=== PATIENT | male | born 1950 | race Caucasian/White ===

== ENCOUNTER 2018-07-27 14:21 | Emergency (ER) | payer OTHER ==
[2018-07-27 14:36] VITALS: PULSE 81; RESP 16; TEMP 98.4
[2018-07-27] MEDS ORDERED: cefTRIAXone 1,000 MG VIAL (IM USE) IM STA (14:52)
[2018-07-27] MEDS ORDERED: DIPH,PERTUS(ACELL)TETVAC-LF 0.5 ML VIAL IM ONE (14:54)
--- NOTE | 2018-07-27 14:56 | ED ---
General Adult HPI - General Chief complaint: Extremity Injury, Lower Stated complaint: toothpick stuck lt foot Time Seen by Provider: 07/27/18 14:38 Source: patient, RN notes reviewed, old records reviewed Mode of arrival: ambulatory Limitations: no limitations - History of Present Illness Initial comments: 68-year-old male patient past medical history of hyperlipidemia, hypertension presents to ED with puncture wound to left foot. This occurred on . Patient was reportedly walking on carpet when he walked into a toothpick which p unctured him between his first and second toe on his left foot in the webbing. Patient did remove the toothpick however the toothpick was not fully intact. It is unknown per patient if toothpick was initially broken. Patient now has an area of erythema between his first and second toe on his left foot is approximately 2 x 2 inches, this is blanchable. Patient is not diabetic. Patient denies fevers or chills, nausea vomiting or diarrhea. Systemic: Pt denies fatigue, myalgia, fever/chills, rash. Pt denies weakness, night sweats, weight loss. Neuro: Pt denies headache, visual disturbances, syncope or pre-syncope. HEENT: Pt denies ocular discharge or irritation, otalgia, rhinorrhea, pharyngitis or notable lymphadenopathy. Cardiopulmonary: Pt denies chest pain, SOB, heart palpitations, dyspnea on exertion. Abdominal/GI: Pt denies abdominal pain, n/v/d. : Pt denies dysuria, burning w/ urination, frequency/urgency. Denies new onset urinary or bowel incontinence. MSK: Pt denies myalgia, loss of strength or function in extremities. Neuro: Pt denies new onset weakness, paresthesias. - Related Data Home Medications Medication Instructions Recorded Confirmed Cyclobenzaprine [Flexeril] 10 mg PO HS 04/25/15 07/27/18 Gabapentin 600 mg PO HS 04/25/15 07/27/18 Losartan/Hydrochlorothiazide 1 each PO DAILY 04/25/15 07/27/18 [Losartan-Hctz 100-25 mg Tab] Meloxicam [Mobic] 7.5 mg PO BID 04/25/15 07/27/18 Metoprolol Succinate [Toprol XL] 100 mg PO DAILY 02/02/16 05/06/19 Simvastatin [Zocor] 20 mg PO HS 04/25/15 07/27/18 Tamsulosin HCl [Flomax] 0.8 mg PO DAILY 07/27/18 07/27/18 Previous Rx's Medication Instructions Recorded Cephalexin [Keflex] 500 mg PO Q6HR 10 Days #40 cap 07/27/18 Allergies Allergy/AdvReac Type Severity Reaction Status Date / Time No Known Allergies Allergy Verified 07/27/18 14:36 Review of Systems ROS Statement: Those systems with pertinent positive or pertinent negative responses have been documented in the HPI. ROS Other: All systems not noted in ROS Statement are negative. Past Medical History Past Medical History: Hyperlipidemia, Hypertension History of Any Multi-Drug Resistant Organisms: None Reported Past Surgical History: Joint Replacement, Orthopedic Surgery Additional Past Surgical History / Comment(s): left knee partial replacement, right ankle fusion Past Psychological History: No Psychological Hx Reported Smoking Status: Former smoker Past Alcohol Use History: Rare Past Drug Use History: None Reported General Exam - General Exam Comments Initial Comments: Constitutional: NAD, AOX3, Pt has pleasant affect. HEENT: NC/AT, trachea midline, neck supple, no lymphadenopathy. Posterior pharynx non erythematous, without exudates. External ears appear normal, without discharge. Mucous membranes moist. Eyes PERRLA, EOM intact. There is no scleral icterus. No pallor noted. Cardiopulmonary: RRR, no murmurs, rubs or gallops, no JVD noted. Lungs CTAB in anterior and posterior [place]. No peripheral edema. Abdominal exam: Abdomen soft and non-distended. Abdomen non-tender to palpation in all 4 quadrants. Bowel sounds active in LLQ. No hepatosplenomegaly. No ecchymosis Neuro: CN II-XII grossly intact. No nuchal rigidity. MSK: Approximately 2 x 2 inch area of erythema, blanching extending from the webbing between the first and second toe on left foot to mid foot region. No streaking. Capillary refill <2 seconds. No posterior calf tenderness bilaterally, homans sign negative bilaterally. Posterior tibialis and radial pulse +2 bilaterally. Sensation intact in upper and lower extremities. Full active ROM in upper and lower extremities, 5/5 stregnth. Limitations: no limitations Course Vital Signs 07/27/18 14:33 Temperature 98.4 F Pulse Rate 81 Respiratory 16 Rate Blood Pressure 187/85 O2 Sat by Pulse 96 Oximetry Medical Decision Making - Medical Decision Making 68-year-old male patient past medical history of hyperlipidemia, hypertension presents to ED with puncture wound to left foot. This occurred on . Patient was reportedly walking on carpet when he walked into a toothpick which punctured him between his first and second toe on his left foot in the webbing. Patient did remove the toothpick however the toothpick was not fully intact. It is unknown per patient if toothpick was initially broken. Patient now has an area of erythema between his first and second toe on his left foot is approximately 2 x 2 inches, this is blanchable. Patient is not diabetic. Patient denies fevers or chills, nausea vomiting or diarrhea. Patient vital signs stable afebrile. Physical exam displayed: Approximately 2 x 2 inch area of erythema, blanching extending from the webbing between the first and second toe on left foot to mid foot region. No streaking. Capillary refill <2 seconds. Radial pulse +2. Plain film of foot displayed mild spurring of the joint, mild to moderate diffuse subcutaneous edema. No foreign body detected. Patient understood 1 g Rocephin the ED. Patient will be treated for cellulitis. Patient discharged with Keflex. Patient will have close outpatient follow-up with primary care provider. Patient follow up with primary care provider tomorrow. Case discussed with Dr. Thomas. Disposition Clinical Impression: Cellulitis Disposition: HOME SELF-CARE Condition: Stable Instructions (If sedation given, give patient instructions): Cellulitis (ED) Additional Instructions: Patient to adhere to previously discussed treatment plan and will take medication(s) as directed. Patient to follow up with PCP in 1-2 days. Patient to return to ED if symptoms do not improve. Take antibiotics as prescribed. Follow up with primary care provider tomorrow. Return to ER immediately if symptoms worsen in any way. Prescriptions: Cephalexin [Keflex] 500 mg PO Q6HR 10 Days #40 cap Is patient prescribed a controlled substance at d/c from ED?: No Referrals: Nonstaff,Physician [Primary Care Provider] - 1-2 days [facility] [NON-STAFF] - 1-2 days
--- NOTE | 2018-07-27 15:13 | XR ---
EXAMINATION TYPE: XR foot complete LT DATE OF EXAM: 07/27/2018 CLINICAL HISTORY: Puncture injury 3 days ago with pain TECHNIQUE: Frontal, lateral, and oblique images of the left foot are obtained. COMPARISON: None FINDINGS: Osseous structures are demineralized. There is no acute fracture/dislocation evident in th e left foot. Moderate narrowing first metatarsophalangeal joint with mild spurring is present. There are small to moderate size superior and inferior calcaneal spurs. Mild/moderate diffuse subcutaneous edema is present most prominent along plantar surface. No distinct soft tissue radiodense foreign bod y identified. IMPRESSION: As above.
[2018-07-27 16:08] VITALS: BP 155/72
== END 2018-07-27 16:32 | disposition home or self-care (01) ==
LOC: EC 14:21
DX: L03.116 Cellulitis of left lower limb (principal); M77.9 Enthesopathy, unspecified; E78.5 Hyperlipidemia, unspecified; Z23 Encounter for immunization; Z96.652 Presence of left artificial knee joint; Z87.891 Personal history of nicotine dependence; Z79.1 Long term (current) use of non-steroidal anti-inflammatories (NSAID); Z79.899 Other long term (current) drug therapy; W45.8XXA Other foreign body or object entering through skin, initial encounter; Y93.01 Activity, walking, marching and hiking
CPT/HCPCS: 73630; 90715; 99284; 96372; 90471; J0696

== ENCOUNTER → 2019-04-09 | Outpatient (CLI) | payer OTHER ==
--- NOTE | 2019-04-09 12:05 | XR ---
EXAMINATION TYPE: XR knee complete RT DATE OF EXAM: 04/09/2019 COMPARISON: NONE HISTORY: Pain TECHNIQUE: Four views are submitted. FINDINGS: Vascular calcifications are noted there is a small amount of fluid in the suprapatellar bursa. Arthro leigh ann of the medial compartment knee joint and patellofemoral joint noted. Osseous structures are int act. No acute fracture seen. IMPRESSION: 1. Osteoarthritis with small suprapatellar bursal fluid collection. Correlate with MRI as clinically warranted.
== END | disposition home or self-care (01) ==
LOC: RADXRMAIN 09:33
PROVIDERS: ATTEND Physician Assistant
DX: M17.11 Unilateral primary osteoarthritis, right knee (principal)

== ENCOUNTER 2019-07-08 19:56 | Emergency (ER) | payer OTHER, MEDICARE ==
[2019-07-08 20:04] VITALS: RESP 18; TEMP 97.8
[2019-07-08 21:28] LABS: Basophils # (A) 0.1 k/uL (0-0.2); Basophils % (A) 1 %; Eosinophils # (A) 0.3 k/uL (0-0.7); Eosinophils % (A) 3 %; HCT 52.6 % (39.0-53.0); HGB 17.2 gm/dL (13.0-17.5); Lymphocytes # (A) 1.4 k/uL (1.0-4.8); Lymphocytes % (A) 13 %; MCH 30.1 pg (25.0-35.0); MCHC 32.7 g/dL (31.0-37.0); Mean Platelet Volume 9.4; Monocytes # (A) 0.8 k/uL (0-1.0); Monocytes % (A) 7 %; Neutrophils # (A) 7.9 k/uL (1.3-7.7); Neutrophils % (A) 73 %; Platelet Count 162 k/uL (150-450); RBC 5.71 m/uL (4.30-5.90); WBC 10.8 k/uL (3.8-10.6)
--- NOTE | 2019-07-08 21:28 | CT ---
EXAMINATION TYPE: CT brain wo con DATE OF EXAM: 07/08/2019 COMPARISON: None HISTORY: left side weakness CT DLP: 1099.4 mGycm Automated exposure control for dose reduction was used. There is mild cerebral cortical atrophy. There is no mass effect nor midline shift. There is no sign of intracranial hemorrhage. The calvarium is intact. There is no evidence of cerebral edema. Skull ba se is intact. IMPRESSION: Minimal cerebral atrophy. No acute intracranial abnormality.
--- NOTE | 2019-07-08 21:33 | XR ---
EXAMINATION TYPE: XR chest 2V DATE OF EXAM: 07/08/2019 COMPARISON: 01/21/2014 HISTORY: Short of breath for one year. Altered mental status. TECHNIQUE: 2 views FINDINGS: There is elevated right diaphragm. Thoracic aorta is atheromatous. There is no heart failur e. There is slight coarsening of the interstitial markings. There is spurring in the thoracic spine. IMPRESSION: Chronic elevated right diaphragm is worse than last exam and could relate to paralysis. M ild pulmonary fibrotic changes. No acute lung disease.
[2019-07-08 21:39] LABS: INR 0.9 (<1.2); Partial Thromboplastin Time 24.4 sec (22.0-30.0); Prothrombin Time 9.8 sec (9.0-12.0)
[2019-07-08 21:45] LABS: Potassium 4.6 mmol/L (3.5-5.1)
[2019-07-08 21:46] LABS: ALT 49 U/L (4-49); AST 49 U/L (17-59); African American GFR (CKD) >90 (>60 ml/min/1.73 sqM); Albumin 4.5 g/dL (3.5-5.0); Alkaline Phosphatase 140 U/L (38-126); Anion Gap 8 mmol/L; Blood Urea Nitrogen 29 mg/dL (9-20); Calcium 9.5 mg/dL (8.4-10.2); Carbon Dioxide 24 mmol/L (22-30); Chloride 104 mmol/L (98-107); Glucose 99 mg/dL (74-99); Non-African American GFR(CKD) >90 (>60 ml/min/1.73 sqM); Sodium 136 mmol/L (137-145); Total Bilirubin 0.5 mg/dL (0.2-1.3); Total Protein 7.7 g/dL (6.3-8.2)
--- NOTE | 2019-07-08 22:40 | ED ---
General Adult HPI - General Chief complaint: Neuro Symptoms/Deficit Stated complaint: L Side numbness Source: patient Mode of arrival: ambulatory Limitations: no limitations - History of Present Illness Initial comments: The patient is a 69-year-old male with past history of hypertension presents emergency Department with reported issues with his blood pressure and tingling to left side of his face. The patient reports he was recently placed on new medication for his elevated blood pressure. States he's been taking for the past several days however has felt presyncopal. He has been taking his blood pressures and noted that they have been lower. Last blood pressure was reported to be 100/60. He also has been having paresthesias to the left side of his face. Denies any headaches or visual changes. No facial droop. No weakness, numbness or tingling in his extremities. No history of stroke. Denies fevers or chills. He denies chest pain. No ripping or tearing sensation to his back. Denies any shortness of breath. There are no alleviating, precipitating or modifying factors - Related Data Home Medications Medication Instructions Recorded Confirmed Gabapentin 600 mg PO BID 04/25/15 07/08/19 Simvastatin [Zocor] 20 mg PO HS 04/25/15 07/08/19 Tamsulosin HCl [Flomax] 0.4 mg PO DAILY 07/27/18 07/08/19 Cholecalciferol [Vitamin D3 (25 1,000 unit PO DAILY 07/08/19 07/08/19 Mcg = 1000 Iu)] Hydrochlorothiazide 12.5 mg PO DAILY 07/08/19 07/08/19 Losartan Potassium 100 mg PO DAILY 07/08/19 07/08/19 Meloxicam 15 mg PO DAILY 07/08/19 07/08/19 Sertraline [Zoloft] 50 mg PO DAILY 07/08/19 07/08/19 Allergies Allergy/AdvReac Type Severity Reaction Status Date / Time No Known Allergies Allergy Verified 07/08/19 21:09 Review of Systems ROS Statement: Those systems with pertinent positive or pertinent negative responses have been documented in the HPI. ROS Other: All systems not noted in ROS Statement are negative. Past Medical History Past Medical History: Hyperlipidemia, Hypertension History of Any Multi-Drug Resistant Organisms: None Reported Past Surgical History: Joint Replacement, Orthopedic Surgery Additional Past Surgical History / Comment(s): left knee partial replacement, right ankle fusion Past Psychological History: No Psychological Hx Reported Smoking Status: Former smoker Past Alcohol Use History: Rare Past Drug Use History: None Reported General Exam Limitations: no limitations Course Vital Signs 07/08/19 07/08/19 07/08/19 19:58 21:52 21:53 Temperature 97.8 F Pulse Rate 73 Pulse Rate [ 66 72 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 Rate of 70. MI interval 236. QRS 106. QTC of 440. Baseline artifact and V6. No acute ST segment elevations Medical Decision Making - Medical Decision Making Upon arrival the patient was placed into room 7. A thorough history and physical exam is performed. Laboratory studies were conducted. 12-lead EKG was performed. The patient does have orthostatic vital signs obtained and it does demonstrate that he is orthostatic positive. Blood pressure drops from 180/98- 158/93 upon standing. Laboratory studies are unremarkable. Chest x-ray demonstrates chronic elevation of the right diaphragm. CT of the brain demonstrates minimal cerebral atrophy. I discussed diagnosis, differential and treatment options. The patient does prefer discharged home at this time for his orthostatic hypotension because of the Covid pandemic. Inform him that it is very important that he call his primary care physician in regards to his orthostatic hypotension. I also gave him felt information for the [facility]. I do think he needs further testing to include an echo and possible tilt test. He should stop taking his hydrochlorothiazide until this is further evaluated. Return to the emergency room for any new or worsening symptoms. The patient did agree to this. He was discharged home stable condition - Lab Data Result diagrams: 07/08/19 21:20 07/08/19 21:20 Lab Results 07/08/19 07/08/19 07/08/19 Range/Units 21:20 21:20 21:20 WBC 10.8 H (3.8-10.6) k/uL RBC 5.71 (4.30-5.90) m/uL Hgb 17.2 (13.0-17.5) gm/dL Hct 52.6 (39.0-53.0) % MCV 92.0 (80.0-100.0) fL MCH 30.1 (25.0-35.0) pg MCHC 32.7 (31.0-37.0) g/dL RDW 14.0 (11.5-15.5) % Plt Count 162 (150-450) k/uL Neutrophils % 73 % Lymphocytes % 13 % Monocytes % 7 % Eosinophils % 3 % Basophils % 1 % Neutrophils # 7.9 H (1.3-7.7) k/uL Lymphocytes # 1.4 (1.0-4.8) k/uL Monocytes # 0.8 (0-1.0) k/uL Eosinophils # 0.3 (0-0.7) k/uL Basophils # 0.1 (0-0.2) k/uL PT 9.8 (9.0-12.0) sec INR 0.9 (<1.2) APTT 24.4 (22.0-30.0) sec Sodium 136 L (137-145) mmol/L Potassium 4.6 (3.5-5.1) mmol/L Chloride 104 (98-107) mmol/L Carbon Dioxide 24 (22-30) mmol/L Anion Gap 8 mmol/L BUN 29 H (9-20) mg/dL Creatinine 0.74 (0.66-1.25) mg/dL Est GFR (CKD-EPI)AfAm >90 (>60 ml/min/1.73 sqM) Est GFR (CKD-EPI)NonAf >90 (>60 ml/min/1.73 sqM) Glucose 99 (74-99) mg/dL Calcium 9.5 (8.4-10.2) mg/dL Total Bilirubin 0.5 (0.2-1.3) mg/dL AST 49 (17-59) U/L ALT 49 (4-49) U/L Alkaline Phosphatase 140 H (38-126) U/L Troponin I (0.000-0.034) ng/mL Total Protein 7.7 (6.3-8.2) g/dL Albumin 4.5 (3.5-5.0) g/dL 07/08/19 Range/Units 21:20 WBC (3.8-10.6) k/uL RBC (4.30-5.90) m/uL Hgb (13.0-17.5) gm/dL Hct (39.0-53.0) % MCV (80.0-100.0) fL MCH (25.0-35.0) pg MCHC (31.0-37.0) g/dL RDW (11.5-15.5) % Plt Count (150-450) k/uL Neutrophils % % Lymphocytes % % Monocytes % % Eosinophils % % Basophils % % Neutrophils # (1.3-7.7) k/uL Lymphocytes # (1.0-4.8) k/uL Monocytes # (0-1.0) k/uL Eosinophils # (0-0.7) k/uL Basophils # (0-0.2) k/uL PT (9.0-12.0) sec INR (<1.2) APTT (22.0-30.0) sec Sodium (137-145) mmol/L Potassium (3.5-5.1) mmol/L Chloride (98-107) mmol/L Carbon Dioxide (22-30) mmol/L Anion Gap mmol/L BUN (9-20) mg/dL Creatinine (0.66-1.25) mg/dL Est GFR (CKD-EPI)AfAm (>60 ml/min/1.73 sqM) Est GFR (CKD-EPI)NonAf (>60 ml/min/1.73 sqM) Glucose (74-99) mg/dL Calcium (8.4-10.2) mg/dL Total Bilirubin (0.2-1.3) mg/dL AST (17-59) U/L ALT (4-49) U/L Alkaline Phosphatase (38-126) U/L Troponin I <0.012 (0.000-0.034) ng/mL Total Protein (6.3-8.2) g/dL Albumin (3.5-5.0) g/dL Disposition Clinical Impression: Paresthesias, Orthostatic hypotension, Essential hypertension Disposition: HOME SELF-CARE Condition: Stable Instructions (If sedation given, give patient instructions): Hypertension (ED) Additional Instructions: Please follow-up with your primary care physician in regards to your orthostatic hypotension (low blood pressure when standing). I do recommend that you see a export traffic department manager. Hold off on your hydrochlorothiazide at this time. You need further testing in regards to your blood pressure to include an echo. Return to the emergency department for any new or worsening symptoms Is patient prescribed a controlled substance at d/c from ED?: No Referrals: Nonstaff,Physician [Primary Care Provider] - 1-2 days [facility] [Provider Group] - 1-2 days Time of Disposition: 22:38
[2019-07-08 23:26] VITALS: BP 149/89; PULSE 67
== END 2019-07-08 22:55 | disposition home or self-care (01) ==
LOC: EC 19:56
DX: I10 Essential (primary) hypertension (principal); I95.1 Orthostatic hypotension; E78.5 Hyperlipidemia, unspecified; Z79.1 Long term (current) use of non-steroidal anti-inflammatories (NSAID); Z79.899 Other long term (current) drug therapy; Z87.891 Personal history of nicotine dependence; Z96.652 Presence of left artificial knee joint
CPT/HCPCS: 36415; 70450; 71046; 80053; 84484; 85025; 85610; 85730; 93005; 99284

== ENCOUNTER 2020-01-19 06:40 | Inpatient (IN) | payer OTHER, MEDICARE ==
--- NOTE | 2020-01-19 07:12 | ED ---
Back Pain HPI - General Chief Complaint: Back Pain/Injury Stated Complaint: urination/bowel issues Time Seen by Provider: 01/19/20 07:01 Source: patient Limitations: no limitations - History of Present Illness Initial Comments: 69 yo male presenting for cc low back pain bowel changes. Patient states that 2 weeks ago she was out walking when he lost bowel control and had a formed stool. He states this is very unusual. He states he does struggle with chronic back pain denies any recent falls or trauma. Patient states that he had control of his bowels in between then and when he was hunting last week when he had a second episode of loss of bowel control again a formed stool. Patient states that he has had change in urination where he feels like he has to brush to the b athroom and he cannot stop urinating. He denies urinary incontinence or inability to urinate. Patient denies weakness of the legs or inability to ambulate he denies known fevers however is febrile on arrival. Patient states he has has a slight cough and congestion for the past few days. Patient denies additional complaints, he is very pleasant. Walked back to exam room. - Related Data Home Medications Medication Instructions Recorded Confirmed Gabapentin 600 mg PO BID 04/25/15 01/19/20 Simvastatin [Zocor] 20 mg PO HS 04/25/15 01/19/20 Tamsulosin HCl [Flomax] 0.4 mg PO HS 07/27/18 01/19/20 Cholecalciferol [Vitamin D3 (25 1,000 unit PO DAILY 07/08/19 01/19/20 Mcg = 1000 Iu)] Losartan Potassium 100 mg PO DAILY 07/08/19 01/19/20 Meloxicam 15 mg PO DAILY 07/08/19 01/19/20 Sertraline [Zoloft] 50 mg PO DAILY 07/08/19 01/19/20 Allergies Allergy/AdvReac Type Severity Reaction Status Date / Time No Known Allergies Allergy Verified 01/19/20 08:57 Review of Systems ROS Statement: Those systems with pertinent positive or pertinent negative responses have been documented in the HPI. ROS Other: All systems not noted in ROS Statement are negative. Past Medical History Past Medical History: Hyperlipidemia, Hypertension History of Any Multi-Drug Resistant Organisms: None Reported Past Surgical History: Joint Replacement, Orthopedic Surgery Additional Past Surgical History / Comment(s): left knee partial replacement, right ankle fusion Past Psychological History: No Psychological Hx Reported Smoking Status: Never smoker Past Alcohol Use History: Rare Past Drug Use History: None Reported General Exam - General Exam Comments Initial Comments: General: The patient is awake and alert, in no distress Eye: Pupils are equal, round and reactive to light, extra-ocular movements are intact. No nystagmus. There is normal conjunctiva bilaterally. No signs of icterus. Ears, nose, mouth and throat: There are moist mucous membranes and no oral lesions. Neck: The neck is supple, there is no tenderness or JVD. Cardiovascular: There is a regular rate and rhythm. No murmur, rub or gallop is appreciated. Respiratory: Lungs are clear to auscultation, respirations are non-labored, breath sounds are equal. No wheezes, stridor, rales, or rhonchi. Gastrointestinal: Soft, non-distended, non-tender abdomen without masses or organomegaly noted. There is no rebound or guarding present. : normal rectal tone Musculoskeletal: Normal ROM, no tenderness. Strength 5/5 of the LE b/l. Sensation intact equal comparison bilaterally of the lower extremities including the saddle region. There is no myoclonus or fasciculations +2 out of 5 due to reflux of the patellar as well as Achilles. Radial pulses equal bilaterally 2+. Neurological: A&O x 3. CN II-XII intact, There are no obvious motor or sensory deficits. Coordination appears grossly intact. Speech is normal. Skin: Skin is warm and dry and no rashes or lesions are noted. Psychiatric: Cooperative, appropriate mood & affect, normal judgment. Limitations: no limitations Course Vital Signs 01/19/20 01/19/20 01/19/20 06:49 08:45 09:00 Temperature 100.9 F H 98.9 F Pulse Rate 97 81 Respiratory 18 18 Rate Blood Pressure 131/76 142/86 O2 Sat by Pulse 95 99 Oximetry Medical Decision Making - Medical Decision Making Labs stable CXR clear. URI symptoms, low grade fever. CC incontinence of bowel. Hx back pain. Normal rectal tone on exam. Patient CT degenerative/chronic chane s. MRI scheduled at 915 to r/o cauda equina. Patient evaluated by attending. He spoke with orthopedic spine who is agreeable to admission to medicine with orthopedic spine consultation. patient agreeable to admission. - Lab Data Result diagrams: 01/19/20 07:07 01/19/20 07:07 Lab Results 01/19/20 01/19/20 01/19/20 Range/Units 07:07 07:07 07:07 WBC 9.2 (3.8-10.6) k/uL RBC 5.79 (4.30-5.90) m/uL Hgb 17.7 H (13.0-17.5) gm/dL Hct 54.2 H (39.0-53.0) % MCV 93.7 (80.0-100.0) fL MCH 30.5 (25.0-35.0) pg MCHC 32.6 (31.0-37.0) g/dL RDW 13.7 (11.5-15.5) % Plt Count 161 (150-450) k/uL Neutrophils % 80 % Lymphocytes % 9 % Monocytes % 7 % Eosinophils % 1 % Basophils % 1 % Neutrophils # 7.4 (1.3-7.7) k/uL Lymphocytes # 0.9 L (1.0-4.8) k/uL Monocytes # 0.6 (0-1.0) k/uL Eosinophils # 0.1 (0-0.7) k/uL Basophils # 0.1 (0-0.2) k/uL Sodium 135 L (137-145) mmol/L Potassium 4.6 (3.5-5.1) mmol/L Chloride 104 (98-107) mmol/L Carbon Dioxide 24 (22-30) mmol/L Anion Gap 7 mmol/L BUN 17 (9-20) mg/dL Creatinine 0.69 (0.66-1.25) mg/dL Est GFR (CKD-EPI)AfAm >90 (>60 ml/min/1.73 sqM) Est GFR (CKD-EPI)NonAf >90 (>60 ml/min/1.73 sqM) Glucose 99 (74-99) mg/dL Plasma Lactic Acid Bart 1.1 (0.7-2.0) mmol/L Calcium 8.9 (8.4-10.2) mg/dL Total Bilirubin 1.2 (0.2-1.3) mg/dL AST 44 (17-59) U/L ALT 44 (4-49) U/L Alkaline Phosphatase 93 (38-126) U/L Total Protein 7.0 (6.3-8.2) g/dL Albumin 4.0 (3.5-5.0) g/dL Urine Color Urine Appearance (Clear) Urine pH (5.0-8.0) Ur Specific [place] (1.001-1.035) Urine Protein (Negative) Urine Glucose (UA) (Negative) Urine Ketones (Negative) Urine Blood (Negative) Urine Nitrite (Negative) Urine Bilirubin (Negative) Urine Urobilinogen (<2.0) mg/dL Ur Leukocyte Esterase (Negative) 01/19/20 Range/Units 07:20 WBC (3.8-10.6) k/uL RBC (4.30-5.90) m/uL Hgb (13.0-17.5) gm/dL Hct (39.0-53.0) % MCV (80.0-100.0) fL MCH (25.0-35.0) pg MCHC (31.0-37.0) g/dL RDW (11.5-15.5) % Plt Count (150-450) k/uL Neutrophils % % Lymphocytes % % Monocytes % % Eosinophils % % Basophils % % Neutrophils # (1.3-7.7) k/uL Lymphocytes # (1.0-4.8) k/uL Monocytes # (0-1.0) k/uL Eosinophils # (0-0.7) k/uL Basophils # (0-0.2) k/uL Sodium (137-145) mmol/L Potassium (3.5-5.1) mmol/L Chloride (98-107) mmol/L Carbon Dioxide (22-30) mmol/L Anion Gap mmol/L BUN (9-20) mg/dL Creatinine (0.66-1.25) mg/dL Est GFR (CKD-EPI)AfAm (>60 ml/min/1.73 sqM) Est GFR (CKD-EPI)NonAf (>60 ml/min/1.73 sqM) Glucose (74-99) mg/dL Plasma Lactic Acid Bart (0.7-2.0) mmol/L Calcium (8.4-10.2) mg/dL Total Bilirubin (0.2-1.3) mg/dL AST (17-59) U/L ALT (4-49) U/L Alkaline Phosphatase (38-126) U/L Total Protein (6.3-8.2) g/dL Albumin (3.5-5.0) g/dL Urine Color Yellow Urine Appearance Clear (Clear) Urine pH 6.5 (5.0-8.0) Ur Specific [place] 1.024 (1.001-1.035) Urine Protein Trace H (Negative) Urine Glucose (UA) Negative (Negative) Urine Ketones Negative (Negative) Urine Blood Negative (Negative) Urine Nitrite Negative (Negative) Urine Bilirubin Negative (Negative) Urine Urobilinogen <2.0 (<2.0) mg/dL Ur Leukocyte Esterase Negative (Negative) Disposition Clinical Impression: Bowel incontinence, Urinary urgency, Low back pain, Spondylisthesis Disposition: ADMITTED IP TO THIS [facility] Condition: Stable Is patient prescribed a controlled substance at d/c from ED?: No Referrals: Jeffy Paulson MD [Primary Care Provider] - 1-2 days Time of Disposition: 09:18 Decision to Admit Reason: Admit from EC Decision Date: 01/19/20 Decision Time: 09:18
[2020-01-19 07:29] LABS: Basophils # (A) 0.1 k/uL (0-0.2); Basophils % (A) 1 %; Eosinophils # (A) 0.1 k/uL (0-0.7); Eosinophils % (A) 1 %; HCT 54.2 % (39.0-53.0); HGB 17.7 gm/dL (13.0-17.5); Lymphocytes # (A) 0.9 k/uL (1.0-4.8); Lymphocytes % (A) 9 %; MCH 30.5 pg (25.0-35.0); MCHC 32.6 g/dL (31.0-37.0); MCV 93.7 fL (80.0-100.0); Mean Platelet Volume 9.7; Monocytes # (A) 0.6 k/uL (0-1.0); Monocytes % (A) 7 %; Neutrophils # (A) 7.4 k/uL (1.3-7.7); Neutrophils % (A) 80 %; Platelet Count 161 k/uL (150-450); RBC 5.79 m/uL (4.30-5.90); RDW 13.7 % (11.5-15.5); WBC 9.2 k/uL (3.8-10.6)
[2020-01-19 07:33] LABS: Appearance,Urine Clear (Clear); Bilirubin,Urine Negative (Negative); Blood,Urine Negative (Negative); Color,Urine Yellow; Glucose,Urine (UA) Negative (Negative); Ketones,Urine Negative (Negative); Leukocyte Esterase,Urine Negative (Negative); Nitrite,Urine Negative (Negative); PH, Urine 6.5 (5.0-8.0); Protein,Urine Trace (Negative); Specific Gravity,Urine 1.024 (1.001-1.035); Urobilinogen,Urine <2.0 mg/dL (<2.0)
[2020-01-19 07:41] LABS: ALT 44 U/L (4-49); AST 44 U/L (17-59); African American GFR (CKD) >90 (>60 ml/min/1.73 sqM); Alkaline Phosphatase 93 U/L (38-126); Anion Gap 7 mmol/L; Blood Urea Nitrogen 17 mg/dL (9-20); Calcium 8.9 mg/dL (8.4-10.2); Carbon Dioxide 24 mmol/L (22-30); Chloride 104 mmol/L (98-107); Glucose 99 mg/dL (74-99); Non-African American GFR(CKD) >90 (>60 ml/min/1.73 sqM); Potassium 4.6 mmol/L (3.5-5.1); Sodium 135 mmol/L (137-145); Total Bilirubin 1.2 mg/dL (0.2-1.3)
--- NOTE | 2020-01-19 08:15 | XR ---
EXAMINATION TYPE: XR chest 2V DATE OF EXAM: 01/19/2020 COMPARISON: Chest x-ray July 08, 2019 HISTORY: Congestion and fever. TECHNIQUE: Frontal and lateral views of the chest are obtained. FINDINGS: Elevated right hemidiaphragm redemonstrated. Horizontal right basilar opacity consistent w ith scarring and/or atelectasis. Background chronic parenchymal change. Left lung is clear. No pleura l effusion or pneumothorax seen bilaterally.. The cardiac silhouette size is stable and within isaiah l limits with atherosclerotic and ectatic thoracic aorta. The osseous structures remain intact. IMPRESSION: Chronic changes with right basilar linear scarring and/or atelectasis. No new suspicious focal infiltrate.
--- NOTE | 2020-01-19 08:22 | CT ---
EXAMINATION TYPE: CT lumbar spine w con DATE OF EXAM: 01/19/2020 COMPARISON: Non-. HISTORY: back pain with fever CT DLP: 1924.6 mGycm Automated exposure control for dose reduction was used. CONTRAST: CT scan of the lumbar is performed with IV Contrast, patient injected with 100 ml mL of Isovue 300. Enhanced CT of the lumbar spine was performed. Bone and soft tissue window settings are submitted as well as coronal and sagittal reconstructions. There are 5 lumbar-type vertebra assuming hypoplastic bilateral T12 ribs. There is age-indeterminate suspected old old nonhealed fracture through the left L1 transverse process coronal image 47. There i s grade 1 retrolisthesis L2 on L3 and to a greater degree L3 on L4. Vertebral body heights are mainta ined. Moderate to advanced disc space narrowing with vacuum disc phenomenon and endplate sclerosis gr eatest left anterior L2-L3 level. Advanced disc space narrowing with vacuum disc phenomenon at L3-L4 and L4-L5 levels with moderate lateral spurring. Calcified disc at T12-L1 level. Axial images at T12-L1 level show tiny central disc protrusion mildly effacing the anterior thecal sa c. Axial images at L1-L2 level show mild broad disc bulge mildly effacing the anterior thecal sac with m ild facet arthropathy bilaterally. Patent bilateral neural foramina. Axial images at L2-L3 level shows spondylolisthesis with mild/moderate broad disc bulge effacing the anterior thecal sac and moderate bilateral anterior inferior neural foraminal narrowing due to margin al spurring. Axial images at L3-L4 level show [id number] facet degenerative changes and ligament hypertrophy effacing posterolateral thecal sac. There is moderate broad-based disc bulge effacing the anterior t hecal sac. There is moderate bilateral neural foraminal narrowing noted. Axial images at the L4-L5 level show moderate to advanced facet degenerative changes bilaterally. The re is posterior spur disc complex effacing the anterior thecal sac. There is moderate left and severe right-sided neural foraminal narrowing, encroachment on right L4 nerve present sagittal image 25. Axial images at the L5-S1 level show moderate facet arthropathy. Spinal canal preserved. There is mil d to moderate left-sided inferior neural foraminal narrowing. There is moderate calcified plaque and visualized abdominal aorta extending into iliac branch vessels . Central calcifications in both kidneys suspicious for nonobstructing calculi. No concerning focal f luid collection or abscess identified. Paraspinal muscle bulk preserved. IMPRESSION: Multilevel spondylolisthesis and moderate to advanced degenerative changes as detailed ab ove. No acute findings clearly evident.
[2020-01-19] MEDS ORDERED: DEXAMETHASONE SOD PHOSPHATE 10 MG/ML 1 ML VIAL IV STA (08:25)
[2020-01-19] MEDS ORDERED: ACETAMINOPHEN TAB 325 MG TAB PO STA (08:25)
[2020-01-19] MEDS ORDERED: NALOXONE 0.4 MG/ML 1 ML VIAL IV PRN (09:16)
--- NOTE | 2020-01-19 10:24 | MR ---
EXAMINATION TYPE: MR lumbar spine wo con DATE OF EXAM: 01/19/2020 COMPARISON: None HISTORY: Bowel changes, back pain CONTRAST: 0 mL intravenous Gadavist. TECHNIQUE: Multiplanar, multisequence images of the lumbar spine were acquired. FINDINGS: Cord terminates at the T12 level L5-S1: Minimal disc bulge may have entered thecal sac contact. No AP spinal canal stenosis or neural foraminal stenosis is present. Mild facet hypertrophy is present. L4-L5: There is loss of disc height to this level. Modic type II degenerative changes are present at the endplates. Mild residual disc bulge centrally is present has mild anterior thecal sac compression . No AP spinal canal stenosis present. Facet hypertrophy with ligamentum flavum laxity is posterior l ateral thecal sac compression. Severe right foraminal stenosis with some impingement of the exiting n erve root is evident. More moderate narrowing is present at the left foramen. Correlate with right L5 radicular symptoms. L3-L4: There is a grade 1 retrolisthesis of L3 posterior L4. There is loss of disc height through thi s level. No focal disc herniation or disc uncovering is evident. Modic type II degenerative endplate changes are present. Facet hypertrophy and ligamentum flavum laxity is present. Severe bilateral fora jacinto stenosis is present. Correlate with L4 radicular symptoms. L2-L3: There is loss of disc height through this level. There is mild anterior thecal sac flattening. Facet hypertrophy and ligamentum flavum laxity is posterior lateral thecal sac compression. Mild madhavi ateral foraminal narrowing is present. Modic type I degenerative changes are present. L1-L2: No significant disc bulge or disc herniation. No spinal canal stenosis. No foraminal stenosi s. T12-L1: Small left paracentral disc bulge has mild anterior thecal sac compression. No AP spinal tammy l stenosis is present. Neural foramen are patent No spinal canal stenosis. No foraminal stenosis. IMPRESSION: 1. Grade 1 retrolisthesis of L3 posterior L4. 2. Advanced degenerative disc changes L2-3 through L4-5. 3. Severe right L4-5 foraminal stenosis. Correlate with right L5 radicular symptoms. 4. Severe bilateral foraminal stenosis L3-4, correlate with L4 radicular symptoms.
--- NOTE | 2020-01-19 13:27 | P.CNOR ---
History of Present Illness - HPI Consult date: 01/19/20 Consult reason: other (Bowel/Bladder incontinence) History of present illness: 69-year-old male presents from the [facility] [place] up and the thumb with complaints of urinary and bowel incontinence. Patient states about 2-1/2 weeks ago he noticed that this was happening. The patient notes in the morning he has a lot of back pain and then when he goes to stand he is unable to make to the bathroom in time and he urinates himself. He states that he is unable to feel this happening and it just kind of happens. 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 The patient states that previously he would go out to his pole barn which is only about 100 feet from his house and he could make it back to defecate however when he is on the field there is no oral stability go any states that it just kind of happens. He denies any lower extremity pain no radicular pain he does state back pain that he has had for a long time. He denies any perineal numbness or tingling he denies any genital numbness or tingling states that he can still feel his penis scrotum and rectum. He denies any current neck pain or issues with his neck. He denies any numbness or tingling in his upper extremities he denies any weakness. He denies fevers chills shortness of breath or chest pain. Review of Systems 14 points review of systems completed and as stated in HPI or otherwise negative. Past Medical History Past Medical History: Hyperlipidemia, Hypertension, Osteoarthritis (OA), Prostate Disorder, Sleep Apnea/CPAP/BIPAP Additional Past Medical History / Comment(s): Chronic low back and cervical pain, paralyzed R diaphram, LUNA with Cpap, benign colon polyp/diverticular disease, arthritis in multiple joints, BPH. History of Any Multi-Drug Resistant Organisms: None Reported Past Surgical History: Joint Replacement, Orthopedic Surgery, Tonsillectomy Additional Past Surgical History / Comment(s): left knee partial replacement, right ankle fusion, uvulectomy, colonoscoy/benign polypectomy Past Anesthesia/Blood Transfusion Reactions: No Reported Reaction Smoking Status: Former smoker - Past Family History Father Family Medical History: Cancer Additional Family Medical History / Comment(s): Lung cancer Mother Family Medical History: Cancer Additional Family Medical History / Comment(s): Breast cancer. Medications and Allergies Home Medications Medication Instructions Recorded Confirmed Type Gabapentin 600 mg PO BID 04/25/15 01/19/20 History Simvastatin [Zocor] 20 mg PO HS 04/25/15 01/19/20 History Tamsulosin HCl [Flomax] 0.4 mg PO HS 07/27/18 01/19/20 History Cholecalciferol [Vitamin D3 (25 1,000 unit PO DAILY 07/08/19 01/19/20 History Mcg = 1000 Iu)] Losartan Potassium 100 mg PO DAILY 07/08/19 01/19/20 History Meloxicam 15 mg PO DAILY 07/08/19 01/19/20 History Sertraline [Zoloft] 50 mg PO DAILY 07/08/19 01/19/20 History Allergies Allergy/AdvReac Type Severity Reaction Status Date / Time No Known Allergies Allergy Verified 01/19/20 08:57 Physical Examination Osteopathic Statement: *. No significant issues noted on an osteopathic structural exam other than those noted in the History and Physical/Consult. GEN: AOX3, NAD VSS Inspection: Patient has no previous wounds or scars of his lumbar spine. Skin is intact no erythema caf au lait no hair patches. Palpation: Patient has mild to no tenderness to palpation of the cervical lumbar or thoracic spine. He has no tennis to palpation over the buttock region. He has no tennis palpation of the greater trochanteric region. He is able to feel all palpation within the buttock region and has no numbness in this region. Motor: 5/5 shoulder abd/EF/EE/WF/intrinsics bilaterally 5/5 DF/PF/EHL/FHL/HF/KE/KF bilaterally Negative straight leg raise bilaterally No tensioning signs Reflexes: 2/4 DTR all upper and LE Sensation intact to light touch in C5-T1 as well as L2-S1 distribution Ta's: Negative bilaterally Clonus: None Babinski: Negative bilaterally A chaperoned rectal exam was performed. The patient has poor rectal tone however is still present. He has very poor volitional control of his rectum. Perirectal sensation janine-scrotal sensation perineal sensation is all intact to light touch. 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 Results CT x-ray and MRI of the lumbar spine and reviewed. MRI demonstrates moderate to severe stenosis of L2-3 and L3 4 with retrolisthesis at these areas. There is moderate to severe right foraminal stenosis of L4 5. There is disc desiccation from L2 to L5. L5-S1 disc is maintained. Conus is not visualized within this study. However there is no stenosis above these levels which is noted. Computed tomography scan shows spondylosis throughout the lumbar spine as well as bony stenosis at these level s. There are no fractures or dislocations noted there are no masses or lesions noted. Flexion-extension radiographs failed to demonstrate any listhesis or motion within the segments. - Labs Labs: Abnormal Lab Results - Last 24 Hours (Table) 01/19/20 01/19/20 01/19/20 Range/Units 07:07 07:07 07:20 Hgb 17.7 H (13.0-17.5) gm/dL Hct 54.2 H (39.0-53.0) % Lymphocytes # 0.9 L (1.0-4.8) k/uL Sodium 135 L (137-145) mmol/L Urine Protein Trace H (Negative) H & H 01/19/20 Range/Units 07:07 Hgb 17.7 H (13.0-17.5) gm/dL Hct 54.2 H (39.0-53.0) % Result Diagrams: 01/19/20 07:07 01/19/20 07:07 Assessment and Plan Assessment: 1. L2 3 L3 4 moderate to severe central and foraminal stenosis 2. Bowel and bladder incontinence events 3. Incomplete cauda equina syndrome suspected 4. Rule out Conus syndrome 5. Rule out urodynamic problems. Plan: 1. MRI of thoracic spine without contrast to evaluate conus area 2. Nothing by mouth at midnight 3. Urology consult for an urodynamic evaluation. 4. Risk discussion with patient for surgical intervention. 5. Plan will be a L2-3 and L3 4 decompression, possible fusion on 01/20/2020 pending thoracic spine MRI. 6. Medical optimization for surgery. Time with Patient: Greater than 30
--- NOTE | 2020-01-19 14:39 | XR ---
EXAMINATION TYPE: XR lumbar spine with bend/flex DATE OF EXAM: 01/19/2020 CLINICAL HISTORY: Spondylolisthesis TECHNIQUE: Frontal, lateral neutral/flexion/extension, and oblique images of the lumbar spine are obt ained. COMPARISON: CT lumbar spine 01/19/2020. MRI lumbar spine 01/11/2020. FINDINGS: Multilevel severe bridging osteophytosis, degenerative disc disease with disc space narrowi ng, vacuum disc phenomenon, and facet arthropathy. Vertebral body heights are normal. There is grade 1 retrolisthesis of L2 on L3 and grade 1 retrolisthesis of L3 on L4 which is unchanged with flexion a nd extension. Calcified atherosclerotic disease of the abdominal aorta. IMPRESSION: Grade 1 retrolisthesis of L2 on L3, and grade 1 retrolisthesis of L3 on L4, which is unchanged with f lexion and extension.
--- NOTE | 2020-01-19 16:56 | MR ---
EXAMINATION TYPE: MR thoracic spine wo con DATE OF EXAM: 01/19/2020 COMPARISON: None HISTORY: Weakness Multiplanar multiecho imaging of the thoracic spine was performed without contrast. FINDINGS: Thoracic vertebra have normal alignment. Disc spaces are fairly normal. There is no compression fract ure. Thoracic spinal cord shows no evidence of a mass. There is no thoracic spinal stenosis. There is no evidence of any significant thoracic disc herniation. Thoracic spinal cord appears relatively small. The posterior elements are intact. There is no evidence of paraspinal mass. There is mild anterior sp urring in the mid thoracic spine. I see no bony destructive process. IMPRESSION: Minor degenerative spurring in the thoracic spine anteriorly. No fracture. No evidence of thoracic di sc herniation. No spinal stenosis. There is evidence for some mild thoracic spinal cord atrophy.
[2020-01-19] MEDS: SODIUM CHLORIDE 0.9% 1,000 ML IV SCH ×2 (17:27→20:31)
[2020-01-19] MEDS ORDERED: MORPHINE SULFATE 2 MG/ML SYRINGE IV PRN (17:56)
--- NOTE | 2020-01-19 17:56 | P.HPIM ---
History of Present Illness H&P Date: 01/19/20 Chief Complaint: Chronic lower back pain, bladder and bowel incontinence 69-year-old male with PMH of chronic lower back pain, hypertension, dyslipidemia, depression and LUNA presents to the ED for bowel and bladder incontinence. Over the last 2 weeks patient has noticed that he is unable to hold his urine in prior to getting to the washroom. He does notice the urge to urinate. Patient also reports inability to control his bowel function as well during this time. He denies any saddle anesthesia or any numbness/weakness/tingling into the lower extremities. He reports his lower back pain is a 10 out of 10 in severity pain described as sharp and stabbing in nature. Pain is nonradiating. Patient otherwise has no complaints. He denies any headache, lower extremity edema, nausea or vomiting, fever or chills, cough, chest pain, shortness of breath, palpitations, changes in appetite or weight. He denies any dizziness. In the ED his vital signs are stable except for slightly elevated BP with SBP in the 140s. CBC showed hemoglobin of 17.7. CMP showed sodium 135. Urinalysis showed trace protein. Chest x-ray showed chronic changes with right basilar linear scarring and/or atelectasis. Lumbar spine CT shows multilevel spondylolisthesis and moderate to advanced DJD. MRI of the lower spine showed severe right L4 5 foraminal stenosis, bilateral foraminal stenosis at the L3 4. Patient is admitted for intractable lower back pain with concerns for cord compression with orthopedic surgery on consult. Review of Systems Pertinent positives and negatives as discussed in HPI, a complete review of systems was performed and all other systems are negative. Past Medical History Past Medical History: Hyperlipidemia, Hypertension, Osteoarthritis (OA), Prostat e Disorder, Sleep Apnea/CPAP/BIPAP Additional Past Medical History / Comment(s): Chronic low back and cervical pain, paralyzed R diaphram, LUNA with Cpap, benign colon polyp/diverticular disease, arthritis in multiple joints, BPH. History of Any Multi-Drug Resistant Organisms: None Reported Past Surgical History: Joint Replacement, Orthopedic Surgery, Tonsillectomy Additional Past Surgical History / Comment(s): left knee partial replacement, right ankle fusion, uvulectomy, colonoscoy/benign polypectomy Past Anesthesia/Blood Transfusion Reactions: No Reported Reaction Smoking Status: Former smoker - Past Family History Father Family Medical History: Cancer Additional Family Medical History / Comment(s): Lung cancer Mother Family Medical History: Cancer Additional Family Medical History / Comment(s): Breast cancer. Medications and Allergies Home Medications Medication Instructions Recorded Confirmed Type Gabapentin 600 mg PO BID 04/25/15 01/19/20 History Simvastatin [Zocor] 20 mg PO HS 04/25/15 01/19/20 History Tamsulosin HCl [Flomax] 0.4 mg PO HS 07/27/18 01/19/20 History Cholecalciferol [Vitamin D3 (25 1,000 unit PO DAILY 07/08/19 01/19/20 History Mcg = 1000 Iu)] Losartan Potassium 100 mg PO DAILY 07/08/19 01/19/20 History Meloxicam 15 mg PO DAILY 07/08/19 01/19/20 History Sertraline [Zoloft] 50 mg PO DAILY 07/08/19 01/19/20 History Allergies Allergy/AdvReac Type Severity Reaction Status Date / Time No Known Allergies Allergy Verified 01/19/20 08:57 Physical Exam Vitals: Vital Signs Temp Pulse Pulse Resp BP BP Pulse Ox 01/19/20 10:04 98.8 F 81 16 143/78 92 L 01/19/20 09:00 98.9 F 01/19/20 08:45 81 18 142/86 99 01/19/20 06:49 100.9 F H 97 18 131/76 95 Intake and Output 01/18/20 01/19/20 01/19/20 22:59 06:59 14:59 Other: Weight 126.099 kg 126.099 kg General: [non toxic], [no distress], [appears at stated age] Derm: [warm], [dry] Head: [atraumatic], [normocephalic], [symmetric] Eyes: [EOMI], [no lid lag], [anicteric sclera] Mouth: [no lip lesion], [mucus membranes moist] Cardiovascular: [S1S2 reg], [no murmur], [positive DP pulse bilateral], Lungs: [CTA bilateral], [no rhonchi, no rales] , [no accessory muscle use] Abdominal: [soft], [ nontender to palpation], [no guarding], [no appreciable organomegaly] Ext: [no gross muscle atrophy], [no edema], [no contractures] Neuro: [no focal neuro deficits] Psych: [Alert], [oriented], [appropriate affect] Results CBC & Chem 7: 01/19/20 07:07 01/19/20 07:07 Labs: Abnormal Lab Results - Last 24 Hours (Table) 01/19/20 01/19/20 01/19/20 Range/Units 07:07 07:07 07:20 Hgb 17.7 H (13.0-17.5) gm/dL Hct 54.2 H (39.0-53.0) % Lymphocytes # 0.9 L (1.0-4.8) k/uL Sodium 135 L (137-145) mmol/L Urine Protein Trace H (Negative) Thrombosis Risk Factor Assmnt - Choose All That Apply Any of the Below Risk Factors Present?: Yes Each Factor Represents 1 point: Obesity (BMI >25) Other Risk Factors: Yes Each Risk Factor Represents 2 Points: Age 61-74 years Other congenital or acquired thrombophilia - If yes, enter type in comment: No Thrombosis Risk Factor Assessment Total Risk Factor Score: 3 Thrombosis Risk Factor Assessment Level: Moderate Risk Assessment and Plan Assessment: Moderate to severe central and foraminal stenosis Chronic lower back pain with bladder and bowel incontinence related to above Hypertension Dyslipidemia Sleep apnea Depression Patient's symptoms and MRI of the lumbar spine is concerning for moderate to severe central and foraminal stenosis. Plan: Plans for decompression and possible fusion on 01/20/2020. Pain control with Tylenol, [place] or morphine as needed. Continue gabapentin. One dose of dexamethasone given. Will need PT and OT consult after surgery. Orthopedic surgery on board. Neurochecks. BP 146/80. Plans: Continue losartan. Monitor vitals, adjust medications if necessary. Plans: Continue Lipitor. Plans: BiPAP at nighttime. Plans: Continue sertraline. DVT prophylaxis: [Heparin] Discussed with: [Patient] Anticipated discharge: [2-3 days] Anticipated discharge place: [Home versus [facility]] A total of [45] minutes was spent on the care of this complex patient more than 50% of the time was spent in counseling and care coordination. Patient names his son Mikhail decision-maker if he can't make decisions for himself. Patient would like to be full code.
[2020-01-19] MEDS: TAMSULOSIN 0.4 MG CAP.ER.24H PO SCH (20:30)
[2020-01-19] MEDS: GABAPENTIN 300 MG CAP PO SCH (20:31)
[2020-01-19] MEDS: ATORVASTATIN 10 MG TAB PO SCH (20:31)
--- NOTE | 2020-01-19 22:28 | CT ---
EXAMINATION TYPE: CT pelvis wo con DATE OF EXAM: 01/19/2020 COMPARISON: None HISTORY: Urinary incontinence. CT DLP: 934.6 mGycm Automated exposure control for dose reduction was used. Images were obtained from the iliac crests to the subtrochanteric femurs without contrast. Appendix appears normal. Abdominal aorta is atheromatous. There is atherosclerotic vascular calcifica tion. Prostate is enlarged and measures 6 cm. Bladder is opacified with contrast. There is no evidenc e of a bladder mass. There is no inguinal hernia. There is no free fluid in the pelvis. There is mini mal prostate calcification. There are numerous sigmoid diverticula. There is no sign of diverticuliti s. There is no ascites. The pelvic ring is intact. The hip joints are intact. There is no sign of hip dysplasia. There is spondylotic changes in the lower lumbar spine with disc space narrowing and vacu um disc seen from L2 to L5. Impression enlarged prostate. No bladder mass seen. Sigmoid diverticulosis.
[2020-01-20 05:59] LABS: Appearance,Urine Clear (Clear); Bilirubin,Urine Negative (Negative); Blood,Urine Negative (Negative); Color,Urine Yellow; Glucose,Urine (UA) Negative (Negative); Ketones,Urine Negative (Negative); Leukocyte Esterase,Urine Negative (Negative); Nitrite,Urine Negative (Negative); Protein,Urine Trace (Negative); Urobilinogen,Urine <2.0 mg/dL (<2.0)
[2020-01-20 07:12] LABS: Basophils % (A) 0 %; Eosinophils % (A) 0 %; HGB 17.5 gm/dL (13.0-17.5); Lymphocytes # (A) 0.7 k/uL (1.0-4.8); Lymphocytes % (A) 7 %; MCH 30.1 pg (25.0-35.0); MCHC 31.7 g/dL (31.0-37.0); MCV 95.1 fL (80.0-100.0); Monocytes # (A) 0.8 k/uL (0-1.0); Monocytes % (A) 7 %; Neutrophils # (A) 9.1 k/uL (1.3-7.7); Neutrophils % (A) 85 %; Platelet Count 171 k/uL (150-450); RDW 13.7 % (11.5-15.5); WBC 10.8 k/uL (3.8-10.6)
[2020-01-20 07:22] LABS: HCT 55.2 % (39.0-53.0)
[2020-01-20 07:23] LABS: African American GFR (CKD) >90 (>60 ml/min/1.73 sqM); Anion Gap 5 mmol/L; Blood Urea Nitrogen 20 mg/dL (9-20); Calcium 8.8 mg/dL (8.4-10.2); Carbon Dioxide 25 mmol/L (22-30); Chloride 107 mmol/L (98-107); Glucose 110 mg/dL (74-99); Non-African American GFR(CKD) >90 (>60 ml/min/1.73 sqM); Potassium 4.5 mmol/L (3.5-5.1); Sodium 137 mmol/L (137-145)
[2020-01-20] MEDS: LOSARTAN 50 MG TAB PO SCH (08:03)
[2020-01-20] MEDS: GABAPENTIN 300 MG CAP PO SCH ×2 (08:03→22:09)
[2020-01-20] MEDS: SERTRALINE 50 MG TAB PO SCH (08:03)
--- NOTE | 2020-01-20 08:52 | P.PN ---
Progress Note - Text Progress Note Date: 01/20/20 Spine Surgery Risk Review Darian Angulo is a 69-year-old male presenting for evaluation of low back pain bowel urgency and bladder incontinence. It was my pleasure to have seen and examined Darian Angulo. In our visit today we have had a chance to go over subjective complaints, physical examination findings and treatments including the natural course history without intervention and various interventional options. The patients imaging demonstrates moderate to severe stenosis L2 to L4 with foraminal stenosis. On physical exam, Darian Angulo demonstrates full strength no decrease in perirectal or perianal sensation no perineal sensation decreased ho wever decreased rectal tone and bladder incontinence. I have explained to the patient that as their condition progresses it will cause further neurological deficits and eventual paralysis. Based on the patients imaging, physical exam, and the rapid progression and disabling nature of their symptoms, at this time I recommend surgery in the form or a: Laminectomy and decompression with possible fusion. I discussed the risk and benefits of this procedure at length with Darian Angulo. The patient agreed to considered pursuing the procedure abovementioned. Prior to surgery, she should follow up with her PCP (Cardio, ID, IM etc) for clearance. Questions were invited and answered, and the patient wishes to proceed as outlined below. Currently, I am recommendin. Lumbar 2 to lumbar 5 laminectomy decompression with possible fusion with laron screws and bone graft 2. Medical clearance for surgery 3. Review of surgical risks and benefits as well as an educational packet on the proposed surgical procedure. Risks: All surgical procedures come with inherent risks, including those related to positioning, anesthesia, intraoperative findings, and postoperative complications. It is important to understand that surgery does not come with any guarantee of a successful outcome as complications and adverse events are always possible. The patient was given a handout in office today discussing the surgical procedure and risks associated with the intervention, both of which were discussed with the patient. These risks include but are not limited to the following: * Experiencing same, different or even worse symptoms in back, neck, arms, or legs compared to before surgery. * Requiring further surgery or other forms of treatment presently or at some time in the future at same or other levels of the intended spine surgery. * On an extreme but fortunately relatively rare basis severe complication such as blindness, stroke, heart attack, temporary and/or permanent nerve injury, paralysis, coma, or may occur, sometimes without known explanation. * Surgical complications may include but are not limited to risk of infection, fluid accumulation in the surgical dissection site, including a seroma or hematoma, that requires additional surgery, wound drainage, bleeding, new numbness or weakness, vision changes/loss, spinal fluid leakage, non-healing and/or infected incision, headaches, difficulty or inability to swallow, hoarseness, hemopneumothorax, pneumothorax, impotence, retrograde ejaculation, vaginal dryness; injury to nerves, spinal cord, blood vessels, lymphatics or other vital organs (i.e., bowel injury, injury to the great vessels); heterotopic bone formation; complications related to the hardware such as screws, rods, cages including misplaced hardware, device failure, instrumentation at the wrong spine level, hardware fracture/breakage, or hardware loosening; vertebral failure of the spinal column above or below the newly placed hardware; retained surgical instrumentations or devices and the need for further surgery. * Medical risks of the planned spine surgery include but are not limited to generalized Infections to the whole body or local areas outside of the surgical site (sepsis), heart attack, bleeding, anaphylaxis, meningitis, seizure, epilepsy, hearing loss, burn mcclure, laceration of the head or other areas of the body, bruising, hypersensitivity of the skin, bladder over distension; allergic reaction; shoulder injury related to positioning; fat, blood and air clots to other areas of the body like heart, lungs, brain; failure of internal organs such as lungs, kidneys, liver and excessive bleeding. If blood transfusions are necessary, note that transfusions may cause intolerance reactions such as anaphylaxis or other complex reactions. * Despite best efforts, the results of spine surgery might not heal in terms of bone, soft tissues such as skin, fascia, ligaments, and joints. Additionally, in order to achieve best possible results, spine surgery may be carried out beyond the initially planned levels and involve decompression, fusion including insertion of hardware at levels other than the original intended area of surgical interest change some portions of the procedure in order to ensure the best possible outcomes. * With spine surgery and spinal fusion, there are different off label uses of instrumentation (devices, implants and hardware) as well as biological substances (bone morphogenic proteins, demineralized bone matrix) as well as using extra bone from allograft sources (i.e. cadaver bone) or autograft (iliac crest bone, ribs, or the spine itself). The patient has been given information about these practices and their inherent risks and benefits. * [facility] is an educational center that serves as a training facility for neurosurgical and orthopedic spine residents and fellows. Residents are physicians who are completing their surgical intensive training following medical school. They assist in the operating room with direct supervision of the attending surgeons. [place] are surgeons who have completed their training and eligible for board certification. They have opted for an elective year of more specialized training in their field. They assist in the operating room under the supervision of the attending surgeons. Physician assistants are medically trained surgical providers who function in the outpatient, inpatient, and operating room setting under the direct supervision of the attending surgeon. * [facility] has multiple operating rooms with single and overlapping rooms running daily. They currently function under the required guidelines as produced by the [facility] Finance Committee with regards to the overlapping rooms and will continue to comply with changes to this policy as they occur. The requirements include and are complied with as follows: (1) the critical portions of the overlapping rooms will not occur at the same time, (2) the attending physician will be physically present during the critical portions of the procedure and immediately available during the entire case, and (3) a back-up attending is designated should the primary attending not be immediately available. The patient has had a chance to review all the listed information, has been given print outs detailing this information, and has had all his/her questions answered to their satisfaction. It was my pleasure to have seen and examined Darian Angulo. In our visit today we have had a chance to go over my understanding of our patient's current condition, the natural course history without intervention and various interventional options. Questions were invited and answered, and the patient wishes to proceed as outlined above. I have seen and examined the patient for 25 minutes and we have spent more than 50% of the time in repeat and detailed counseling about the patient's condition, its natural course history with out and as much as can be predicted with surgery and re-review of various surgical treatment options. I discussed with the patient at length that he may not regain bowel and bladder function completely. He may regain completely or he may not regain at all. As always a risk of having increase symptoms after surgery and this is a possibility for him. There is also a great risk that this does nothing for his bowel or bladder incontinence. I discussed with this with him at length. He understood and was comfortable with this and still would like to proceed. In conclusion, Darian Adele and requested we proceed with the above suggested surgery and are willing to accept risks and limitations of the suggested surgery as nature of the disease process and our best attempts at treatment for the condition. Thank you again for allowing us to be part of your patient's care. Please don't hesitate to contact me if you have any further questions. Signed and authenticated by: Cesar Martinezon [facility] [address] [place] [id number]
[2020-01-20] MEDS ORDERED: ceFAZolin 3 GM in SODIUM CHLORIDE 0.9% 100 ML IVPB ONE (09:00)
[2020-01-20] MEDS: SODIUM CHLORIDE 0.9% 1,000 ML IV SCH (11:04)
[2020-01-20] MEDS ORDERED: IV FLUID CONTINUATION 1,000 ML IV ONE (13:15)
[2020-01-20] MEDS ORDERED: ONDANSETRON 4 MG/2 ML VIAL ONE (13:22)
[2020-01-20] MEDS ORDERED: ONDANSETRON 4 MG/2 ML VIAL IVP ONE ×2 (13:28→19:20)
[2020-01-20] MEDS ORDERED: TRANEXAMIC ACID 1,000 MG in SODIUM CHLORIDE 0.9% 100 ML IVPB ONE ×2 (15:00→17:37)
[2020-01-20] MEDS ORDERED: ALBUMIN HUMAN 5% (12.5gm) 250 ML BOTTLE IVPB ONE (15:20)
[2020-01-20] MEDS ORDERED: SODIUM CHLORIDE 0.9% 100 ML with ceFAZolin 3,000 MG IV ONE ×2 (15:20)
[2020-01-20] MEDS ORDERED: SODIUM CHLORIDE 0.9% IRRIG 1,000 ML BTL IRRIGATION ONE (15:20)
[2020-01-20] MEDS ORDERED: SUCCINYLCHOLINE CHLORIDE 100 MG/5 ML SYR IV ONE (15:20)
[2020-01-20] MEDS ORDERED: TRANEXAMIC ACID 1,000 MG/10 ML VIAL ONE ×2 (15:20)
[2020-01-20] MEDS ORDERED: GLYCOPYRROLATE 0.2 MG/ML 2 ML VIAL ONE (15:20)
[2020-01-20] MEDS ORDERED: fentaNYL (PF) 50 MCG/ML 2 ML AMP ONE (15:20)
[2020-01-20] MEDS ORDERED: HYDROmorphone (PF) 1 MG/ML ONE (15:20)
[2020-01-20] MEDS ORDERED: LIDOCAINE 1% INJ 10MG/ML (20 ML MDV) ONE (15:20)
[2020-01-20] MEDS ORDERED: HEPARIN SODIUM,PORCINE 10,000 UNIT/ML 1 ML VIAL ONE (15:20)
[2020-01-20] MEDS ORDERED: MIDAZOLAM 2 MG/2 ML VIAL ONE (15:20)
[2020-01-20] MEDS ORDERED: ROCURONIUM 10 MG/ML (10 ML VIAL) IV ONE (15:20)
[2020-01-20] MEDS ORDERED: ePHEDrine SULFATE/0.9% NACL/PF 50 MG/5 ML SYRINGE IV ONE (15:20)
[2020-01-20] MEDS ORDERED: PROPOFOL 10 MG/ML 20 ML VIAL IV ONE (15:20)
[2020-01-20] MEDS ORDERED: SODIUM CHLORIDE 0.9% 100 ML BAG ONE ×2 (15:20)
[2020-01-20] MEDS ORDERED: NEOSTIGMINE 1 MG/ML 10 ML VIAL ONE (15:20)
[2020-01-20] MEDS ORDERED: BUPIVACAINE (PF) 0.25% 30 ML VIAL SQ ONE (16:03)
[2020-01-20] MEDS ORDERED: GELATIN SPONGE,ABSORBABLE 1 GM POWDER TOPICAL ONE (16:03)
[2020-01-20] MEDS ORDERED: LACTATED RINGERS 1,000 ML IV ONE ×3 (16:03→18:27)
[2020-01-20] MEDS ORDERED: LIDOCAINE 1%-EPI 1:100,000 20 ML VIAL SQ ONE (16:03)
[2020-01-20] MEDS ORDERED: THROMBIN (BOVINE) 5,000 UNIT VIAL TOPICAL ONE (16:03)
[2020-01-20 18:53] LABS: Prothrombin Time 10.2 sec (9.0-12.0)
--- NOTE | 2020-01-20 19:03 | P.PN ---
Subjective Progress Note Date: 01/20/20 Attempted to see patient multiple times. Patient currently in the OR. Objective - Vital Signs Vital signs: Vital Signs Temp 98.2 F 01/20/20 13:18 Pulse 62 01/20/20 13:18 Resp 18 01/20/20 13:18 BP 177/87 01/20/20 13:18 Pulse Ox 95 01/20/20 13:18 Intake & Output 01/20/20 01/20/20 01/21/20 06:59 18:59 06:59 Intake Total 600 2700 Balance 600 2700 Weight 126.099 kg Intake: IV 2700 Oral 600 Other: Voiding Method Toilet Toilet Urinal Urinal # Voids 1 1 - Labs CBC & Chem 7: 01/20/20 06:56 01/20/20 06:56 Labs: Abnormal Lab Results - Last 24 Hours (Table) 01/20/20 01/20/20 01/20/20 Range/Units 05:44 06:56 06:56 WBC 10.8 H (3.8-10.6) k/uL Hct 55.2 H (39.0-53.0) % Neutrophils # 9.1 H (1.3-7.7) k/uL Lymphocytes # 0.7 L (1.0-4.8) k/uL Creatinine 0.52 L (0.66-1.25) mg/dL Glucose 110 H (74-99) mg/dL Urine Protein Trace H (Negative) Assessment and Plan Assessment: Moderate to severe central and foraminal stenosis Chronic lower back pain with bladder and bowel incontinence related to above Hypertension Dyslipidemia Sleep apnea Depression Patient's symptoms and MRI of the lumbar spine is concerning for moderate to severe central and foraminal stenosis. Plan: Plans for decompression and possible fusion today, currently in OR. Pain control with Tylenol, Pattison or morphine as needed. Continue gabapentin. Will need PT and OT consult after surgery. Orthopedic surgery on board. Neurochecks. BP 177/87. Plans: Continue losartan. Monitor vitals, adjust medications if necessary. Plans: Continue Lipitor. Plans: BiPAP at nighttime. Plans: Continue sertraline.
--- NOTE | 2020-01-20 20:11 | P.PN ---
Progress Note - Text Progress Note Date: 01/20/20 Spine postoperative note Patient was seen and examined in the postoperative care unit. The patient was waking up slightly slow from anesthesia but his vital signs are stable at this time he is able to open his eyes converse with nods yes or no he denied pain. The patient was able to move all 4 extremities with good strength. His drain was in place and holding good suction. The patient will be monitored by the nursing staff and the anesthesia staff at this time in the postoperative care unit.
[2020-01-20] MEDS ORDERED: HYDROmorphone 0.5 MG/0.5 ML SYRINGE IVP ONE (20:12)
[2020-01-20 20:13] LABS: INR 1.1 (<1.2); Prothrombin Time 11.4 sec (9.0-12.0)
[2020-01-20] MEDS: TRANEXAMIC ACID 1,000 MG in SODIUM CHLORIDE 0.9% 100 ML IVPB SCH (21:27)
[2020-01-20] MEDS: SENNOSIDES-DOCUSATE SODIUM 1 EACH TAB PO SCH (22:09)
[2020-01-20] MEDS: methocarbamoL 750 MG TAB PO SCH (22:09)
[2020-01-20] MEDS: TAMSULOSIN 0.4 MG CAP.ER.24H PO SCH (22:09)
[2020-01-20] MEDS: HYDROmorphone 1 MG/ML 1 ML SYRINGE IVP PRN (22:09)
[2020-01-20] MEDS: ATORVASTATIN 10 MG TAB PO SCH (22:09)
[2020-01-21] MEDS: ceFAZolin 3 GM in SODIUM CHLORIDE 0.9% 100 ML IVPB SCH ×3 (00:41→16:38)
[2020-01-21] MEDS: SODIUM CHLORIDE 0.9% 1,000 ML IV SCH ×3 (04:58→20:21)
[2020-01-21 06:16] LABS: Basophils # (A) 0.1 k/uL (0-0.2); Basophils % (A) 1 %; Eosinophils % (A) 0 %; HCT 50.5 % (39.0-53.0); HGB 16.1 gm/dL (13.0-17.5); Lymphocytes # (A) 0.6 k/uL (1.0-4.8); Lymphocytes % (A) 5 %; MCH 30.5 pg (25.0-35.0); MCHC 31.9 g/dL (31.0-37.0); MCV 95.8 fL (80.0-100.0); Mean Platelet Volume 9.1; Monocytes # (A) 0.9 k/uL (0-1.0); Monocytes % (A) 8 %; Neutrophils # (A) 9.8 k/uL (1.3-7.7); Neutrophils % (A) 84 %; Platelet Count 168 k/uL (150-450); RBC 5.27 m/uL (4.30-5.90); RDW 13.8 % (11.5-15.5); WBC 11.6 k/uL (3.8-10.6)
--- NOTE | 2020-01-21 07:05 | FL ---
EXAMINATION TYPE: FL guidance operating room, XR lumbar spine 1V DATE OF EXAM: 01/20/2020 CLINICAL HISTORY: Low back pain. Bowel changes. TECHNIQUE: Fluoroscopy. Single view lumbar spine. COMPARISON: Lumbar spine MRI from yesterday. FINDINGS: Fluoroscopic guidance was provided during low back surgical procedure performed by Dr. Evaristo wilson. A total of 21 seconds of fluoroscopic time was utilized during the procedure and 2 spot images w as acquired. Intraoperative images acquired show needle localization for surgical planning, first picture shows ne edle at the posterior inferior L3 level, second picture shows additional needle at the posterior mid L5 vertebral level. IMPRESSION: As Above.
--- NOTE | 2020-01-21 07:15 | P.OP ---
Date of Procedure: 01/20/20 Preoperative Diagnosis: 1. L2-3 L3-4 severe central and foraminal stenosis 2. Bowel and bladder incontinence 3. Incomplete cauda equina syndrome Postoperative Diagnosis: 1. L2-3 L3-4 severe central and foraminal stenosis 2. Bowel and bladder incontinence 3. Incomplete cauda equina syndrome 4. 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 1. L2-3 and L3-4 bilateral laminectomy and decompression, partial medial facetectomy and bilateral foraminotomy 2. Bone removal for dural repair 3. Repair of dural erosion Implants: none Anesthesia: GETA Surgeon: Cesar Charles Postage Machine Operator #1: Kaveh Franco (CLIFFORD Hutchins was present for all major portions of the procedure and was necessary to the completion of the procedure due to the complexity of the case. ) Estimated Blood Loss (ml): 1,000 (350 cell saver given back) IV fluids (ml): 2,500 Urine output (ml): 250 Pathology: none sent Condition: stable Disposition: PACU Indications for Procedure: 69-year-old male presents from the [facility] up and the thumb with complaints of urinary and bowel incontinence. Patient states about 2-1/2 weeks ago he noticed that this was happening. The patient notes in the morning he has a lot of back pain and then when he goes to stand he is unable to make to the bathroom in time and he urinates himself. He states that he is unable to feel this happening and it just kind of happens. 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 The patient states that previously he would go out to his pole barn which is only about 100 feet from his house and he could make it back to defecate however when he is on the field there is no oral stability go any states that it just kind of happens. He denies any lower extremity pain no radicular pain he does state back pain that he has had for a long time. He denies any perineal nu mbness or tingling he denies any genital numbness or tingling states that he can still feel his penis scrotum and rectum. He denies any current neck pain or issues with his neck. He denies any numbness or tingling in his upper extremities he denies any weakness. He denies fevers chills shortness of breath or chest pain. Operative Findings: Severe stenosis L2-4 with facet and ligamental hypertrophy. Dural erosion due to degree of stenosis, overgrowth of facets and ligamentum flavum Description of Procedure: The patient was seen and examined in the preoperative area. All preoperative protocols were followed. Informed consent was obtained risks and benefits of the procedure were discussed at length. Risks including bleeding infection damage to the surrounding tissue and risk of reoperation were discussed with the patient. Risk of anesthesia up to and including was a discussed with the patient. These are outlined in the risk review. They were willing to accept these risks and all of the risks of surgery. The patient was given a weight- based dose of antibiotics in the form of 3 g of Ancef preoperatively IVPB 1. The patient was seen and evaluated by the anesthesia team who deemed them fit for surgery. The site was marked, the patient was willing to proceed with the procedure. The patient was transferred to the operative suite by the Department of anesthesia. They were then drifted off to sleep by the department anesthesia Gen. endotracheal intubation. The patient tolerated this well. Zuniga catheter was placed by nursing staff, atraumatically. Once confirmation of lines and ventilation the patient was transferred to a prone Jarred table very carefully. All bony prominences including wrists, elbows, axilla, chest, hips, and thighs, and feet were padded very well. Special attention was paid to the genitalia and these were padded accordingly. SCDs were placed on bilateral lower extremities and were connected. Arms were well padded and placed on arm boards up and out in the 9090 position. Once in position, again we confirmed good ventilation capabilities and that lines were running appropriately. The patient's lumbar spine was then exposed. 1010s were placed outlining the incision site. Standard alcohol was used to clean the incision site and allowed to dry. C-arm was used to biomark the patient and confirm level for incision which was marked with a skin marker. Operative briefing was performed with all teams and everyone in agreement to proceed. The patient was then prepped and draped in a normal sterile fashion. Timeout was then performed and all parties were in agreement with the procedure to be performed. A midline incision was made over the previously marked skin incision with a knife. Electrocautery dissection was taken down to the lumbosacral fascia which was exposed and cleaned with a Troncoso. Midline sparing fasciotomy was performed and subperiosteal dissection taken down to the facet joints which the capsules were maintained over L2-3 and L3 4. Fluoroscopic images taken in the lateral position to confirm levels of operation. Once adequate exposure been attained and meticulous hemostasis ensued the Versatrac retractor was placed and retracted. The microscope was then brought in for microscopic dissection. High-speed bur was used to make a unilateral laminotomy at L2-3. This laminotomy was exposed and the dura was decompressed and the ligamentum was extremely hypertrophied in this area and it was removed. Meticulous hemostasis ensued. Attention was then drawn to the left L3 4 level or a unilateral hemilaminotomy was performed as well. There was even more severe stenosis at this level and severe shingling of the lamina causing pincer type lesion of the dura. There was complete overgrowth of the facet which had eroded into the dural sac on this side. It was then elected to do a midline sacrificing bilateral laminectomy of L2-3 and L3 4 for exposure as well as visualization. A Kerrison rongeur was used to widen this laminectomy for visualization of the dural erosion. Once adequate exposure been obtained of the dural sac and hemostasis had been obtained a 6-0 Prolene was used in a simple fashion to close the dural erosion. A Valsalva to 40 mmHg was performed and there was no continuous dural leak. Kerrison rongeur was then used to perform foraminotomies at L2-3 and L3 4 bilaterally. Medial facetectomy was also performed at these levels bilaterally. Continued hemostasis was performed. The patient's bone was very vacuous and so this was plugged with bone wax. FloSeal and electrocautery bipolar were used for further hemostasis. Lateral fluoroscopic images were then again taken with markers to ensure levels of decompression and this confirmed an L2 to L4 decompressive laminectomy. The wound was then irrigated with 1 L of normal sterile saline followed by Irricept followed by 2 L of normal sterile saline. The dura was again inspected the repair was holding another Valsalva to 40 mmHg was performed and there is no continuous dural leak. This was then covered with DuraGen and Surgicel followed by Tisseel and Surgicel. Another Valsalva to 40 mmHg was performed and there was no continuous dural leak. More hemostasis was performed bone wax was placed over open bone edges. A IVELISSE drain was placed on the right side of the patient deep to the fascia. The wound was then closed, lumbosacral fascia was closed with #1 Vicryl in a simple fashion followed by 0 Vicryl in campers layer followed by 2-0 Vicryl in the subQ region followed by vasquez in the skin. This was then covered with skin glue. The wound was then cleaned and dressed sterilely with sterile optifoam 4 x 4's and a Tegaderm. The patient was transferred back to his hospital bed atraumatically. Drain continued to hold suction and were in good position. Patient was then awakened by the department of anesthesia having tolerated the procedure very well with no complications. He was transferred to the postoperative care unit in stable condition.
[2020-01-21] MEDS: HYDROmorphone 1 MG/ML 1 ML SYRINGE IVP PRN ×2 (07:45→10:56)
--- NOTE | 2020-01-21 08:07 | P.PN ---
Progress Note - Text Progress Note Date: 01/21/20 S: Pt was s/e this am. He is doing well. Has some back pain but it is controlled with meds. Has not been up yet. Zuniga in place, good out put. Denies any new numbness/tingling. Denies any EDDY, N, V, SOB, CP at this time. He is HOB about 45 deg this Am. Denies any other sx. PE: VSS Labs reviewed. Hgb 16. Others wnl Gen AOX3, NAD Incision CDI, Dressing CDI Drain: 50 cc No EEE No hematoma Mild TTP 5/5 DF/PF/EHL/FHL/HF/KE/KF b/l LE 5/5 all major muscles of UE b/l SILT C5-T1 and L2-S1 b/l 2/4 distal pulses compartment soft compressive Neg hoffmans neg clonus neg babinski A: 69 yo male POD1 L2-4 laminectomy decompression P: 1. Pain control 2. Aggresive ambulation protocol OOB with all meals, up ad mita. Brace when up and about. Not necessary but would like him to wear when out of bed. 3. PT/OT 4. GI/DVT ppx, TEDs, SCDs 5. Urology and medicine recs 6. Monitor labs. Monitor drain output, will DC if pt passes milestones for home today. 7. Zuniga out when up and about unless Uro has different recs. 8. Home today vs tomorrow
[2020-01-21] MEDS: SERTRALINE 50 MG TAB PO SCH (09:58)
[2020-01-21] MEDS: methocarbamoL 750 MG TAB PO SCH ×4 (09:58→22:59)
[2020-01-21] MEDS: SENNOSIDES-DOCUSATE SODIUM 1 EACH TAB PO SCH ×3 (09:58→20:32)
[2020-01-21] MEDS: GABAPENTIN 300 MG CAP PO SCH ×3 (09:58→20:32)
[2020-01-21] MEDS: polyethylene glycoL 3350 17 GM POWD.PACK PO SCH (09:58)
[2020-01-21] MEDS: LOSARTAN 50 MG TAB PO SCH (09:58)
[2020-01-21] MEDS: ACETAMINOPHEN TAB 500 MG TAB PO PRN ×2 (12:20→18:32)
--- NOTE | 2020-01-21 15:43 | P.GSCN ---
History of Present Illness Consult date: 01/20/20 Reason for Consult: Urinary Incontinence Requesting physician: Cesar Charles History of present illness: The patient is a 69-year-old white male with a history of BPH, for which he has taken tamsulosin for several years. For the past 2 weeks, he has experienced lower back pain associated with incontinence of urine and feces. The urinary incontinence is of the urgency type. He denies dysuria and hematuria. Review of Systems - Constitutional Denies chills, Denies fever - Genitourinary Reports as per HPI Past Medical History Past Medical History: Hyperlipidemia, Hypertension, Osteoarthritis (OA), Prostate Disorder, Sleep Apnea/CPAP/BIPAP Additional Past Medical History / Comment(s): Chronic low back and cervical pain, paralyzed R diaphram, LUNA with Cpap, benign colon polyp/diverticular disease, arthritis in multiple joints, BPH. History of Any Multi-Drug Resistant Organisms: None Reported Past Surgical History: Joint Replacement, Orthopedic Surgery, Tonsillectomy Additional Past Surgical History / Comment(s): left knee partial replacement, right ankle fusion, uvulectomy, colonoscoy/benign polypectomy Past Anesthesia/Blood Transfusion Reactions: No Reported Reaction Smoking Status: Former smoker - Past Family History Father Family Medical History: Cancer Additional Family Medical History / Comment(s): Lung cancer Mother Family Medical History: Cancer Additional Family Medical History / Comment(s): Breast cancer. Medications and Allergies Home Medications Medication Instructions Recorded Confirmed Type Gabapentin 600 mg PO BID 04/25/15 01/19/20 History Simvastatin [Zocor] 20 mg PO HS 04/25/15 01/19/20 History Tamsulosin HCl [Flomax] 0.4 mg PO HS 07/27/18 01/19/20 History Cholecalciferol [Vitamin D3 (25 1,000 unit PO DAILY 07/08/19 01/19/20 History Mcg = 1000 Iu)] Losartan Potassium 100 mg PO DAILY 07/08/19 01/19/20 History Meloxicam 15 mg PO DAILY 07/08/19 01/19/20 History Sertraline [Zoloft] 50 mg PO DAILY 07/08/19 01/19/20 History Allergies Allergy/AdvReac Type Severity Reaction Status Date / Time No Known Allergies Allergy Verified 01/19/20 08:57 Surgical - Exam Vital Signs Temp Pulse Resp BP Pulse Ox 100.9 F H 97 18 131/76 95 01/19/20 06:49 01/19/20 06:49 01/19/20 06:49 01/19/20 06:49 01/19/20 06:49 - General well developed, well nourished, no distress - Respiratory normal respiratory effort - Abdomen Abdomen: soft, non tender, no guarding, no rigid, no rebound - Genitourinary normal penis with no external lesions, testicles non-tender - Psychiatric oriented to time, oriented to person, oriented to place, speech is normal, memory intact Results - Labs 01/21/20 05:59 01/20/20 06:56 Abnormal Lab Results - Last 24 Hours (Table) 01/20/20 01/20/20 01/20/20 Range/Units 05:44 06:56 06:56 WBC 10.8 H (3.8-10.6) k/uL Hct 55.2 H (39.0-53.0) % Neutrophils # 9.1 H (1.3-7.7) k/uL Lymphocytes # 0.7 L (1.0-4.8) k/uL Creatinine 0.52 L (0.66-1.25) mg/dL Glucose 110 H (74-99) mg/dL Urine Protein Trace H (Negative) Diabetes panel 01/20/20 Range/Units 06:56 Sodium 137 (137-145) mmol/L Potassium 4.5 (3.5-5.1) mmol/L Chloride 107 (98-107) mmol/L Carbon Dioxide 25 (22-30) mmol/L BUN 20 (9-20) mg/dL Creatinine 0.52 L (0.66-1.25) mg/dL Glucose 110 H (74-99) mg/dL Calcium 8.8 (8.4-10.2) mg/dL Calcium panel 01/20/20 Range/Units 06:56 Calcium 8.8 (8.4-10.2) mg/dL Pituitary panel 01/20/20 Range/Units 06:56 Sodium 137 (137-145) mmol/L Potassium 4.5 (3.5-5.1) mmol/L Chloride 107 (98-107) mmol/L Carbon Dioxide 25 (22-30) mmol/L BUN 20 (9-20) mg/dL Creatinine 0.52 L (0.66-1.25) mg/dL Glucose 110 H (74-99) mg/dL Calcium 8.8 (8.4-10.2) mg/dL Adrenal panel 01/20/20 Range/Units 06:56 Sodium 137 (137-145) mmol/L Potassium 4.5 (3.5-5.1) mmol/L Chloride 107 (98-107) mmol/L Carbon Dioxide 25 (22-30) mmol/L BUN 20 (9-20) mg/dL Creatinine 0.52 L (0.66-1.25) mg/dL Glucose 110 H (74-99) mg/dL Calcium 8.8 (8.4-10.2) mg/dL Assessment and Plan (1) Urinary incontinence, urge Current Visit: Yes Status: Acute Code(s): N39.41 - URGE INCONTINENCE SNOMED Code(s): 92329467 Plan: It appears likely that the recent onset of urge incontinence is due to spinal cord compression. The patient underwent lumbar laminectomy and decompression on 01/20/2020. He currently has an indwelling Zuniga catheter in place, draining clear yellow urine. The Zuniga catheter may be removed per laminectomy protocol, and he will subsequently be reevaluated. Time with Patient: Less than 30
[2020-01-21] MEDS: HYDROcodone/APAP 5-325MG 1 EACH TAB PO PRN ×3 (16:38→20:32)
--- NOTE | 2020-01-21 16:56 | P.PN ---
Subjective Progress Note Date: 01/21/20 Patient was seen and examined. No acute events overnight. Patient reports well controlled pain. He underwent laminectomy and decompressive surgery yesterday. Currently with Zuniga catheter. He denies any weakness, numbness/tingling of his bilateral lower extremities. He denies any chest pain, shortness breath or palpitations. Objective - Vital Signs Vital signs: Vital Signs Temp 100.4 F H 01/21/20 12:36 Pulse 60 01/21/20 12:36 Resp 15 01/21/20 12:36 BP 131/70 01/21/20 12:36 Pulse Ox 94 L 01/21/20 12:36 Intake & Output 01/20/20 01/21/20 01/21/20 18:59 06:59 18:59 Intake Total 3000 0 700 Output Total 2105 Balance 3000 -2105 700 Weight 126.099 kg Intake: IV 3000 0 Intake, IV Titration 700 Amount Sodium Chloride 0.9% 1, 600 000 ml @ 75 mls/hr IV . [id number] [facility] Rx#:[id number] Sodium Chloride 0.9% 100 100 ml @ 0 mls/hr IV .STK-MED ONE with ceFAZolin 3,000 mg Rx#:[id number] Output: Urine 1105 Estimated Blood Loss 1000 Other: Voiding Method Toilet Indwelling Catheter Indwelling Catheter Urinal # Voids 1 - Exam General: [non toxic], [no distress], [appears at stated age] Derm: [warm], [dry] Head: [atraumatic], [normocephalic], [symmetric] Eyes: [EOMI], [no lid lag], [anicteric sclera] Mouth: [no lip lesion], [mucus membranes moist] Cardiovascular: [S1S2 reg], [no murmur], [positive DP pulse bilateral], Lungs: [CTA bilateral], [no rhonchi, no rales] , [no accessory muscle use] Abdominal: [soft], [ nontender to palpation], [no guarding], [no appreciable organomegaly] Ext: [no gross muscle atrophy], [no edema], [no contractures] Neuro: [no focal neuro deficits] Psych: [Alert], [oriented], [appropriate affect] - Labs CBC & Chem 7: 01/21/20 05:59 01/20/20 06:56 Labs: Abnormal Lab Results - Last 24 Hours (Table) 01/19/20 01/21/20 Range/Units 07:24 05:59 WBC 11.6 H (3.8-10.6) k/uL Neutrophils # 9.8 H (1.3-7.7) k/uL Lymphocytes # 0.6 L (1.0-4.8) k/uL Coronavirus (PCR) Detected A (Not Detected) Assessment and Plan Assessment: COVID 19 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 Plans: Isolation precautions. Continue to monitor. Patient's symptoms and MRI of the lumbar spine is concerning for moderate to severe central and foraminal stenosis. Plan: Plans for decompression and poss ible fusion today, currently in OR. Pain control with Tylenol, [place] or morphine as needed. Continue gabapentin. Will need PT and OT consult after surgery. Orthopedic surgery on board. Neurochecks. BP 131/70. Plans: Continue losartan. Monitor vitals, adjust medications if necessary. Plans: Continue Lipitor. Plans: BiPAP at nighttime. Plans: Continue sertraline. Patient is pending clinical improvement. Anticipated DC home tomorrow if patient continues to show improvement and is able to ambulate without much difficulties. His Covid testing is positive despite being asymptomatic. He will need to isolate when he returns home.
[2020-01-21] MEDS: TAMSULOSIN 0.4 MG CAP.ER.24H PO SCH (17:06)
[2020-01-21] MEDS: ATORVASTATIN 10 MG TAB PO SCH ×2 (20:20→20:32)
[2020-01-22] MEDS: ACETAMINOPHEN TAB 500 MG TAB PO PRN (05:09)
[2020-01-22 08:43] VITALS: BP 138/78; PULSE 73; RESP 17; TEMP 98.1
--- NOTE | 2020-01-22 08:48 | P.PN ---
Progress Note - Text Progress Note Date: 01/22/20 S: Pt s/e doing well. Some fevers overnight T 101 but otherwise feeling good. Some pain when up and states he had a bout of bladder incontinence this AM when he got up. He went to go to the bathroom, but just lost control before he got to toilet and stated he couldnt hold it. No issues with bowels. States he is able to hold his flatulence. Denies any new numbness/tingling/weakness. Denies any numbness/tingling in the genital region. PE: AOX3 NAD VSS at this time Pain controlled Dressing CDI. No EEE. No hematoma or swelling. 5/5 DF/PF/EHL/FHL/KF/KE/HF b/l LE 5/5 Shoulder abduction/EF/EE/WF/WE/intrinsics b/l UE SILT C5-T1 and L2-S3 2/4 distal pulses Compartment soft and compressive Negative Ta's b/l Negative Clonus Negative Babinski b/l Drain: 50 cc since OR. DC today. A: 69 yo male POD2 L2-4 laminectomy decompression P: 1. Pain control 2. Aggresive ambulation protocol OOB with all meals, up ad mita. Brace when up and about. Not necessary but would like him to wear when out of bed. 3. PT/OT 4. GI/DVT ppx, TEDs, SCDs 5. Urology and medicine recs 6. Monitor labs. 8. Ortho stable for home. Change dressing before dc if saturated with 10 in optifoam. Currently is CDI 9. F/U 2 weeks in office. DC instructions in plan.
[2020-01-22] MEDS: GABAPENTIN 300 MG CAP PO SCH (08:51)
[2020-01-22] MEDS: methocarbamoL 750 MG TAB PO SCH (08:51)
[2020-01-22] MEDS: SERTRALINE 50 MG TAB PO SCH (08:51)
[2020-01-22] MEDS: HYDROcodone/APAP 5-325MG 1 EACH TAB PO PRN ×2 (08:51→13:08)
[2020-01-22] MEDS: LOSARTAN 50 MG TAB PO SCH (08:51)
[2020-01-22] MEDS: SENNOSIDES-DOCUSATE SODIUM 1 EACH TAB PO SCH (08:51)
[2020-01-22] MEDS: polyethylene glycoL 3350 17 GM POWD.PACK PO SCH (08:52)
--- NOTE | 2020-01-22 12:08 | P.DS ---
Providers Date of admission: 01/19/20 19:54 Expected date of discharge: 01/22/20 Attending physician: Ginna Melton DO Consults: 01/19/20 09:19 Consult Physician Urgent Consulting Provider: Cesar Charles Consult Reason/Comments: rule out spinal cord compression, cauda equina Do you want consulting provider notified?: Already Contacted 01/19/20 13:54 Consult Physician Routine Consulting Provider: Sandor Cobb Consult Reason/Comments: urinary incontinence Do you want consulting provider notified?: Yes Primary care physician: Jeffy Paulson MD Hospital Course: 69-year-old male with PMH of chronic lower back pain, hypertension, dyslipidemia, depression and LUNA presents to the ED for bowel and bladder incontinence. Over the last 2 weeks patient has noticed that he is unable to hold his urine in prior to getting to the washroom. He does notice the urge to urinate. Patient also reports inability to control his bowel function as well during this time. He denies any saddle anesthesia or any numbness/weakness/tingling into the lower extremities. He reports his lower back pain is a 10 out of 10 in severity pain described as sharp and stabbing in nature. Pain is nonradiating. Patient otherwise has no complaints. He denies any headache, lower extremity edema, nausea or vomiting, fever or chills, cough, chest pain, shortness of breath, palpitations, changes in appetite or weight. He denies any dizziness. In the ED his vital signs are stable except for slightly elevated BP with SBP in the 140s. CBC showed hemoglobin of 17.7. CMP showed sodium 135. Urinalysis showed trace protein. Chest x-ray showed chronic changes with right basilar linear scarring and/or atelectasis. Lumbar spine CT shows multilevel spondylolisthesis and moderate to advanced DJD. MRI of the lower spine showed severe right L4 5 foraminal stenosis, bilateral foraminal stenosis at the L3 4. Patient is admitted for intractable lower back pain with concerns for cord compression with orthopedic surgery on consult. His symptoms were concerning for spinal stenosis. MRI of the lumbar spine was performed which showed moderate to severe central and foraminal stenosis. Thoracic MRI shows spurring anteriorly, evidence of some mild thoracic spinal cord atrophy. Orthopedic surgery was consulted and recommended laminectomy and decompressive surgery. Patient underwent surgery on 01/20/2020. After his surgery, his coronavirus testing came back positive. His pain was adequately controlled after surgery and PT and OT was consulted. Patient seen and examined this morning. No acute events overnight. Patient reports 6 out of 10 severity pain in his lower back at the site of surgery. Had one episode where he couldn't make it to the washroom on time for urination. No bowel movement but passing gas. He denies any numbness, weakness, tingling of the lower extremities. Wanting to go home. He denies any chest pain, shortness breath or palpitations. Fever of 101.5 Fahrenheit this morning. General: [non toxic], [no distress], [appears at stated age] Derm: [warm], [dry] Head: [atraumatic], [normocephalic], [symmetric] Eyes: [EOMI], [no lid lag], [anicteric sclera] Mouth: [no lip lesion], [mucus membranes moist] Cardiovascular: [S1S2 reg], [no murmur], [positive DP pulse bilateral], Lungs: [CTA bilateral], [no rhonchi, no rales] , [no accessory muscle use] Abdominal: [soft], [ nontender to palpation], [no guarding], [no appreciable organomegaly] Ext: [no gross muscle atrophy], [no edema], [no contractures] Neuro: [no focal neuro deficits] Psych: [Alert], [oriented], [appropriate affect] Fever likely related to COVID 19 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 Plans: Patient advised to self isolate for 2 weeks. Patient is not hypoxic and will not be started on dexamethasone. Patient's symptoms and MRI of the lumbar spine is concerning for moderate to severe central and foraminal stenosis. Status post decompression and laminectomy POD 2. Plan: Ambulating comfortably. Pain control with Tylenol, [place] or morphine as needed. Continue gabapentin. Orthopedic surgery on board. Neurochecks. BP 138/78. Plans: Continue losartan. Monitor vitals, adjust medications if necessary. Plans: Continue Lipitor. Plans: BiPAP at nighttime. Plans: Continue sertraline. Anticipated DC home today. His fever is likely related to positive coronavirus infection. Patient advised to self isolate for 2 weeks. Follow-up with PCP within 3 days of discharge. Follow-up with orthopedic surgery within 2 weeks of discharge. This complex discharge took about 35 minutes to complete. Pertinent Studies: Lumbar CT and MRI. Thoracic MRI. Lumbar x-ray. Pelvic CT. Patient Condition at Discharge: Stable Plan - Discharge Summary Discharge Rx Participant: No New Discharge Prescriptions: New oxyCODONE HCL [OxyIR] 10 mg PO Q6H PRN #24 tab PRN Reason: Pain methocarbamoL [Robaxin] 750 mg PO TID #30 tab Sennosides-Docusate Sodium [Senokot-S] 1 each PO BID #30 tab Continue Simvastatin [Zocor] 20 mg PO HS Gabapentin 600 mg PO BID Tamsulosin HCl [Flomax] 0.4 mg PO HS Cholecalciferol [Vitamin D3 (25 Mcg = 1000 Iu)] 1,000 unit PO DAILY Sertraline [Zoloft] 50 mg PO DAILY Meloxicam 15 mg PO DAILY Losartan Potassium 100 mg PO DAILY Discharge Medication List Gabapentin 600 mg PO BID 04/25/15 [History] Simvastatin [Zocor] 20 mg PO HS 04/25/15 [History] Tamsulosin HCl [Flomax] 0.4 mg PO HS 07/27/18 [History] Cholecalciferol [Vitamin D3 (25 Mcg = 1000 Iu)] 1,000 unit PO DAILY 07/08/19 [History] Losartan Potassium 100 mg PO DAILY 07/08/19 [History] Meloxicam 15 mg PO DAILY 07/08/19 [History] Sertraline [Zoloft] 50 mg PO DAILY 07/08/19 [History] Sennosides-Docusate Sodium [Senokot-S] 1 each PO BID #30 tab 01/22/20 [Rx] methocarbamoL [Robaxin] 750 mg PO TID #30 tab 01/22/20 [Rx] oxyCODONE HCL [OxyIR] 10 mg PO Q6H PRN #24 tab 01/22/20 [Rx] Follow up Appointment(s)/Referral(s): Jeffy Paulson MD [Primary Care Provider] - 1-2 days Cesar Charles DO [Doctor of Osteopathic Medicine] - 2 Weeks Jeff Choudhury [NON-STAFF] - As Needed (LSO back brace) Patient Instructions/Handouts: Community Acquired Pneumonia (DC) Activity/Diet/Wound Care/Special Instructions: Spine Discharge and Recovery Instructions Date of Surgery: 01/20/2020 Diagnosis: Incomplete Cauda equina Severe L2 to L4 stenosis Bowel and bladder incontinence Procedure: L2 to L4 laminectomy decompression partial medial facetectomy and foraminotomy Medications: Tylenol 1000 mg by mouth 4 times per day, OxyIR 5-10 mg by mouth every 4-6 hours when necessary severe pain, Robaxin 750 mg by mouth 3 times a day when necessary spasm, senna 8.6 mg by mouth twice a day when necessary constipation All medication refills should be obtained through your primary care doctor or your clinic spine surgeon. Please discuss prescription refills at your follow up appointment. Do not call the hospital for medication refills. Dressing: Leave your dressing in place for a total of 5 days post operatively. Then you may remove your dressing and leave open to air. Keep the area clean and if not able to keep area clean, then cover with sterile gauze and tape. Showering: You may shower 3 days after your procedure allowing soap and water to run over incision. Do not scrub. Do not soak. Blot dry. Follow up: Please confirm a follow up appointment with your surgeon 3 weeks post operatively. Please make an appointment to follow up with your PCP in 1-2 weeks after surgery for evaluation 3 phase, 3-week plan POST OP WEEKS 1-3 1. Lifting/carrying/pushing/pulling limited to less than 5 pounds. 2. Do not sit for longer than 15 minutes at one time. Get up and walk around. Prolonged sitting is NOT advised. If you lay down, see if you can tolerate laying down on you front (belly side) 3. Walk for periods of 15 minutes = 1 mile but no longer; do it multiple times times each day. 4.Ice your low back after activity. POST OP WEEKS 3-6 1. Lifting limited to less than 20 pounds. 2. Do not sit for longer than 30 minutes at a time. Frequently change positions. Use a sit-to stand workstation or take frequent breaks from sitting if you have returned to work. 3. Walk for 30 minutes each day. If possible, do these three or more times a day POST OP WEEKS 6+ At your 6-week appointment we will give you a physical therapy referral to focus on a core stabilization and strengthening program. You should also work on leg & buttock strengthening, hamstring & quadriceps stretching, and continue a low impact aerobic activity program such as swimming, walking, or riding a stationary bicycle. During the initial 6 weeks after your surgery, you are at the highest risk of re-injuring your spine. You should generally avoid BLTs (bending, lifting and twisting combination motions) and follow the above guidelines to reduce the chance of reinjury. You can anticipate post op appointments in our office at approximately 3 weeks and 6 weeks after your surgery. INCISION CARE: If your incision is not draining you do NOT need to cover it with a dressing. Keep your incision clean, dry and intact. In most cases, we apply skin glue, vasquez or sutures to the incision at the time of surgery. This will be like a crust or have the appearance of a scab and will fall off in time on its own. The stitches or vasquez need to be removed at 3 weeks post op appointment. You may begin to shower 3 days after surgery (this allows the glue to stafford well). However, please avoid scrubbing the incision site or peeling off any of the skin glue. This will ensure optimal healing of your incision. Also, during this time avoid soaking the incision area in water - this includes swimming pools, hot tubs or baths. No ointments, lotions or oils on the incision until your surgeon allows. Leave vasquez, sutures or glue in place. Neurological dysfunction that comes on suddenly can also be a sign of a stroke. Below some common symptoms of a stroke are listed: B - balance difficulty such as sudden onset walking or leaning to one side - NEW E - eye problem such as sudden double vision or trouble seeing on one side - NEW F - Facial weakness or numbness on one side - NEW A - Arm or leg weakness or numbness on one side - NEW S - Slurred speech or difficulty with word finding - NEW T - Time is BRAIN! Call 911 as soon as you recognize these symptoms Diet: Consume a regular diet rich in vegetables and lean protein such as chicken or fish. You should consume in a ratio of approximately 20% fats|40% carbohydrates|40%protein. Vegetables, sweet potatoes, brown rice or quinoa are examples of good carbohydrates. Chips, white bread, cookies and sweets/sugar are examples of bad carbohydrates. Limit your bad carbs, go wild with good carbs. "Life's Simple 7" Guidelines as per [place] [employer] These will help you reclaim your life after surgery and diver helper in your recovery, keeping in mind your restrictions. (1) Get Active. Physical activity can help people lose weight, control high blood pressure and cholesterol, feel emotionally better, and sleep better. (2) Control Cholesterol. Avoid a diet high in saturated fat, trans fat, & cholesterol. Limit whole milk & cream, ice cream, butter, egg yolks, processed meats (like sausage and hot dogs), and fatty meats. Choose healthy foods that are low in saturated fat, trans fat and cholesterol which include: Fruits and vegetables, fiber rich grain products (like whole grain pasta and brown rice), lean meat such as chicken, fish, nuts, seeds, and legumes. (3) Eat Better. Eat small portions. Shop at the grocery with a list and do not stray from it. Tips for a healthy diet include: Limit sodium intake to less than 1500mg daily, avoid prepackaged, processed, and fast foods, choose a diet rich in fruits, vegetables, and whole grain, high fiber foods, and limit saturated & cholesterol in your diet. (4) Manage Blood Pressure. If you have high blood pressure, you should have a cuff at home so that you can check your blood pressure regularly. Be sure you have a good cuff. An arm one is generally better than a wrist one. Bring the cuff to a doctor's appointment to validate that the measurements that your cuff are taking are accurate. Take your blood pressure twice daily when you are sitting down and relaxing. Record the numbers in a log and bring this log with you to your doctors' appointments. (5) Lose Weight if your BMI is above 25. A healthy BMI is between 19-25. To calculate Your BMI, you may use a Standard BMI Calculator on the NIH BMI website: <www.nhlbi.nih.gov/guidelines/obesity/BMI/bmicalc.htm>. Weigh oneself daily. If you are overweight, set a goal to lose weight. A pound a week loss if needed is a good target. (6) Reduce Blood Sugar. Limit foods and liquids with "added sugars." (Added sugars include sucrose, fructose, glucose, maltose, dextrose, high fructose corn syrup, corn syrup, concentrated fruit juice and honey). (7) Stop Smoking. If you smoke, quitting smoking is one of the best things that you can do for your health. Smoking increases your risk of heart attack, stroke, and peripheral vascular disease, which is a build-up of plaque in your arteries. Please discard all the cigarettes and lighters in your house. Have a plan for what you will do when you have the urge to smoke. Direct and second- hand smoke shortens your life as well as the lives of your family, friends and others around you. For your health and the health of those around you, please consider quitting! Proper Bending Body Mechanics: Maintain a wide stance with one foot slightly in front of the other. Keep your back straight. Bend utilizing the strength in your hips and knees. Do not bend at the waist. Maintain the lifted object at your waist-level close to your body. Avoid lifting weight that causes immediately pain or pain anywhere in the body afterwards. Smoking/Nicotine If there was ever one thing that you could do to increase your overall health, decrease your risk of cardiovascular problems by about 39% the second you make the choice, it is to STOP SMOKING. Your body's most instant gratification is the second you stop smoking. We have all heard the studies, read the articles but it is true, smoking is extremely bad for your overall health, and moreover it is detrimental to your bone health. Nicotine, IN ANY FORM, kills bone cells, prevents your body from healing fractures, and significantly prolongs healing after surgery. In spine surgery specifically, it increases your risk of not healing your bones to create a fusion and increases your risk of having a revision surgery due to this up to 60%. I know it is hard. I know it feels impossible. But there are ways. Take control of your life. We are here to help you through it. And when you are ready, ask us and we can direct you to help if you desire. Use the START Plan to Quit Smoking (please visit the Helpguide.org website listed below for more information): S = Set a quit date. Choose a date within the next 2 weeks, so you have enough time to prepare without losing your motivation to quit. If you mainly smoke at work, quit on the weekend, so you have a few days to adjust to the change. T = Tell family, friends, and co-workers that you plan to quit. Let your friends and family in on your plan to quit smoking and tell them you need their support and encouragement to stop. Look for a quit grover who wants to stop smoking as well. You can help each other get through the rough times. A = Anticipate and plan for the challenges you'll face while quitting. Most people who begin smoking again do so within the first 3 months. You can help yourself make it through by preparing ahead for common challenges, such as nicotine withdrawal and cigarette cravings. R = Remove cigarettes and other tobacco products from your home, car, and work. Throw away all your cigarettes (no emergency pack!), lighters, ashtrays, and matches. Wash your clothes and freshen up anything that smells like smoke. Shampoo your car, clean your drapes and carpet, and steam your furniture. T = Talk to your doctor about getting help to quit. Your doctor can prescribe medication to help with withdrawal and suggest other alternatives. If you can't see a doctor, you can get many products over the counter at your local pharmacy or grocery store, including the nicotine patch, nicotine lozenges, and nicotine gum. Resources for Quitting Smoking: <https://www.[place].gov/documents/[facility]/Quit_Tobacco_Resources_for_patients_313 480_7.pdf> Supplementation: Take recommended dosages of Vitamin D and Calcium to help fortify your bones and help them to heal. See your health maintenance packet for dosages and recommended levels. DVT/VTE prophylaxis: You will be given compression stockings from the hospital. Wear these daily for the first two weeks after surgery. You may take them off at night. You may be prescribed a medication to help thin your blood. Take this as directed. If you are not prescribed this medication, early and frequent ambulation has been shown to be the best prophylaxis to deep vein thrombosis and sequelae related to this event. SELF ISOLATE FOR 2 WEEK FOR POSITIVE COVID INFECTION. COME BACK TO THE ED OR CALL 911 FOR WORSENING CHEST PAIN, SHORTNESS OF BREATH, DIZZINESS, FEVER THAT DOES NOT IMPROVE WITH TYLENOL. Discharge Disposition: HOME WITH HOME HEALTH SERVICES
== END 2020-01-22 14:06 | disposition home or self-care (01) | DRG 518 ==
LOC: EC 06:40 → 1SOBS 09:11 → OBSVTOIN 19:54 → 4SSUR 01-20 17:32
PROVIDERS: ADMIT Internal Medicine; ATTEND Internal Medicine
PROC: 00UT0KZ Supplement Spinal Meninges with Nonautologous Tissue Substitute, Open Approach (ICD-10-PCS; 2020-01-20)
PROC: 0QB00ZZ Excision of Lumbar Vertebra, Open Approach (ICD-10-PCS; principal; 2020-01-20 14:00)
PROC: 00NY0ZZ Release Lumbar Spinal Cord, Open Approach (ICD-10-PCS; principal; 2020-01-20 14:00)
DX: M48.061 Spinal stenosis, lumbar region without neurogenic claudication (principal); U07.1 COVID-19; G96.11 Dural tear; G83.4 Cauda equina syndrome; J98.6 Disorders of diaphragm; M43.16 Spondylolisthesis, lumbar region; M89.38 Hypertrophy of bone, other site; M47.816 Spondylosis without myelopathy or radiculopathy, lumbar region; M24.28 Disorder of ligament, vertebrae; G89.29 Other chronic pain; E78.5 Hyperlipidemia, unspecified; R15.9 Full incontinence of feces; N40.1 Benign prostatic hyperplasia with lower urinary tract symptoms; N39.41 Urge incontinence; I10 Essential (primary) hypertension; F32.9 Major depressive disorder, single episode, unspecified; G47.33 Obstructive sleep apnea (adult) (pediatric); M15.9 Polyosteoarthritis, unspecified; M54.2 Cervicalgia; K57.90 Diverticulosis of intestine, part unspecified, without perforation or abscess without bleeding; R50.9 Fever, unspecified; E66.9 Obesity, unspecified; Z68.36 Body mass index [BMI] 36.0-36.9, adult; Z79.1 Long term (current) use of non-steroidal anti-inflammatories (NSAID); Z79.899 Other long term (current) drug therapy; Z87.891 Personal history of nicotine dependence; Z90.89 Acquired absence of other organs; Z96.652 Presence of left artificial knee joint; Z98.1 Arthrodesis status; Z86.010 Personal history of colon polyps; Z90.49 Acquired absence of other specified parts of digestive tract; Z87.19 Personal history of other diseases of the digestive system; Z98.890 Other specified postprocedural states; Z80.1 Family history of malignant neoplasm of trachea, bronchus and lung; Z80.3 Family history of malignant neoplasm of breast
CPT/HCPCS: 36415; 51798; 71046; 72020; 72114; 72132; 72146; 72148; 72192; 80048; 80053; 81003; 83605; 85025; 85610; 85730; 86850; 86891; 86900; 86901; 87040; 94002; 94660; 96374; 99285

== ENCOUNTER 2020-02-03 10:44 | Inpatient (IN) | payer OTHER, MEDICARE ==
[2020-02-03] MEDS ORDERED: SODIUM CHLORIDE 0.9% 1,000 ML IV ONE ×2 (11:12→13:39)
[2020-02-03] MEDS ORDERED: ACETAMINOPHEN TAB 325 MG TAB PO STA (11:12)
--- NOTE | 2020-02-03 11:21 | ED ---
Recheck HPI - General Source: patient, family Mode of arrival: wheelchair <Katherin Snowden - Last Filed: 02/03/20 13:50> <Gómez Wright - Last Filed: 02/03/20 15:56> - General Chief Complaint: Recheck/Abnormal Lab/Rx Stated Complaint: Covid positive Time Seen by Provider: 02/03/20 10:53 - History of Present Illness Initial Comments: 69-year-old male presenting today for chief complaint of leakage from surgical site-patient underwent L2 through L5 laminectomy with decompression performed by Dr. Charles. Patient states that for the past 3 days his surgical site has been leaking he states he did not notice prior to that. Patient states since surgery he has been feeling good however yesterday he went outside and it was very cold he states he felt chilled to the bone and has had increased back pain. Patient states he began noting fevers last night but was recently diagnosed on January 19 with Aicha. Patient states he really hadthat can sometimes may be mild congestion and cough. Patient states that the symptoms had not worsened he denies any increasing shortness of breath chest pain hemoptysis or leg swelling. Patient states that he had the surgery secondary to intermittent urinary incontinence. He states is still present after surgery. He denies bowel unconsciousness new numbness any weakness or difficulty ambulating. Patient states that he does have a slight headache currently denies any neck stiffness or photophobia. Patient denies sudden onset of headache he states that is not the worst headache of his life. Patient denies additional complaints at this time he appears nontoxic-but is found to be febrile on arrival with elevation of heart rate. (Katherin Snowden) - Related Data Home Medications Medication Instructions Recorded Confirmed Gabapentin 600 mg PO BID 04/25/15 02/03/20 Simvastatin [Zocor] 20 mg PO HS 04/25/15 02/03/20 Tamsulosin HCl [Flomax] 0.4 mg PO HS 07/27/18 02/03/20 Cholecalciferol [Vitamin D3 (25 1,000 unit PO DAILY 07/08/19 02/03/20 Mcg = 1000 Iu)] Losartan Potassium 50 mg PO DAILY 07/08/19 02/03/20 Meloxicam 15 mg PO DAILY 07/08/19 02/03/20 Sertraline [Zoloft] 50 mg PO DAILY 07/08/19 02/03/20 Previous Rx's Medication Instructions Recorded Sennosides-Docusate Sodium 1 each PO BID #30 tab 01/22/20 [Senokot-S] methocarbamoL [Robaxin] 750 mg PO TID #30 tab 01/22/20 Allergies Allergy/AdvReac Type Severity Reaction Status Date / Time No Known Allergies Allergy Verified 02/03/20 11:17 Review of Systems ROS Other: All systems not noted in ROS Statement are negative. <Katherin Snowden - Last Filed: 02/03/20 13:50> ROS Other: All systems not noted in ROS Statement are negative. <Gómez Wright - Last Filed: 02/03/20 15:56> ROS Statement: Those systems with pertinent positive or pertinent negative responses have been documented in the HPI. Past Medical History Past Medical History: Hyperlipidemia, Hypertension, Osteoarthritis (OA), Prostate Disorder, Sleep Apnea/CPAP/BIPAP Additional Past Medical History / Comment(s): Chronic low back and cervical pain, paralyzed R diaphram, LUNA with Cpap, benign colon polyp/diverticular disease, arthritis in multiple joints, BPH. History of Any Multi-Drug Resistant Organisms: None Reported Past Surgical History: Back Surgery, Joint Replacement, Orthopedic Surgery, Tonsillectomy Additional Past Surgical History / Comment(s): left knee partial replacement, right ankle fusion, uvulectomy, colonoscoy/benign polypectomy Past Anesthesia/Blood Transfusion Reactions: No Reported Reaction Past Psychological History: Depression Smoking Status: Former smoker Past Alcohol Use History: None Reported Past Drug Use History: None Reported - Past Family History Mother Family Medical History: Cancer Father Family Medical History: Cancer <Katherin Snowden - Last Filed: 02/03/20 13:50> General Exam <Katherin Snowden - Last Filed: 02/03/20 13:50> - General Exam Comments Initial Comments: General: The patient is awake and alert, in no distress, and does not appear acutely ill. Eye: Pupils are equal, round and reactive to light, extra-ocular movements are intact. No nystagmus. There is normal conjunctiva bilaterally. No signs of icterus. Ears, nose, mouth and throat: There are moist mucous membranes and no oral lesions. Neck: The neck is supple, there is no tenderness or JVD. Cardiovascular: There is a regular rate and rhythm. No murmur, rub or gallop is appreciated. Respiratory: Lungs are clear to auscultation, respirations are non-labored, breath sounds are equal. No wheezes, stridor, rales, or rhonchi. Gastrointestinal: Soft, non-distended, non-tender abdomen without masses or organomegaly noted. There is no rebound or guarding present. Musculoskeletal: Normal ROM, no tenderness. Strength 5/5. Sensation intact. Pulses equal bilaterally 2+. Neurological: A&O x 3. CN II-XII intact, There are no obvious motor or sensory deficits. Coordination appears grossly intact. Speech is normal. Skin: Skin is warm and dry and no rashes or lesions are noted. Psychiatric: Cooperative, appropriate mood & affect, normal judgment. (Katherin Snowden) Course <Gómez Wright - Last Filed: 02/03/20 15:56> Vital Signs 02/03/20 10:47 Temperature 100.3 F H Pulse Rate 114 H Respiratory 18 Rate Blood Pressure 144/73 O2 Sat by Pulse 95 Oximetry - Reevaluation(s) Reevaluation #1: 02/03/20 15:53 he patient was endorsed me pending lab work and imaging patient does have evidence of right-sided pneumonia. Patient will be admitted the case was discussed with Dr. Melton. (Gómez Wright) Medical Decision Making - Lab Data Result diagrams: 02/03/20 11:44 02/03/20 11:44 <Katherin Snowden - Last Filed: 02/03/20 13:50> - Lab Data Result diagrams: 02/03/20 11:44 02/03/20 11:44 <Gómez Wright - Last Filed: 02/03/20 15:56> - Medical Decision Making Suspected sepsis diagnosed at 1:53 (Katherin Snowden) - Lab Data Lab Results 02/03/20 02/03/20 02/03/20 Range/Units 11:44 11:44 11:44 WBC 27.1 H (3.8-10.6) k/uL RBC 5.45 (4.30-5.90) m/uL Hgb 16.6 (13.0-17.5) gm/dL Hct 49.9 (39.0-53.0) % MCV 91.5 (80.0-100.0) fL MCH 30.4 (25.0-35.0) pg MCHC 33.3 (31.0-37.0) g/dL RDW 14.1 (11.5-15.5) % Plt Count 338 D (150-450) k/uL MPV 8.9 Neutrophils % 94 % Lymphocytes % 2 % Monocytes % 2 % Eosinophils % 1 % Basophils % 0 % Neutrophils # 25.4 H (1.3-7.7) k/uL Lymphocytes # 0.6 L (1.0-4.8) k/uL Monocytes # 0.6 (0-1.0) k/uL Eosinophils # 0.3 (0-0.7) k/uL Basophils # 0.1 (0-0.2) k/uL Manual Slide Review Performed RBC Morphology Normal Sodium 130 L (137-145) mmol/L Potassium 4.9 (3.5-5.1) mmol/L Chloride 98 (98-107) mmol/L Carbon Dioxide 26 (22-30) mmol/L Anion Gap 6 mmol/L BUN 14 (9-20) mg/dL Creatinine 0.77 (0.66-1.25) mg/dL Est GFR (CKD-EPI)AfAm >90 (>60 ml/min/1.73 sqM) Est GFR (CKD-EPI)NonAf >90 (>60 ml/min/1.73 sqM) Glucose 123 H (74-99) mg/dL Lactic Ac Sepsis Rflx Plasma Lactic Acid Bart (0.7-2.0) mmol/L Calcium 9.3 (8.4-10.2) mg/dL Total Bilirubin 1.5 H (0.2-1.3) mg/dL AST 60 H (17-59) U/L ALT 60 H (4-49) U/L Alkaline Phosphatase 119 (38-126) U/L Total Protein 7.0 (6.3-8.2) g/dL Albumin 3.5 (3.5-5.0) g/dL Urine Color Yellow Urine Appearance Clear (Clear) Urine pH 6.0 (5.0-8.0) Ur Specific [place] 1.026 (1.001-1.035) Urine Protein 1+ H (Negative) Urine Glucose (UA) Negative (Negative) Urine Ketones Negative (Negative) Urine Blood Small H (Negative) Urine Nitrite Negative (Negative) Urine Bilirubin Negative (Negative) Urine Urobilinogen 2.0 (<2.0) mg/dL Ur Leukocyte Esterase Negative (Negative) Urine RBC 4 (0-5) /hpf Urine WBC 1 (0-5) /hpf Urine Mucus Few H (None) /hpf 02/03/20 02/03/20 Range/Units 11:44 13:48 WBC (3.8-10.6) k/uL RBC (4.30-5.90) m/uL Hgb (13.0-17.5) gm/dL Hct (39.0-53.0) % MCV (80.0-100.0) fL MCH (25.0-35.0) pg MCHC (31.0-37.0) g/dL RDW (11.5-15.5) % Plt Count (150-450) k/uL MPV Neutrophils % % Lymphocytes % % Monocytes % % Eosinophils % % Basophils % % Neutrophils # (1.3-7.7) k/uL Lymphocytes # (1.0-4.8) k/uL Monocytes # (0-1.0) k/uL Eosinophils # (0-0.7) k/uL Basophils # (0-0.2) k/uL Manual Slide Review RBC Morphology Sodium (137-145) mmol/L Potassium (3.5-5.1) mmol/L Chloride (98-107) mmol/L Carbon Dioxide (22-30) mmol/L Anion Gap mmol/L BUN (9-20) mg/dL Creatinine (0.66-1.25) mg/dL Est GFR (CKD-EPI)AfAm (>60 ml/min/1.73 sqM) Est GFR (CKD-EPI)NonAf (>60 ml/min/1.73 sqM) Glucose (74-99) mg/dL Lactic Ac Sepsis Rflx Y Plasma Lactic Acid Bart 2.5 H* (0.7-2.0) mmol/L Calcium (8.4-10.2) mg/dL Total Bilirubin (0.2-1.3) mg/dL AST (17-59) U/L ALT (4-49) U/L Alkaline Phosphatase (38-126) U/L Total Protein (6.3-8.2) g/dL Albumin (3.5-5.0) g/dL Urine Color Urine Appearance (Clear) Urine pH (5.0-8.0) Ur Specific [place] (1.001-1.035) Urine Protein (Negative) Urine Glucose (UA) (Negative) Urine Ketones (Negative) Urine Blood (Negative) Urine Nitrite (Negative) Urine Bilirubin (Negative) Urine Urobilinogen (<2.0) mg/dL Ur Leukocyte Esterase (Negative) Urine RBC (0-5) /hpf Urine WBC (0-5) /hpf Urine Mucus (None) /hpf Disposition <Ktaherin Snowden - Last Filed: 02/03/20 13:50> <Gómez Wright - Last Filed: 02/03/20 15:56> Clinical Impression: Pneumonia, Febrile illness, acute, COVID-19 Disposition: ADMITTED IP TO THIS [facility] Condition: Fair Referrals: Nonstaff,Physician [REFERRING] - 1-2 days
[2020-02-03 13:15] LABS: Basophils # (A) 0.1 k/uL (0-0.2); Basophils % (A) 0 %; Eosinophils # (A) 0.3 k/uL (0-0.7); Eosinophils % (A) 1 %; HCT 49.9 % (39.0-53.0); HGB 16.6 gm/dL (13.0-17.5); Lymphocytes # (A) 0.6 k/uL (1.0-4.8); Lymphocytes % (A) 2 %; MCH 30.4 pg (25.0-35.0); MCHC 33.3 g/dL (31.0-37.0); MCV 91.5 fL (80.0-100.0); Mean Platelet Volume 8.9; Monocytes # (A) 0.6 k/uL (0-1.0); Monocytes % (A) 2 %; Neutrophils # (A) 25.4 k/uL (1.3-7.7); Neutrophils % (A) 94 %; RBC 5.45 m/uL (4.30-5.90); RDW 14.1 % (11.5-15.5)
[2020-02-03] MEDS: SODIUM CHLORIDE 0.9% 1,000 ML IV SCH (13:16)
[2020-02-03 13:27] LABS: Appearance,Urine Clear (Clear); Bilirubin,Urine Negative (Negative); Blood,Urine Small (Negative); Color,Urine Yellow; Glucose,Urine (UA) Negative (Negative); Ketones,Urine Negative (Negative); Leukocyte Esterase,Urine Negative (Negative); Mucus,Urine Few /hpf; Nitrite,Urine Negative (Negative); Protein,Urine 1+ (Negative); RBC,Urine 4 /hpf (0-5); Specific Gravity,Urine 1.026 (1.001-1.035); WBC,Urine 1 /hpf (0-5)
[2020-02-03 13:29] LABS: ALT 60 U/L (4-49); AST 60 U/L (17-59); African American GFR (CKD) >90 (>60 ml/min/1.73 sqM); Albumin 3.5 g/dL (3.5-5.0); Alkaline Phosphatase 119 U/L (38-126); Anion Gap 6 mmol/L; Blood Urea Nitrogen 14 mg/dL (9-20); Calcium 9.3 mg/dL (8.4-10.2); Carbon Dioxide 26 mmol/L (22-30); Chloride 98 mmol/L (98-107); Glucose 123 mg/dL (74-99); Non-African American GFR(CKD) >90 (>60 ml/min/1.73 sqM); Potassium 4.9 mmol/L (3.5-5.1); Sodium 130 mmol/L (137-145); Total Bilirubin 1.5 mg/dL (0.2-1.3)
[2020-02-03 13:32] LABS: WBC 27.1 k/uL (3.8-10.6)
[2020-02-03 13:33] LABS: Platelet Count 338 k/uL (150-450)
[2020-02-03] MEDS ORDERED: PIPERACILLIN-TAZOBACTAM 3.375 GM in SODIUM CHLORIDE 0.9% 100 ML IVPB STA (13:41)
[2020-02-03] MEDS ORDERED: VANCOMYCIN IV PER PHARMACY 1 EACH MISC MISCELLANE PRN (13:43)
--- NOTE | 2020-02-03 13:45 | XR ---
EXAMINATION TYPE: XR chest 2V DATE OF EXAM: 02/03/2020 COMPARISON: Chest x-ray January 19, 2020 HISTORY: Fever. Covid. TECHNIQUE: Frontal and lateral views of the chest are obtained. FINDINGS: Low lung volumes with slightly elevated right hemidiaphragm redemonstrated. Background chr onic parenchymal changes with new right mid lung peripheral opacity and lateral left mid to lower samanta g opacities. No pleural effusion or pneumothorax noted bilaterally. The cardiac silhouette size is s table and mildly enlarged with atherosclerotic and ectatic aorta. Concentric subglottic tracheal narr owing redemonstrated. Multilevel spurring of the spine again seen. IMPRESSION: Chronic changes and low lung volumes with new peripheral right mid and left mid to lower lung acute infiltrates. Findings correlate with suspected covid-19 infection.
--- NOTE | 2020-02-03 14:23 | CT ---
EXAMINATION TYPE: CT thor lumbar spine w con DATE OF EXAM: 02/03/2020 COMPARISON: CT lumbar spine January 19, 2020. MRI thoracic an lumbar spine January 19, 2020 HISTORY: Fever, drainage and pain thorolumbar spine CT DLP: 2579.6 mGycm Automated exposure control for dose reduction was used. CONTRAST: Performed with IV Contrast, patient injected with 100 mL of Isovue 300. FINDINGS: Thoracolumbar spine show slight scoliotic curvature. There is moderate to large anterior and lateral osteophytes redemonstrated. Vertebral body heights are maintained. Disc space heights are maintained and the thoracic spine. Spinal canal is preserved. There are 6 lumbar type vertebra redemonstrated. There is persistent grade 1 retrolisthesis L3 on L4 and L4 on L5. Moderate disc space narrowing and vacuum disc phenomenon is redemonstrated at these lev els. Advanced disc space narrowing L5 L6 level is redemonstrated. There are new laminectomy defects with spinous process resection involving the L4 vertebra. Ill-defin ed fluid and fat stranding posteriorly is present extending to the skin surface were there are new ov erlying vertical skin vasquez. No well-formed fluid collection or abscess is identified. Small amount of subcutaneous air is noted at this level. Persistent facet arthropathy below this in the lower lum bar levels. Tiny right pleural effusion. Scattered atelectasis and/or limited consolidation in the visualized por tion of both lungs. Diffuse fatty infiltration of liver. Small hiatal hernia. Bilateral nonobstructin g renal calculi redemonstrated. Atherosclerotic and ectatic abdominal aorta. Scattered colonic divert icula. IMPRESSION: Nonspecific findings at the L4 level favored postsurgical. No well-formed fluid collectio n or drainable abscess noted.
[2020-02-03] MEDS ORDERED: VANCOMYCIN 2,500 MG in SODIUM CHLORIDE 0.9% 500 ML 500 ML IVPB ONE (14:30)
[2020-02-03] MEDS ORDERED: VANCOMYCIN 2,250 MG in SODIUM CHLORIDE 0.9% 500 ML 500 ML IVPB ONE (14:30)
[2020-02-03] MEDS ORDERED: PNEUMONIA PROTOCOL UTILIZED 1 EACH MISC PO PRN (15:56)
--- NOTE | 2020-02-03 17:12 | P.PN ---
Progress Note - Text Progress Note Date: 02/03/[address] Hernandez about pt. He is s/p Lami 2 weeks prior for incomplete cauda. Having continued drainage from wound and purulence. He meets SIRS criteria and is being admitted. Due to his labs and her concern I will consult and likely take patient to OR tomorrow afternoon for washout of his lumbar wound pending evaluation.
--- NOTE | 2020-02-03 17:24 | P.HPIM ---
History of Present Illness H&P Date: 02/03/20 Chief Complaint: rigors Patient is a 69-year-old male with recent hospital stay from 01/18 through 01/21 secondary to low back pain in which she underwent a decompressive and an laminectomy, during the hospital stay he was found to have Covid, hypertension, dyslipidemia, and depression who presented to the emergency department with complaints of rigors. On arrival to the ER he was found to be febrile with a temperature of 100.3, pulse 114, blood pressure 144/73. Laboratory analysis showed white blood cell count 27.1, sodium 1:30, potassium 4.9, glucose 123, lactic acid 2.5, bilirubin 1.5, AST 60, ALT 60. He underwent a chest x-ray which showed right mid and left mid lower lung acute infiltrate consistent with Covid 19 infection. He underwent a CT thoracic and lumbar fine which showed nonspecific findings at L4 consistent with post surgical changes with no well- formed fluid collection or drainable abscess noted. He was started on Vanco and zosyn. Arrangements were made from admission. Blood cultures were obtained. Patient seen and examined at bedside. He states he was out shopping with his son yesterday when he began having riders and chills. He went home and was diaphoretic and felt febrile. He has noted drainage that has continued since his operation on 01/19. He states it has not slowed down or spot up. He denies any change in the thickness of the drainage. He states that he call Dr. Farley's office today who told him to proceed to the ER. He has had some nausea and vomiting today. He denies any new or changing shortness of breath. No loss of taste or smell. No diarrhea. He has a chronic cough which is unchanged. He denies any unusual runny nose or stuffy nose. He complains of his throat being dry but not sore. Review of Systems Pertinent positives and negatives as discussed in HPI, a complete review of systems was performed and all other systems are negative. Past Medical History Past Medical History: Hyperlipidemia, Hypertension, Osteoarthritis (OA), Prostate Disorder, Sleep Apnea/CPAP/BIPAP Additional Past Medical History / Comment(s): Chronic low back and cervical pain, paralyzed R diaphram, LUNA with Cpap, benign colon polyp/diverticular disease, arthritis in multiple joints, BPH. History of Any Multi-Drug Resistant Organisms: None Reported Past Surgical History: Back Surgery, Joint Replacement, Orthopedic Surgery, Tonsillectomy Additional Past Surgical History / Comment(s): left knee partial replacement, right ankle fusion, uvulectomy, colonoscoy/benign polypectomy Past Anesthesia/Blood Transfusion Reactions: No Reported Reaction Past Psychological History: Depression Smoking Status: Former smoker Past Alcohol Use History: None Reported Past Drug Use History: None Reported - Past Family History Mother Family Medical History: Cancer Father Family Medical History: Cancer Medications and Allergies Home Medications Medication Instructions Recorded Confirmed Type Gabapentin 600 mg PO BID 04/25/15 02/03/20 History Simvastatin [Zocor] 20 mg PO HS 04/25/15 02/03/20 History Tamsulosin HCl [Flomax] 0.4 mg PO HS 07/27/18 02/03/20 History Cholecalciferol [Vitamin D3 (25 1,000 unit PO DAILY 07/08/19 02/03/20 History Mcg = 1000 Iu)] Losartan Potassium 50 mg PO DAILY 07/08/19 02/03/20 History Meloxicam 15 mg PO DAILY 07/08/19 02/03/20 History Sertraline [Zoloft] 50 mg PO DAILY 07/08/19 02/03/20 History Sennosides-Docusate Sodium 1 each PO BID #30 tab 01/22/20 02/03/20 Rx [Senokot-S] methocarbamoL [Robaxin] 750 mg PO TID #30 tab 01/22/20 02/03/20 Rx Allergies Allergy/AdvReac Type Severity Reaction Status Date / Time No Known Allergies Allergy Verified 02/03/20 11:17 Physical Exam Osteopathic Statement: *. No significant issues noted on an osteopathic structural exam other than those noted in the History and Physical/Consult. Vitals: Vital Signs Temp Pulse Resp BP Pulse Ox 02/03/20 16:18 98.9 F 101 H 18 136/79 97 02/03/20 10:47 100.3 F H 114 H 18 144/73 95 Intake and Output 02/03/20 02/03/20 02/03/20 06:59 14:59 22:59 Other: Weight 122.47 kg General: Ill-appearing, no acute distress, appears at stated age Derm: Midline incision over lumbar spine without warmth or erythema, purulent drainage noted on dressing, malodorous warm, dry Head: atraumatic, normocephalic, symmetric Eyes: EOMI, no lid lag, anicteric sclera, pupils equal round reactive to light ENT: Nose and ears atraumatic, no thrush, no pharyngeal erythema Neck: No thyromegaly, no cervical lymphadenopathy, trachea midline, supple Mouth: no lip lesion, mucus membranes moist Cardiovascular: S1S2 reg, no murmur, positive posterior tibial pulse bilateral, no edema, capillary refill less than 2 seconds Lungs: Coarse breath sounds bilateral, no ronchi, no rales, no wheeze, no accessory muscle use Abdominal: soft, nontender to palpation, no guarding, no appreciable organomegaly, normal bowel sounds Ext: no gross muscle atrophy, muscle strength muscle strength 5 in upper STEMI, 4 out of 5 in lower extremities, no contractures Neuro: CN II-XI grossly intact, light touch intact all 4 extremities, finger to nose within normal limits, Psych: Alert, oriented, appropriate affect Results CBC & Chem 7: 02/03/20 11:44 02/03/20 11:44 Labs: Abnormal Lab Results - Last 24 Hours (Table) 02/03/20 02/03/20 02/03/20 Range/Units 11:44 11:44 11:44 WBC 27.1 H (3.8-10.6) k/uL Neutrophils # 25.4 H (1.3-7.7) k/uL Lymphocytes # 0.6 L (1.0-4.8) k/uL Sodium 130 L (137-145) mmol/L Glucose 123 H (74-99) mg/dL Plasma Lactic Acid Bart (0.7-2.0) mmol/L Total Bilirubin 1.5 H (0.2-1.3) mg/dL AST 60 H (17-59) U/L ALT 60 H (4-49) U/L Urine Protein 1+ H (Negative) Urine Blood Small H (Negative) Urine Mucus Few H (None) /hpf 02/03/20 Range/Units 11:44 WBC (3.8-10.6) k/uL Neutrophils # (1.3-7.7) k/uL Lymphocytes # (1.0-4.8) k/uL Sodium (137-145) mmol/L Glucose (74-99) mg/dL Plasma Lactic Acid Bart 2.5 H* (0.7-2.0) mmol/L Total Bilirubin (0.2-1.3) mg/dL AST (17-59) U/L ALT (4-49) U/L Urine Protein (Negative) Urine Blood (Negative) Urine Mucus (None) /hpf Chest x-ray: report reviewed, image reviewed Thrombosis Risk Factor Assmnt - DVT/VTE Prophylaxis DVT/VTE Prophylaxis: Pharmacologic Prophylaxis ordered Assessment and Plan Assessment: Pneumonia, bacterial versus CoVID-related -Patient CoVID positive on 01/18. -Check pro calcitonin, check influenza -Check CRP, LDH, CPK, troponin -Vanco and Zosyn for possible bacterial pneumonia -Consult infectious disease -Blood cultures - Hold off the use of steroids with concern for possible bacterial pneumonia versus infection of the recent postsurgical site. If patient becomes hypoxic or has worsening respiratory distress we'll consider initiating dexamethasone. Await infectious disease recommendations. Sepsis with lactic acid -IV fluids -Follow lactic acid until clear Hyponatremia -Suspect hypovolemic -IV fluids -Repeat sodium level in a.m. -We'll check serum osmole, urine osmole, and urine sodium levels Transaminitis -Undetermined etiology -Repeat labs in a.m., may be related to recent Covid infection. Recent lumbar decompression laminectomy with purulent drainage -Continue with Vanco Zosyn -Orthopedics consultation -Case discussed with Dr. Farley syncopal evaluate the patient in a.m., nothing by mouth after midnight in case need for washout -Pain control, gabapentin, robaxin Hypertension -Losartan -Follow blood pressures Dyslipidemia -Statin Obstructive sleep apnea -CPAP The patient is admitted with an anticipated greater than 2 midnight stay for evaluation of pneumonia with sepsis, possible surgical site infection. Surrogate decision-maker: Son CODE STATUS:Full, not prolonged vent DVT prophylaxis: SCDs Discussed with: Patient, nursing, ED physician, Dr. Charles Anticipated discharge date: 3-[address]: home A total of 75 minutes was spent on the care of this complex patient more than 50% of the time was spent in counseling and care coordination.
[2020-02-03] MEDS ORDERED: NALOXONE 0.4 MG/ML 1 ML VIAL IV PRN (18:26)
[2020-02-03] MEDS: HYDROcodone/APAP 5-325MG 1 EACH TAB PO PRN (19:21)
[2020-02-03] MEDS: methocarbamoL 750 MG TAB PO SCH (19:21)
[2020-02-03] MEDS: ONDANSETRON 4 MG/2 ML VIAL IVP PRN (19:31)
[2020-02-03] MEDS ORDERED: PROMETHAZINE 25 MG TAB PO ONE (22:45)
[2020-02-04] MEDS: SODIUM CHLORIDE 0.9% 1,000 ML IV SCH ×3 (01:07→21:36)
[2020-02-04] MEDS: PIPERACILLIN-TAZOBACTAM 3.375 GM in SODIUM CHLORIDE 0.9% 100 ML IVPB SCH ×2 (01:08→07:57)
[2020-02-04] MEDS ORDERED: VANCOMYCIN 2,250 MG in SODIUM CHLORIDE 0.9% 500 ML 500 ML IVPB SCH (02:00)
[2020-02-04 02:23] LABS: Ferritin 1504.7 ng/mL (22.0-322.0)
[2020-02-04] MEDS: ONDANSETRON 4 MG/2 ML VIAL IVP PRN (02:33)
[2020-02-04] MEDS: ATORVASTATIN 10 MG TAB PO SCH ×2 (02:48→21:32)
[2020-02-04] MEDS: MELATONIN 3 MG TABLET PO SCH ×2 (02:48→21:32)
[2020-02-04] MEDS: GABAPENTIN 300 MG CAP PO SCH ×3 (02:48→21:32)
[2020-02-04] MEDS: SENNOSIDES-DOCUSATE SODIUM 1 EACH TAB PO SCH ×3 (02:48→21:33)
[2020-02-04] MEDS: methocarbamoL 750 MG TAB PO SCH ×4 (02:49→21:33)
[2020-02-04] MEDS: TAMSULOSIN 0.4 MG CAP.ER.24H PO SCH ×2 (02:49→21:33)
[2020-02-04 06:48] LABS: Basophils % (A) 0 %; Eosinophils # (A) 0.1 k/uL (0-0.7); Eosinophils % (A) 0 %; HCT 44.9 % (39.0-53.0); HGB 14.6 gm/dL (13.0-17.5); Lymphocytes # (A) 0.6 k/uL (1.0-4.8); Lymphocytes % (A) 3 %; MCH 29.7 pg (25.0-35.0); MCHC 32.5 g/dL (31.0-37.0); MCV 91.6 fL (80.0-100.0); Monocytes # (A) 0.6 k/uL (0-1.0); Monocytes % (A) 3 %; Neutrophils # (A) 18.6 k/uL (1.3-7.7); Neutrophils % (A) 93 %; Platelet Count 266 k/uL (150-450); RDW 14.4 % (11.5-15.5); WBC 20.1 k/uL (3.8-10.6)
--- NOTE | 2020-02-04 08:36 | XR ---
EXAMINATION TYPE: XR chest 1V portable DATE OF EXAM: 02/04/2020 COMPARISON: 02/03/2020 HISTORY: Cough TECHNIQUE: Single frontal view of the chest is obtained. FINDINGS: There is bilateral subsegmental areas of consolidation with small right effusion. No pneum othorax. Heart size stable. Arthropathy of the shoulders. Hypertrophic and degenerative changes spine . Atherosclerotic change aorta with suspected aneurysmal dilation IMPRESSION: 1. Bilateral areas of infiltrate similar in appearance. 2. Prominence of the thoracic aortic knob could be related to an aneurysm.
--- NOTE | 2020-02-04 09:04 | P.CNOR ---
History of Present Illness - HPI Consult date: 02/04/20 Requesting physician: Ginna Melton Consult reason: back pain History of present illness: Darian Angulo is a 69-year-old male who presents complaining of low back pain increasing fevers and chills as well as drainage from his low back wound. The patient underwent a laminectomy for incomplete cauda equina syndrome 2 weeks prior. The patient states that for the last 2 days he has noticed increased drainage from his wound and yesterday a large gush of fluid from his wound. He states the fevers and chills started and he is having a cough as well. He denies any numbness or tingling in his lower extremities he denies any headaches. He states no dizziness or change in vision. He states his bowel and bladder have seemed to recover and he is having a better time controlling both his bowel and bladder at this time. He denies any weakness in his lower extremities. He denies any numbness or tingling in his genital region at this time. The patient was tested for COVID when he was in the hospital prior which resulted after his surgery as a positive test. He has been asymptomatic from this in general. Review of Systems 14 points review of systems completed and as stated in HPI or otherwise negative. Past Medical History Past Medical History: Hyperlipidemia, Hypertension, Osteoarthritis (OA), Prostate Disorder, Sleep Apnea/CPAP/BIPAP Additional Past Medical History / Comment(s): Chronic low back and cervical pain, paralyzed R diaphram, LUNA with Cpap, benign colon polyp/diverticular disease, arthritis in multiple joints, BPH. 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 Pt is independent. Smoking Status: Former smoker Past Alcohol Use History: None Reported Additional Past Alcohol Use History / Comment(s): Pt started smoking in 1975 and quit in 1995. Past Drug Use History: None Reported - Past Family History Mother Family Medical History: Cancer Father Family Medical History: Cancer Medications and Allergies Home Medications Medication Instructions Recorded Confirmed Type Gabapentin 600 mg PO BID 04/25/15 02/03/20 History Simvastatin [Zocor] 20 mg PO HS 04/25/15 02/03/20 History Tamsulosin HCl [Flomax] 0.4 mg PO HS 07/27/18 02/03/20 History Cholecalciferol [Vitamin D3 (25 1,000 unit PO DAILY 07/08/19 02/03/20 History Mcg = 1000 Iu)] Losartan Potassium 50 mg PO DAILY 07/08/19 02/03/20 History Meloxicam 15 mg PO DAILY 07/08/19 02/03/20 History Sertraline [Zoloft] 50 mg PO DAILY 07/08/19 02/03/20 History Sennosides-Docusate Sodium 1 each PO BID #30 tab 01/22/20 02/03/20 Rx [Senokot-S] methocarbamoL [Robaxin] 750 mg PO TID #30 tab 01/22/20 02/03/20 Rx Allergies Allergy/AdvReac Type Severity Reaction Status Date / Time No Known Allergies Allergy Verified 02/03/20 11:17 Physical Examination Osteopathic Statement: *. No significant issues noted on an osteopathic structural exam other than those noted in the History and Physical/Consult. GEN: AOX3, NAD VSS Inspection: On inspection the dressing that was placed is now saturated from the mid to distal portion of the wound. It is serous sanguinous in nature however there is some purulence noted. The middle portion of his wound appears to be dehisced. Palpation: The patient has no fluctuance with palpation around the wound and nothing can be expressed from the wound however the wound edges are not healing very well. Motor: 5/5 shoulder abd/EF/EE/WF/intrinsics 5/5 DF/PF/EHL/FHL/HF/KE/KF Reflexes: 2/4 DTR all upper and LE Sensation intact to light touch in C5-T1 as well as L2-S1 distribution Ta's: Negative bilaterally Clonus: None Babinski: Negative bilaterally Incision: As stated above there is dehiscence in the mid to distal portion of the incision with purulent drainage. This continued drainage after 2 weeks is abnormal and needs to be dealt with. Dressing: Saturated serosanguineous Results CT of the lumbar spine is reviewed with and without contrast. This shows postsurgical changes with edema within the soft tissue area. There is a small pocket of fluid which is noted just superficial to the fascia. This was read as likely postsurgical. It is difficult to determine if this is an abscess or not. There are no other fractures or dislocations. Intermittent laminectomy is noted which is postsurgical change. - Labs Labs: Abnormal Lab Results - Last 24 Hours (Table) 02/03/20 02/03/20 02/03/20 Range/Units 11:44 11:44 11:44 WBC 27.1 H (3.8-10.6) k/uL Neutrophils # 25.4 H (1.3-7.7) k/uL Lymphocytes # 0.6 L (1.0-4.8) k/uL D-Dimer (<0.60) mg/L FEU Sodium 130 L (137-145) mmol/L Glucose 123 H (74-99) mg/dL Plasma Lactic Acid Bart (0.7-2.0) mmol/L Ferritin (22.0-322.0) ng/mL Total Bilirubin 1.5 H (0.2-1.3) mg/dL AST 60 H (17-59) U/L ALT 60 H (4-49) U/L Lactate Dehydrogenase (120-246) U/L Procalcitonin (0.02-0.09) ng/mL Urine Protein 1+ H (Negative) Urine Blood Small H (Negative) Urine Mucus Few H (None) /hpf 02/03/20 02/03/20 02/03/20 Range/Units 11:44 11:44 16:04 WBC (3.8-10.6) k/uL Neutrophils # (1.3-7.7) k/uL Lymphocytes # (1.0-4.8) k/uL D-Dimer (<0.60) mg/L FEU Sodium (137-145) mmol/L Glucose (74-99) mg/dL Plasma Lactic Acid Bart 2.5 H* (0.7-2.0) mmol/L Ferritin 1504.7 H (22.0-322.0) ng/mL Total Bilirubin (0.2-1.3) mg/dL AST (17-59) U/L ALT (4-49) U/L Lactate Dehydrogenase 570 H (120-246) U/L Procalcitonin 0.77 H (0.02-0.09) ng/mL Urine Protein (Negative) Urine Blood (Negative) Urine Mucus (None) /hpf 02/03/20 02/04/20 Range/Units 19:06 06:28 WBC 20.1 H (3.8-10.6) k/uL Neutrophils # 18.6 H (1.3-7.7) k/uL Lymphocytes # 0.6 L (1.0-4.8) k/uL D-Dimer 2.12 H (<0.60) mg/L FEU Sodium (137-145) mmol/L Glucose (74-99) mg/dL Plasma Lactic Acid Bart (0.7-2.0) mmol/L Ferritin (22.0-322.0) ng/mL Total Bilirubin (0.2-1.3) mg/dL AST (17-59) U/L ALT (4-49) U/L Lactate Dehydrogenase (120-246) U/L Procalcitonin (0.02-0.09) ng/mL Urine Protein (Negative) Urine Blood (Negative) Urine Mucus (None) /hpf Microbiology - Last 24 Hours (Table) 02/03/20 13:00 Blood Culture - Final Blood H & H 02/03/20 02/04/20 Range/Units 11:44 06:28 Hgb 16.6 14.6 (13.0-17.5) gm/dL Hct 49.9 44.9 (39.0-53.0) % Result Diagrams: 02/04/20 06:28 02/03/20 11:44 Assessment and Plan Assessment: 1. Lumbar wound dehiscence, SSI 2. COVID positive 3. Incomplete cauda equina, resolving 4. Complex medical patient. Plan: 1. Nothing by mouth 2. Continue with IV antibiotics, ID consult. Would recommend PICC line for possible long-term antibiotic treatment and difficult IV starts. 3. Appreciate medical management 4. OR today for irrigation and debridement of lumbar wound with possible wound VAC placement. Spine Surgery Risk Review Darian Angulo is a 69-year-old male presenting for evaluation of lumbar wound dehiscence and drainage. It was my pleasure to have seen and examined Darian Angulo. In our visit today we have had a chance to go over subjective complaints, physical examination findings and treatments including the natural course history without intervention and various interventional options. The patients imaging demonstrates postsurgical edema with possible fluid collection. On physical exam, Darian Angulo demonstrates wound dehiscence. Wound drainage. I have explained to the patient that as their condition progresses it will cause further neurological deficits and eventual paralysis. Based on the patients imaging, physical exam, and the rapid progression and disabling nature of their symptoms, at this time I recommend surgery in the form or a: Irrigation and debridement of lumbar spine wound. I discussed the risk and benefits of this procedure at length with Darian Angulo. The patient agreed to considered pursuing the procedure abovementioned. Prior to surgery, he will be cleared by medicine. Questions were invited and answered, and the patient wishes to proceed as outlined below. Currently, I am recommendin. Irrigation and debridement of lumbar spine wound with possible wound VAC placement 2. Follow up with PCP for surgical clearance 3. Review of surgical risks and benefits as well as an educational packet on the proposed surgical procedure. Risks: All surgical procedures come with inherent risks, including those related to positioning, anesthesia, intraoperative findings, and postoperative complications. It is important to understand that surgery does not come with any guarantee of a successful outcome as complications and adverse events are always possible. The patient was given a handout in office today discussing the surgical procedure and risks associated with the intervention, both of which were discussed with the patient. These risks include but are not limited to the following: * Experiencing same, different or even worse symptoms in back, neck, arms, or legs compared to before surgery. * Requiring further surgery or other forms of treatment presently or at some time in the future at same or other levels of the intended spine surgery. * On an extreme but fortunately relatively rare basis severe complication such as blindness, stroke, heart attack, temporary and/or permanent nerve injury, paralysis, coma, or may occur, sometimes without known explanation. * Surgical complications may include but are not limited to risk of infection, fluid accumulation in the surgical dissection site, including a seroma or hematoma, that requires additional surgery, wound drainage, bleeding, new numbness or weakness, vision changes/loss, spinal fluid leakage, non-healing and/or infected incision, headaches, difficulty or inability to swallow, hoarseness, hemopneumothorax, pneumothorax, impotence, retrograde ejaculation, vaginal dryness; injury to nerves, spinal cord, blood vessels, lymphatics or other vital organs (i.e., bowel injury, injury to the great vessels); heterotopic bone formation; complications related to the hardware such as screws, rods, cages including misplaced hardware, device failure, instrumentation at the wrong spine level, hardware fracture/breakage, or hardware loosening; vertebral failure of the spinal column above or below the newly placed hardware; retained surgical instrumentations or devices and the need for further surgery. * Medical risks of the planned spine surgery include but are not limited to generalized Infections to the whole body or local areas outside of the surgical site (sepsis), heart attack, bleeding, anaphylaxis, meningitis, seizure, epilepsy, hearing loss, burn mcclure, laceration of the head or other areas of the body, bruising, hypersensitivity of the skin, bladder over di stension; allergic reaction; shoulder injury related to positioning; fat, blood and air clots to other areas of the body like heart, lungs, brain; failure of internal organs such as lungs, kidneys, liver and excessive bleeding. If blood transfusions are necessary, note that transfusions may cause intolerance reactions such as anaphylaxis or other complex reactions. * Despite best efforts, the results of spine surgery might not heal in terms of bone, soft tissues such as skin, fascia, ligaments, and joints. Additionally, in order to achieve best possible results, spine surgery may be carried out beyond the initially planned levels and involve decompression, fusion including insertion of hardware at levels other than the original intended area of surgical interest change some portions of the procedure in order to ensure the best possible outcomes. * With spine surgery and spinal fusion, there are different off label uses of instrumentation (devices, implants and hardware) as well as biological substances (bone morphogenic proteins, demineralized bone matrix) as well as using extra bone from allograft sources (i.e. cadaver bone) or autograft (iliac crest bone, ribs, or the spine itself). The patient has been given information about these practices and their inherent risks and benefits. * [facility] is an educational center that serves as a training facility for neurosurgical and orthopedic spine residents and fellows. Residents are physicians who are completing their surgical intensive training following medical school. They assist in the operating room with direct supervision of the attending surgeons. [place] are surgeons who have completed their training and eligible for board certification. They have opted for an elective year of more specialized training in their field. They assist in the operating room under the supervision of the attending surgeons. Physician assistants are medically trained surgical providers who function in the outpatient, inpatient, and operating room setting under the direct supervision of the attending surgeon. * [facility] has multiple operating rooms with single and overlapping rooms running daily. They currently function under the required guidelines as produced by the [facility] with regards to the overlapping rooms and will continue to comply with changes to this policy as they occur. The requirements include and are complied with as follows: (1) the critical portions of the overlapping rooms will not occur at the same time, (2) the attending physician will be physically present during the critical portions of the procedure and immediately available during the entire case, and (3) a back-up attending is designated should the primary attending not be immediately available. The patient has had a chance to review all the listed information, has been given print outs detailing this information, and has had all his/her questions answered to their satisfaction. It was my pleasure to have seen and examined Darian Angulo. In our visit today we have had a chance to go over my understanding of our patient's current condition, the natural course history without intervention and various interventional options. Questions were invited and answered, and the patient wishes to proceed as outlined above. I have seen and examined the patient for 25 minutes and we have spent more than 50% of the time in repeat and detailed counseling about the patient's condition, its natural course history with out and as much as can be predicted with surgery and re-review of various surgical treatment options. In conclusion, Darian Angulo and his son requested we proceed with the above suggested surgery and are willing to accept risks and limitations of the suggested surgery as nature of the disease process and our best attempts at treatment for the condition. Thank you again for allowing us to be part of your patient's care. Please don't hesitate to contact me if you have any further questions. Signed and authenticated by: Cesar Charles DO [facility] [address], [address] [address] Time with Patient: Greater than 30
[2020-02-04 10:06] LABS: African American GFR (CKD) 118.1 (60.0-200.0); Albumin 3.2 g/dL (3.80-4.90); Albumin/Globulin Ratio 1.39 (1.60-3.17); Anion Gap 9.7 mmol/L (4.00-12.00); BUN/Creat Ratio 23.33 Ratio (12.00-20.00); C Reactive Protein 18.7 mg/dL (0.0-0.8); Calcium 8.3 mg/dL (8.7-10.3); Carbon Dioxide 20.3 mmol/L (21.6-31.8); Globulin 2.3 g/dL (1.6-3.3); Magnesium 1.8 mg/dL (1.5-2.4); Non-African American GFR(CKD) 101.9 (60.0-200.0); Potassium 4.7 mmol/L (3.5-5.5); Total Bilirubin 1.2 mg/dL (0.3-1.2); Total Protein 5.5 g/dL (6.2-8.2)
[2020-02-04] MEDS: MELOXICAM 7.5 MG TAB PO SCH (11:29)
[2020-02-04] MEDS: ASCORBIC ACID 500 MG TAB PO SCH (11:29)
[2020-02-04] MEDS: CHOLECALCIFEROL 1,000 UNIT TAB PO SCH (11:29)
[2020-02-04] MEDS: ZINC SULFATE 220 MG CAP PO SCH (11:30)
[2020-02-04] MEDS: VANCOMYCIN 2,000 MG in SODIUM CHLORIDE 0.9% 500 ML 500 ML IVPB SCH (12:14)
[2020-02-04] MEDS: LOSARTAN 50 MG TAB PO SCH (12:26)
[2020-02-04] MEDS: SERTRALINE 50 MG TAB PO SCH (12:26)
[2020-02-04] MEDS: HYDROcodone/APAP 5-325MG 1 EACH TAB PO PRN (14:04)
[2020-02-04] MEDS ORDERED: ePHEDrine SULFATE/0.9% NACL/PF 50 MG/5 ML SYRINGE IV ONE (15:39)
[2020-02-04] MEDS ORDERED: PROPOFOL 10 MG/ML 20 ML VIAL IV ONE (15:39)
[2020-02-04] MEDS ORDERED: MIDAZOLAM 2 MG/2 ML VIAL ONE (15:39)
[2020-02-04] MEDS ORDERED: SUCCINYLCHOLINE CHLORIDE 100 MG/5 ML SYR IV ONE (15:39)
[2020-02-04] MEDS ORDERED: LACTATED RINGERS 1,000 ML IV ONE (15:39)
[2020-02-04] MEDS ORDERED: HYDROmorphone (PF) 1 MG/ML ONE (15:39)
[2020-02-04] MEDS ORDERED: fentaNYL (PF) 50 MCG/ML 2 ML AMP ONE (15:39)
[2020-02-04] MEDS ORDERED: LIDOCAINE 1% INJ 10MG/ML (20 ML MDV) ONE (15:39)
[2020-02-04] MEDS ORDERED: GELATIN SPONGE,ABSORBABLE 1 GM POWDER TOPICAL ONE (17:06)
[2020-02-04] MEDS ORDERED: THROMBIN (BOVINE) 5,000 UNIT VIAL TOPICAL ONE (17:07)
[2020-02-04] MEDS ORDERED: ceFAZolin 3,000 MG in SODIUM CHLORIDE 0.9% IRRIGATIO 3,000 ML IRRIGATION ONE (17:35)
[2020-02-04] MEDS ORDERED: diphenhydrAMINE 50 MG/ML 1 ML VIAL IVP ONE (17:43)
--- NOTE | 2020-02-04 17:44 | P.PN ---
Subjective Progress Note Date: 02/04/20 (delayed charting seen at 0945 ) Principal diagnosis: rigors Patient is a 69-year-old male with recent hospital stay from 01/18 through 01/21 secondary to low back pain in which she underwent a decompressive and an laminectomy, during the hospital stay he was found to have Covid, hypertension, dyslipidemia, and depression who presented to the emergency department with complaints of rigors. On arrival to the ER he was found to be febrile with a temperature of 100.3, pulse 114, blood pressure 144/73. Laboratory analysis showed white blood cell count 27.1, sodium 1:30, potassium 4.9, glucose 123, lactic acid 2.5, bilirubin 1.5, AST 60, ALT 60. He underwent a chest x-ray w hich showed right mid and left mid lower lung acute infiltrate consistent with Covid 19 infection. He underwent a CT thoracic and lumbar fine which showed nonspecific findings at L4 consistent with post surgical changes with no well- formed fluid collection or drainable abscess noted. He was started on Vanco and zosyn. Arrangements were made from admission. Blood cultures came back as staph aureus. ID and Ortho spine consulted. Plan is for wash out 02/03. Patient seen and examined at bedside. He states he is feeling much better than yesterday and wants to go home. We discussed that he has a gram-positive bacteremia that could be related to an infection and that he will need to be here for IV antibiotics for several days. He denies any chest pain, shortness breath, coughing, runny nose, stuffy nose, or change in appetite. General: Ill appearing, distress secondary to pain, appears at stated age Derm: Midline incision with vasquez intact over lumbar spine with malodorous serosanguineous drainage, warm, dry Head: atraumatic, normocephalic, symmetric Eyes: EOMI, no lid lag, anicteric sclera Mouth: no lip lesion, mucus membranes moist Cardiovascular: S1S2 reg, no murmur, positive posterior tibial pulse bilateral, Lungs: Course breath sounds bilateral , no accessory muscle use Abdominal: soft, nontender to palpation, no guarding, no appreciable organomegaly Ext: no gross muscle atrophy, no edema, no contractures Neuro: CN II-XI grossly intact, no focal neuro deficits Psych: Alert, oriented, appropriate affect Gram-positive bacteremia with sepsis -Staph aureus -Mec A negative and likely could be downgraded however cultures have not finalized -ID recs Recent lumbar decompression laminectomy with wound dehiscence and SSI -Continue with Vanco, Zosyn - ortho spince recs: I and D with washout 02/03 -Pain control, gabapentin, robaxin Hyponatremia -Suspect hypovolemic -IV fluids -Repeat sodium level in a.m. -serum osmol, urine osmol, and urine sodium levels Pneumonia- recovering CoVID vs bacterial -Patient CoVID positive on 01/18. -pro calciton mildly elevated, indeterminent range -Influenza negative -CRP , LDH mildly elevated -Vanco and Zosyn for possible bacterial pneumonia -ID recs Transaminitis, improving -Undetermined etiology -Repeat labs in a.m., may be related to recent Covid infection. Hypertension -Losartan -Follow blood pressures Dyslipidemia -Statin Obstructive sleep apnea -CPAP with elevated lactic acid, improved DVT prophylaxis: SCDs Discussed with: Patient, nursing, Dr. Charles Anticipated discharge date: 3-[address]: home A total of 35 minutes was spent on the care of this complex patient more than 50% of the time was spent in counseling and care coordination. Objective - Vital Signs Vital signs: Vital Signs Temp 98.3 F 02/04/20 14:51 Pulse 88 02/04/20 14:51 Resp 20 02/04/20 14:51 BP 182/98 02/04/20 14:51 Pulse Ox 93 L 02/04/20 14:51 Intake & Output 02/03/20 02/04/20 02/04/20 18:59 06:59 18:59 Intake Total 60 Output Total 100 Balance -40 Weight 122.47 kg 122.47 kg Intake: Oral 60 Output: Urine 100 Other: Voiding Method Urinal Urinal # Voids 1 3 - Labs CBC & Chem 7: 02/04/20 06:28 02/04/20 06:28 Labs: Abnormal Lab Results - Last 24 Hours (Table) 02/03/20 02/03/20 02/03/20 Range/Units 11:44 16:04 19:06 WBC (3.8-10.6) k/uL Neutrophils # (1.3-7.7) k/uL Lymphocytes # (1.0-4.8) k/uL D-Dimer 2.12 H (<0.60) mg/L FEU Sodium (135-145) mmol/L Carbon Dioxide (21.6-31.8) mmol/L BUN/Creatinine Ratio (12.00-20.00) Ratio Calcium (8.7-10.3) mg/dL Ferritin 1504.7 H (22.0-322.0) ng/mL AST (14-35) U/L ALT (10-49) U/L Lactate Dehydrogenase 570 H (120-246) U/L C-Reactive Protein (0.0-0.8) mg/dL Total Protein (6.2-8.2) g/dL Albumin (3.80-4.90) g/dL Albumin/Globulin Ratio (1.60-3.17) g/dL Procalcitonin 0.77 H (0.02-0.09) ng/mL 02/04/20 02/04/20 Range/Units 06:28 06:28 WBC 20.1 H (3.8-10.6) k/uL Neutrophils # 18.6 H (1.3-7.7) k/uL Lymphocytes # 0.6 L (1.0-4.8) k/uL D-Dimer (<0.60) mg/L FEU Sodium 132 L (135-145) mmol/L Carbon Dioxide 20.3 L (21.6-31.8) mmol/L BUN/Creatinine Ratio 23.33 H (12.00-20.00) Ratio Calcium 8.3 L (8.7-10.3) mg/dL Ferritin (22.0-322.0) ng/mL AST 59 H (14-35) U/L ALT 51 H (10-49) U/L Lactate Dehydrogenase (120-246) U/L C-Reactive Protein 18.7 H (0.0-0.8) mg/dL Total Protein 5.5 L (6.2-8.2) g/dL Albumin 3.20 L (3.80-4.90) g/dL Albumin/Globulin Ratio 1.39 L (1.60-3.17) g/dL Procalcitonin (0.02-0.09) ng/mL Microbiology - Last 24 Hours (Table) 02/04/20 10:48 Sputum Culture - Preliminary Sputum 02/03/20 13:00 Blood Culture Gram Stain - Preliminary Blood Blood Culture - Preliminary Staphylococcus aureus 02/03/20 13:00 Blood Culture - Final Blood
[2020-02-04] MEDS ORDERED: SODIUM CHLORIDE 0.9% 1,000 ML IV ONE (17:45)
[2020-02-04] MEDS ORDERED: VANCOMYCIN 1,000 MG VIAL MISCELLANE ONE (17:47)
--- NOTE | 2020-02-04 19:07 | P.OP ---
Date of Procedure: 02/04/20 Preoperative Diagnosis: Lumbar wound dehiscence Postoperative Diagnosis: 1. Lumbar wound dehiscence 2. Spontaneous dural tear Wound size: 20 x 10 x 10 cm Procedure(s) Performed: 1. Irrigation and debridment of lumbar wound Skin Soft tissue Bone Dura Sharp removal of necrotic fat and subcutaneous tissues Kerrison to remove bone Curretes to scrape bone and soft tissues 2. Repair of spontaneous dural tear Implants: Duragen Anesthesia: GETA Surgeon: Cesar Charles Estimated Blood Loss (ml): 25 IV fluids (ml): 2,000 Urine output (ml): 1,000 Pathology: other (x2 superficial cultures; x2 deep cultures; x1 tissue sample) Condition: stable Disposition: floor Indications for Procedure: Darian Angulo is a 69-year-old male who presents complaining of low back pain increasing fevers and chills as well as drainage from his low back wound. The patient underwent a laminectomy for incomplete cauda equina syndrome 2 weeks prior. The patient states that for the last 2 days he has noticed increased drainage from his wound and yesterday a large gush of fluid from his wound. He states the fevers and chills started and he is having a cough as well. He denies any numbness or tingling in his lower extremities he denies any headaches. He states no dizziness or change in vision. He states his bowel and bladder have seemed to recover and he is having a better time controlling both his bowel and bladder at this time. He denies any weakness in his lower extremities. He denies any numbness or tingling in his genital region at this time. The patient was tested for COVID when he was in the hospital prior which resulted after his surgery as a positive test. He has been asymptomatic from this in general. I spoke at length with the patient and his son prior to surgery. The patient stay was feeling okay until 2 days ago. The son states that the patient has been fairly active but that 2 days ago he started feeling fairly ill. The son states that the patient has not been wearing his brace even though he was instructed to upon discharge this the son states that the patient has been quite a bit more active then likely he is supposed to be. He however denies any overt trauma or large traumatic falls or other issues currently. Operative Findings: Gross purulence and dehiscence of lumbar wound with mixture of clear as well as purulent drainage. During the index procedure there was a small dural erosion noted due to facet overgrowth and stenosis. This was repaired adequately and remained stable upon visualization. However, cranial to this a 4 cm midline, longitudinal, spontaneous dural tear is noted with CSF extravasation which was not present at the end of the previous case. This is a new finding and is likely spontaneous in nature as there is no bone or other material overlying that could cause this to happen. There is also noted a small fracture of the left IAP of L3 however this was not compromising stability. Description of Procedure: The patient was seen and examined in his room due to contact precautions. All preoperative protocols were followed. Informed consent was obtained risks and benefits of the procedure were discussed at length. Risks including bleeding infection damage to the surrounding tissue and risk of reoperation were discussed with the patient. Risk of anesthesia up to and including was a discussed with the patient. These are outlined in the risk review. They were willing to accept these risks and all of the risks of surgery. The patient was given a weight-based dose of antibiotics in the form of vancomycin pharmacy dosing per weight. The patient was seen and evaluated by the anesthesia team who deemed them fit for surgery. The site was marked, the patient was willing to proceed with the procedure. The patient was transferred to the operative suite by the Department of anesthesia. They were then drifted off to sleep by the department anesthesia Gen. endotracheal intubation. The patient tolerated this well. Zuniga catheter was placed by the nursing staff and will be removed at the end of the case. Once confirmation of lines and ventilation the patient was transferred to a prone Jarred table very carefully. All bony prominences including wrists, elbows, axilla, chest, hips, and thighs, and feet were padded very well. Special attention was paid to the genitalia and these were padded accordingly. SCDs were placed on bilateral lower extremities and were connected. Arms were well padded and placed on arm boards up and out in the 90/90 position. Once in position, again we confirmed good ventilation capabilities and that lines were running appropriately. The patient's lumbar spine was then exposed. 1010s were placed outlining the incision site. All vasquez were removed from the incision. Standard alcohol was used to clean the incision site and allowed to dry. C-arm was used to biomark the patient and confirm level for incision which was marked with a skin marker. Operative briefing was performed with all teams and everyone in agreement to proceed. The patient was then prepped with Betadine solution and draped in a normal sterile fashion. Timeout was then performed and all parties were in agreement with the procedure to be performed. Skin knife was used to complete the dehisced skin incision and extended slightly proximally and distally. This revealed necrotic fat in the subcutaneous tissue as well as clear fluid. 2 superficial cultures were taken at this time. There is purulence within the superficial layers. Fascia had dehisced and come apart in the central and cranial portion where sutures had pulled directly through the fascia in almost a traumatic type way as the knots were still intact however the suture had pulled directly through the fascia. The fascia was opened which revealed purulent material overlying the dural sac. Once this was removed carefully it was visualized a 4 cm longitudinal spontaneous traumatic tear of the dura that was not present in the prior surgery. Previous Prolene stitches were seen distal within the laminectomy site this area remained completely intact however just proximal to this there was a midline dural tear which was leaking CSF and extended approximately 3-4 cm proximal to the previous repair. At this point retractors were placed and the dura and wound was cleaned to allow for good visualization. There was good hemostasis. The edges of the dura were visible as it was a longitudinal traumatic type tear. A 6-0 Prolene was then used in a running fashion and locking fashion to close this large dural tear. Once the suture had been placed in the tear had been repaired a Valsalva to 60 mmHg was performed and held for 20 seconds. This revealed no continuous CSF leak. Attention was then drawn to the debridement. Curettes Evan sure Kerrisons were used to debride necrotic fat necrotic soft tissue muscle and bone. Excess bone was removed from the L3 lamina on the left to allow for better visualization. This did not compromise the stability of the spine. Kerrison rongeurs were used to remove excess scar tissue that had built up distally which allowed for visualization distal to the previous repair which revealed no further tearing of the dura. 3 L of antibiotic irrigation were then run through a pulse lavage into the wound taking care to protect the dura. Curettes were used at this time as well to curet the soft tissue and necrotic fat. Once 3 L had run through Irricept was used and left in place for 60 seconds within the wound. This was then once irrigated out again with 3 L of normal sterile saline through the pulse lavage. After the irrigation a Valsalva to 40 mmHg was held for 20 seconds and there was no continuous CSF leak. Attention was then drawn to the dura where a DuraGen patch was cut to size and placed over the dura. Tisseel was then used to cover this patch. This was then covered with Surgicel and another layer of Tisseel. Followed by another layer of Surgicel and another layer of Tisseel. Again a Valsalva to 40 mmHg was performed and there was no continuous CSF leak. The fascial layer was then closed with 0 PDS in a simple fashion. A unidirectional strata fix was then placed over this in a running fashion. This allowed for a watertight closure. A large black wound VAC sponge was then cut to size and placed in the subcutaneous tissue. This was held in place at the skin level with vasquez. The wound edges were then cleaned and dried. Ioband was placed around the wound to outline at followed by the wound VAC dressing. The suction tube was connected and there was a good seal. The patient was transferred back to his hospital bed carefully and atraumatically. The wound VAC continued to hold suction. Patient was then awakened and extubated by the department of anesthesia having tolerated the procedure very well with no complications. He was then transferred directly back to his room.
--- NOTE | 2020-02-04 22:46 | P.CONS ---
History of Present Illness - Reason for Consult Consult date: 02/04/20 Pneumonia covid and bacteremia Requesting physician: Ginna Melton - Chief Complaint Drainage and pain at lumbar surgical spine x week - History of Present Illness Patient is a 69-year-old male who is status post laminectomy 2 weeks ago were incomplete cauda in this patient with chronic back pain patient presenting to the ER at [facility] yesterday for your evaluation of drainage from his lumbar incision patient mentioned that his vision has not completely healed has been combining of pain to the lumbar spine incision area more of a sharp at times dull aching 66 after having radiation along with the drainage patient on presentation hospital have a fever 100.3 he also have elevated white count of 27.[address] did have a CT of the lumbosacral spine completed which shows nonspecific finding at L4 level fever postsurgical no well-formed foot infection on unable abscess patient did have blood cultures drawn which came back positive gram-positive cocci patient is currently be treated with vancomycin and Zosyn infection disease was consulted for further management of antibiotic therapy Review of Systems Positive point has been mentioned in the HPI rest of the systems are negative Past Medical History Past Medical History: Hyperlipidemia, Hypertension, Osteoarthritis (OA), Prostate Disorder, Sleep Apnea/CPAP/BIPAP Additional Past Medical History / Comment(s): Chronic low back and cervical pain, paralyzed R diaphram, LUNA with Cpap, benign colon polyp/diverticular disease, arthritis in multiple joints, BPH. 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 Pt is independent. Smoking Status: Former smoker Past Alcohol Use History: None Reported Additional Past Alcohol Use History / Comment(s): Pt started smoking in 1975 and quit in 1995. Past Drug Use History: None Reported - Past Family History Mother Family Medical History: Cancer Father Family Medical History: Cancer Medications and Allergies Home Medications Medication Instructions Recorded Confirmed Type Gabapentin 600 mg PO BID 04/25/15 02/03/20 History Simvastatin [Zocor] 20 mg PO HS 04/25/15 02/03/20 History Tamsulosin HCl [Flomax] 0.4 mg PO HS 07/27/18 02/03/20 History Cholecalciferol [Vitamin D3 (25 1,000 unit PO DAILY 07/08/19 02/03/20 History Mcg = 1000 Iu)] Losartan Potassium 50 mg PO DAILY 07/08/19 02/03/20 History Meloxicam 15 mg PO DAILY 07/08/19 02/03/20 History Sertraline [Zoloft] 50 mg PO DAILY 07/08/19 02/03/20 History Sennosides-Docusate Sodium 1 each PO BID #30 tab 01/22/20 02/03/20 Rx [Senokot-S] methocarbamoL [Robaxin] 750 mg PO TID #30 tab 01/22/20 02/03/20 Rx Allergies Allergy/AdvReac Type Severity Reaction Status Date / Time No Known Allergies Allergy Verified 02/03/20 11:17 Physical Exam Vitals: Vital Signs Temp Pulse Pulse Resp BP BP Pulse Ox 02/04/20 08:00 84 18 02/04/20 07:00 99.0 F 84 18 162/80 94 L 02/04/20 04:00 17 02/04/20 01:34 98.4 F 105 H 17 149/92 93 L 02/03/20 22:10 99.3 F 106 H 16 164/81 94 L 02/03/20 21:31 98.9 F 82 18 142/70 97 02/03/20 16:18 98.9 F 101 H 18 136/79 97 Intake and Output 02/03/20 02/04/20 02/04/20 22:59 06:59 14:59 Intake Total 60 Output Total 100 Balance -40 Intake: Oral 60 Output: Urine 100 Other: Voiding Method Urinal Urinal # Voids 1 Weight 122.47 kg GENERAL DESCRIPTION: An elderly male up in the chair, no distress. No tachypnea or accessory muscle of respiration use. HEENT: Shows Pallor , no scleral icterus. Oral mucous membrane is dry. No pharyngeal erythema or thrush NECK: Trachea central, no thyromegaly. LUNGS: Unlabored breathing. Clear to auscultation anteriorly. No wheeze or crackle. HEART: S1, S2, regular rate and rhythm. No loud murmur ABDOMEN: Soft, no tenderness , guarding or rigidity, no organomegaly EXTREMITIES: No edema of feet. SKIN: No rash, no masses palpable. Lumbar incision vasquez are still intact there is some surrounding swelling minimal redness and drainage NEUROLOGICAL: The patient is awake, alert, oriented x3, mood and affect normal. Results CBC & Chem 7: 02/04/20 06:28 02/04/20 06:28 Labs: Abnormal Lab Results - Last 24 Hours (Table) 02/03/20 02/03/20 02/03/20 Range/Units 11:44 16:04 19:06 WBC (3.8-10.6) k/uL Neutrophils # (1.3-7.7) k/uL Lymphocytes # (1.0-4.8) k/uL D-Dimer 2.12 H (<0.60) mg/L FEU Sodium (135-145) mmol/L Carbon Dioxide (21.6-31.8) mmol/L BUN/Creatinine Ratio (12.00-20.00) Ratio Calcium (8.7-10.3) mg/dL Ferritin 1504.7 H (22.0-322.0) ng/mL AST (14-35) U/L ALT (10-49) U/L Lactate Dehydrogenase 570 H (120-246) U/L C-Reactive Protein (0.0-0.8) mg/dL Total Protein (6.2-8.2) g/dL Albumin (3.80-4.90) g/dL Albumin/Globulin Ratio (1.60-3.17) g/dL Procalcitonin 0.77 H (0.02-0.09) ng/mL 02/04/20 02/04/20 Range/Units 06:28 06:28 WBC 20.1 H (3.8-10.6) k/uL Neutrophils # 18.6 H (1.3-7.7) k/uL Lymphocytes # 0.6 L (1.0-4.8) k/uL D-Dimer (<0.60) mg/L FEU Sodium 132 L (135-145) mmol/L Carbon Dioxide 20.3 L (21.6-31.8) mmol/L BUN/Creatinine Ratio 23.33 H (12.00-20.00) Ratio Calcium 8.3 L (8.7-10.3) mg/dL Ferritin (22.0-322.0) ng/mL AST 59 H (14-35) U/L ALT 51 H (10-49) U/L Lactate Dehydrogenase (120-246) U/L C-Reactive Protein 18.7 H (0.0-0.8) mg/dL Total Protein 5.5 L (6.2-8.2) g/dL Albumin 3.20 L (3.80-4.90) g/dL Albumin/Globulin Ratio 1.39 L (1.60-3.17) g/dL Procalcitonin (0.02-0.09) ng/mL Microbiology - Last 24 Hours (Table) 02/03/20 13:00 Blood Culture Gram Stain - Preliminary Blood Blood Culture - Preliminary Staphylococcus aureus 02/03/20 13:00 Blood Culture - Final Blood Assessment and Plan Assessment: 1- patient presented to the hospital with sepsis in this patient who did have a fever tachycardia and elevated white count source is likely lumbar surgical site infection in this patient now with evidence of Staphylococcus aureus bacteremia likely MRSA and source likely lumbar surgical site infection, patient is scheduled for surgical debridement of this when this afternoon 2-patient currently do not have significant respiratory symptoms clinical suspicion is low for underlying pneumonia (1) Sepsis Current Visit: Yes Status: Acute Code(s): A41.9 - SEPSIS, UNSPECIFIED ORGANISM SNOMED Code(s): 36803683 (2) Staphylococcus aureus bacteremia Current Visit: Yes Status: Acute Code(s): R78.81 - BACTEREMIA; B95.61 - METHICILLIN SUSCEP STAPH INFCT CAUSING DIS CLASSD [id number] SNOMED Code(s): 272602847 Plan: 1- the cultures will be repeated documented recurrence of bacteremia 2-await surgical debridement and deep culture 3-Vancomycin pharmacy to dose target trough of 15 while watching kidney function and Vanco trough closely 4-discontinue Zosyn We will follow on clinical condition and cultures to further adjust medication if needed Thank you for this consultation will follow this patient with you Time with Patient: Greater than 30
[2020-02-05] MEDS: VANCOMYCIN 2,000 MG in SODIUM CHLORIDE 0.9% 500 ML 500 ML IVPB SCH ×4 (01:23→17:44)
[2020-02-05] MEDS: SODIUM CHLORIDE 0.9% 1,000 ML IV SCH ×4 (01:48→21:05)
[2020-02-05 06:52] LABS: Basophils % (A) 0 %; Eosinophils # (A) 0.1 k/uL (0-0.7); Eosinophils % (A) 0 %; HCT 38.9 % (39.0-53.0); HGB 12.7 gm/dL (13.0-17.5); Lymphocytes # (A) 0.6 k/uL (1.0-4.8); Lymphocytes % (A) 3 %; MCH 29.4 pg (25.0-35.0); MCHC 32.5 g/dL (31.0-37.0); MCV 90.2 fL (80.0-100.0); Mean Platelet Volume 9.3; Monocytes # (A) 0.8 k/uL (0-1.0); Monocytes % (A) 4 %; Neutrophils # (A) 21.5 k/uL (1.3-7.7); Neutrophils % (A) 93 %; Platelet Count 229 k/uL (150-450); RBC 4.32 m/uL (4.30-5.90); RDW 14.2 % (11.5-15.5); WBC 23.2 k/uL (3.8-10.6)
[2020-02-05 07:05] LABS: ALT 42 U/L (4-49); AST 50 U/L (17-59); African American GFR (CKD) >90 (>60 ml/min/1.73 sqM); Albumin 2.4 g/dL (3.5-5.0); Albumin/Globulin Ratio 0.9; Alkaline Phosphatase 72 U/L (38-126); Anion Gap 5 mmol/L; Blood Urea Nitrogen 19 mg/dL (9-20); Calcium 8.2 mg/dL (8.4-10.2); Carbon Dioxide 22 mmol/L (22-30); Chloride 101 mmol/L (98-107); Globulin 2.7 g/dL; Glucose 116 mg/dL (74-99); Non-African American GFR(CKD) >90 (>60 ml/min/1.73 sqM); Potassium 4.4 mmol/L (3.5-5.1); Sodium 128 mmol/L (137-145); Total Bilirubin 1.1 mg/dL (0.2-1.3); Total Protein 5.1 g/dL (6.3-8.2)
[2020-02-05 08:19] LABS: C Reactive Protein 134.5 mg/L (<10.0)
--- NOTE | 2020-02-05 08:37 | P.PN ---
Progress Note - Text Progress Note Date: 02/05/20 Patient was seen and examined this morning. He states is doing okay. He denies headache fevers chills nausea vomiting blurred vision change in vision. He states pain in his back at this time. He states that he is hungry. He denies any new numbness or tingling or weakness. Nursing paged out overnight due to wound VAC issues. Wound VAC has a large clot and is not suctioning. There is also a hole in the wound VAC. Objective: Vital signs are stable patient is afebrile at this time Alert and oriented 3 no indications of distress Incisional wound VAC is clotted off there is a large clot posterior which is saturated. This is leaking out the side of the wound VAC as well. Wound VAC is not holding suction either. Motor: 5/5 shoulder abd/EF/EE/WF/intrinsics 5/5 DF/PF/EHL/FHL/HF/KE/KF Reflexes: 2/4 DTR all upper and LE Sensation intact to light touch in C5-T1 as well as L2-S1 distribution Ta's: neg b/l Clonus: none Babinski: neg b/l Assessment: 69-year-old male Postop day 1 irrigation and debridement lumbar wound with revision of dural repair secondary to spontaneous dural tear with nonfunctioning wound VAC Plan: Nothing by mouth OR today for removal of wound VAC and replacement
[2020-02-05] MEDS: SENNOSIDES-DOCUSATE SODIUM 1 EACH TAB PO SCH ×2 (08:43→21:06)
[2020-02-05] MEDS: ASCORBIC ACID 500 MG TAB PO SCH (08:43)
[2020-02-05] MEDS: MELOXICAM 7.5 MG TAB PO SCH (08:43)
[2020-02-05] MEDS: GABAPENTIN 300 MG CAP PO SCH ×2 (08:43→21:06)
[2020-02-05] MEDS: LOSARTAN 50 MG TAB PO SCH (08:43)
[2020-02-05] MEDS: methocarbamoL 750 MG TAB PO SCH ×3 (08:43→21:06)
[2020-02-05] MEDS: CHOLECALCIFEROL 1,000 UNIT TAB PO SCH (08:43)
[2020-02-05] MEDS: SERTRALINE 50 MG TAB PO SCH (08:44)
[2020-02-05] MEDS: ZINC SULFATE 220 MG CAP PO SCH (08:44)
[2020-02-05] MEDS ORDERED: VANCOMYCIN TROUGH DUE 1 EACH MISC MISCELLANE ONE (09:00)
[2020-02-05] MEDS ORDERED: PROPOFOL 10 MG/ML 20 ML VIAL IV ONE (10:15)
[2020-02-05] MEDS ORDERED: LIDOCAINE 1% INJ 10MG/ML (20 ML MDV) ONE (10:15)
[2020-02-05] MEDS ORDERED: GLYCOPYRROLATE 0.2 MG/ML 2 ML VIAL ONE (10:15)
[2020-02-05] MEDS ORDERED: PHENYLEPHRINE-0.9% NACL SYG 1 MG/10 ML SYRINGE ONE (10:15)
[2020-02-05] MEDS ORDERED: SUCCINYLCHOLINE CHLORIDE 100 MG/5 ML SYR IV ONE (10:15)
[2020-02-05] MEDS ORDERED: SODIUM CHLORIDE 0.9% 100 ML BAG ONE (10:15)
[2020-02-05] MEDS ORDERED: fentaNYL (PF) 50 MCG/ML 2 ML AMP ONE (10:15)
[2020-02-05] MEDS ORDERED: ceFAZolin 1,000 MG VIAL ONE (10:15)
[2020-02-05] MEDS ORDERED: ONDANSETRON 4 MG/2 ML VIAL ONE (10:15)
[2020-02-05] MEDS ORDERED: DEXAMETHASONE SOD PHOSPHATE 10 MG/ML 1 ML VIAL ONE (10:15)
[2020-02-05] MEDS ORDERED: IV FLUID CONTINUATION 900 ML IV ONE (10:21)
--- NOTE | 2020-02-05 11:23 | P.OP ---
Date of Procedure: 02/05/20 Preoperative Diagnosis: Lumbar wound dehiscence with wound VAC malfunction Postoperative Diagnosis: Same Procedure(s) Performed: Irrigation and debridement of soft tissue of wound with replacement of wound VAC Implants: None Anesthesia: GILBERTO Surgeon: Cesar Charles Migration Specialist #1: Kaveh Franco (CLIFFORD Bruno was present for the entirety of the procedure was necessary due to the complexity of the procedure.) Estimated Blood Loss (ml): 10 IV fluids (ml): 500 Urine output (ml): 0 Pathology: none sent Condition: stable Disposition: floor Indications for Procedure: Darian Angulo is a 69-year-old male who presents complaining of low back pain increasing fevers and chills as well as drainage from his low back wound. The patient underwent a laminectomy for incomplete cauda equina syndrome 2 weeks prior. The patient states that for the last 2 days he has noticed increased drainage from his wound and yesterday a large gush of fluid from his wound. He states the fevers and chills started and he is having a cough as well. He denies any numbness or tingling in his lower extremities he denies any headaches. He states no dizziness or change in vision. He states his bowel and bladder have seemed to recover and he is having a better time controlling both his bowel and bladder at this time. He denies any weakness in his lower extremities. He denies any numbness or tingling in his genital region at this time. The patient was tested for COVID when he was in the hospital prior which resulted after his surgery as a positive test. He has been asymptomatic from this in general. I spoke at length with the patient and his son prior to surgery. The patient stay was feeling okay until 2 days ago. The son states that the patient has been fairly active but that 2 days ago he started feeling fairly ill. The son states that the patient has not been wearing his brace even though he was instructed to upon discharge this the son states that the patient has been quite a bit more active then likely he is supposed to be. He however denies any overt trauma or large traumatic falls or other issues currently. Patient was seen and evaluated this morning his wound VAC was not holding suction and a large hematoma in the posterior aspect and everything was saturated. This was unable to be left toe was reinforced. Operative Findings: Stable subcutaneous tissue no clear fluid leakage. Hematoma secondary to wound VAC malfunction Description of Procedure: The patient was seen and examined in the preoperative area. All preoperative protocols were followed. Informed consent was obtained risks and benefits of the procedure were discussed at length. Risks including bleeding infection damage to the surrounding tissue and risk of reoperation were discussed with the patient. Risk of anesthesia up to and including was a discussed with the patient. These are outlined in the risk review. They were willing to accept these risks and all of the risks of surgery. The patient was given a weight- based dose of antibiotics in the form of 3 g of Ancef IVPB 1. The patient was seen and evaluated by the anesthesia team who deemed them fit for surgery. The site was marked, the patient was willing to proceed with the procedure. The patient was transferred to the operative suite by the Department of anesthesia. They were then drifted off to sleep by the department anesthesia Gen. endotracheal intubation. The patient tolerated this well. Once confirmation of lines and ventilation the patient was transferred to a prone Jarred table very carefully. All bony prominences including wrists, elbows, axilla, chest, hips, and thighs, and feet were padded very well. Special attention was paid to the genitalia and these were padded accordingly. SCDs were placed on bilateral lower extremities and were connected. Arms were well padded and placed on arm boards up and out in the 90/90 position. Once in position, again we confirmed good ventilation capabilities and that lines were running appropriately. The patient's lumbar spine was then exposed. 1010s were placed outlining the incision site. The old wound VAC was removed and discarded. Standard alcohol was used to clean the incision site and allowed to dry. The wound was prepped with Betadine solution Operative briefing was performed with all teams and everyone in agreement to proceed. The patient was then prepped and draped in a normal sterile fashion. Timeout was then performed and all parties were in agreement with the procedure to be performed. The wound was copiously irrigated with 6 L of normal sterile saline. Curettes were used to scrape necrotic fat from the subcutaneous soft tissue. And a blunt debridement with curettes was performed of the subcutaneous soft tissue and fat. A portion of the subcutaneous tissue was closed with 0 PDS in a simple fashion. A large wound VAC sponge was then placed within the wound and stapled into position. This was then dressed sterilely. The wound VAC tube was then connected continuous suction 125 mmHg low intensity was selected. There were no leaks of the wound VAC. The patient was transferred back to her hospital bed atraumatically. The wound VAC continued to hold suction and was in good position. Patient was then awakened and extubated by the department of anesthesia having tolerated the procedure very well with no complications. He was then transferred back to the floor to his room to recover.
[2020-02-05 11:38] LABS: Erythrocyte Sedimentation Rate 40 mm/Hr (0-20)
--- NOTE | 2020-02-05 20:00 | P.PN ---
Subjective Progress Note Date: 02/05/20 (delayed charting seen at 1215) Principal diagnosis: rigors Patient is a 69-year-old male with recent hospital stay from 01/18 through 01/21 secondary to low back pain in which she underwent a decompressive and an laminectomy, during the hospital stay he was found to have Covid, hypertension, dyslipidemia, and depression who presented to the emergency department with complaints of rigors. On arrival to the ER he was found to be febrile with a temperature of 100.3, pulse 114, blood pressure 144/73. Laboratory analysis showed white blood cell count 27.1, sodium 1:30, potassium 4.9, glucose 123, lactic acid 2.5, bilirubin 1.5, AST 60, ALT 60. He underwent a chest x-ray wh ich showed right mid and left mid lower lung acute infiltrate consistent with Covid 19 infection. He underwent a CT thoracic and lumbar fine which showed nonspecific findings at L4 consistent with post surgical changes with no well- formed fluid collection or drainable abscess noted. He was started on Vanco and zosyn. Arrangements were made from admission. Blood cultures came back as staph aureus. ID and Ortho spine consulted. Patient went for incision and drainage with washout and wound VAC placement on 02/03. On the morning of 02/04 the wound VAC malfunction was noted to have hematoma. He returned to the operating room there was no signs of further bleeding and the cough was thought to be due to wound VAC malfunction. Patient seen and examined at bedside. He is feeling tired. His back is hurting somewhat. He denies any chest pain, shortness of breath, nausea, or vomiting. General: Ill appearing, no acute distress, appears at stated age Derm: warm, dry Head: atraumatic, normocephalic, symmetric Eyes: EOMI, no lid lag, anicteric sclera Mouth: no lip lesion, mucus membranes moist Cardiovascular: S1S2 reg, no murmur, positive posterior tibial pulse bilateral, Lungs: Course breath sounds bilateral , no accessory muscle use Abdominal: soft, nontender to palpation, no guarding, no appreciable organomegaly Ext: no gross muscle atrophy, no edema, no contractures Neuro: CN II-XI grossly intact, no focal neuro deficits Psych: Alert, oriented, appropriate affect Gram-positive bacteremia with sepsis -Staph aureus -Mec A negative and likely could be downgraded however cultures have not finalized -ID recs: Vancomycin Recent lumbar decompression laminectomy with wound dehiscence and SSI -Continue with Vanco, -Ortho spince recs: I and D with washout 02/03, and hematoma evacuation 02/04 due to wound VAC malfunction -Pain control, gabapentin, robaxin Hyponatremia, possible SIADH -Consult nephro -Repeat sodium levels at 2000 and in a.m. -IV fluids Pneumonia- recovering CoVID vs bacterial -Patient CoVID positive on 01/18. -pro calciton mildly elevated, indeterminent range -Influenza negative -CRP , LDH mildly elevated -ID recs - suspect elevated d-dimer reflective of recovering COVID Transaminitis, improving -Undetermined etiology -Repeat labs in a.m., may be related to recent Covid infection. Hypertension -Losartan -Follow blood pressures Dyslipidemia -Statin Obstructive sleep apnea -CPAP with elevated lactic acid, improved DVT prophylaxis: SCDs Discussed with: Patient, nursing Anticipated discharge date: 3-[address]: home A total of 35 minutes was spent on the care of this complex patient more than 50% of the time was spent in counseling and care coordination. Objective - Vital Signs Vital signs: Vital Signs Temp 97.5 F L 02/05/20 11:37 Pulse 69 02/05/20 16:00 Resp 20 02/05/20 16:00 BP 157/78 02/05/20 13:37 Pulse Ox 93 L 02/05/20 11:37 Intake & Output 02/05/20 02/05/20 02/06/20 06:59 18:59 06:59 Intake Total 2580 300 Output Total 450 1210 Balance 2130 -910 Intake: IV 300 Intake, IV Titration 2580 Amount Sodium Chloride 0.9% 1, 1040 000 ml @ 0 mls/hr IV .[facility] Rx#:[id number] Sodium Chloride 0.9% 1, 1040 000 ml @ 130 mls/hr IV . [id number] [facility] Rx#:[id number] Vancomycin 2,000 mg In 500 Sodium Chloride 0.9% 500 ml 500 ml @ 167 mls/hr IVPB Q8H [facility] Rx#: [id number] Output: Drainage 200 Back 200 Urine 250 1200 Estimated Blood Loss 10 Other: Voiding Method Urinal Urinal # Voids 4 4 - Labs CBC & Chem 7: 02/05/20 06:28 11/14/20 06:28 Labs: Abnormal Lab Results - Last 24 Hours (Table) 02/05/20 02/05/20 02/05/20 Range/Units 06:28 06:28 18:37 WBC 23.2 H (3.8-10.6) k/uL Hgb 12.7 L (13.0-17.5) gm/dL Hct 38.9 L (39.0-53.0) % Neutrophils # 21.5 H (1.3-7.7) k/uL Lymphocytes # 0.6 L (1.0-4.8) k/uL ESR 40 H (0-20) mm/Hr D-Dimer 2.81 H (<0.60) mg/L FEU Sodium 128 L (137-145) mmol/L Glucose 116 H (74-99) mg/dL Osmolality 273 L (280-301) mosm/kg Calcium 8.2 L (8.4-10.2) mg/dL C-Reactive Protein 134.5 H (<10.0) mg/L Total Protein 5.1 L (6.3-8.2) g/dL Albumin 2.4 L (3.5-5.0) g/dL Microbiology - Last 24 Hours (Table) 02/04/20 17:54 Gram Stain - Preliminary Back Wound Culture - Preliminary 02/04/20 17:54 Gram Stain - Preliminary Back Tissue Culture - Preliminary 02/04/20 17:54 Gram Stain - Preliminary Back Wound Culture - Preliminary 02/04/20 20:25 Gram Stain - Preliminary Back Wound Culture - Preliminary 02/04/20 17:54 Anaerobic Culture - Preliminary Back 02/04/20 17:54 Anaerobic Culture - Preliminary Back 02/04/20 17:54 Anaerobic Culture - Preliminary Back 02/04/20 17:54 Fungal Culture - Preliminary Back 02/04/20 20:25 Anaerobic Culture - Preliminary Back 02/04/20 10:48 Gram Stain - Preliminary Sputum Sputum Culture - Preliminary 02/03/20 13:00 Blood Culture Gram Stain - Preliminary Blood Blood Culture - Preliminary Staphylococcus aureus
[2020-02-05 21:00] LABS: African American GFR (CKD) >90 (>60 ml/min/1.73 sqM); Anion Gap 5 mmol/L; Blood Urea Nitrogen 18 mg/dL (9-20); Calcium 8.3 mg/dL (8.4-10.2); Carbon Dioxide 21 mmol/L (22-30); Chloride 104 mmol/L (98-107); Glucose 116 mg/dL (74-99); Non-African American GFR(CKD) 90 (>60 ml/min/1.73 sqM); Potassium 4.4 mmol/L (3.5-5.1); Sodium 130 mmol/L (137-145)
[2020-02-05] MEDS: ATORVASTATIN 10 MG TAB PO SCH (21:06)
[2020-02-05] MEDS: MELATONIN 3 MG TABLET PO SCH (21:06)
[2020-02-05] MEDS: TAMSULOSIN 0.4 MG CAP.ER.24H PO SCH (21:06)
--- NOTE | 2020-02-05 22:50 | PN ---
PROGRESS NOTE DATE OF SERVICE: 02/05/2020 REASON FOR FOLLOW UP: Staph Aureus bacteremia and infected lumbar spine wound. INTERVAL HISTORY: Patient was taken to the OR last night in this patient who is status post I and D of the lumbar wound and repair of spontaneous dural tear. He was taken back to the OR this morning with I and D and placement of the wound VAC. The patient tolerated the procedure. The patient denies having any chest pain. No shortness of breath or cough. No abdominal pain or diarrhea. PHYSICAL EXAMINATION: Blood pressure is 157/78 with a pulse of 89, temperature 97.5. He is 96% on room air. General description is an elderly male up in the bed in no distress. Respiratory system: Unlabored breathing, clear to auscultation anteriorly. Heart S1, S2. Regular rate and rhythm. Abdomen soft, no tenderness. LABS: Hemoglobin is 12.7, white count 23.2 creatinine 0.82, blood culture with Staph aureus. Sensitivities pending. Repeat blood culture so far negative. Cultures from the wound site is showing Staph aureus as well as gram-negative. DIAGNOSTIC IMPRESSION AND PLAN: Patient with infected lumbar spine and status post I and D culture showing Staph aureus as well as gram-negative with Staph aureus bacteremia. The patient is covered with vancomycin and cefepime will be added to cover for the gram-negative and will monitor his clinical course closely. He will likely need a PICC line for outpatient IV antibiotics. MMODL / IJN: [id number] /
[2020-02-05 23:49] LABS: Ferritin 1543.3 ng/mL (22.0-322.0)
[2020-02-06] MEDS: CEFEPIME 2 GM in SODIUM CHLORIDE 0.9% 100 ML IVPB SCH ×3 (00:21→21:55)
[2020-02-06] MEDS: VANCOMYCIN 2,000 MG in SODIUM CHLORIDE 0.9% 500 ML 500 ML IVPB SCH ×2 (03:14→12:21)
[2020-02-06 07:00] LABS: Basophils % (A) 0 %; Eosinophils % (A) 0 %; HCT 35.5 % (39.0-53.0); HGB 11.6 gm/dL (13.0-17.5); Lymphocytes # (A) 0.8 k/uL (1.0-4.8); Lymphocytes % (A) 4 %; MCH 29.8 pg (25.0-35.0); MCHC 32.6 g/dL (31.0-37.0); MCV 91.3 fL (80.0-100.0); Mean Platelet Volume 9.4; Monocytes % (A) 5 %; Neutrophils # (A) 17.7 k/uL (1.3-7.7); Neutrophils % (A) 90 %; Platelet Count 229 k/uL (150-450); RBC 3.89 m/uL (4.30-5.90); RDW 14.1 % (11.5-15.5); WBC 19.7 k/uL (3.8-10.6)
--- NOTE | 2020-02-06 08:13 | P.PN ---
Subjective Progress Note Date: 02/06/20 Principal diagnosis: Lumbar wound dehiscence, spontaneous dural rupture Pt s/e this AM. He is doing better. States he is stiff because he has been laying still for so long. Denies any f/c/sob/cp/v/n/ EDDY, blurred vision. States he has some pain but it is manageable. Denies any new sx. No new numbness/tingling or weakness. He is urinating in a urinal under his own volition. Denies BM at this time. Objective - Vital Signs Vital signs: Vital Signs Temp 98.2 F 02/06/20 07:00 Pulse 69 02/06/20 07:00 Resp 20 02/06/20 07:00 BP 181/75 02/06/20 07:00 Pulse Ox 96 02/06/20 07:00 Intake & Output 02/05/20 02/06/20 02/06/20 18:59 06:59 18:59 Intake Total 300 Output Total 1210 350 Balance -910 -350 Intake: IV 300 Output: Urine 1200 350 Estimated Blood Loss 10 Other: Voiding Method Urinal Urinal # Voids 4 4 - Exam GEN AOX3 NAD VSS at this time 5/5 b/l LE and UE all major muscle groups 2/4 DTR all UE and LE b/l 2/4 distal pulses b/l UE and LE Negative hoffmans b/l Negative babinski b/l No clonus SILT L2-S3 Incision is CDI. Wound vac is in place and holding suction. There are no leak s. No EEE No fluid collection Wound vac fluid is minimal and serosanguinous. No clear fluid. - Constitutional General appearance: Present: cooperative, obese - EENT Eyes: Present: PERRLA - Neurologic Neurologic: Present: CNII-XII intact - Psychiatric Psychiatric: Present: A&O x's 3, appropriate affect - Labs CBC & Chem 7: 02/06/20 06:22 02/05/20 20:16 Labs: Abnormal Lab Results - Last 24 Hours (Table) 02/05/20 02/05/20 02/05/20 Range/Units 06:28 06:28 18:37 WBC (3.8-10.6) k/uL RBC (4.30-5.90) m/uL Hgb (13.0-17.5) gm/dL Hct (39.0-53.0) % Neutrophils # (1.3-7.7) k/uL Lymphocytes # (1.0-4.8) k/uL ESR 40 H (0-20) mm/Hr D-Dimer 2.81 H (<0.60) mg/L FEU Sodium 128 L (137-145) mmol/L Carbon Dioxide (22-30) mmol/L Glucose 116 H (74-99) mg/dL Osmolality 273 L (280-301) mosm/kg Calcium 8.2 L (8.4-10.2) mg/dL Ferritin (22.0-322.0) ng/mL Lactate Dehydrogenase (120-246) U/L C-Reactive Protein 134.5 H (<10.0) mg/L Total Protein 5.1 L (6.3-8.2) g/dL Albumin 2.4 L (3.5-5.0) g/dL 02/05/20 02/05/20 02/06/20 Range/Units 18:37 20:16 06:22 WBC 19.7 H (3.8-10.6) k/uL RBC 3.89 L (4.30-5.90) m/uL Hgb 11.6 L (13.0-17.5) gm/dL Hct 35.5 L (39.0-53.0) % Neutrophils # 17.7 H (1.3-7.7) k/uL Lymphocytes # 0.8 L (1.0-4.8) k/uL ESR (0-20) mm/Hr D-Dimer (<0.60) mg/L FEU Sodium 130 L (137-145) mmol/L Carbon Dioxide 21 L (22-30) mmol/L Glucose 116 H (74-99) mg/dL Osmolality (280-301) mosm/kg Calcium 8.3 L (8.4-10.2) mg/dL Ferritin 1543.3 H (22.0-322.0) ng/mL Lactate Dehydrogenase 972 H (120-246) U/L C-Reactive Protein (<10.0) mg/L Total Protein (6.3-8.2) g/dL Albumin (3.5-5.0) g/dL Microbiology - Last 24 Hours (Table) 11/12/20 13:00 Blood Culture Gram Stain - Final Blood Blood Culture - Final Staphylococcus aureus 02/05/20 06:28 Blood Culture - Final Blood 02/04/20 17:54 Gram Stain - Preliminary Back Wound Culture - Preliminary Gram Neg Bacilli 02/04/20 20:25 Gram Stain - Preliminary Back Wound Culture - Preliminary Gram Neg Bacilli 02/04/20 17:54 Gram Stain - Preliminary Back Wound Culture - Preliminary Presumptive Staph aureus Gram Neg Bacilli 02/04/20 17:54 Gram Stain - Preliminary Back Tissue Culture - Preliminary Presumptive Staph aureus 02/04/20 17:54 Anaerobic Culture - Preliminary Back 02/04/20 17:54 Anaerobic Culture - Preliminary Back 02/04/20 17:54 Anaerobic Culture - Preliminary Back 02/04/20 17:54 Fungal Culture - Preliminary Back 02/04/20 20:25 Anaerobic Culture - Preliminary Back Assessment and Plan Assessment: 1. Lumbar wound dehiscence, SSI s/p I&D with revision of dural repair 02/04/20 and replacement of wound vac due to machine malfunction 02/05/20, Doing better. 2. COVID positive 3. Incomplete cauda equina, resolving 4. Bacteremia 5. Complex medical patient. Plan: 1. OK for diet today. Will not take to OR again until Friday for closure due to setback with wound vac machine malfunction. 2. IVABX per ID 3. Appreciate medical management. 4. Acetazolamide added 250 mg IV q24 hrs. Studies have shown can help with dural closure as it decreases intradural pressure. Typical dose is 25 mg/kg/day for 48 hrs. Will do smaller dosing due to age as well as potential side effects. 5. Pain control as needed. 6. OK to sit up in bed and change positions, carefully, still on ABR but OK to sit up and move. Will progress to weight bearing likely tomorrow. Want time for dura to heal and to keep intraabdominal pressure as low as possible. 7. FOllow cultures.
[2020-02-06] MEDS: GABAPENTIN 300 MG CAP PO SCH ×2 (08:41→21:55)
[2020-02-06] MEDS: ASCORBIC ACID 500 MG TAB PO SCH (08:41)
[2020-02-06] MEDS: CHOLECALCIFEROL 1,000 UNIT TAB PO SCH (08:41)
[2020-02-06] MEDS: MELOXICAM 7.5 MG TAB PO SCH (08:42)
[2020-02-06] MEDS: methocarbamoL 750 MG TAB PO SCH ×3 (08:42→21:55)
[2020-02-06] MEDS: LOSARTAN 50 MG TAB PO SCH ×2 (08:42→12:51)
[2020-02-06] MEDS: SENNOSIDES-DOCUSATE SODIUM 1 EACH TAB PO SCH ×2 (08:42→21:55)
[2020-02-06] MEDS: SERTRALINE 50 MG TAB PO SCH (08:42)
[2020-02-06] MEDS: ZINC SULFATE 220 MG CAP PO SCH (08:42)
[2020-02-06 10:09] LABS: African American GFR (CKD) 118.1 (60.0-200.0); Albumin 2.7 g/dL (3.80-4.90); Albumin/Globulin Ratio 1.5 (1.60-3.17); Anion Gap 6.9 mmol/L (4.00-12.00); C Reactive Protein 8.5 mg/dL (0.0-0.8); Calcium 8.4 mg/dL (8.7-10.3); Carbon Dioxide 21.1 mmol/L (21.6-31.8); Globulin 1.8 g/dL (1.6-3.3); Non-African American GFR(CKD) 101.9 (60.0-200.0); Potassium 4.3 mmol/L (3.5-5.5); Total Protein 4.5 g/dL (6.2-8.2)
[2020-02-06] MEDS ORDERED: PROCHLORPERAZINE INJ 10 MG/2 ML VIAL IVP PRN (11:33)
--- NOTE | 2020-02-06 16:31 | P.PN ---
Subjective Progress Note Date: 02/06/20 (delayed charting seen at 1105) Principal diagnosis: rigors Patient is a 69-year-old male with recent hospital stay from 01/18 through 01/21 secondary to low back pain in which she underwent a decompressive and an laminectomy, during the hospital stay he was found to have Covid, hypertension, dyslipidemia, and depression who presented to the emergency department with complaints of rigors. On arrival to the ER he was found to be febrile with a temperature of 100.3, pulse 114, blood pressure 144/73. Laboratory analysis showed white blood cell count 27.1, sodium 1:30, potassium 4.9, glucose 123, lactic acid 2.5, bilirubin 1.5, AST 60, ALT 60. He underwent a chest x-ray wh ich showed right mid and left mid lower lung acute infiltrate consistent with Covid 19 infection. He underwent a CT thoracic and lumbar fine which showed nonspecific findings at L4 consistent with post surgical changes with no well- formed fluid collection or drainable abscess noted. He was started on Vanco and zosyn. Arrangements were made from admission. Blood cultures came back as staph aureus. ID and Ortho spine consulted. Patient went for incision and drainage with washout and wound VAC placement on 02/03. On the morning of 02/04 the wound VAC malfunction was noted to have hematoma. He returned to the operating room there was no signs of further bleeding and the cough was thought to be due to wound VAC malfunction. Gram stain demonstrated staph aureus and gram negative bacilli. Patient seen and examined at bedside. Having nausea and doesn't want anything solid to eat. No chest pain, no shortness fo breath, back pain when walking. General: Ill appearing, no acute distress, appears at stated age Derm: warm, dry Head: atraumatic, normocephalic, symmetric Eyes: EOMI, no lid lag, anicteric sclera Mouth: no lip lesion, mucus membranes dry Cardiovascular: S1S2 reg, no murmur, positive posterior tibial pulse bilateral, Lungs: Decreased bs sounds bilateral , no accessory muscle use Abdominal: soft, nontender to palpation, no guarding, no appreciable organomegaly Ext: no gross muscle atrophy, no edema, no contractures Neuro: CN II-XI grossly intact, no focal neuro deficits Psych: Alert, oriented, appropriate affect Staph aureus bacteremia with sepsis - Vancomycin will d/c as sensitive to cephalosporins and already on cefepime. -ID recs - blood cultures from 02/04 still positive - plan is for PICC with prolong duration of ABX one bacteremia is cleared. Recent lumbar decompression laminectomy with wound dehiscence and SSI -Continue with Vanco, -Ortho spince recs: I and D with washout 02/03, and hematoma evacuation 02/04 due to wound VAC malfunction -Pain control, gabapentin, robaxin Hyponatremia, probable SIADH -Repeat sodium levels in a.m. - consult nephro if worsens -IV fluids stopped COVID pneumonitis persistnet on CXR -Patient CoVID positive on 01/18. Completed dexamethasone, -pro calciton mildly elevated, indeterminent range -Influenza negative -CRP , LDH mildly elevated -ID recs - suspect elevated d-dimer reflective of recovering COVID Hypertension, accelerated -Losartan -Follow blood pressures Dyslipidemia -Statin Obstructive sleep apnea -CPAP elevated lactic acid, improved Transaminitis, improving DVT prophylaxis: SCDs Discussed with: Patient, nursing Anticipated discharge date: 3-[address]: home A total of 35 minutes was spent on the care of this complex patient more than 50% of the time was spent in counseling and care coordination. Objective - Vital Signs Vital signs: Vital Signs Temp 98.4 F 02/06/20 15:00 Pulse 80 02/06/20 15:00 Resp 20 02/06/20 15:00 BP 168/83 02/06/20 15:00 Pulse Ox 92 L 02/06/20 15:00 Intake & Output 02/05/20 02/06/20 02/06/20 18:59 06:59 18:59 Intake Total 300 200 Output Total 1210 350 950 Balance -910 -350 -750 Intake: IV 300 Oral 200 Output: Drainage 50 Back 50 Urine 1200 350 900 Estimated Blood Loss 10 Other: Voiding Method Urinal Urinal # Voids 4 4 - Labs CBC & Chem 7: 02/06/20 06:22 02/06/20 06:22 Labs: Abnormal Lab Results - Last 24 Hours (Table) 02/05/20 02/05/20 02/05/20 Range/Units 18:37 18:37 20:16 WBC (3.8-10.6) k/uL RBC (4.30-5.90) m/uL Hgb (13.0-17.5) gm/dL Hct (39.0-53.0) % Neutrophils # (1.3-7.7) k/uL Lymphocytes # (1.0-4.8) k/uL D-Dimer 2.81 H (<0.60) mg/L FEU Sodium 130 L (137-145) mmol/L Carbon Dioxide 21 L (22-30) mmol/L BUN/Creatinine Ratio (12.00-20.00) Ratio Glucose 116 H (74-99) mg/dL Calcium 8.3 L (8.4-10.2) mg/dL Ferritin 1543.3 H (22.0-322.0) ng/mL AST (14-35) U/L Lactate Dehydrogenase 972 H (120-246) U/L C-Reactive Protein (0.0-0.8) mg/dL Total Protein (6.2-8.2) g/dL Albumin (3.80-4.90) g/dL Albumin/Globulin Ratio (1.60-3.17) g/dL 02/06/20 02/06/20 Range/Units 06:22 06:22 WBC 19.7 H (3.8-10.6) k/uL RBC 3.89 L (4.30-5.90) m/uL Hgb 11.6 L (13.0-17.5) gm/dL Hct 35.5 L (39.0-53.0) % Neutrophils # 17.7 H (1.3-7.7) k/uL Lymphocytes # 0.8 L (1.0-4.8) k/uL D-Dimer (<0.60) mg/L FEU Sodium 133 L (137-145) mmol/L Carbon Dioxide 21.1 L (22-30) mmol/L BUN/Creatinine Ratio 35.00 H (12.00-20.00) Ratio Glucose (74-99) mg/dL Calcium 8.4 L (8.4-10.2) mg/dL Ferritin (22.0-322.0) ng/mL AST 43 H (14-35) U/L Lactate Dehydrogenase (120-246) U/L C-Reactive Protein 8.5 H (0.0-0.8) mg/dL Total Protein 4.5 L (6.2-8.2) g/dL Albumin 2.70 L (3.80-4.90) g/dL Albumin/Globulin Ratio 1.50 L (1.60-3.17) g/dL Microbiology - Last 24 Hours (Table) 02/05/20 06:28 Blood Culture Gram Stain - Preliminary Blood Blood Culture - Preliminary Staphylococcus aureus 02/04/20 10:48 Gram Stain - Final Sputum Sputum Culture - Final 02/03/20 13:00 Blood Culture Gram Stain - Final Blood Blood Culture - Final Staphylococcus aureus 02/05/20 06:28 Blood Culture - Final Blood 02/04/20 17:54 Gram Stain - Preliminary Back Wound Culture - Preliminary Gram Neg Bacilli 02/04/20 20:25 Gram Stain - Preliminary Back Wound Culture - Preliminary Gram Neg Bacilli 02/04/20 17:54 Gram Stain - Preliminary Back Wound Culture - Preliminary Presumptive Staph aureus Gram Neg Bacilli 02/04/20 17:54 Gram Stain - Preliminary Back Tissue Culture - Preliminary Presumptive Staph aureus
[2020-02-06] MEDS: ATORVASTATIN 10 MG TAB PO SCH (21:55)
[2020-02-06] MEDS: MELATONIN 3 MG TABLET PO SCH (21:55)
[2020-02-06] MEDS: TAMSULOSIN 0.4 MG CAP.ER.24H PO SCH (21:55)
--- NOTE | 2020-02-06 23:57 | US ---
EXAMINATION TYPE: US venous doppler duplex UE LT DATE OF EXAM: 02/06/2020 COMPARISON: NONE CLINICAL HISTORY: DVT. Left arm swelling SIDE PERFORMED: left Left Arm: Negative for DVT, positive for SVT within left cephalic vein from upper arm to forearm IMPRESSION: There is no evidence of deep vein thrombosis in the left arm. There is limited superficial thrombus i n the cephalic vein.
--- NOTE | 2020-02-07 04:13 | PN ---
PROGRESS NOTE DATE OF SERVICE: 02/06/2020 REASON FOR FOLLOWUP: MSSA bacteremia and lumbar surgical site infection. INTERVAL HISTORY: The patient is currently afebrile. He is feeling better. Breathing comfortably. The patient denies having any chest pain or shortness of breath or cough. Pain is currently controlled. No vomiting. No diarrhea. PHYSICAL EXAMINATION: Blood pressure 177/84 with a pulse of 81, temperature 98.6. He is 95% on 2 L nasal cannula. General description is an elderly male lying in bed in no distress. RESPIRATORY SYSTEM: Unlabored breathing, clear to auscultation anteriorly. HEART: S1, S2. Regular rate and rhythm. ABDOMEN: Soft, no tenderness. LABS: Hemoglobin 11.2, white count 19.7, BUN of 21, creatinine 0.6. Blood culture with MSSA from yesterday positive as well. Local culture with Enterobacter and MSSA. DIAGNOSTIC IMPRESSION AND PLAN: Patient with MSSA bacteremia secondary to lumbar spine infection. Ideally would have used cefazolin however we need to cover for the Enterobacter also grown in the cultures, currently on cefepime. Vancomycin was discontinued by the admitting team. Blood cultures were done this morning. Will wait for them to be negative at least 72 hours before a PICC line will be placed. His questions and concerns were answered. MMODL / IJN: [id number] /
[2020-02-07] MEDS: ASCORBIC ACID 500 MG TAB PO SCH (08:41)
[2020-02-07] MEDS: ZINC SULFATE 220 MG CAP PO SCH (08:42)
[2020-02-07] MEDS: GABAPENTIN 300 MG CAP PO SCH ×2 (08:42→20:28)
[2020-02-07] MEDS: methocarbamoL 750 MG TAB PO SCH ×3 (08:42→20:28)
[2020-02-07] MEDS: SERTRALINE 50 MG TAB PO SCH (08:42)
[2020-02-07] MEDS: MELOXICAM 7.5 MG TAB PO SCH (08:42)
[2020-02-07] MEDS: CHOLECALCIFEROL 1,000 UNIT TAB PO SCH (08:42)
[2020-02-07] MEDS: SENNOSIDES-DOCUSATE SODIUM 1 EACH TAB PO SCH ×2 (08:42→20:28)
[2020-02-07 08:50] LABS: Basophils % (A) 0 %; Eosinophils # (A) 0.3 k/uL (0-0.7); Eosinophils % (A) 2 %; HCT 39.7 % (39.0-53.0); Lymphocytes # (A) 0.8 k/uL (1.0-4.8); Lymphocytes % (A) 5 %; MCH 30.4 pg (25.0-35.0); MCHC 32.6 g/dL (31.0-37.0); MCV 93.2 fL (80.0-100.0); Mean Platelet Volume 9.9; Monocytes % (A) 6 %; Neutrophils # (A) 14.5 k/uL (1.3-7.7); Neutrophils % (A) 86 %; Platelet Count 223 k/uL (150-450); RBC 4.26 m/uL (4.30-5.90); RDW 13.9 % (11.5-15.5); WBC 16.8 k/uL (3.8-10.6)
[2020-02-07] MEDS: LOSARTAN 50 MG TAB PO SCH (08:59)
[2020-02-07] MEDS: CEFEPIME 2 GM in SODIUM CHLORIDE 0.9% 100 ML IVPB SCH ×2 (08:59→20:29)
[2020-02-07 09:00] LABS: ALT 44 U/L (4-49); AST 53 U/L (17-59); African American GFR (CKD) >90 (>60 ml/min/1.73 sqM); Albumin 2.7 g/dL (3.5-5.0); Albumin/Globulin Ratio 0.9; Alkaline Phosphatase 84 U/L (38-126); Anion Gap 2 mmol/L; Blood Urea Nitrogen 18 mg/dL (9-20); C Reactive Protein 51.1 mg/L (<10.0); Carbon Dioxide 23 mmol/L (22-30); Chloride 107 mmol/L (98-107); Glucose 88 mg/dL (74-99); Non-African American GFR(CKD) 89 (>60 ml/min/1.73 sqM); Potassium 4.5 mmol/L (3.5-5.1); Sodium 132 mmol/L (137-145); Total Bilirubin 1.4 mg/dL (0.2-1.3); Total Protein 5.7 g/dL (6.3-8.2)
[2020-02-07] MEDS ORDERED: VANCOMYCIN TROUGH DUE 1 EACH MISC MISCELLANE ONE (09:00)
--- NOTE | 2020-02-07 09:41 | P.PN ---
Subjective Progress Note Date: 02/07/20 Principal diagnosis: Lumbar wound dehiscence, spontaneous dural rupture 02/06/20 Pt s/e this AM. He is doing better. States he is stiff because he has been laying still for so long. Denies any f/c/sob/cp/v/n/ EDDY, blurred vision. States he has some pain but it is manageable. Denies any new sx. No new numbness/tingling or weakness. He is urinating in a urinal under his own volition. Denies BM at this time. 02/07/20: Pt s/e this am. No new issues. Wound vac holding suction. Pt denies any EDDY, N, V, blurred vision, f, c, sob, cp at this time. States he just wants to get up to the chair today. He states some pain in his back that is manageable. Denies any other sx at this time. Objective - Vital Signs Vital signs: Vital Signs Temp 98.4 F 02/07/20 03:21 Pulse 71 02/07/20 03:21 Resp 20 02/06/20 15:00 BP 180/82 02/07/20 03:21 Pulse Ox 99 02/07/20 03:21 Intake & Output 02/06/20 02/07/20 02/07/20 18:59 06:59 18:59 Intake Total 200 360 Output Total 950 1850 Balance -750 -1490 Intake: Oral 200 360 Output: Drainage 50 Back 50 Urine 900 1850 - Exam GEN AOX3 NAD VSS at this time 5/5 b/l LE and UE all major muscle groups 2/4 DTR all UE and LE b/l 2/4 distal pulses b/l UE and LE Negative hoffmans b/l Negative babinski b/l No clonus SILT L2-S3 Incision is CDI. Wound vac is in place and holding suction. There are no leaks. No EEE No fluid collection Wound vac fluid is minimal and serosanguinous. No clear fluid. - Labs CBC & Chem 7: 02/07/20 08:06 02/07/20 08:06 Labs: Abnormal Lab Results - Last 24 Hours (Table) 02/06/20 02/07/20 02/07/20 Range/Units 06:22 08:06 08:06 WBC (3.8-10.6) k/uL RBC (4.30-5.90) m/uL Neutrophils # (1.3-7.7) k/uL Lymphocytes # (1.0-4.8) k/uL D-Dimer 4.10 H (<0.60) mg/L FEU Sodium 133 L 132 L (135-145) mmol/L Carbon Dioxide 21.1 L (21.6-31.8) mmol/L BUN/Creatinine Ratio 35.00 H (12.00-20.00) Ratio Calcium 8.4 L (8.7-10.3) mg/dL Total Bilirubin 1.4 H (0.2-1.3) mg/dL AST 43 H (14-35) U/L C-Reactive Protein 8.5 H 51.1 H (0.0-0.8) mg/dL Total Protein 4.5 L 5.7 L (6.2-8.2) g/dL Albumin 2.70 L 2.7 L (3.80-4.90) g/dL Albumin/Globulin Ratio 1.50 L (1.60-3.17) g/dL 02/07/20 Range/Units 08:06 WBC 16.8 H (3.8-10.6) k/uL RBC 4.26 L (4.30-5.90) m/uL Neutrophils # 14.5 H (1.3-7.7) k/uL Lymphocytes # 0.8 L (1.0-4.8) k/uL D-Dimer (<0.60) mg/L FEU Sodium (135-145) mmol/L Carbon Dioxide (21.6-31.8) mmol/L BUN/Creatinine Ratio (12.00-20.00) Ratio Calcium (8.7-10.3) mg/dL Total Bilirubin (0.2-1.3) mg/dL AST (14-35) U/L C-Reactive Protein (0.0-0.8) mg/dL Total Protein (6.2-8.2) g/dL Albumin (3.80-4.90) g/dL Albumin/Globulin Ratio (1.60-3.17) g/dL Microbiology - Last 24 Hours (Table) 02/06/20 06:22 Blood Culture - Preliminary Blood No Growth after 24 hours 11/14/20 06:28 Blood Culture Gram Stain - Preliminary Blood Blood Culture - Preliminary Staphylococcus aureus 02/04/20 17:54 Anaerobic Culture - Preliminary Back 02/04/20 17:54 Anaerobic Culture - Preliminary Back 02/04/20 20:25 Anaerobic Culture - Preliminary Back 02/04/20 17:54 Gram Stain - Preliminary Back Wound Culture - Preliminary Presumptive Staph aureus Enterobacter aerogenes 02/04/20 17:54 Anaerobic Culture - Preliminary Back 02/04/20 17:54 Gram Stain - Preliminary Back Tissue Culture - Preliminary Presumptive Staph aureus Gram Neg Bacilli 02/04/20 20:25 Gram Stain - Preliminary Back Wound Culture - Preliminary Enterobacter aerogenes Presumptive Staph aureus 02/04/20 17:54 Gram Stain - Preliminary Back Wound Culture - Preliminary Enterobacter aerogenes Presumptive Staph aureus 02/04/20 10:48 Gram Stain - Final Sputum Sputum Culture - Final Assessment and Plan Assessment: 1. Lumbar wound dehiscence, SSI s/p I&D with revision of dural repair 02/04/20 and replacement of wound vac due to machine malfunction 02/05/20, Doing better. 2. COVID positive 3. Incomplete cauda equina, resolving 4. Bacteremia 5. Complex medical patient. Plan: 1. NPO at [place] tonight for tomorrow washout and likely closure of wound. 2. IVABX per ID 3. Appreciate medical management. 4. Acetazolamide added 250 mg IV q24 hrs. Last dose is today. 5. Pain control as needed. 6. OK to sit up in chair today and change positions, carefully, bathroom privileges. 7. Lumbar corset 8. Follow cultures, wound cx growing Gram (+) and Gram (-) Enteobacter and staph. 9. BC are neg. Pt lost IV last night. Will need PICC line.
[2020-02-07] MEDS ORDERED: fentaNYL (PF) 50 MCG/ML 2 ML AMP IV PRN (14:33)
--- NOTE | 2020-02-07 14:51 | P.PN ---
Subjective Progress Note Date: 02/07/20 Patient is a 69-year-old male with recent hospital stay from 01/18 through 01/21 secondary to low back pain in which she underwent a decompressive and an laminectomy, during the hospital stay he was found to have Covid, hypertension, dyslipidemia, and depression who presented to the emergency department with complaints of rigors. On arrival to the ER he was found to be febrile with a temperature of 100.3, pulse 114, blood pressure 144/73. Laboratory analysis showed white blood cell count 27.1, sodium 1:30, potassium 4.9, glucose 123, lactic acid 2.5, bilirubin 1.5, AST 60, ALT 60. He underwent a chest x-ray which showed right mid and left mid lower lung acute infiltrate consistent with Covid 19 infection. He underwent a CT thoracic and lumbar fine which showed nonspecific findings at L4 consistent with post surgical changes with no well- formed fluid collection or drainable abscess noted. He was started on Vanco and zosyn. Arrangements were made from admission. Blood cultures came back as staph aureus. ID and Ortho spine consulted. Patient went for incision and drainage with washout and wound VAC placement on 02/03. On the morning of 02/04 the wound VAC was noted to malfunction with subsequent hematoma. He returned to the operating room and there was no signs of further bleeding and the Gram stain demonstrated staph aureus and enterobacter. Patient was seen and evaluated at the bedside on 02/06. He reported some back pain but denied any additional complaints. He was sitting in the chair at the time of evaluation. Patient is planned for repeat washout and closure of wound in a.m. Patient denied any additional complaints. He denied chest pain, shortness of breath, nausea, vomiting, or cough. General: Non-toxic, in no acute distress, appears stated age, normal weight HEENT: NC/AT, anicteric sclerae, moist conjunctiva, no lid-lag, PERRLA Cardiovascular: S1/S2 wnl, no murmurs, rubs, or gallops Lungs: Clear to auscultation, normal respiratory effort, no accessory muscle use Abdominal: Soft, non-tender, non-distended, no guarding, rebound, or rigidity Skin: Lower back wound vac in place Extremities: No edema or contractures Psychiatric: Alert and oriented to person, place and time, appropriate affect Neuro: CN II-XII grossly intact, no focal neuro deficits noted Assessment/Plan Staph aureus and enterobacter bacteremia with sepsis -Will defer to ID: currently on Cefepime -Planned for PICC line after clearance of cultures Recent lumbar decompression laminectomy with wound dehiscence and SSI -C/w above abxs -Ortho spine recs: I and D with washout 02/03, and hematoma evacuation 02/04 due to wound VAC malfunction, planned for repeat washout in am -Pain control, gabapentin, robaxin Hyponatremia, probable SIADH -Repeat sodium levels in a.m. -consult nephro if worsens -IV fluids stopped COVID pneumonitis persistnet on CXR -Patient CoVID positive on 01/18. Completed dexamethasone, -Pro calciton mildly elevated, indeterminent range -Influenza negative -CRP, LDH mildly elevated -Suspect elevated d-dimer reflective of recovering COVID Hypertension, accelerated -Losartan -Follow blood pressures Dyslipidemia -Statin Obstructive sleep apnea -CPAP Elevated lactic acid, resolved Transaminitis, resolved DVT prophylaxis: SCDs Discussed with: Patient, nursing Anticipated discharge date: 3-[address]: home A total of 35 minutes was spent on the care of this complex patient more than 50% of the time was spent in counseling and care coordination. Objective - Vital Signs Vital signs: Vital Signs Temp 98.8 F 02/07/20 07:00 Pulse 72 02/07/20 07:00 Resp 18 02/07/20 07:00 BP 173/77 02/07/20 07:00 Pulse Ox 95 02/07/20 07:00 Intake & Output 02/06/20 02/07/20 02/07/20 18:59 06:59 18:59 Intake Total 200 360 Output Total 950 1850 Balance -750 -1490 Intake: Oral 200 360 Output: Drainage 50 Back 50 Urine 900 1850 - Labs CBC & Chem 7: 02/07/20 08:06 02/07/20 08:06 Labs: Abnormal Lab Results - Last 24 Hours (Table) 02/07/20 02/07/20 02/07/20 Range/Units 08:06 08:06 08:06 WBC 16.8 H (3.8-10.6) k/uL RBC 4.26 L (4.30-5.90) m/uL Neutrophils # 14.5 H (1.3-7.7) k/uL Lymphocytes # 0.8 L (1.0-4.8) k/uL D-Dimer 4.10 H (<0.60) mg/L FEU Sodium 132 L (137-145) mmol/L Total Bilirubin 1.4 H (0.2-1.3) mg/dL C-Reactive Protein 51.1 H (<10.0) mg/L Total Protein 5.7 L (6.3-8.2) g/dL Albumin 2.7 L (3.5-5.0) g/dL Microbiology - Last 24 Hours (Table) 02/06/20 06:22 Blood Culture - Preliminary Blood No Growth after 24 hours 02/05/20 06:28 Blood Culture Gram Stain - Preliminary Blood Blood Culture - Preliminary Staphylococcus aureus 02/04/20 17:54 Anaerobic Culture - Preliminary Back 02/04/20 17:54 Anaerobic Culture - Preliminary Back 02/04/20 20:25 Anaerobic Culture - Preliminary Back 02/04/20 17:54 Gram Stain - Preliminary Back Wound Culture - Preliminary Presumptive Staph aureus Enterobacter aerogenes 02/04/20 17:54 Anaerobic Culture - Preliminary Back 02/04/20 17:54 Gram Stain - Preliminary Back Tissue Culture - Preliminary Presumptive Staph aureus Gram Neg Bacilli 02/04/20 20:25 Gram Stain - Preliminary Back Wound Culture - Preliminary Enterobacter aerogenes Presumptive Staph aureus 02/04/20 17:54 Gram Stain - Preliminary Back Wound Culture - Preliminary Enterobacter aerogenes Presumptive Staph aureus
[2020-02-07] MEDS: LACTATED RINGERS 1,000 ML IV SCH (15:10)
[2020-02-07 16:03] LABS: Ferritin 1540.4 ng/mL (22.0-322.0)
--- NOTE | 2020-02-07 16:10 | CDI ---
Documentation Clarification Form Date: 02/07/2020 03:33:38 PM From: Judith Oneill RN, CCDS Admit Date: 02/03/2020 03:57:00 PM Patient Name: Darian Angulo Visit Number: [id number] Discharge Date: ATTENTION: The Clinical Documentation Specialists (CDI) and [facility] Coding Staff appreciate your assistance in clarifying documentation. Please respond to the clarification below the line at the bottom and electronically sign. The CDI & [facility] Coding staff will review the response and follow-up if needed. Please note: Queries are made part of the Legal Health Record. If you have any questions, please contact the author of this message via ITS. Dr. Cesar Charles Per your progress notes/operative note, a debridement was performed on lumbar wound dehiscence 02/04/20. In the operative note you have documented sharp removal of necrotic fat and subcutaneous tissue. Please provide further specificity of debridement. History/Risk Factors: COVID-19, Hypertension, Incomplete cauda equine syndrome Clinical Indicators: 69-year-old male present with complaints of drainage from his low back wound. The patient underwent laminectomy for incomplete cauda equine syndrome 2 weeks prior. 02/03 CT Lumbar spine: Postsurgical changes with edema within the soft tissue area. there is a small pocket of fluid which is noted superficial to the fascia. Treatment: 02/03 Irrigation and debridment of lumbar wound with application wound VAC Maxipime 2 gm iv q12 Monitor wound VAC output Five elements required for accurate and compliant documentation of a debridement: 1. Technique used (e.g., excisional, excised, cutting, etc.) 2. Instrument(s) used (e.g., scalpel, curette, etc.) 3. Nature of the tissue removed (e.g., necrotic, devitalized tissues, non- viable tissue, etc.) 4. Appearance and size of the wound (e.g., down to fresh bleeding tissue, 7cm x 10cm, etc.) 5. Depth of the debridement* (e.g., skin, subcutaneous tissue, fascia, muscle, bone, etc.) In order to capture the severity of condition and code the appropriate procedure; could you please document the following: Excisional debridement (the removal of necrotic, devitalized tissue or slough by means of cutting away of tissue) Non-excisional debridement (the removal of necrotic, devitalized tissue or slough by means of flushing, brushing, or washing. (Irrigation) Other; please specify Unable to determine (Last Revision: June 2017) As per operative report, a knife was used for excisional debridment of the necrotic fat within the subcutaneous layer. A curette was used to deride bone as well as rongures. Curettes were also used on the skin to obtain a bleeding surface. JUAN
[2020-02-07] MEDS: ATORVASTATIN 10 MG TAB PO SCH (20:28)
[2020-02-07] MEDS: MELATONIN 3 MG TABLET PO SCH (20:28)
[2020-02-07] MEDS: TAMSULOSIN 0.4 MG CAP.ER.24H PO SCH (20:28)
--- NOTE | 2020-02-07 22:02 | PN ---
PROGRESS NOTE DATE OF SERVICE: 02/07/2020 REASON FOR FOLLOWUP: MSSA bacteremia and lumbar spine infection. INTERVAL HISTORY: Patient is currently afebrile. He is breathing comfortably. The patient denies having any chest pain. No shortness of breath or cough. No abdominal pain. No diarrhea. PHYSICAL EXAMINATION: Blood pressure 170/84 with a pulse of 87, temperature 98. He is 94% on room air. General description is an elderly male lying in bed in no distress. Respiratory system: Unlabored breathing, clear to auscultation anteriorly. Heart S1, S2. Regular. ABDOMEN: Soft, no tenderness. LABS: Hemoglobin is 13.5, white count 16.8. BUN of 18, creatinine 0.83 blood cultures 02/04 positive, 02/05 so far negative. DIAGNOSTIC IMPRESSION AND PLAN: Patient with MSSA bacteremia source is no lumbar and cervical spine surgical site infection. Local culture positive for Enterobacter MSSA. Start the patient on cefepime 2 g q.12h. White count did show downward trend, however, with persistent bacteremia, we will adjust cefepime 2 g q.8 hours. The patient will get a PICC line when his blood cultures are negative at 72 hours. Continue supportive care. MMODL / IJN: [id number] /
[2020-02-08] MEDS: CEFEPIME 2 GM in SODIUM CHLORIDE 0.9% 100 ML IVPB SCH ×4 (01:10→23:27)
[2020-02-08] MEDS: cloNIDine HCL 0.2 MG TAB PO PRN (03:07)
[2020-02-08] MEDS: LOSARTAN 50 MG TAB PO SCH (08:26)
[2020-02-08] MEDS: SERTRALINE 50 MG TAB PO SCH ×2 (08:26→09:39)
[2020-02-08] MEDS: ASCORBIC ACID 500 MG TAB PO SCH ×2 (08:27→09:39)
[2020-02-08] MEDS: CHOLECALCIFEROL 1,000 UNIT TAB PO SCH ×2 (08:27→09:39)
[2020-02-08] MEDS: SENNOSIDES-DOCUSATE SODIUM 1 EACH TAB PO SCH ×2 (08:27→22:23)
[2020-02-08] MEDS: MELOXICAM 7.5 MG TAB PO SCH ×2 (08:27→09:39)
[2020-02-08] MEDS: ZINC SULFATE 220 MG CAP PO SCH ×2 (08:28→09:39)
[2020-02-08] MEDS: methocarbamoL 750 MG TAB PO SCH ×3 (08:28→22:46)
[2020-02-08] MEDS: GABAPENTIN 300 MG CAP PO SCH ×2 (08:28→22:23)
[2020-02-08 08:55] LABS: Basophils % (A) 0 %; Eosinophils # (A) 0.4 k/uL (0-0.7); Eosinophils % (A) 3 %; HCT 36.9 % (39.0-53.0); HGB 11.8 gm/dL (13.0-17.5); Lymphocytes # (A) 1.1 k/uL (1.0-4.8); Lymphocytes % (A) 7 %; MCH 29.4 pg (25.0-35.0); MCHC 31.9 g/dL (31.0-37.0); Mean Platelet Volume 9.8; Monocytes # (A) 1.2 k/uL (0-1.0); Monocytes % (A) 7 %; Neutrophils # (A) 12.7 k/uL (1.3-7.7); Neutrophils % (A) 82 %; Platelet Count 259 k/uL (150-450); RDW 14.2 % (11.5-15.5); WBC 15.6 k/uL (3.8-10.6)
[2020-02-08 11:46] LABS: African American GFR (CKD) 110.8 (60.0-200.0); Albumin 2.9 g/dL (3.80-4.90); Albumin/Globulin Ratio 1.45 (1.60-3.17); Anion Gap 7.6 mmol/L (4.00-12.00); BUN/Creat Ratio 27.14 Ratio (12.00-20.00); C Reactive Protein 3.8 mg/dL (0.0-0.8); Calcium 8.5 mg/dL (8.7-10.3); Carbon Dioxide 20.4 mmol/L (21.6-31.8); Non-African American GFR(CKD) 95.6 (60.0-200.0); Potassium 4.1 mmol/L (3.5-5.5); Total Bilirubin 1.1 mg/dL (0.3-1.2); Total Protein 4.9 g/dL (6.2-8.2)
--- NOTE | 2020-02-08 13:11 | P.PN ---
Subjective Progress Note Date: 02/08/20 Principal diagnosis: Lumbar wound dehiscence, spontaneous dural rupture 02/06/20 Pt s/e this AM. He is doing better. States he is stiff because he has been laying still for so long. Denies any f/c/sob/cp/v/n/ EDDY, blurred vision. States he has some pain but it is manageable. Denies any new sx. No new numbness/tingling or weakness. He is urinating in a urinal under his own volition. Denies BM at this time. 02/07/20: Pt s/e this am. No new issues. Wound vac holding suction. Pt denies any EDDY, N, V, blurred vision, f, c, sob, cp at this time. States he just wants to get up to the chair today. He states some pain in his back that is manageable. Denies any other sx at this time. 02/08/20. Doing OK . No issues. States they dumped his wound vac last night. There is about 500 in now. Denies any EDDY, N, V, sob, f, c, cp, blurred or change in vision. No numbness/tingling. States up in chair for 2 hrs yesterday but has not been walking around a lot. Denies any other sx. Objective - Vital Signs Vital signs: Vital Signs Temp 97.6 F 02/08/20 07:00 Pulse 67 02/08/20 07:00 Resp 21 02/08/20 07:00 BP 178/80 02/08/20 07:00 Pulse Ox 96 02/08/20 07:00 Intake & Output 02/07/20 02/08/20 02/08/20 18:59 06:59 18:59 Output Total 1000 Balance -1000 Output: Urine 1000 Other: Voiding Method Urinal # Voids 5 1 - Exam GEN AOX3 NAD VSS at this time 5/5 b/l LE and UE all major muscle groups 2/4 DTR all UE and LE b/l 2/4 distal pulses b/l UE and LE Negative hoffmans b/l Negative babinski b/l No clonus SILT L2-S3 Incision is CDI. Wound vac is in place and holding suction. There are no leaks . No EEE No fluid collection Wound vac fluid showing 500 currently serosanguinous. - Labs CBC & Chem 7: 02/08/20 06:32 02/08/20 06:32 Labs: Abnormal Lab Results - Last 24 Hours (Table) 02/07/20 02/08/20 02/08/20 Range/Units 08:06 06:32 06:32 WBC 15.6 H (3.8-10.6) k/uL RBC 4.00 L (4.30-5.90) m/uL Hgb 11.8 L (13.0-17.5) gm/dL Hct 36.9 L (39.0-53.0) % Neutrophils # 12.7 H (1.3-7.7) k/uL Monocytes # 1.2 H (0-1.0) k/uL Carbon Dioxide 20.4 L (21.6-31.8) mmol/L BUN/Creatinine Ratio 27.14 H (12.00-20.00) Ratio Calcium 8.5 L (8.7-10.3) mg/dL Ferritin 1540.4 H (22.0-322.0) ng/mL AST 44 H (14-35) U/L Lactate Dehydrogenase 596 H (120-246) U/L Creatine Kinase 25 L (35-257) U/L C-Reactive Protein 3.8 H (0.0-0.8) mg/dL Total Protein 4.9 L (6.2-8.2) g/dL Albumin 2.90 L (3.80-4.90) g/dL Albumin/Globulin Ratio 1.45 L (1.60-3.17) g/dL Microbiology - Last 24 Hours (Table) 02/07/20 08:06 Blood Culture - Preliminary Blood No Growth after 24 hours 02/06/20 06:22 Blood Culture - Preliminary Blood No Growth after 48 hours 02/04/20 17:54 Gram Stain - Final Back Tissue Culture - Final Staphylococcus aureus Enterobacter aerogenes 02/04/20 17:54 Gram Stain - Final Back Wound Culture - Final Staphylococcus aureus Enterobacter aerogenes Assessment and Plan Assessment: 1. Lumbar wound dehiscence, SSI s/p I&D with revision of dural repair 02/04/20 and replacement of wound vac due to machine malfunction 02/05/20, Doing better. 2. COVID positive 3. Incomplete cauda equina, resolving 4. Bacteremia 5. Complex medical patient. Plan: 1. NPO confirmed, OR today for possible closure vs replacement of vac. 2. IVABX per ID 3. Appreciate medical management. 4. Pain control as needed. 5. OK to sit up in chair today and change positions, carefully, bathroom privileges. 6. Lumbar corset 7. Follow cultures, wound cx growing Gram (+) and Gram (-) Enteobacter and staph. 8. BC are neg. Pt lost IV last night. Will need PICC line.
[2020-02-08] MEDS: HYDROmorphone 0.5 MG/0.5 ML SYRINGE IVP PRN ×2 (13:56→23:27)
[2020-02-08] MEDS: LACTATED RINGERS 1,000 ML IV SCH (15:21)
--- NOTE | 2020-02-08 16:34 | P.PN ---
Subjective Progress Note Date: 02/08/20 Patient is a 69-year-old male with recent hospital stay from 01/18 through 01/21 secondary to low back pain in which she underwent a decompressive and an laminectomy, during the hospital stay he was found to have Covid, hypertension, dyslipidemia, and depression who presented to the emergency department with complaints of rigors. On arrival to the ER he was found to be febrile with a temperature of 100.3, pulse 114, blood pressure 144/73. Laboratory analysis showed white blood cell count 27.1, sodium 1:30, potassium 4.9, glucose 123, lactic acid 2.5, bilirubin 1.5, AST 60, ALT 60. He underwent a chest x-ray which showed right mid and left mid lower lung acute infiltrate consistent with Covid 19 infection. He underwent a CT thoracic and lumbar fine which showed nonspecific findings at L4 consistent with post surgical changes with no well- formed fluid collection or drainable abscess noted. He was started on Vanco and zosyn. Arrangements were made from admission. Blood cultures came back as staph aureus. ID and Ortho spine consulted. Patient went for incision and drainage with washout and wound VAC placement on 02/03. On the morning of 02/04 the wound VAC was noted to malfunction with subsequent hematoma. He returned to the operating room and there was no signs of further bleeding and the Gram stain demonstrated staph aureus and enterobacter. The patient underwent repeat washout with wound closure on 02/07. Patient was seen and evaluated at the bedside on 02/07. He reported ongoing lower back pain especially with movement. Denied any additional complaints. Denied fever, chills, cough, shortness of breath, or chest pain. General: Non-toxic, in no acute distress, appears stated age, normal weight HEENT: NC/AT, anicteric sclerae, moist conjunctiva, no lid-lag, PERRLA Cardiovascular: S1/S2 wnl, no murmurs, rubs, or gallops Lungs: Clear to auscultation, normal respiratory effort, no accessory muscle use Abdominal: Soft, non-tender, non-distended, no guarding, rebound, or rigidity Skin: Lower back wound vac in place Extremities: No edema or contractures Psychiatric: Alert and oriented to person, place and time, appropriate affect Neuro: CN II-XII grossly intact, no focal neuro deficits noted Assessment/Plan Staph aureus and enterobacter bacteremia with sepsis -Will defer to ID: currently on Cefepime increase to 2 g every 8 hourly -Planned for PICC line after clearance of cultures Recent lumbar decompression laminectomy with wound dehiscence and SSI -C/w above abxs -Ortho spine recs: I and D with washout 02/03, and hematoma evacuation 02/04 due to wound VAC malfunction, s/p repeat washout and wound closure on 02/07 -Pain control, gabapentin, robaxin Hyponatremia, probable SIADH, resolved COVID pneumonitis persistent on CXR -Patient CoVID positive on 01/18. Completed dexamethasone, -Pro calciton mildly elevated, indeterminent range -Influenza negative -CRP, LDH mildly elevated -Suspect elevated d-dimer reflective of recovering COVID and post-surgical Hypertension, accelerated -Losartan -Follow blood pressures Dyslipidemia -Statin Obstructive sleep apnea -CPAP Elevated lactic acid, resolved Transaminitis, resolved DVT prophylaxis: SCDs Discussed with: Patient, nursing Anticipated discharge date: 3-[address]: home A total of 35 minutes was spent on the care of this complex patient more than 50% of the time was spent in counseling and care coordination. Objective - Vital Signs Vital signs: Vital Signs Temp 98.5 F 02/08/20 14:28 Pulse 69 02/08/20 14:28 Resp 18 02/08/20 14:28 BP 184/92 02/08/20 14:28 Pulse Ox 98 02/08/20 14:28 Intake & Output 02/07/20 02/08/20 02/08/20 18:59 06:59 18:59 Output Total 1000 350 Balance -1000 -350 Output: Urine 1000 350 Other: Voiding Method Urinal # Voids 5 1 - Labs CBC & Chem 7: 02/08/20 06:32 02/08/20 06:32 Labs: Abnormal Lab Results - Last 24 Hours (Table) 02/07/20 02/08/20 02/08/20 Range/Units 08:06 06:32 06:32 WBC 15.6 H (3.8-10.6) k/uL RBC 4.00 L (4.30-5.90) m/uL Hgb 11.8 L (13.0-17.5) gm/dL Hct 36.9 L (39.0-53.0) % Neutrophils # 12.7 H (1.3-7.7) k/uL Monocytes # 1.2 H (0-1.0) k/uL Carbon Dioxide 20.4 L (21.6-31.8) mmol/L BUN/Creatinine Ratio 27.14 H (12.00-20.00) Ratio Calcium 8.5 L (8.7-10.3) mg/dL AST 44 H (14-35) U/L Lactate Dehydrogenase 596 H (120-246) U/L Creatine Kinase 25 L (35-257) U/L C-Reactive Protein 3.8 H (0.0-0.8) mg/dL Total Protein 4.9 L (6.2-8.2) g/dL Albumin 2.90 L (3.80-4.90) g/dL Albumin/Globulin Ratio 1.45 L (1.60-3.17) g/dL Microbiology - Last 24 Hours (Table) 02/07/20 08:06 Blood Culture - Preliminary Blood No Growth after 24 hours 02/06/20 06:22 Blood Culture - Preliminary Blood No Growth after 48 hours 02/04/20 17:54 Gram Stain - Final Back Tissue Culture - Final Staphylococcus aureus Enterobacter aerogenes 02/04/20 17:54 Gram Stain - Final Back Wound Culture - Final Staphylococcus aureus Enterobacter aerogenes
[2020-02-08] MEDS ORDERED: SODIUM CHLORIDE 0.9% 1,000 ML IV ONE ×2 (18:54)
[2020-02-08] MEDS ORDERED: PROPOFOL 10 MG/ML 20 ML VIAL IV ONE (18:54)
[2020-02-08] MEDS ORDERED: fentaNYL (PF) 50 MCG/ML 2 ML AMP ONE (18:54)
[2020-02-08] MEDS ORDERED: DEXAMETHASONE SOD PHOS (MDV) 100 MG/10 ML VIAL ONE (18:54)
[2020-02-08] MEDS ORDERED: PHENYLEPHRINE-0.9% NACL SYG 1 MG/10 ML SYRINGE ONE (18:54)
[2020-02-08] MEDS ORDERED: SUCCINYLCHOLINE CHLORIDE 100 MG/5 ML SYR IV ONE (18:54)
[2020-02-08] MEDS ORDERED: MIDAZOLAM 2 MG/2 ML VIAL ONE (18:54)
[2020-02-08] MEDS ORDERED: HYDROmorphone (PF) 1 MG/ML ONE (18:54)
[2020-02-08] MEDS ORDERED: ONDANSETRON 4 MG/2 ML VIAL ONE (18:54)
[2020-02-08] MEDS ORDERED: LACTATED RINGERS 1,000 ML IV ONE ×2 (19:33)
[2020-02-08] MEDS ORDERED: VANCOMYCIN 1,000 MG VIAL MISCELLANE ONE (19:48)
[2020-02-08] MEDS: MELATONIN 3 MG TABLET PO SCH (22:23)
[2020-02-08] MEDS: ATORVASTATIN 10 MG TAB PO SCH (22:23)
[2020-02-08] MEDS: TAMSULOSIN 0.4 MG CAP.ER.24H PO SCH (22:23)
--- NOTE | 2020-02-08 23:15 | PN ---
PROGRESS NOTE DATE OF SERVICE: 02/08/2020 REASON FOR FOLLOWUP: MSSA bacteremia and lumbar spine surgical site infection. INTERVAL HISTORY: The patient is currently afebrile. The patient is breathing comfortably. Patient denies having any chest pain or shortness of breath or cough. No abdominal pain or any worsening pain to the back area. PHYSICAL EXAMINATION: Blood pressure 184/92 with a pulse of 69, temperature 98.5. He is 98% on room air. General description is an elderly male lying in bed in no distress. RESPIRATORY SYSTEM: Unlabored breathing, clear to auscultation anteriorly. HEART: S1, S2. Regular rate and rhythm. ABDOMEN: Soft, no tenderness. LABS: Hemoglobin is 11.8, white count 15.6, BUN of 19, creatinine 0.7. Blood culture has been negative so far. DIAGNOSTIC IMPRESSION AND PLAN: Patient with an MSSA bacteremia and followup blood culture negative. Source is lumbar spine surgical site infection, status post debridement. Culture positive for MSSA, Enterobacter. The patient is covered with cefepime 2 g q.8 hours. He will get a PICC line tomorrow and continue with cefepime for at least 6 weeks with weekly monitor of CBC, BMP and Sed rate and close outpatient followup. MMODL / IJN: [id number] /
[2020-02-09] MEDS: cloNIDine HCL 0.2 MG TAB PO PRN (00:42)
[2020-02-09 07:04] LABS: Basophils % (A) 0 %; Eosinophils % (A) 0 %; HCT 39.3 % (39.0-53.0); HGB 12.7 gm/dL (13.0-17.5); Lymphocytes # (A) 0.6 k/uL (1.0-4.8); Lymphocytes % (A) 3 %; MCH 30.5 pg (25.0-35.0); MCHC 32.3 g/dL (31.0-37.0); MCV 94.6 fL (80.0-100.0); Mean Platelet Volume 8.5; Monocytes # (A) 0.4 k/uL (0-1.0); Monocytes % (A) 2 %; Neutrophils # (A) 16.9 k/uL (1.3-7.7); Neutrophils % (A) 94 %; Platelet Count 240 k/uL (150-450); RBC 4.16 m/uL (4.30-5.90); RDW 13.9 % (11.5-15.5); WBC 17.9 k/uL (3.8-10.6)
--- NOTE | 2020-02-09 08:36 | P.PN ---
Subjective Progress Note Date: 02/09/20 Principal diagnosis: Lumbar wound dehiscence, spontaneous dural rupture 02/06/20 Pt s/e this AM. He is doing better. States he is stiff because he has been laying still for so long. Denies any f/c/sob/cp/v/n/ EDDY, blurred vision. States he has some pain but it is manageable. Denies any new sx. No new numbness/tingling or weakness. He is urinating in a urinal under his own volition. Denies BM at this time. 02/07/20: Pt s/e this am. No new issues. Wound vac holding suction. Pt denies any EDDY, N, V, blurred vision, f, c, sob, cp at this time. States he just wants to get up to the chair today. He states some pain in his back that is manageable. Denies any other sx at this time. 02/08/20. Doing OK . No issues. States they dumped his wound vac last night. There is about 500 in now. Denies any EDDY, N, V, sob, f, c, cp, blurred or change in vision. No numbness/tingling. States up in chair for 2 hrs yesterday but has not been walking around a lot. Denies any other sx. 02/09/20: Patient seen and examined this morning. He looks slightly better than yesterday. He states pain in his lumbar spine. He denies any numbness or tingling. States no fevers chills shortness of breath headache nausea vomiting blurred vision or change in vision at this time. Patient is laying flat in bed. A Zuniga was placed overnight. Per nursing the wound VAC was not working properly however is now working properly. Patient denies any other symptoms at this time. Objective - Vital Signs Vital signs: Vital Signs Temp 97.6 F 02/09/20 07:00 Pulse 76 02/09/20 07:00 Resp 18 02/09/20 07:00 BP 166/89 02/09/20 07:00 Pulse Ox 95 02/09/20 07:00 Intake & Output 02/08/20 02/09/20 02/09/20 18:59 06:59 18:59 Intake Total 100 1465 Output Total 350 100 Balance -250 1365 Intake: IV 100 800 Intake, IV Titration 105 Amount Cefepime 2 gm In Sodium 25 Chloride 0.9% 100 ml @ 25 mls/hr IVPB Q8HR [facility] Rx# :[id number] Lactated Ringers 1,000 ml 80 @ 20 mls/hr IV .Q24H [facility] Rx#:[id number] Oral 560 Output: Urine 350 Estimated Blood Loss 100 Other: Voiding Method Urinal # Voids 2 - Exam GEN AOX3 NAD VSS at this time 5/5 b/l LE and UE all major muscle groups 2/4 DTR all UE and LE b/l 2/4 distal pulses b/l UE and LE Negative hoffmans b/l Negative babinski b/l No clonus SILT L2-S3 Incision is CDI. Wound vac is in place and holding suction. There are no leaks. No EEE No fluid collection Wound vac fluid showing 500 currently serosanguinous. Cranial nerves II through XII are grossly intact - EENT Eyes: Present: EOMI, PERRLA, normal appearance - Labs CBC & Chem 7: 02/09/20 06:44 02/08/20 06:32 Labs: Abnormal Lab Results - Last 24 Hours (Table) 02/08/20 02/08/20 02/09/20 Range/Units 06:32 06:32 06:44 WBC 15.6 H 17.9 H (3.8-10.6) k/uL RBC 4.00 L 4.16 L (4.30-5.90) m/uL Hgb 11.8 L 12.7 L (13.0-17.5) gm/dL Hct 36.9 L (39.0-53.0) % Neutrophils # 12.7 H 16.9 H (1.3-7.7) k/uL Lymphocytes # 0.6 L (1.0-4.8) k/uL Monocytes # 1.2 H (0-1.0) k/uL Carbon Dioxide 20.4 L (21.6-31.8) mmol/L BUN/Creatinine Ratio 27.14 H (12.00-20.00) Ratio Calcium 8.5 L (8.7-10.3) mg/dL AST 44 H (14-35) U/L C-Reactive Protein 3.8 H (0.0-0.8) mg/dL Total Protein 4.9 L (6.2-8.2) g/dL Albumin 2.90 L (3.80-4.90) g/dL Albumin/Globulin Ratio 1.45 L (1.60-3.17) g/dL Microbiology - Last 24 Hours (Table) 02/04/20 17:54 Anaerobic Culture - Final Back 02/04/20 17:54 Anaerobic Culture - Final Back 02/05/20 06:28 Blood Culture Gram Stain - Final Blood Blood Culture - Final Staphylococcus aureus 02/04/20 20:25 Anaerobic Culture - Final Back 02/04/20 17:54 Anaerobic Culture - Final Back 02/04/20 20:25 Gram Stain - Final Back Wound Culture - Final Enterobacter aerogenes Staphylococcus aureus 02/04/20 17:54 Gram Stain - Final Back Wound Culture - Final Enterobacter aerogenes Staphylococcus aureus 02/07/20 08:06 Blood Culture - Preliminary Blood No Growth after 24 hours 02/06/20 06:22 Blood Culture - Preliminary Blood No Growth after 48 hours Assessment and Plan Assessment: 69-year-old male postop day 1 status post irrigation debridement and revision of dural repair lumbar spine 1. Lumbar wound dehiscence, SSI s/p I&D with revision of dural repair 02/04/20 and replacement of wound vac due to machine malfunction 02/05/20, Doing better. 2. COVID positive 3. Incomplete cauda equina, resolving 4. Bacteremia 5. Complex medical patient. Plan: 1. Appreciate medicine and ID management. 2. IVABX per ID 3. Add Acetazolamide 500 q12 to decrease intradural pressure 4. Pain control as needed. 5. Lay flat for 48 hours 6. Lumbar corset 7. Follow cultures, wound cx growing Gram (+) and Gram (-) Enteobacter and staph. 8. PICC line tomorrow 9. We will follow closely
[2020-02-09] MEDS: LOSARTAN 50 MG TAB PO SCH (09:03)
[2020-02-09] MEDS: CEFEPIME 2 GM in SODIUM CHLORIDE 0.9% 100 ML IVPB SCH ×3 (09:03→23:46)
[2020-02-09] MEDS: HYDROmorphone 0.5 MG/0.5 ML SYRINGE IVP PRN ×3 (09:21→19:37)
[2020-02-09 09:24] LABS: African American GFR (CKD) 110.8 (60.0-200.0); Albumin 3.1 g/dL (3.80-4.90); Albumin/Globulin Ratio 1.48 (1.60-3.17); Anion Gap 6.4 mmol/L (4.00-12.00); C Reactive Protein 3.2 mg/dL (0.0-0.8); Calcium 8.6 mg/dL (8.7-10.3); Carbon Dioxide 22.6 mmol/L (21.6-31.8); Globulin 2.1 g/dL (1.6-3.3); Non-African American GFR(CKD) 95.6 (60.0-200.0); Potassium 4.9 mmol/L (3.5-5.5); Total Bilirubin 0.7 mg/dL (0.3-1.2); Total Protein 5.2 g/dL (6.2-8.2)
[2020-02-09] MEDS: ASCORBIC ACID 500 MG TAB PO SCH (10:25)
[2020-02-09] MEDS: ZINC SULFATE 220 MG CAP PO SCH (10:26)
[2020-02-09] MEDS: CHOLECALCIFEROL 1,000 UNIT TAB PO SCH (10:26)
[2020-02-09] MEDS: methocarbamoL 750 MG TAB PO SCH ×3 (10:26→19:46)
[2020-02-09] MEDS: SENNOSIDES-DOCUSATE SODIUM 1 EACH TAB PO SCH ×2 (10:26→19:45)
[2020-02-09] MEDS: GABAPENTIN 300 MG CAP PO SCH ×2 (10:26→19:45)
[2020-02-09] MEDS: MELOXICAM 7.5 MG TAB PO SCH (10:26)
[2020-02-09] MEDS: SERTRALINE 50 MG TAB PO SCH (10:27)
[2020-02-09] MEDS: acetaZOLAMIDE 250 MG TAB PO SCH (10:49)
[2020-02-09] MEDS: HEPARIN SODIUM,PORCINE 5,000 UNIT/ML 1 ML VIAL SQ SCH ×2 (11:18→19:45)
[2020-02-09] MEDS: LACTATED RINGERS 1,000 ML IV SCH (14:39)
[2020-02-09 15:19] VITALS: BMI 35.6
--- NOTE | 2020-02-09 16:49 | P.PN ---
Subjective Progress Note Date: 02/09/20 (delayed charting seen at 11 am) Principal diagnosis: rigors Patient is a 69-year-old male with recent hospital stay from 01/18 through 01/21 secondary to low back pain in which she underwent a decompressive and an laminectomy, during the hospital stay he was found to have Covid, hypertension, dyslipidemia, and depression who presented to the emergency department with complaints of rigors. On arrival to the ER he was found to be febrile with a temperature of 100.3, pulse 114, blood pressure 144/73. Laboratory analysis showed white blood cell count 27.1, sodium 1:30, potassium 4.9, glucose 123, lactic acid 2.5, bilirubin 1.5, AST 60, ALT 60. He underwent a chest x-ray w hich showed right mid and left mid lower lung acute infiltrate consistent with Covid 19 infection. He underwent a CT thoracic and lumbar fine which showed nonspecific findings at L4 consistent with post surgical changes with no well- formed fluid collection or drainable abscess noted. He was started on Vanco and zosyn. Arrangements were made from admission. Blood cultures came back as staph aureus. ID and Ortho spine consulted. Patient went for incision and drainage with washout and wound VAC placement on 02/03. On the morning of 02/04 the wound VAC malfunction was noted to have hematoma. He returned to the operating room there was no signs of further bleeding and the cough was thought to be due to wound VAC malfunction. Gram stain demonstrated staph aureus and gram negative bacilli. Blood cultures negative from 02/05 Patient seen and examined at bedside. Wanting to go home and syncope in hospital, back pain is fairly well-controlled, eating and drinking okay, no chest pain, no shortness breath, no nausea, no vomiting, no diarrhea. General: Nontoxic, no acute distress, appears at stated age Derm: warm, dry Head: atraumatic, normocephalic, symmetric Eyes: EOMI, no lid lag, anicteric sclera Mouth: no lip lesion, mucus membranes dry Cardiovascular: S1S2 reg, no murmur, positive posterior tibial pulse bilateral, Lungs: Decreased bs sounds bilateral , no accessory muscle use Abdominal: soft, nontender to palpation, no guarding, no appreciable organomegaly Ext: no gross muscle atrophy, no edema, no contractures, wound VAC in place Neuro: CN II-XI grossly intact, no focal neuro deficits Psych: Alert, oriented, appropriate affect Staph aureus bacteremia with sepsis - Continue with cefepime,, PICC line to be placed on 02/09, plan is for 6 weeks of IV antibiotics - ID recommendations appreciated - Blood cultures negative starting 02/05 Recent lumbar decompression laminectomy with wound dehiscence and SSI - Staph. An Enterobacter infection -Ortho spince recs: I and D with washout 02/03, and hematoma evacuation 02/04 due to wound VAC malfunction, wound VAC will likely be discontinued on 02/09 -Pain control, gabapentin, robaxin COVID pneumonitis persistent on CXR -Patient CoVID positive on 01/18. Completed dexamethasone, -Influenza negative -CRP , LDH mildly elevated -ID recs - suspect elevated d-dimer reflective of recovering COVID Hypertension, accelerated -Losartan -Follow blood pressures Dyslipidemia -Statin Obstructive sleep apnea -CPAP elevated lactic acid, improved Transaminitis, improving Hyponatremia, probable SIADH, resolved In a.m. Will need PICC line placed, PT/OT evaluation, Zuniga catheter discontinued. Patient would like to go home with outpatient IV antibiotics. Currently awaiting authorization for IV antibiotics, however prescription completed. DVT prophylaxis: SCDs Discussed with: Patient, nursing Anticipated discharge date: in AM Anticipated discharge place: A total of 35 minutes was spent on the care of this complex patient more than 50% of the time was spent in counseling and care coordination. Objective - Vital Signs Vital signs: Vital Signs Temp 97.9 F 02/09/20 14:36 Pulse 77 02/09/20 14:36 Resp 18 02/09/20 14:36 BP 154/67 02/09/20 14:36 Pulse Ox 97 02/09/20 14:36 Intake & Output 02/08/20 02/09/20 02/09/20 18:59 06:59 18:59 Intake Total 100 1465 Output Total 465 468 9907 Balance -250 1365 -1600 Weight 122.47 kg Intake: IV 100 800 Intake, IV Titration 105 Amount Cefepime 2 gm In Sodium 25 Chloride 0.9% 100 ml @ 25 mls/hr IVPB Q8HR [facility] Rx# :[id number] Lactated Ringers 1,000 ml 80 @ 20 mls/hr IV .Q24H [facility] Rx#:[id number] Oral 560 Output: Urine 350 1600 Estimated Blood Loss 100 Other: Voiding Method Urinal Indwelling Catheter # Voids 2 - Labs CBC & Chem 7: 02/09/20 06:44 02/09/20 06:44 Labs: Abnormal Lab Results - Last 24 Hours (Table) 02/09/20 02/09/20 Range/Units 06:44 06:44 WBC 17.9 H (3.8-10.6) k/uL RBC 4.16 L (4.30-5.90) m/uL Hgb 12.7 L (13.0-17.5) gm/dL Neutrophils # 16.9 H (1.3-7.7) k/uL Lymphocytes # 0.6 L (1.0-4.8) k/uL BUN/Creatinine Ratio 30.00 H (12.00-20.00) Ratio Glucose 141 H (70-110) mg/dL Calcium 8.6 L (8.7-10.3) mg/dL AST 44 H (14-35) U/L C-Reactive Protein 3.2 H (0.0-0.8) mg/dL Total Protein 5.2 L (6.2-8.2) g/dL Albumin 3.10 L (3.80-4.90) g/dL Albumin/Globulin Ratio 1.48 L (1.60-3.17) g/dL Microbiology - Last 24 Hours (Table) 02/07/20 08:06 Blood Culture - Preliminary Blood No Growth after 48 hours 02/08/20 06:32 Blood Culture - Preliminary Blood No Growth after 24 hours 02/06/20 06:22 Blood Culture - Preliminary Blood No Growth after 72 hours 02/04/20 17:54 Anaerobic Culture - Final Back 02/04/20 17:54 Anaerobic Culture - Final Back 02/05/20 06:28 Blood Culture Gram Stain - Final Blood Blood Culture - Final Staphylococcus aureus 02/04/20 20:25 Anaerobic Culture - Final Back 02/04/20 17:54 Anaerobic Culture - Final Back 02/04/20 20:25 Gram Stain - Final Back Wound Culture - Final Enterobacter aerogenes Staphylococcus aureus 02/04/20 17:54 Gram Stain - Final Back Wound Culture - Final Enterobacter aerogenes Staphylococcus aureus
--- NOTE | 2020-02-09 17:49 | P.OP ---
Date of Procedure: 02/08/20 Preoperative Diagnosis: Lumbar wound SSI Spontaneous dural tear Continued CSF leak Postoperative Diagnosis: Same Procedure(s) Performed: 1. Irrigation and debridement of skin, soft tissue and bone with the use of Knife on the skin, Curettes on the soft tissue and bone and ghazal as well as ronguers and curette on the bone for debridement of necrotic fact, bone and a knife to freshen skin edges. 2. Repair of spontaneous dural rupture with removal of bone and lamina to perform and with sewn in patch graft. Implants: duragen Anesthesia: GETA Surgeon: Cesar Charles Occupational Health Technician #1: Kaveh Franco (CLIFFORD Hutchins was present for the major portions of the case and was necessary due to the complexity of the case. ) Estimated Blood Loss (ml): 100 IV fluids (ml): 1,000 Urine output (ml): 0 Pathology: none sent Condition: stable Disposition: floor Indications for Procedure: 69 yo male presented with continued wound drainage, sepsis, sirs and EDDY after laminectomy for cauda equina and bowel and bladder incontinence. He was subsequently washed out and found to have a spontaneous dural tear above a previously fixed and still holding dural repair. This was repaired and he was placed in a wound vac. His wound vac then malfunctioned which necessitated a second washout and replacement of wound vac. Today he was brought with hopes of closure as his labs are improving and his BC are negative. He denied the presence of headaches, but the patient was more confused today than normal. His wound vac had been dry, but today again started to put out large amounts of clear fluids. He was immediately taken to the OR for exploration irrigation and debridement of the lumbar wound. He was found to have a second spontaneous dural rupture remote to the area that had ruptured before which was midline and not with any surrounding bone to cause impalement. Operative Findings: Secondary, spontaneous rupture of the dural sac, midline and remote to the 2 repaired dural leaks. This was still midline but distal and slightly to the Left of the previous tears. The duragen which was sewn in previously, had pulled through the dura causing another tertiary leak in the thecal sac. These were promptly identified and dealt with. There was no sign of ongoing infective process, but costic process due to the CSF leaking in the area was evident. Description of Procedure: Please see dictated Operative note.
[2020-02-09] MEDS: MELATONIN 3 MG TABLET PO SCH (19:44)
[2020-02-09] MEDS: TAMSULOSIN 0.4 MG CAP.ER.24H PO SCH (19:45)
[2020-02-09] MEDS: ATORVASTATIN 10 MG TAB PO SCH (19:45)
--- NOTE | 2020-02-09 23:04 | PN ---
PROGRESS NOTE DATE OF SERVICE: 02/09/2020 REASON FOR FOLLOWUP: Lumbar spine surgical site infection and MSSA bacteremia. INTERVAL HISTORY: The patient is currently afebrile. The patient is breathing comfortably. Patient denies having any chest pain or shortness of breath or cough. No nausea, no vomiting. No abdominal pain. Pain to the low back area is currently controlled. PHYSICAL EXAMINATION: Blood pressure 154/67, pulse of 77, temperature 97.9. He is 97% on 2 L nasal cannula. General description is an elderly male lying in bed in no distress. RESPIRATORY SYSTEM: Unlabored breathing, is clear to auscultation anteriorly. HEART: S1, S2. Regular rate and rhythm. ABDOMEN: Soft, no tenderness. LABS: Hemoglobin is 12.7, white count 17.9, BUN of 21, creatinine 0.7. Blood cultures repeat on the 15th, 16th as well as th has been negative. DIAGNOSTIC IMPRESSION AND PLAN: Patient with MSSA bacteremia secondary to surgical site with local culture also grew Enterobacter thus the patient is on cefepime 2 grams q.8 hours. Blood culture repeat has been negative. However, the patient did have elevated white count and need to be monitored closely. PICC line when cleared by Surgery and continue supportive care. MMODL / IJN: [id number] /
[2020-02-10] MEDS: HYDROmorphone 0.5 MG/0.5 ML SYRINGE IVP PRN ×5 (02:31→20:22)
--- NOTE | 2020-02-10 05:44 | OP ---
OPERATIVE REPORT DATE OF SERVICE: 02/08/2020 PREOPERATIVE DIAGNOSES: 1. Lumbar wound with SSI. 2. Spontaneous dural tear. 3. Continued CSF leak. POSTOPERATIVE DIAGNOSES: 1. Lumbar wound with SSI. 2. Spontaneous dural tear. 3. Continued CSF leak. PROCEDURES PERFORMED: 1. Irrigation and debridement of skin, soft tissue and bone with the use of a knife on skin, curette on the soft tissue and bone and bur as well as rongeur and curettes on the bone for debridement of necrotic fat, bone and soft tissue. A knife was used to freshen the skin edges. 2. Repair of spontaneous dural rupture with removal of bone and lamina to perform with a sewn-in patch graft. IMPLANTS: DuraGen. ANESTHESIA: General endotracheal. SURGEON: Dr. Cesar Charles. BUTTONHOLE MAKER: CLIFFORD Hutchins. CLIFFORD Hutchins, was present for the major portions of this case and was necessary due to the complexity of the case. ESTIMATED BLOOD LOSS: 100 mL. IV FLUIDS: 1000. URINE OUTPUT: Zero. PATHOLOGY: None. CONDITION: Stable. DISPOSITION: To the floor. INDICATIONS FOR PROCEDURE: This is a 69-year-old male who presented with continued wound drainage, sepsis SIRS with headache after laminectomy with cauda equina laminectomy for cauda equina and bowel and bladder incontinence. He was subsequently washed out and found to have a spontaneous dural tear above a previously fixed and still holding dural repair. This was repaired and he was irrigated and debrided and wound VAC was placed. His wound VAC then malfunctioned which necessitated a second washout and replacement of the wound VAC. Today, he is brought back to the OR with hopes of closure as his labs are improving and his blood cultures have remained negative. He denies the presence of headache at this time, but the patient was more confused today than normal. His wound VAC has been dry, but today it started to output again with large amounts of clear fluid. He was immediately taken to the OR for exploration, irrigation, debridement of the lumbar wound. The patient was seen and examined on the floor prior to the OR. He was given a weight based dose of Ancef on top of his already running cefepime and vancomycin. The patient was discussed the risks and benefits of the procedure. Once again, informed consent was obtained, and he was willing to proceed with the procedure as outlined. OPERATIVE COURSE: The patient was transferred to the operative suite by the department of anesthesia. He was then drifted off to sleep by the department of anesthesia using general endotracheal intubation. He tolerated this well. Once confirmation of lines and ventilation, the patient was transferred to a prone [facility] Jarred table very carefully. All bony prominences including hips, thighs as well as genitalia. SCDs were placed on bilateral lower extremities and were connected. Arms were placed in the up and out 90/90 position. Once in position, we confirmed good ventilation and the lines were running appropriately. The patient's lumbar spine was then exposed. The previous wound VAC was removed. 1010s were placed outlining the incision and wound site. The patient's wound was then prepped with a wet Betadine prep. It was then draped in a normal sterile fashion. Timeout was performed and all parties were in agreement to the procedure being performed. There was visible clear fluid once again coming from the deep portion underneath the fascia that had previously been closed. The stitches were then removed. This revealed that the previous dural covering as well as the dural graft had not taken and actually had torn through the dura that was present. This revealed another spontaneous area of rupture of the dura, which was remote to the previously fixed area of the dura. This included a site that was deep to the L5 lamina which were still visible as well as on the left-hand side just cranial to this. These were small, however, still draining CSF. It was elected at this time to use a high-speed bur to remove more of the L5 lamina to allow for visualization and repair of this dural rupture. A limited laminectomy was performed of L5 to visualize the dura in this area and the ligamentum flavum was removed using Kerrison rongeurs. The dural areas that had spontaneously ruptured caudal to the previously repaired were identified using Valsalva maneuvers and 6-0 Prolene was then used in a simple and running locking fashion to close these areas. Once they were closed, a Valsalva was performed to 40 mmHg and held for 20 seconds. There was no continuous CSF leak at this time. We then protected the dura with a sponge and a pulse cpht was used to irrigate the deep portions as well as superficial portions of the wound. A curette was used to curette the bony areas and create bleeding bony surfaces. Curette was also used in the soft tissue and muscle to create bleeding surfaces. A rongeur was used to remove necrotic fat and necrotic tissue as well as necrotic bone. After half of the pulse lavage of 3 L of normal sterile saline was used, Irrisept was then placed in the wound and let sit for 60 seconds. This was then evacuated and another 3 L of normal sterile saline passed through the wound using the pulse cpht. After this, the sponge was removed and the dura was visualized. Another Valsalva was performed to 40 mmHg and held for 20 seconds. There was no continuous CSF leak that could be visualized at this time. The dura was meticulously handled. It was visualized in its entirety midline. DuraGen was then selected and cut to size. This was then sewn into the area surrounding. Surgicel was placed over the dura followed by Tisseel. Once this was accomplished, another Valsalva was performed. The DuraGen, Tisseel and Surgicel held in place and there was no continuous CSF leak at this time. This was covered with another layer of Surgicel and another layer of Tisseel. The bleeding bony areas as well as soft tissue areas provided a clot to form over the area and it was elected not to place a drain deep at this time. The fascia, which had become extremely necrotic at this time and difficult to handle, was then visualized. This was closed using 0 PDS suture in a simple fashion followed by a running Stratafix unidirectional suture. Once this was accomplished, a watertight seal was accomplished. The subcutaneous tissue was then closed using 0 PDS followed by a running Stratafix suture. This provided a third layer of closure. The subdermal layer was then approximated using 0 PDS suture followed by a running Stratafix suture. This provided a fourth layer of closure. A skin knife was used to freshen the edges of the skin. This allowed for good bleeding areas of the skin to approximate. The skin was then closed using 2-0 nylon in a horizontal mattress fashion. The skin edges approximated very well. Once the skin edges were approximated very well. The wound was copiously cleaned with sterile saline, followed by alcohol. Ioban was then placed outlining the incision and an incisional wound VAC was cut to size using a black sponge. Adaptic was placed over the skin and the black sponge was placed down. Wound VAC dressing was then placed over the wound and the wound VAC was set to 100 mm of low continuous suction. The tube was connected and there were no seal leaks and good suction was noted. The patient was then transferred back to his hospital bed atraumatically. The wound VAC continued to hold suction. The patient was then awakened by the department of anesthesia, having tolerated the procedure very well with no complications. The patient was transferred back to his room in stable condition. OWEN / EBONY: [id number] / JUAN
[2020-02-10] MEDS: acetaZOLAMIDE 250 MG TAB PO SCH (07:29)
[2020-02-10] MEDS: CEFEPIME 2 GM in SODIUM CHLORIDE 0.9% 100 ML IVPB SCH ×2 (07:29→16:32)
[2020-02-10] MEDS: LOSARTAN 50 MG TAB PO SCH (07:29)
[2020-02-10] MEDS: ASCORBIC ACID 500 MG TAB PO SCH (07:35)
[2020-02-10] MEDS: CHOLECALCIFEROL 1,000 UNIT TAB PO SCH (07:35)
[2020-02-10] MEDS: SENNOSIDES-DOCUSATE SODIUM 1 EACH TAB PO SCH ×2 (07:36→20:21)
[2020-02-10] MEDS: MELOXICAM 7.5 MG TAB PO SCH (07:36)
[2020-02-10] MEDS: methocarbamoL 750 MG TAB PO SCH ×3 (07:36→20:22)
[2020-02-10] MEDS: GABAPENTIN 300 MG CAP PO SCH ×2 (07:36→20:22)
[2020-02-10] MEDS: ZINC SULFATE 220 MG CAP PO SCH (07:37)
[2020-02-10] MEDS: SERTRALINE 50 MG TAB PO SCH (07:37)
[2020-02-10 08:02] LABS: HCT 39.3 % (39.0-53.0); HGB 12.8 gm/dL (13.0-17.5); MCH 30.5 pg (25.0-35.0); MCHC 32.5 g/dL (31.0-37.0); MCV 93.9 fL (80.0-100.0); Mean Platelet Volume 9.8; Platelet Count 246 k/uL (150-450); RBC 4.18 m/uL (4.30-5.90); RDW 14.1 % (11.5-15.5); WBC 16.1 k/uL (3.8-10.6)
[2020-02-10 10:49] LABS: INR 1.1 (<1.2); Prothrombin Time 11.3 sec (9.0-12.0)
[2020-02-10 10:59] LABS: African American GFR (CKD) 118.1 (60.0-200.0); Anion Gap 10.1 mmol/L (4.00-12.00); BUN/Creat Ratio 33.33 Ratio (12.00-20.00); Calcium 8.7 mg/dL (8.7-10.3); Carbon Dioxide 23.9 mmol/L (21.6-31.8); Non-African American GFR(CKD) 101.9 (60.0-200.0); Potassium 4.2 mmol/L (3.5-5.5)
--- NOTE | 2020-02-10 11:18 | P.PN ---
Subjective Progress Note Date: 02/10/20 Principal diagnosis: Lumbar wound dehiscence, spontaneous dural rupture 02/06/20 Pt s/e this AM. He is doing better. States he is stiff because he has been laying still for so long. Denies any f/c/sob/cp/v/n/ EDDY, blurred vision. States he has some pain but it is manageable. Denies any new sx. No new numbness/tingling or weakness. He is urinating in a urinal under his own volition. Denies BM at this time. 02/07/20: Pt s/e this am. No new issues. Wound vac holding suction. Pt denies any EDDY, N, V, blurred vision, f, c, sob, cp at this time. States he just wants to get up to the chair today. He states some pain in his back that is manageable. Denies any other sx at this time. 02/08/20. Doing OK . No issues. States they dumped his wound vac last night. There is about 500 in now. Denies any EDDY, N, V, sob, f, c, cp, blurred or change in vision. No numbness/tingling. States up in chair for 2 hrs yesterday but has not been walking around a lot. Denies any other sx. 02/09/20: Patient seen and examined this morning. He looks slightly better than yesterday. He states pain in his lumbar spine. He denies any numbness or tingling. States no fevers chills shortness of breath headache nausea vomiting blurred vision or change in vision at this time. Patient is laying flat in bed. A Zuniga was placed overnight. Per nursing the wound VAC was not working properly however is now working properly. Patient denies any other symptoms at this time. 02/10/20: Patient seen and examined this morning. He is doing fairly well. He has been able to sit up in bed without any headaches or issues. The patient's wound VAC has been dry and clean and so this was removed today. There is no leakage or drainage from the incision site. The patient denies any numbness or tingling. He denies any bowel or bladder issues at this time. He currently has a condom catheter was able to control his urination. He denies any perineal numbness or tingling. Objective - Vital Signs Vital signs: Vital Signs Temp 98.5 F 02/10/20 11:00 Pulse 73 02/10/20 11:00 Resp 18 02/10/20 11:00 BP 181/86 02/10/20 11:00 Pulse Ox 97 02/10/20 11:00 Intake & Output 02/09/20 02/10/20 02/10/20 18:59 06:59 18:59 Intake Total 460 Output Total 1600 1600 Balance -1600 -1140 Weight 122.47 kg Intake: Intake, IV Titration 260 Amount Lactated Ringers 1,000 ml 260 @ 20 mls/hr IV .Q24H [facility] Rx#:[id number] Oral 200 Output: Urine 1600 1600 Other: Voiding Method Indwelling Catheter Indwelling Catheter # Voids 1 - Exam GEN AOX3 NAD VSS at this time 5/5 b/l LE and UE all major muscle groups 2/4 DTR all UE and LE b/l 2/4 distal pulses b/l UE and LE Negative hoffmans b/l Negative babinski b/l No clonus SILT L2-S3 Incision is CDI. Wound VAC is removed. The incision is clean dry and intact there is no drainage and no clear fluid leakage. Dressing was replaced with Telfa 4 x 4's and Tegaderms. No EEE No fluid collection Cranial nerves II through XII are grossly intact - Labs CBC & Chem 7: 02/10/20 07:31 02/10/20 07:31 Labs: Abnormal Lab Results - Last 24 Hours (Table) 02/10/20 02/10/20 Range/Units 07:31 07:31 WBC 16.1 H (3.8-10.6) k/uL RBC 4.18 L (4.30-5.90) m/uL Hgb 12.8 L (13.0-17.5) gm/dL BUN/Creatinine Ratio 33.33 H (12.00-20.00) Ratio Microbiology - Last 24 Hours (Table) 02/07/20 08:06 Blood Culture - Preliminary Blood No Growth after 72 hours 02/08/20 06:32 Blood Culture - Preliminary Blood No Growth after 48 hours 02/06/20 06:22 Blood Culture - Preliminary Blood No Growth after 96 hours Assessment and Plan Assessment: 69-year-old male postop day 2 status post irrigation debridement and revision of dural repair lumbar spine 1. Lumbar wound dehiscence, SSI s/p I&D with revision of dural repair 02/04/20 and replacement of wound vac due to machine malfunction 02/05/20, Doing better. 2. COVID positive 3. Incomplete cauda equina, resolving 4. Bacteremia 5. Complex medical patient. Plan: 1. Appreciate medicine and ID management. 2. IVABX per ID 3. Cont Acetazolamide 500 q12 to decrease intradural pressure 4. Pain control as needed. 5. Continue lay flat today, will trial up to chair tomorrow. 6. Lumbar corset when up and about 7. Follow cultures, wound cx growing Gram (+) and Gram (-) Enteobacter and staph. 8. PICC line today. 9. Expected Dispo: Need to make sure pt dura closed for good, cannot send with dural leak. May need MRI of Brain to assess for intracranial hypotension. If continued leak, would need transfer as we do not have the capabilities for lumbar drain or extensive dural reconstruction. I am optomistic, however the last time pt got up, he had another spontaneous leak which is why we are keeping him flat for so long. Will reassess tomorrow. As long as everything holds and he can move around would favor home.
[2020-02-10] MEDS ORDERED: LIDOCAINE 1% INJ 10MG/ML (20 ML MDV) SQ ONE (11:26)
--- NOTE | 2020-02-10 12:01 | IR ---
PICC LINE PLACEMENT: HISTORY: Infection requiring long-term antibiotic therapy PROCEDURE: Ultrasound and fluoroscopic guidance of PICC line placement. COMPLICATIONS: None ANESTHESIA: 1. 1% Lidocaine locally. FINDINGS/TECHNIQUE: The procedure was explained to the patient. The risks, complications, benefits and alternatives were discussed and any questions were answered. Informed consent was obtained. The patient was placed supine on the fluoroscopic table and prepped and draped in the usual sterile fash ion. Utilizing a 21 gauge needle and sonographic and fluoroscopic guidance, access in the left basi lic vein was achieved and there is placement of a 0.018 guidewire. The vein is patent. A 4-F sheath was placed over the guidewire. The guidewire and dilator were removed and a 4-F. PICC line was plac ed through the sheath with the tip at the level of the SVC. The sheath was removed, the catheter was flushed and sutured into position. The patient was stable throughout the procedure and remained sta ble upon discharge from the Department of Radiology. The vein puncture was patent under ultrasound. A velazco scale image was obtained to document patency of the vein punctured. All elements of the maximal barrier technique were utilized. FLUOROSCOPY TIME: 0.3 minutes, 1 images IMPRESSION: Successful PICC line placement under ultrasound and fluoroscopic guidance.
[2020-02-10] MEDS: LACTATED RINGERS 1,000 ML IV SCH (16:29)
[2020-02-10] MEDS: ATORVASTATIN 10 MG TAB PO SCH (20:21)
[2020-02-10] MEDS: MELATONIN 3 MG TABLET PO SCH (20:21)
[2020-02-10] MEDS: TAMSULOSIN 0.4 MG CAP.ER.24H PO SCH (20:22)
--- NOTE | 2020-02-10 23:17 | PN ---
PROGRESS NOTE DATE OF SERVICE: 02/10/2020 REASON FOR FOLLOWUP: MSSA bacteremia and lumbar surgical site infection. INTERVAL HISTORY: The patient is currently afebrile. He is breathing comfortably. The patient denies having any chest pain, shortness of breath or cough. No abdominal pain. Pain to the lower back area is currently controlled. PHYSICAL EXAMINATION: Blood pressure 164/84 with a pulse of 84, temperature 98. He is 95% on 2 L nasal cannula. General description is an elderly male lying in bed in no distress. RESPIRATORY SYSTEM: Unlabored breathing. Clear to auscultation anteriorly. HEART: S1, S2. Regular rate and rhythm. ABDOMEN: Soft. No tenderness. LABS: Hemoglobin is 12.3, white count 16.9, BUN of 20, creatinine 0.6. DIAGNOSTIC IMPRESSION AND PLAN: Patient with lumbar surgical site infection in this patient who did have a spontaneous dural tear and continued CSF leak, status post incision and drainage and repair of the spontaneous dural rupture. Local cultures have been positive for enterobacter as well as MSSA with MSSA bacteremia. Follow-up blood cultures have been negative. Patient is covered with cefepime; to continue and monitor his clinical course closely. Continue with supportive care. MMODL / IJN: [id number] /
[2020-02-11] MEDS: HEPARIN SODIUM,PORCINE 5,000 UNIT/ML 1 ML VIAL SQ SCH ×3 (00:27→15:59)
[2020-02-11] MEDS: CEFEPIME 2 GM in SODIUM CHLORIDE 0.9% 100 ML IVPB SCH ×3 (00:27→16:00)
[2020-02-11] MEDS: HYDROmorphone 0.5 MG/0.5 ML SYRINGE IVP PRN ×5 (06:28→23:36)
--- NOTE | 2020-02-11 07:32 | P.PN ---
Subjective Progress Note Date: 02/11/20 Principal diagnosis: Lumbar wound dehiscence, spontaneous dural rupture 02/06/20 Pt s/e this AM. He is doing better. States he is stiff because he has been laying still for so long. Denies any f/c/sob/cp/v/n/ EDDY, blurred vision. States he has some pain but it is manageable. Denies any new sx. No new numbness/tingling or weakness. He is urinating in a urinal under his own volition. Denies BM at this time. 02/07/20: Pt s/e this am. No new issues. Wound vac holding suction. Pt denies any EDDY, N, V, blurred vision, f, c, sob, cp at this time. States he just wants to get up to the chair today. He states some pain in his back that is manageable. Denies any other sx at this time. 02/08/20. Doing OK . No issues. States they dumped his wound vac last night. There is about 500 in now. Denies any EDDY, N, V, sob, f, c, cp, blurred or change in vision. No numbness/tingling. States up in chair for 2 hrs yesterday but has not been walking around a lot. Denies any other sx. 02/09/20: Patient seen and examined this morning. He looks slightly better than yesterday. He states pain in his lumbar spine. He denies any numbness or tingling. States no fevers chills shortness of breath headache nausea vomiting blurred vision or change in vision at this time. Patient is laying flat in bed. A Zuniga was placed overnight. Per nursing the wound VAC was not working properly however is now working properly. Patient denies any other symptoms at this time. 02/10/20: Patient seen and examined this morning. He is doing fairly well. He has been able to sit up in bed without any headaches or issues. The patient's wound VAC has been dry and clean and so this was removed today. There is no leakage or drainage from the incision site. The patient denies any numbness or tingling. He denies any bowel or bladder issues at this time. He currently has a condom catheter was able to control his urination. He denies any perineal numbness or tingling. 02/11/20: Pt s/e. Doing better. States sick of being in bed but understands. Sat up in bed yesterday for a few hours without symptoms. Denies EDDY,N,V,F,C,SOB,CP. Denies blurred or double vision. There is no leakage or drainage from the incision site. The patient denies any numbness or tingling. He denies any bowel or bladder issues at this time. He currently has a condom catheter was able to control his urination. He denies any perineal numbness or tingling. Objective - Vital Signs Vital signs: Vital Signs Temp 97.8 F 02/11/20 05:51 Pulse 65 02/11/20 05:51 Resp 17 02/11/20 05:51 BP 161/69 02/11/20 05:51 Pulse Ox 93 L 02/11/20 05:51 Intake & Output 02/10/20 02/11/20 02/11/20 18:59 06:59 18:59 Intake Total 2049 Output Total 750 Balance -750 2049 Intake: Intake, IV Titration 1350 Amount Cefepime 2 gm In Sodium 1350 Chloride 0.9% 100 ml @ 25 mls/hr IVPB Q8HR [facility] Rx# :[id number] Oral 700 Output: Urine 750 Other: Voiding Method Indwelling Catheter # Voids 1 - Exam GEN AOX3 NAD VSS at this time 5/5 b/l LE and UE all major muscle groups 2/4 DTR all UE and LE b/l 2/4 distal pulses b/l UE and LE Negative hoffmans b/l Negative babinski b/l No clonus SILT L2-S3 Incision is CDI. The incision is clean dry and intact there is no drainage and no clear fluid leakage. Dressing was replaced with Telfa 4 x 4's and Tegaderms. No EEE No fluid collection Cranial nerves II through XII are grossly intact EOMI - Labs CBC & Chem 7: 02/10/20 07:31 02/10/20 07:31 Labs: Abnormal Lab Results - Last 24 Hours (Table) 02/10/20 02/10/20 Range/Units 07:31 07:31 WBC 16.1 H (3.8-10.6) k/uL RBC 4.18 L (4.30-5.90) m/uL Hgb 12.8 L (13.0-17.5) gm/dL BUN/Creatinine Ratio 33.33 H (12.00-20.00) Ratio Microbiology - Last 24 Hours (Table) 02/07/20 08:06 Blood Culture - Preliminary Blood No Growth after 72 hours 02/08/20 06:32 Blood Culture - Preliminary Blood No Growth after 48 hours 02/06/20 06:22 Blood Culture - Preliminary Blood No Growth after 96 hours Assessment and Plan Assessment: 69-year-old male postop day 3 status post irrigation debridement and revision of dural repair lumbar spine 1. Lumbar wound dehiscence, SSI s/p I&D with revision of dural repair 02/04/20 and replacement of wound vac due to machine malfunction 02/05/20, Doing better. 2. COVID positive 3. Incomplete cauda equina, resolving 4. Bacteremia 5. Complex medical patient. Plan: 1. Appreciate medicine and ID management. 2. IVABX per ID 3. Cont Acetazolamide 500 q12 to decrease intradural pressure 4. Pain control as needed. 5. Continue lay flat today. Will trial up to chair tomorrow. 6. Lumbar corset when up and about 7. Follow cultures, wound cx growing Gram (+) and Gram (-) Enteobacter and staph. 8. PICC placed and working. 9. Expected Dispo: Need to make sure pt dura closed for good, cannot send with dural leak. May need MRI of Brain to assess for intracranial hypotension. If continued leak, would need transfer as we do not have the capabilities for lumbar drain or extensive dural reconstruction. I am optomistic, however the last time pt got up, he had another spontaneous leak which is why we are keeping him flat for so long. Will reassess again tomorrow and likely trial up to chair. Everything at this time seems to be holding and stable.
[2020-02-11] MEDS: SERTRALINE 50 MG TAB PO SCH (08:49)
[2020-02-11] MEDS: MELOXICAM 7.5 MG TAB PO SCH (08:49)
[2020-02-11] MEDS: LOSARTAN 50 MG TAB PO SCH (08:49)
[2020-02-11] MEDS: ZINC SULFATE 220 MG CAP PO SCH (08:50)
[2020-02-11] MEDS: GABAPENTIN 300 MG CAP PO SCH ×2 (08:50→20:54)
[2020-02-11] MEDS: ASCORBIC ACID 500 MG TAB PO SCH (08:50)
[2020-02-11] MEDS: SENNOSIDES-DOCUSATE SODIUM 1 EACH TAB PO SCH ×2 (08:50→20:55)
[2020-02-11] MEDS: acetaZOLAMIDE 250 MG TAB PO SCH (08:50)
[2020-02-11] MEDS: CHOLECALCIFEROL 1,000 UNIT TAB PO SCH (08:50)
[2020-02-11] MEDS: methocarbamoL 750 MG TAB PO SCH ×3 (08:51→20:55)
--- NOTE | 2020-02-11 15:12 | PN ---
PROGRESS NOTE DATE OF SERVICE: 02/11/2020 REASON FOR FOLLOWUP: Lumbar surgical site infection and bacteremia. INTERVAL HISTORY: The patient is currently afebrile. The patient is breathing comfortably. The patient denies having any chest pain. No shortness of breath or cough. No nausea. No abdominal pain. Pain to the low back is currently controlled. PHYSICAL EXAMINATION: Blood pressure 156/74 with a pulse of 76, temperature 97.8. He is 98% on room air. General description is an elderly male, lying in bed in no distress. RESPIRATORY SYSTEM: Unlabored breathing, clear to auscultation anteriorly. HEART: S1, S2. Regular rate and rhythm. ABDOMEN: Soft, no tenderness. LABS: No new labs have been obtained today. Blood culture 02/05, 02/06, and 02/07 have been negative. DIAGNOSTIC IMPRESSION AND PLAN: Patient with lumbar spine site infection in this patient who is status post I and D and repair of the dura leak. Patient is a currently tolerating cefepime and blood culture repeat has been negative. He tolerated the PICC line, was stable from surgical standpoint. Ready to go home with close outpatient followup. MMODL / IJN: [id number] /
[2020-02-11] MEDS: MELATONIN 3 MG TABLET PO SCH (20:54)
[2020-02-11] MEDS: LACTATED RINGERS 1,000 ML IV SCH (20:54)
[2020-02-11] MEDS: ATORVASTATIN 10 MG TAB PO SCH (20:54)
[2020-02-11] MEDS: TAMSULOSIN 0.4 MG CAP.ER.24H PO SCH (20:55)
[2020-02-12] MEDS: CEFEPIME 2 GM in SODIUM CHLORIDE 0.9% 100 ML IVPB SCH ×5 (08:17→23:50)
[2020-02-12] MEDS: HEPARIN SODIUM,PORCINE 5,000 UNIT/ML 1 ML VIAL SQ SCH ×4 (08:17→23:50)
[2020-02-12] MEDS: SENNOSIDES-DOCUSATE SODIUM 1 EACH TAB PO SCH ×2 (08:18→19:43)
[2020-02-12] MEDS: CHOLECALCIFEROL 1,000 UNIT TAB PO SCH (08:18)
[2020-02-12] MEDS: ZINC SULFATE 220 MG CAP PO SCH (08:18)
[2020-02-12] MEDS: MELOXICAM 7.5 MG TAB PO SCH (08:18)
[2020-02-12] MEDS: LOSARTAN 50 MG TAB PO SCH (08:18)
[2020-02-12] MEDS: ASCORBIC ACID 500 MG TAB PO SCH (08:18)
[2020-02-12] MEDS: acetaZOLAMIDE 250 MG TAB PO SCH (08:19)
[2020-02-12] MEDS: SERTRALINE 50 MG TAB PO SCH (08:19)
[2020-02-12] MEDS: methocarbamoL 750 MG TAB PO SCH ×3 (08:19→19:43)
[2020-02-12] MEDS: GABAPENTIN 300 MG CAP PO SCH ×3 (08:22→19:43)
--- NOTE | 2020-02-12 09:49 | P.PN ---
Subjective Progress Note Date: 02/12/20 Principal diagnosis: Lumbar wound dehiscence, spontaneous dural rupture 02/06/20 Pt s/e this AM. He is doing better. States he is stiff because he has been laying still for so long. Denies any f/c/sob/cp/v/n/ EDDY, blurred vision. States he has some pain but it is manageable. Denies any new sx. No new numbness/tingling or weakness. He is urinating in a urinal under his own volition. Denies BM at this time. 02/07/20: Pt s/e this am. No new issues. Wound vac holding suction. Pt denies any EDDY, N, V, blurred vision, f, c, sob, cp at this time. States he just wants to get up to the chair today. He states some pain in his back that is manageable. Denies any other sx at this time. 02/08/20. Doing OK . No issues. States they dumped his wound vac last night. There is about 500 in now. Denies any EDDY, N, V, sob, f, c, cp, blurred or change in vision. No numbness/tingling. States up in chair for 2 hrs yesterday but has not been walking around a lot. Denies any other sx. 02/09/20: Patient seen and examined this morning. He looks slightly better than yesterday. He states pain in his lumbar spine. He denies any numbness or tingling. States no fevers chills shortness of breath headache nausea vomiting blurred vision or change in vision at this time. Patient is laying flat in bed. A Zuniga was placed overnight. Per nursing the wound VAC was not working properly however is now working properly. Patient denies any other symptoms at this time. 02/10/20: Patient seen and examined this morning. He is doing fairly well. He has been able to sit up in bed without any headaches or issues. The patient's wound VAC has been dry and clean and so this was removed today. There is no leakage or drainage from the incision site. The patient denies any numbness or tingling. He denies any bowel or bladder issues at this time. He currently has a condom catheter was able to control his urination. He denies any perineal numbness or tingling. 02/11/20: Pt s/e. Doing better. States sick of being in bed but understands. Sat up in bed yesterday for a few hours without symptoms. Denies EDDY,N,V,F,C,SOB,CP. Denies blurred or double vision. There is no leakage or drainage from the incision site. The patient denies any numbness or tingling. He denies any bowel or bladder issues at this time. He currently has a condom catheter was able to control his urination. He denies any perineal numbness or tingling. 02/12/2020: Patient doing okay this morning. He is sitting up in bed drinking coffee. He states no numbness tingling no increase headaches no nausea vomiting no blurred vision no change in vision. Patient states he would like to try and get up today with lunch and this is acceptable. We will allow the patient to get up for lunch today. Medicine did not evaluate patient yesterday. ID has not evaluated patient. He is currently on IV antibiotics for his lumbar wound dehiscence and positive cultures. Blood cultures of been negative. Objective - Vital Signs Vital signs: Vital Signs Temp 98.2 F 02/12/20 06:04 Pulse 69 02/12/20 06:04 Resp 16 02/12/20 06:04 BP 156/53 02/12/20 06:04 Pulse Ox 95 02/12/20 06:04 Intake & Output 02/11/20 02/12/20 02/12/20 18:59 06:59 18:59 Intake Total 560 Output Total 2400 200 Balance -2400 360 Intake: Intake, IV Titration 260 Amount Cefepime 2 gm In Sodium 100 Chloride 0.9% 100 ml @ 25 mls/hr IVPB Q8HR [facility] Rx# :[id number] Sodium Chloride 0.9% 1, 160 000 ml @ 0 mls/hr IV .STK [facility] Rx#:[id number] Oral 300 Output: Urine 2400 200 Other: Voiding Method Indwelling Catheter # Voids 3 - Exam GEN AOX3 NAD VSS at this time 5/5 b/l LE and UE all major muscle groups 2/4 DTR all UE and LE b/l 2/4 distal pulses b/l UE and LE Negative hoffmans b/l Negative babinski b/l No clonus SILT L2-S3 Incision is CDI. The incision is clean dry and intact there is no drainage and no clear fluid leakage. Dressing is clean dry and intact no drainage No EEE No fluid collection Cranial nerves II through XII are grossly intact EOMI - Labs CBC & Chem 7: 02/10/20 07:31 02/10/20 07:31 Labs: Microbiology - Last 24 Hours (Table) 02/08/20 06:32 Blood Culture - Preliminary Blood No Growth after 96 hours 02/06/20 06:22 Blood Culture - Final Blood No Growth after 144 hours 02/07/20 08:06 Blood Culture - Preliminary Blood No Growth after 96 hours Assessment and Plan Assessment: 69-year-old male postop day 4 status post irrigation debridement and revision of dural repair lumbar spine 1. Lumbar wound dehiscence, SSI s/p I&D with revision of dural repair 02/04/20 and replacement of wound vac due to machine malfunction 02/05/20, Doing better. 2. COVID positive 3. Incomplete cauda equina, resolving 4. Bacteremia 5. Complex medical patient. Plan: 1. Appreciate medicine and ID management. 2. IVABX per ID 3. Decreased Acetazolamide to 500 daily 4. Pain control as needed. 5. Trial up to chair with lunch today 6. Lumbar corset when up and about 7. Follow cultures, wound cx growing Gram (+) and Gram (-) Enteobacter and staph. 8. PICC placed and working. 9. Expected Dispo: Need to make sure pt dura closed for good, cannot send with dural leak. May need MRI of Brain to assess for intracranial hypotension. If continued leak, would need transfer as we do not have the capabilities for lumbar drain or extensive dural reconstruction. I am optomistic, however the last time pt got up, he had another spontaneous leak which is why we are keeping him flat for so long. Will reassess again tomorrow and likely trial up to chair. Everything at this time seems to be holding and stable. We will attempt trial up to chair today to see if he has any symptoms or leakage from his wound.
[2020-02-12] MEDS: LACTATED RINGERS 1,000 ML IV SCH (15:21)
--- NOTE | 2020-02-12 15:35 | P.PN ---
Subjective Progress Note Date: 02/12/20 Patient is doing fairly well today. He is looking forward to start physical therapy today. No acute events overnight reported by nursing staff. Objective - Vital Signs Vital signs: Vital Signs Temp 98.4 F 02/12/20 15:04 Pulse 92 02/12/20 15:04 Resp 16 02/12/20 15:04 BP 130/68 02/12/20 15:04 Pulse Ox 95 02/12/20 15:04 Intake & Output 02/11/20 02/12/20 02/12/20 18:59 06:59 18:59 Intake Total 560 200 Output Total 2400 200 2000 Balance -2400 360 -1800 Intake: Intake, IV Titration 260 Amount Cefepime 2 gm In Sodium 100 Chloride 0.9% 100 ml @ 25 mls/hr IVPB Q8HR [facility] Rx# :[id number] Sodium Chloride 0.9% 1, 160 000 ml @ 0 mls/hr IV .STK -[facility] Rx#:[id number] Oral 300 200 Output: Urine 2400 200 2000 Other: Voiding Method Indwelling Catheter Indwelling Catheter # Voids 3 3 - Exam General: The patient is awake and alert, in no distress Eye: there is normal conjunctiva bilaterally. Neck: The neck is supple, there is no JVD. Cardiovascular: Normal S1-S2, no S3-S4, no murmurs. Respiratory: Lungs clear to auscultation bilaterally Gastrointestinal: Abdomen is soft, nontender Musculoskeletal: There is no pedal edema. Neurological:. Speech is normal. Skin: Skin is warm and dry - Labs CBC & Chem 7: 02/10/20 07:31 02/10/20 07:31 Labs: Microbiology - Last 24 Hours (Table) 02/07/20 08:06 Blood Culture - Preliminary Blood No Growth after 120 hours 02/08/20 06:32 Blood Culture - Preliminary Blood No Growth after 96 hours 02/06/20 06:22 Blood Culture - Final Blood No Growth after 144 hours Assessment and Plan Assessment: Staph aureus bacteremia with sepsis - Continue with cefepime, plan is for 6 weeks of IV antibiotics - ID recommendations appreciated - Blood cultures negative starting 02/05 Recent lumbar decompression laminectomy with wound dehiscence and SSI - Staph. An Enterobacter infection -Ortho spine recs: I and D with washout 02/03, and hematoma evacuation 02/04 due to wound VAC malfunction, wound VAC will likely be discontinued on 02/09 -Pain control, gabapentin, robaxin COVID pneumonitis persistent on CXR -Patient CoVID positive on 01/18. Completed dexamethasone, -Influenza negative -CRP , LDH mildly elevated -ID recs - suspect elevated d-dimer reflective of recovering COVID Hypertension, accelerated -Losartan -Follow blood pressures Dyslipidemia -Statin Obstructive sleep apnea -CPAP elevated lactic acid, improved Transaminitis, improving Hyponatremia, probable SIADH, resolved I ordered a Zuniga catheter to be discontinued today. Bladder scan to check postvoid residual. Discharge planning. DVT prophylaxis: SCDs Discussed with: Patient, nursing Anticipated discharge date: ? Anticipated discharge place: A total of 35 minutes was spent on the care of this complex patient more than 50% of the time was spent in counseling and care coordination.
[2020-02-12] MEDS: HYDROmorphone 0.5 MG/0.5 ML SYRINGE IVP PRN (19:42)
[2020-02-12] MEDS: MELATONIN 3 MG TABLET PO SCH (19:42)
[2020-02-12] MEDS: ATORVASTATIN 10 MG TAB PO SCH (19:43)
[2020-02-12] MEDS: TAMSULOSIN 0.4 MG CAP.ER.24H PO SCH (19:43)
--- NOTE | 2020-02-12 23:42 | PN ---
PROGRESS NOTE DATE OF SERVICE: 02/12/2020 REASON FOR FOLLOWUP: MSSA bacteremia and lumbar spine infection. INTERVAL HISTORY: Patient is currently afebrile. He is breathing comfortably. Denies having any chest pain. No shortness of breath or cough. Back pain is currently controlled. No nausea, vomiting or diarrhea. EXAMINATION: Blood pressure 132/75, pulse of 77, temperature 98.8. He is 98% on 2 L nasal cannula. General description is an elderly male lying in bed in no distress. Respiratory system: Unlabored breathing. Clear to auscultation anteriorly. HEART: S1, S2. Regular rate and rhythm. ABDOMEN: Soft, no tenderness. LABS: No new labs have been obtained today. DIAGNOSTIC IMPRESSION AND PLAN: Patient with MSSA bacteremia in this patient who did have lumbar spine infection. Local culture has been positive for Enterobacter and MSSA. Followup blood cultures have been negative. Patient is covered cefepime 2 g p.o. to continue, repeat the blood work tomorrow. Monitor clinical course closely. MMODL / IJN: [id number] /
[2020-02-13 06:32] LABS: Basophils # (A) 0.1 k/uL (0-0.2); Basophils % (A) 1 %; Eosinophils % (A) 8 %; HCT 38.2 % (39.0-53.0); HGB 12.5 gm/dL (13.0-17.5); Lymphocytes # (A) 1.1 k/uL (1.0-4.8); Lymphocytes % (A) 8 %; MCH 29.9 pg (25.0-35.0); MCHC 32.8 g/dL (31.0-37.0); MCV 91.1 fL (80.0-100.0); Monocytes # (A) 0.9 k/uL (0-1.0); Monocytes % (A) 6 %; Neutrophils # (A) 10.3 k/uL (1.3-7.7); Neutrophils % (A) 76 %; Platelet Count 210 k/uL (150-450); RBC 4.19 m/uL (4.30-5.90); RDW 14.1 % (11.5-15.5); WBC 13.6 k/uL (3.8-10.6)
[2020-02-13] MEDS: CEFEPIME 2 GM in SODIUM CHLORIDE 0.9% 100 ML IVPB SCH ×2 (08:00→16:07)
[2020-02-13] MEDS: CHOLECALCIFEROL 1,000 UNIT TAB PO SCH (08:01)
[2020-02-13] MEDS: acetaZOLAMIDE 250 MG TAB PO SCH (08:01)
[2020-02-13] MEDS: SERTRALINE 50 MG TAB PO SCH (08:02)
[2020-02-13] MEDS: methocarbamoL 750 MG TAB PO SCH ×3 (08:02→20:19)
[2020-02-13] MEDS: ZINC SULFATE 220 MG CAP PO SCH (08:02)
[2020-02-13] MEDS: LOSARTAN 50 MG TAB PO SCH (08:03)
[2020-02-13] MEDS: ASCORBIC ACID 500 MG TAB PO SCH (08:03)
[2020-02-13] MEDS: SENNOSIDES-DOCUSATE SODIUM 1 EACH TAB PO SCH ×2 (08:03→20:32)
[2020-02-13] MEDS: HEPARIN SODIUM,PORCINE 5,000 UNIT/ML 1 ML VIAL SQ SCH ×2 (08:03→16:06)
[2020-02-13] MEDS: MELOXICAM 7.5 MG TAB PO SCH (08:04)
[2020-02-13] MEDS: GABAPENTIN 300 MG CAP PO SCH ×4 (08:04→20:19)
[2020-02-13 09:45] LABS: African American GFR (CKD) 118.1 (60.0-200.0); Anion Gap 7.3 mmol/L (4.00-12.00); BUN/Creat Ratio 26.67 Ratio (12.00-20.00); C Reactive Protein 1.6 mg/dL (0.0-0.8); Calcium 8.9 mg/dL (8.7-10.3); Carbon Dioxide 24.7 mmol/L (21.6-31.8); Non-African American GFR(CKD) 101.9 (60.0-200.0); Potassium 4.4 mmol/L (3.5-5.5)
--- NOTE | 2020-02-13 10:20 | P.PN ---
Subjective Progress Note Date: 02/13/20 Principal diagnosis: Lumbar wound dehiscence, spontaneous dural rupture 02/06/20 Pt s/e this AM. He is doing better. States he is stiff because he has been laying still for so long. Denies any f/c/sob/cp/v/n/ EDDY, blurred vision. States he has some pain but it is manageable. Denies any new sx. No new numbness/tingling or weakness. He is urinating in a urinal under his own volition. Denies BM at this time. 02/07/20: Pt s/e this am. No new issues. Wound vac holding suction. Pt denies any EDDY, N, V, blurred vision, f, c, sob, cp at this time. States he just wants to get up to the chair today. He states some pain in his back that is manageable. Denies any other sx at this time. 02/08/20. Doing OK . No issues. States they dumped his wound vac last night. There is about 500 in now. Denies any EDDY, N, V, sob, f, c, cp, blurred or change in vision. No numbness/tingling. States up in chair for 2 hrs yesterday but has not been walking around a lot. Denies any other sx. 02/09/20: Patient seen and examined this morning. He looks slightly better than yesterday. He states pain in his lumbar spine. He denies any numbness or tingling. States no fevers chills shortness of breath headache nausea vomiting blurred vision or change in vision at this time. Patient is laying flat in bed. A Zuniga was placed overnight. Per nursing the wound VAC was not working properly however is now working properly. Patient denies any other symptoms at this time. 02/10/20: Patient seen and examined this morning. He is doing fairly well. He has been able to sit up in bed without any headaches or issues. The patient's wound VAC has been dry and clean and so this was removed today. There is no leakage or drainage from the incision site. The patient denies any numbness or tingling. He denies any bowel or bladder issues at this time. He currently has a condom catheter was able to control his urination. He denies any perineal numbness or tingling. 02/11/20: Pt s/e. Doing better. States sick of being in bed but understands. Sat up in bed yesterday for a few hours without symptoms. Denies EDDY,N,V,F,C,SOB,CP. Denies blurred or double vision. There is no leakage or drainage from the incision site. The patient denies any numbness or tingling. He denies any bowel or bladder issues at this time. He currently has a condom catheter was able to control his urination. He denies any perineal numbness or tingling. 02/12/2020: Patient doing okay this morning. He is sitting up in bed drinking coffee. He states no numbness tingling no increase headaches no nausea vomiting no blurred vision no change in vision. Patient states he would like to try and get up today with lunch and this is acceptable. We will allow the patient to get up for lunch today. Medicine did not evaluate patient yesterday. ID has not evaluated patient. He is currently on IV antibiotics for his lumbar wound dehiscence and positive cultures. Blood cultures of been negative. 02/13/20: Pt doing well today. Was up to chair and went to commode yesterday and had a large BM. States he feels much better. No Sx when up. No EDDY, N, V, Blurred vision or change in vision. Denies any other issues. States back pain is much improved and is not causing any problems. States no new numbness/tingling/weakness. He also states he was able to control his BM and w hen it came out, and was able to feel it. Objective - Vital Signs Vital signs: Vital Signs Temp 97.9 F 02/13/20 05:37 Pulse 71 02/13/20 05:37 Resp 20 02/13/20 05:37 BP 168/75 02/13/20 05:37 Pulse Ox 98 02/13/20 05:37 Intake & Output 02/12/20 02/13/20 02/13/20 18:59 06:59 18:59 Intake Total 400 480 Output Total 2000 200 Balance -1600 280 Intake: Intake, IV Titration 180 Amount Cefepime 2 gm In Sodium 100 Chloride 0.9% 100 ml @ 25 mls/hr IVPB Q8HR [facility] Rx# :[id number] Lactated Ringers 1,000 ml 80 @ 20 mls/hr IV .Q24H [facility] Rx#:[id number] Oral 400 300 Output: Urine 2000 200 Other: Voiding Method Indwelling Catheter Indwelling Catheter # Voids 3 2 - Exam GEN AOX3 NAD VSS at this time 5/5 b/l LE and UE all major muscle groups 2/4 DTR all UE and LE b/l 2/4 distal pulses b/l UE and LE Negative hoffmans b/l Negative babinski b/l No clonus SILT L2-S3 Incision is CDI. The incision is clean dry and intact there is no drainage and no clear fluid leakage. Dressing is clean dry and intact no drainage No EEE No fluid collection Cranial nerves II through XII are grossly intact EOMI - Labs CBC & Chem 7: 02/13/20 06:05 02/13/20 06:05 Labs: Abnormal Lab Results - Last 24 Hours (Table) 02/13/20 02/13/20 Range/Units 06:05 06:05 WBC 13.6 H (3.8-10.6) k/uL RBC 4.19 L (4.30-5.90) m/uL Hgb 12.5 L (13.0-17.5) gm/dL Hct 38.2 L (39.0-53.0) % Neutrophils # 10.3 H (1.3-7.7) k/uL Eosinophils # 1.0 H (0-0.7) k/uL Sodium 134 L (135-145) mmol/L BUN/Creatinine Ratio 26.67 H (12.00-20.00) Ratio C-Reactive Protein 1.6 H (0.0-0.8) mg/dL Microbiology - Last 24 Hours (Table) 02/08/20 06:32 Blood Culture - Preliminary Blood No Growth after 120 hours 02/07/20 08:06 Blood Culture - Preliminary Blood No Growth after 120 hours 02/06/20 06:22 Blood Culture - Final Blood No Growth after 144 hours Assessment and Plan Assessment: 69-year-old male postop day 5 status post irrigation debridement and revision of dural repair lumbar spine 1. Lumbar wound dehiscence, SSI s/p I&D with revision of dural repair 02/04/20 and replacement of wound vac due to machine malfunction 02/05/20, Doing better. 2. COVID positive 3. Incomplete cauda equina, resolving 4. Bacteremia 5. Complex medical patient. Plan: 1. Appreciate medicine and ID management. 2. IVABX per ID 3. Decreased Acetazolamide to 500 daily, will continue for today and likely DC tomorrow if up going well. 4. Pain control as needed. 5. Up to chair today again with meals, ambulation, PT/OT. 6. Lumbar corset when up and about 7. Follow cultures, wound cx growing Gram (+) and Gram (-) Enteobacter and staph. 8. PICC placed and working. 9. Expected Dispo: Need to make sure pt dura closed for good, cannot send with dural leak. May need MRI of Brain to assess for intracranial hypotension. If continued leak, would need transfer as we do not have the capabilities for lumbar drain or extensive dural reconstruction. I am optomistic, however the last time pt got up, he had another spontaneous leak which is why we are keeping him flat for so long. Will reassess again tomorrow and likely trial up to chair. Everything at this time seems to be holding and stable. We will advance his activity today and monitor for symptoms. If he continues to be asymptomatic would favor working on DC planning. Time with Patient: Greater than 30
--- NOTE | 2020-02-13 13:34 | P.PN ---
Subjective Patient is doing fairly well today. No acute events overnight reported by nursing staff. Objective - Vital Signs Vital signs: Vital Signs Temp 98.4 F 02/13/20 10:00 Pulse 82 02/13/20 10:00 Resp 16 02/13/20 10:00 BP 158/60 02/13/20 10:00 Pulse Ox 94 L 02/13/20 10:00 Intake & Output 02/12/20 02/13/20 02/13/20 18:59 06:59 18:59 Intake Total 400 480 Output Total 2000 200 Balance -1600 280 Intake: Intake, IV Titration 180 Amount Cefepime 2 gm In Sodium 100 Chloride 0.9% 100 ml @ 25 mls/hr IVPB Q8HR [facility] Rx# :[id number] Lactated Ringers 1,000 ml 80 @ 20 mls/hr IV .Q24H [facility] Rx#:[id number] Oral 400 300 Output: Urine 2000 200 Other: Voiding Method Indwelling Catheter Indwelling Catheter Indwelling Catheter # Voids 3 2 - Exam General: The patient is awake and alert, in no distress Eye: there is normal conjunctiva bilaterally. Neck: The neck is supple, there is no JVD. Cardiovascular: Normal S1-S2, no S3-S4, no murmurs. Respiratory: Lungs clear to auscultation bilaterally Gastrointestinal: Abdomen is soft, nontender Musculoskeletal: There is no pedal edema. Neurological:. Speech is normal. Skin: Skin is warm and dry - Labs CBC & Chem 7: 02/13/20 06:05 02/13/20 06:05 Labs: Abnormal Lab Results - Last 24 Hours (Table) 02/13/20 02/13/20 Range/Units 06:05 06:05 WBC 13.6 H (3.8-10.6) k/uL RBC 4.19 L (4.30-5.90) m/uL Hgb 12.5 L (13.0-17.5) gm/dL Hct 38.2 L (39.0-53.0) % Neutrophils # 10.3 H (1.3-7.7) k/uL Eosinophils # 1.0 H (0-0.7) k/uL Sodium 134 L (135-145) mmol/L BUN/Creatinine Ratio 26.67 H (12.00-20.00) Ratio C-Reactive Protein 1.6 H (0.0-0.8) mg/dL Microbiology - Last 24 Hours (Table) 02/07/20 08:06 Blood Culture - Final Blood No Growth after 144 hours 02/08/20 06:32 Blood Culture - Preliminary Blood No Growth after 120 hours 02/06/20 06:22 Blood Culture - Final Blood No Growth after 144 hours Assessment and Plan Assessment: Staph aureus bacteremia with sepsis - Continue with cefepime, plan is for 6 weeks of IV antibiotics - ID recommendations appreciated - Blood cultures negative starting 02/05 Recent lumbar decompression laminectomy with wound dehiscence and SSI - Staph. An Enterobacter infection -Ortho spine recs: I and D with washout 02/03, and hematoma evacuation 02/04 due to wound VAC malfunction, wound VAC will likely be discontinued on 02/09 -Pain control, gabapentin, robaxin COVID pneumonitis persistent on CXR -Patient CoVID positive on 01/18. Completed dexamethasone, -Influenza negative -CRP , LDH mildly elevated -ID recs - suspect elevated d-dimer reflective of recovering COVID Hypertension, accelerated -Losartan -Follow blood pressures Dyslipidemia -Statin Obstructive sleep apnea -CPAP elevated lactic acid, improved Transaminitis, improving Hyponatremia, probable SIADH, resolved DVT prophylaxis: SCDs Discussed with: Patient, nursing Anticipated discharge date: ? Anticipated discharge place: A total of 35 minutes was spent on the care of this complex patient more than 50% of the time was spent in counseling and care coordination.
[2020-02-13] MEDS: LACTATED RINGERS 1,000 ML IV SCH (14:33)
[2020-02-13] MEDS: TAMSULOSIN 0.4 MG CAP.ER.24H PO SCH (20:19)
[2020-02-13] MEDS: ATORVASTATIN 10 MG TAB PO SCH (20:31)
[2020-02-13] MEDS: MELATONIN 3 MG TABLET PO SCH (20:32)
[2020-02-13] MEDS: HYDROmorphone 0.5 MG/0.5 ML SYRINGE IVP PRN (22:29)
[2020-02-14] MEDS: CEFEPIME 2 GM in SODIUM CHLORIDE 0.9% 100 ML IVPB SCH ×3 (00:48→16:57)
[2020-02-14] MEDS: HEPARIN SODIUM,PORCINE 5,000 UNIT/ML 1 ML VIAL SQ SCH ×3 (00:48→16:57)
--- NOTE | 2020-02-14 02:15 | PN ---
PROGRESS NOTE DATE OF SERVICE: 02/13/2020 REASON FOR FOLLOWUP: MSSA bacteremia and lumbar surgical site infection. INTERVAL HISTORY: The patient is currently afebrile, has been breathing comfortably. Denies having any chest pain or shortness of breath or cough. No nausea, no vomiting. No abdominal pain. Back pain is currently controlled. PHYSICAL EXAMINATION: Blood pressure 154/85, pulse 84, temperature 98.6. He is 96% on room air. General description is an elderly male lying in bed in no distress. RESPIRATORY SYSTEM: Unlabored breathing, clear to auscultation anteriorly. HEART: S1, S2. Regular rate and rhythm. ABDOMEN: Soft, no tenderness. LABS: White count down to 13.6. Creatinine 0.6. CRP is down to 1.6. DIAGNOSTIC IMPRESSION AND PLAN: Patient with MSSA bacteremia secondary to his lumbar surgical site infection status post I and D and repair of the dural tear. The patient is currently covered with cefepime 2 grams q.8 because of Enterobacter he grew in his culture as well. He did get a PICC line when he was cleared by Surgery. He will be able to go home on rehab to continue with IV antibiotic for at least 6 to 8 weeks depending on his clinical response. Continue with supportive care. MMODL / IJN: [id number] /
--- NOTE | 2020-02-14 08:18 | P.PN ---
Subjective Progress Note Date: 02/14/20 Principal diagnosis: Lumbar wound dehiscence, spontaneous dural rupture 02/06/20 Pt s/e this AM. He is doing better. States he is stiff because he has been laying still for so long. Denies any f/c/sob/cp/v/n/ EDDY, blurred vision. States he has some pain but it is manageable. Denies any new sx. No new numbness/tingling or weakness. He is urinating in a urinal under his own volition. Denies BM at this time. 02/07/20: Pt s/e this am. No new issues. Wound vac holding suction. Pt denies any EDDY, N, V, blurred vision, f, c, sob, cp at this time. States he just wants to get up to the chair today. He states some pain in his back that is manageable. Denies any other sx at this time. 02/08/20. Doing OK . No issues. States they dumped his wound vac last night. There is about 500 in now. Denies any EDDY, N, V, sob, f, c, cp, blurred or change in vision. No numbness/tingling. States up in chair for 2 hrs yesterday but has not been walking around a lot. Denies any other sx. 02/09/20: Patient seen and examined this morning. He looks slightly better than yesterday. He states pain in his lumbar spine. He denies any numbness or tingling. States no fevers chills shortness of breath headache nausea vomiting blurred vision or change in vision at this time. Patient is laying flat in bed. A Zuniga was placed overnight. Per nursing the wound VAC was not working properly however is now working properly. Patient denies any other symptoms at this time. 02/10/20: Patient seen and examined this morning. He is doing fairly well. He has been able to sit up in bed without any headaches or issues. The patient's wound VAC has been dry and clean and so this was removed today. There is no leakage or drainage from the incision site. The patient denies any numbness or tingling. He denies any bowel or bladder issues at this time. He currently has a condom catheter was able to control his urination. He denies any perineal numbness or tingling. 02/11/20: Pt s/e. Doing better. States sick of being in bed but understands. Sat up in bed yesterday for a few hours without symptoms. Denies EDDY,N,V,F,C,SOB,CP. Denies blurred or double vision. There is no leakage or drainage from the incision site. The patient denies any numbness or tingling. He denies any bowel or bladder issues at this time. He currently has a condom catheter was able to control his urination. He denies any perineal numbness or tingling. 02/12/2020: Patient doing okay this morning. He is sitting up in bed drinking coffee. He states no numbness tingling no increase headaches no nausea vomiting no blurred vision no change in vision. Patient states he would like to try and get up today with lunch and this is acceptable. We will allow the patient to get up for lunch today. Medicine did not evaluate patient yesterday. ID has not evaluated patient. He is currently on IV antibiotics for his lumbar wound dehiscence and positive cultures. Blood cultures of been negative. 02/13/20: Pt doing well today. Was up to chair and went to commode yesterday and had a large BM. States he feels much better. No Sx when up. No EDDY, N, V, Blurred vision or change in vision. Denies any other issues. States back pain is much improved and is not causing any problems. States no new numbness/tingling/weakness. He also states he was able to control his BM and w hen it came out, and was able to feel it. 02/14/20: Pt doing OK today. He was up and about yesterday. He states the first time he was up for the day he had a bout of dizziness and light headedness which went away upon sitting down. He then was able to get up subsequent times without any symptoms. Dressing remained CDI. Dressing removed today and examined. He denies any EDDY, N,V,F,C,SOB,CP,dizziness,lightheadedness currently. Objective - Vital Signs Vital signs: Vital Signs Temp 97.5 F L 02/14/20 05:44 Pulse 79 02/14/20 05:44 Resp 20 02/14/20 05:44 BP 159/79 02/14/20 05:44 Pulse Ox 97 02/14/20 05:44 Intake & Output 02/13/20 02/14/20 02/14/20 18:59 06:59 18:59 Output Total 400 Balance -400 Output: Urine 400 Other: Voiding Method Indwelling Catheter Indwelling Catheter # Voids 2 2 # Bowel Movements 1 - Exam GEN AOX3 NAD VSS at this time 5/5 b/l LE and UE all major muscle groups 2/4 DTR all UE and LE b/l 2/4 distal pulses b/l UE and LE Negative hoffmans b/l Negative babinski b/l No clonus SILT L2-S3 Incision is CDI. The incision is clean dry and intact there is no drainage and no clear fluid leakage. Dressing was changed to simple Telfa and 4x4 for protection. Incision is mostly healed. There is an area distally that has yet to epithelialize but is doing well and not draining. No EEE No fluid collection Cranial nerves II through XII are grossly intact EOMI - Labs CBC & Chem 7: 02/13/20 06:05 02/13/20 06:05 Labs: Abnormal Lab Results - Last 24 Hours (Table) 02/13/20 Range/Units 06:05 Sodium 134 L (135-145) mmol/L BUN/Creatinine Ratio 26.67 H (12.00-20.00) Ratio C-Reactive Protein 1.6 H (0.0-0.8) mg/dL Microbiology - Last 24 Hours (Table) 02/07/20 08:06 Blood Culture - Final Blood No Growth after 144 hours 02/08/20 06:32 Blood Culture - Preliminary Blood No Growth after 120 hours Assessment and Plan Assessment: 69-year-old male postop day 6 status post irrigation debridement and revision of dural repair lumbar spine 1. Lumbar wound dehiscence, SSI s/p I&D with revision of dural repair 02/04/20 and replacement of wound vac due to machine malfunction 02/05/20, Doing better. 2. COVID positive 3. Incomplete cauda equina, resolving 4. Bacteremia 5. Complex medical patient. Plan: 1. Appreciate medicine and ID management. 2. IVABX per ID 3. DC acetazolamide today. 4. Pain control as needed. 5. Up to chair today again with meals, ambulation, PT/OT. 6. Lumbar corset when up and about 7. Follow cultures, wound cx growing Gram (+) and Gram (-) Enteobacter and staph. 8. PICC placed and working. 9. CT of lumbar spine today to reassess for any fluid collection. If pt has more sx of dizziness/lightheaded will need Brain MRI and assessment for possible transfer as a continuous CSF leak is out of my scope at this point. While I do not think this is the case and I do feel he has turned the corner, I am cautious due to his previous history and how this came about. 10. Expected Dispo: Need to make sure pt dura closed for good, cannot send with dural leak. May need MRI of Brain to assess for intracranial hypotension. If continued leak, would need transfer as we do not have the capabilities for lumbar drain or extensive dural reconstruction. I am optomistic, however the last time pt got up, he had another spontaneous leak which is why we are keeping him flat for so long. Will reassess again tomorrow and likely trial up to chair. Everything at this time seems to be holding and stable. We will advance his activity today and monitor for symptoms. If he continues to be asymptomatic would favor working on DC planning for tomorrow.
[2020-02-14] MEDS: MELOXICAM 7.5 MG TAB PO SCH (08:31)
[2020-02-14] MEDS: LOSARTAN 50 MG TAB PO SCH (08:31)
[2020-02-14] MEDS: SERTRALINE 50 MG TAB PO SCH (08:31)
[2020-02-14] MEDS: SENNOSIDES-DOCUSATE SODIUM 1 EACH TAB PO SCH ×2 (08:31→20:56)
[2020-02-14] MEDS: CHOLECALCIFEROL 1,000 UNIT TAB PO SCH (08:31)
[2020-02-14] MEDS: GABAPENTIN 300 MG CAP PO SCH ×4 (08:32→20:56)
[2020-02-14] MEDS: methocarbamoL 750 MG TAB PO SCH ×3 (08:32→22:04)
[2020-02-14] MEDS: ASCORBIC ACID 500 MG TAB PO SCH (08:32)
[2020-02-14] MEDS: acetaZOLAMIDE 250 MG TAB PO SCH (08:33)
[2020-02-14] MEDS: ZINC SULFATE 220 MG CAP PO SCH (08:57)
[2020-02-14] MEDS: LACTATED RINGERS 1,000 ML IV SCH (09:17)
--- NOTE | 2020-02-14 10:48 | CT ---
EXAMINATION TYPE: CT lumbar spine wo con DATE OF EXAM: 02/14/2020 COMPARISON: 02/03/2020 HISTORY: Post op assessment, fluid collections CT DLP: 1176.[address] of the lumbar spine was performed. Bone and soft tissue window settings are submitted as well as coronal and sagittal reconstructions. L1-L2: Mild degenerative disc space narrowing with mild posterior disc bulge. No evidence for disc he rniation or central stenosis. L2-L3: Decompressive laminectomy change noted. Vacuum disc identified. Lack of contrast limits evalua tion. No definite evidence for recurrent or residual disease. L3-L4: Decompressive laminectomy changes are redemonstrated. Vacuum disc noted. Lack of contrast limi ts evaluation. Subcutaneous fluid collection redemonstrated measuring 10.9 x 3.2 cm and has enlarged. This likely reflects postsurgical seroma. Infected collection is difficult to exclude. Correlate cl inically. L4-L5: Decompressive laminectomy change. Vacuum disc noted. Evaluation limited given lack of intraven ous contrast. Postsurgical soft tissue changes identified. L5-S1: Moderate degenerative disc disease. Posterior disc bulge with encapsulating spur. No evidence for central stenosis or lateral recess stenosis. No paraspinal masses are identified. Lumbar segments are free if fracture. IMPRESSION: 1. Multilevel degenerative disc disease and multilevel postoperative change. 2. Enlarging subcutaneous collection may reflect seroma. Infected collection is difficult to exclude.
--- NOTE | 2020-02-14 11:03 | P.PN ---
Subjective Progress Note Date: 02/14/[address] upon my evaluation, had no complaints, tells me he feels well and is improving. Objective - Vital Signs Vital signs: Vital Signs Temp 98.2 F 02/14/20 10:00 Pulse 93 02/14/20 10:00 Resp 20 02/14/20 10:00 BP 118/73 02/14/20 10:00 Pulse Ox 95 02/14/20 10:00 Intake & Output 02/13/20 02/14/20 02/14/20 18:59 06:59 18:59 Output Total 400 Balance -400 Output: Urine 400 Other: Voiding Method Indwelling Catheter Indwelling Catheter Indwelling Catheter # Voids 2 2 # Bowel Movements 1 1 - Exam Gen: awake, alert HEENT: normocephalic, atraumatic, good hearing acuity, moist mucous membranes Resp: CTAB, good air exchange, no accessory muscle use, no wheezes, crackles, rhonchi CVS: good distal perfusion x 4, RRR, no murmurs, clicks, gallops GI: soft, NTTP, ND : no SPT, no CVAT, myles catheter not present MSK: no pitting edema, no clubbing Neuro: non-focal, no sensory deficits, appropriate tone Psych: cooperative, euthymic mood - Labs CBC & Chem 7: 02/13/20 06:05 02/13/20 06:05 Labs: Microbiology - Last 24 Hours (Table) 02/08/20 06:32 Blood Culture - Final Blood No Growth after 144 hours 02/07/20 08:06 Blood Culture - Final Blood No Growth after 144 hours Assessment and Plan Assessment: 1. MSSA bacteremia 2. Surgical site infection 3. Lumbago and dural tear status post repair and laminectomy 4. Covid pneumonia 5. Hypertension, essential 6. Hyperlipidemia 7. LUNA next 69-year-old man with a history of HTN/HLD, LUNA, lumbago status post laminectomy presented with rigors, chills and was found to have a surgical site infection, complicated by MSSA bacteremia. Staph aureus bacteremia with sepsis - Continue with cefepime, plan is for 6-8 weeks of IV antibiotics - ID recommendations appreciated - Blood cultures negative starting 02/05 Recent lumbar decompression laminectomy with wound dehiscence and SSI - Staph. An Enterobacter infection -Ortho spine recs: I and D with washout 02/03, and hematoma evacuation 02/04 due to wound VAC malfunction, wound VAC will likely be discontinued on 02/09 -Pain control, gabapentin, robaxin COVID pneumonitis persistent on CXR -Patient CoVID positive on 01/18. Completed dexamethasone, -Influenza negative -CRP , LDH mildly elevated -ID recs - suspect elevated d-dimer reflective of recovering COVID Hypertension, accelerated -Losartan -Follow blood pressures Dyslipidemia -Statin Obstructive sleep apnea -CPAP elevated lactic acid, improved Transaminitis, improving Hyponatremia, probable SIADH, resolved DVT prophylaxis: SCDs Discussed with: Patient, nursing Anticipated discharge date: 02/[address]:
[2020-02-14] MEDS: HYDROmorphone 0.5 MG/0.5 ML SYRINGE IVP PRN ×2 (12:48→20:55)
--- NOTE | 2020-02-14 16:13 | PN ---
PROGRESS NOTE DATE OF SERVICE: 02/14/2020 REASON FOR FOLLOWUP: MSSA bacteremia and lumbar surgical infection. INTERVAL HISTORY: Patient is currently afebrile. He has been breathing comfortably. Denies having any chest pain or cough. No vomiting, no abdominal pain, no diarrhea. PHYSICAL EXAMINATION: Blood pressure is 146/65 with a pulse of 92, temperature 98.3, he is 94% on room air. General description s an elderly male, lying in bed in no distress. RESPIRATORY SYSTEM: Unlabored breathing, clear to auscultation anteriorly. HEART: S1, S2. Regular rate and rhythm, ABDOMEN: Soft, no tenderness. LABS: No new labs have been obtained today. DIAGNOSTIC IMPRESSION: MSSA bacteremia, source is lumbar surgical site infection infection status post debridement and repair of the dura. Local cultures covered with cefepime 2 g q.8 to continue for at least 6 to 8 weeks depending on clinical response. Continue supportive care. Local wound care to continue per Surgery. MMODL / IJN: [id number] /
[2020-02-14] MEDS: TAMSULOSIN 0.4 MG CAP.ER.24H PO SCH (20:55)
[2020-02-14] MEDS: ATORVASTATIN 10 MG TAB PO SCH (20:55)
[2020-02-14] MEDS: MELATONIN 3 MG TABLET PO SCH (20:55)
[2020-02-15] MEDS: CEFEPIME 2 GM in SODIUM CHLORIDE 0.9% 100 ML IVPB SCH ×3 (00:40→17:57)
[2020-02-15] MEDS: HEPARIN SODIUM,PORCINE 5,000 UNIT/ML 1 ML VIAL SQ SCH ×3 (00:40→17:57)
--- NOTE | 2020-02-15 07:47 | P.PN ---
Subjective Progress Note Date: 02/15/20 Principal diagnosis: Lumbar wound dehiscence, spontaneous dural rupture 02/06/20 Pt s/e this AM. He is doing better. States he is stiff because he has been laying still for so long. Denies any f/c/sob/cp/v/n/ EDDY, blurred vision. States he has some pain but it is manageable. Denies any new sx. No new numbness/tingling or weakness. He is urinating in a urinal under his own volition. Denies BM at this time. 02/07/20: Pt s/e this am. No new issues. Wound vac holding suction. Pt denies any EDDY, N, V, blurred vision, f, c, sob, cp at this time. States he just wants to get up to the chair today. He states some pain in his back that is manageable. Denies any other sx at this time. 02/08/20. Doing OK . No issues. States they dumped his wound vac last night. There is about 500 in now. Denies any EDDY, N, V, sob, f, c, cp, blurred or change in vision. No numbness/tingling. States up in chair for 2 hrs yesterday but has not been walking around a lot. Denies any other sx. 02/09/20: Patient seen and examined this morning. He looks slightly better than yesterday. He states pain in his lumbar spine. He denies any numbness or tingling. States no fevers chills shortness of breath headache nausea vomiting blurred vision or change in vision at this time. Patient is laying flat in bed. A Zuniga was placed overnight. Per nursing the wound VAC was not working properly however is now working properly. Patient denies any other symptoms at this time. 02/10/20: Patient seen and examined this morning. He is doing fairly well. He has been able to sit up in bed without any headaches or issues. The patient's wound VAC has been dry and clean and so this was removed today. There is no leakage or drainage from the incision site. The patient denies any numbness or tingling. He denies any bowel or bladder issues at this time. He currently has a condom catheter was able to control his urination. He denies any perineal numbness or tingling. 02/11/20: Pt s/e. Doing better. States sick of being in bed but understands. Sat up in bed yesterday for a few hours without symptoms. Denies EDDY,N,V,F,C,SOB,CP. Denies blurred or double vision. There is no leakage or drainage from the incision site. The patient denies any numbness or tingling. He denies any bowel or bladder issues at this time. He currently has a condom catheter was able to control his urination. He denies any perineal numbness or tingling. 02/12/2020: Patient doing okay this morning. He is sitting up in bed drinking coffee. He states no numbness tingling no increase headaches no nausea vomiting no blurred vision no change in vision. Patient states he would like to try and get up today with lunch and this is acceptable. We will allow the patient to get up for lunch today. Medicine did not evaluate patient yesterday. ID has not evaluated patient. He is currently on IV antibiotics for his lumbar wound dehiscence and positive cultures. Blood cultures of been negative. 02/13/20: Pt doing well today. Was up to chair and went to commode yesterday and had a large BM. States he feels much better. No Sx when up. No EDDY, N, V, Blurred vision or change in vision. Denies any other issues. States back pain is much improved and is not causing any problems. States no new numbness/tingling/weakness. He also states he was able to control his BM and w hen it came out, and was able to feel it. 02/14/20: Pt doing OK today. He was up and about yesterday. He states the first time he was up for the day he had a bout of dizziness and light headedness which went away upon sitting down. He then was able to get up subsequent times without any symptoms. Dressing remained CDI. Dressing removed today and examined. He denies any EDDY, N,V,F,C,SOB,CP,dizziness,lightheadedness currently. 02/15/20: pt s/e this AM. He is doing well. He was up and about last night without issues. No EDDY, N, V, F, C SOB, CP, lightheadedness, no blurred or change in vision. States he feels well and wants to go home. Denies any other sx. No weakness, numbness/tingling. States he has been to bathroom several times without issues and is able to control it. Tolerated CT yesterday without issues. Objective - Vital Signs Vital signs: Vital Signs Temp 98.4 F 02/15/20 05:55 Pulse 76 02/15/20 05:55 Resp 20 02/15/20 05:55 BP 168/76 02/15/20 05:55 Pulse Ox 98 02/15/20 05:55 Intake & Output 02/14/20 02/15/20 02/15/20 18:59 06:59 18:59 Intake Total 200 860 Output Total 400 525 Balance -200 335 Intake: Intake, IV Titration 200 Amount Cefepime 2 gm In Sodium 100 Chloride 0.9% 100 ml @ 25 mls/hr IVPB Q8HR [facility] Rx# :[id number] Lactated Ringers 1,000 ml 100 @ 20 mls/hr IV .Q24H [facility] Rx#:[id number] Oral 200 660 Output: Urine 400 525 Other: Voiding Method Indwelling Catheter # Voids 3 # Bowel Movements 1 - Exam GEN AOX3 NAD VSS at this time 5/5 b/l LE and UE all major muscle groups 2/4 DTR all UE and LE b/l 2/4 distal pulses b/l UE and LE Negative hoffmans b/l Negative babinski b/l No clonus SILT L2-S3 Incision is CDI. The incision is clean dry and intact there is no drainage and no clear fluid leakage. Dressing was removed today to allow for incision to remain dry. Incision is healed. There is an area distally that has yet to epithelialize but is doing well and not draining. No fluid collection overnight on the dressing. No EEE No fluid collection Cranial nerves II through XII are grossly intact EOMI - Labs CBC & Chem 7: 02/13/20 06:05 02/13/20 06:05 Labs: Microbiology - Last 24 Hours (Table) 02/04/20 17:54 Fungal Culture - Preliminary Back 02/08/20 06:32 Blood Culture - Final Blood No Growth after 144 hours Assessment and Plan Assessment: 69-year-old male postop day 7 status post irrigation debridement and revision of dural repair lumbar spine 1. Lumbar wound dehiscence, SSI s/p I&D with revision of dural repair 02/04/20 and replacement of wound vac due to machine malfunction 02/05/20, Doing better. 2. COVID positive 3. Incomplete cauda equina, resolving 4. Bacteremia 5. Complex medical patient. Plan: 1. Appreciate medicine and ID management. 2. IVABX per ID 3. DC acetazolamide today. 4. Pain control as needed. 5. Up to chair today again with meals, ambulation, PT/OT. 6. Lumbar corset when up and about 7. Follow cultures, wound cx growing Gram (+) and Gram (-) Enteobacter and staph. 8. PICC placed and working. 9. CT lumbar assessed. There is fluid collection, however this is similar to before. As long as it remains stable and the patient is not draining we will proceed with dc. 10. OK for DC home today. Dressing has remained dry and pt has remained asymptomatic through activity. I sat him up in chair this AM, we will make sure there is no drainage before he leaves. He was eating breakfast without any issues and was able to stand under his own power to get to chair. He was able to get to bathroom as well without any issues and no symptoms. Time with Patient: Greater than 30
[2020-02-15] MEDS: GABAPENTIN 300 MG CAP PO SCH ×3 (08:07→08:08)
[2020-02-15] MEDS: LACTATED RINGERS 1,000 ML IV SCH (08:08)
[2020-02-15] MEDS: ASCORBIC ACID 500 MG TAB PO SCH (08:08)
[2020-02-15] MEDS: SERTRALINE 50 MG TAB PO SCH (08:09)
[2020-02-15] MEDS: acetaZOLAMIDE 250 MG TAB PO SCH (08:09)
[2020-02-15] MEDS: MELOXICAM 7.5 MG TAB PO SCH (08:09)
[2020-02-15] MEDS: LOSARTAN 50 MG TAB PO SCH (08:09)
[2020-02-15] MEDS: CHOLECALCIFEROL 1,000 UNIT TAB PO SCH (08:09)
[2020-02-15] MEDS: ZINC SULFATE 220 MG CAP PO SCH (08:09)
[2020-02-15] MEDS: methocarbamoL 750 MG TAB PO SCH ×2 (08:10→17:57)
[2020-02-15] MEDS: SENNOSIDES-DOCUSATE SODIUM 1 EACH TAB PO SCH (08:10)
[2020-02-15] MEDS: HYDROmorphone 0.5 MG/0.5 ML SYRINGE IVP PRN (12:14)
[2020-02-15 14:40] VITALS: BP 129/77; PULSE 89; TEMP 97.8
[2020-02-15 16:09] VITALS: RESP 18
--- NOTE | 2020-02-15 16:19 | P.DS ---
Providers Date of admission: 02/03/20 15:57 Expected date of discharge: 02/15/20 Attending physician: Ginna Melton DO Consults: 02/03/20 15:58 Consult Physician Routine Consulting Provider: Cesar Charles Consult Reason/Comments: postop evaluation Do you want consulting provider notified?: Yes 02/03/20 18:27 Consult Physician Routine Consulting Provider: Jasmeet Acuña Consult Reason/Comments: pneumina, CoVID 01/18 Do you want consulting provider notified?: Yes Primary care physician: Jeffy Paulson MD Hospital Course: 1. MSSA bacteremia 2. Surgical site infection 3. Lumbago and dural tear status post repair and laminectomy 4. Covid pneumonia 5. Hypertension, essential 6. Hyperlipidemia 7. LUNA next 69-year-old man with a history of HTN/HLD, LUNA, lumbago status post laminectomy presented with rigors, chills and was found to have a surgical site infection, complicated by MSSA bacteremia. He was treated with cefepime, and had surgical washout with drain placement while hospitalized. Blood cultures returned with NGTD started on 02/05, and PICC line was subsequently placed. Microbiology from the wound cultures grew MSSA, but also grew enterobacter (this was never grown on BCx). ID recommended 6-8 weeks of cefepime as this covered both infections. Pt was also noted to have COVID pneumonitis, first turning positive on 01/18. He was treated with dexamethasone, given remdesivire, and plasma during prior admission. He continued on Vit C/D, Zn, and famotidine while in house. Discharged with PICC line and home IV abx with plan to follow up with ID and ortho. I spent more than 30 minutes preparing this discharge. Assessment: Gen: awake, alert HEENT: normocephalic, atraumatic, good hearing acuity, moist mucous membranes Resp: CTAB, good air exchange, no accessory muscle use, no wheezes, crackles, rhonchi CVS: good distal perfusion x 4, RRR, no murmurs, clicks, gallops GI: soft, NTTP, ND : no SPT, no CVAT, myles catheter not present MSK: no pitting edema, no clubbing Neuro: non-focal, no sensory deficits, appropriate tone Psych: cooperative, euthymic mood Patient Condition at Discharge: Good Plan - Discharge Summary Discharge Rx Participant: Yes New Discharge Prescriptions: New Cefepime [Maxipime] 2 gm IVPB Q12H #84 bag Acetaminophen Tab [Tylenol Tab] 1,000 mg PO Q6H PRN #90 tablet PRN Reason: Pain Meloxicam 15 mg PO QAM PRN #90 tablet PRN Reason: Pain Methocarbamol [Robaxin-750] 750 mg PO TID PRN #30 tablet PRN Reason: Spasms Sennosides [Senna] 8.6 mg PO BID PRN #20 tablet PRN Reason: Constipation acetaZOLAMIDE [Diamox] 250 mg PO DAILY #30 tab Gabapentin [Neurontin] 300 mg PO BID #60 cap Continue Simvastatin [Zocor] 20 mg PO HS Gabapentin 600 mg PO BID Tamsulosin HCl [Flomax] 0.4 mg PO HS Cholecalciferol [Vitamin D3 (25 Mcg = 1000 Iu)] 1,000 unit PO DAILY Sertraline [Zoloft] 50 mg PO DAILY Losartan Potassium 50 mg PO DAILY methocarbamoL [Robaxin] 750 mg PO TID #30 tab Discontinued Meloxicam 15 mg PO DAILY Sennosides-Docusate Sodium [Senokot-S] 1 each PO BID #30 tab Discharge Medication List Gabapentin 600 mg PO BID 04/25/15 [History] Simvastatin [Zocor] 20 mg PO HS 04/25/15 [History] Tamsulosin HCl [Flomax] 0.4 mg PO HS 07/27/18 [History] Cholecalciferol [Vitamin D3 (25 Mcg = 1000 Iu)] 1,000 unit PO DAILY 07/08/19 [History] Losartan Potassium 50 mg PO DAILY 07/08/19 [History] Sertraline [Zoloft] 50 mg PO DAILY 07/08/19 [History] methocarbamoL [Robaxin] 750 mg PO TID #30 tab 01/22/20 [Rx] Cefepime [Maxipime] 2 gm IVPB Q12H #84 bag 02/07/20 [Rx] Acetaminophen Tab [Tylenol Tab] 1,000 mg PO Q6H PRN #90 tablet 02/15/20 [Rx] Gabapentin [Neurontin] 300 mg PO BID #60 cap 02/15/20 [Rx] Meloxicam 15 mg PO QAM PRN #90 tablet 02/15/20 [Rx] Methocarbamol [Robaxin-750] 750 mg PO TID PRN #30 tablet 02/15/20 [Rx] Sennosides [Senna] 8.6 mg PO BID PRN #20 tablet 02/15/20 [Rx] acetaZOLAMIDE [Diamox] 250 mg PO DAILY #30 tab 02/15/20 [Rx] Follow up Appointment(s)/Referral(s): [facility], [NON-STAFF] - Nonstaff,Physician [REFERRING] - 1-2 days Cesar Charles DO [Doctor of Osteopathic Medicine] - 1 Week Ambulatory/Diagnostic Orders: Basic Metabolic Panel [LAB.AMB] Location: None Selected C Reactive Protein [LAB.AMB] Location: None Selected Complete Blood Count w/diff [LAB.AMB] Location: None Selected Erythrocyte Sedimentation Rate [LAB.AMB] Location: None Selected Activity/Diet/Wound Care/Special Instructions: Home IV antibiotics will come from [facility]: [phone]. They will deliver IV antibiotics and supplies starting on 02/16/2020 and begin teaching and infusions with patient. Spine Discharge and Recovery Instructions Date of Surgery: 02/08/2020 Diagnosis: Lumbar wound dehiscence, recurrent dural tear spontaneous Procedure: Irrigation and debridement of lumbar spine with revision dural repair with sew in patch graft Medications: See list All medication refills should be obtained through your primary care doctor or your clinic spine surgeon. Please discuss prescription refills at your follow up appointment. Do not call the hospital for medication refills. Dressing: Leave your dressing in place for a total of 5 days post operatively. Then you may remove your dressing and leave open to air. Keep the area clean and if not able to keep area clean, then cover with sterile gauze and tape. Showering: You may shower 3 days after your procedure allowing soap and water to run over incision. Do not scrub. Do not soak. Blot dry. Follow up: Please confirm a follow up appointment with your surgeon 3 weeks post operatively. Please make an appointment to follow up with your PCP in 1-2 weeks after surgery for evaluation 3 phase, 3-week plan POST OP WEEKS 1-3 1. Lifting/carrying/pushing/pulling limited to less than 5 pounds. 2. Do not sit for longer than 15 minutes at one time. Get up and walk around. Prolonged sitting is NOT advised. If you lay down, see if you can tolerate laying down on you front (belly side) 3. Walk for periods of 15 minutes = 1 mile but no longer; do it multiple times times each day. 4.Ice your low back after activity. POST OP WEEKS 3-6 1. Lifting limited to less than 20 pounds. 2. Do not sit for longer than 30 minutes at a time. Frequently change positions. Use a sit-to stand workstation or take frequent breaks from sitting if you have returned to work. 3. Walk for 30 minutes each day. If possible, do these three or more times a day POST OP WEEKS 6+ At your 6-week appointment we will give you a physical therapy referral to focus on a core stabilization and strengthening program. You should also work on leg & buttock strengthening, hamstring & quadriceps stretching, and continue a low impact aerobic activity program such as swimming, walking, or riding a stationary bicycle. During the initial 6 weeks after your surgery, you are at the highest risk of re-injuring your spine. You should generally avoid BLTs (bending, lifting and twisting combination motions) and follow the above guidelines to reduce the chance of reinjury. You can anticipate post op appointments in our office at approximately 3 weeks and 6 weeks after your surgery. INCISION CARE: If your incision is not draining you do NOT need to cover it with a dressing. Keep your incision clean, dry and intact. In most cases, we apply skin glue, vasquez or sutures to the incision at the time of surgery. This will be like a crust or have the appearance of a scab and will fall off in time on its own. The stitches or vasquez need to be removed at 3 weeks post op appointment. You may begin to shower 3 days after surgery (this allows the glue to stafford well). However, please avoid scrubbing the incision site or peeling off any of the skin glue. This will ensure optimal healing of your incision. Also, during this time avoid soaking the incision area in water - this includes swimming pools, hot tubs or baths. No ointments, lotions or oils on the incision until your surgeon allows. Leave vasquez, sutures or glue in place. Neurological dysfunction that comes on suddenly can also be a sign of a stroke. Below some common symptoms of a stroke are listed: B - balance difficulty such as sudden onset walking or leaning to one side - NEW E - eye problem such as sudden double vision or trouble seeing on one side - NEW F - Facial weakness or numbness on one side - NEW A - Arm or leg weakness or numbness on one side - NEW S - Slurred speech or difficulty with word finding - NEW T - Time is BRAIN! Call 911 as soon as you recognize these symptoms Diet: Consume a regular diet rich in vegetables and lean protein such as chicken or fish. You should consume in a ratio of approximately 20% fats|40% carbohydrates|40%protein. Vegetables, sweet potatoes, brown rice or quinoa are examples of good carbohydrates. Chips, white bread, cookies and sweets/sugar are examples of bad carbohydrates. Limit your bad carbs, go wild with good carbs. "Life's Simple 7" Guidelines as per [place] [employer] These will help you reclaim your life after surgery and post tensioning ironworker helper in your recovery, keeping in mind your restrictions. (1) Get Active. Physical activity can help people lose weight, control high blood pressure and cholesterol, feel emotionally better, and sleep better. (2) Control Cholesterol. Avoid a diet high in saturated fat, trans fat, & cholesterol. Limit whole milk & cream, ice cream, butter, egg yolks, processed meats (like sausage and hot dogs), and fatty meats. Choose healthy foods that are low in saturated fat, trans fat and cholesterol which include: Fruits and vegetables, fiber rich grain products (like whole grain pasta and brown rice), lean meat such as chicken, fish, nuts, seeds, and legumes. (3) Eat Better. Eat small portions. Shop at the grocery with a list and do not stray from it. Tips for a healthy diet include: Limit sodium intake to le ss than 1500mg daily, avoid prepackaged, processed, and fast foods, choose a diet rich in fruits, vegetables, and whole grain, high fiber foods, and limit saturated & cholesterol in your diet. (4) Manage Blood Pressure. If you have high blood pressure, you should have a cuff at home so that you can check your blood pressure regularly. Be sure you have a good cuff. An arm one is generally better than a wrist one. Bring the cuff to a doctor's appointment to validate that the measurements that your cuff are taking are accurate. Take your blood pressure twice daily when you are sitting down and relaxing. Record the numbers in a log and bring this log with you to your doctors' appointments. (5) Lose Weight if your BMI is above 25. A healthy BMI is between 19-25. To calculate Your BMI, you may use a Standard BMI Calculator on the NIH BMI website: <www.nhlbi.nih.gov/guidelines/obesity/BMI/bmicalc.htm>. Weigh oneself daily. If you are overweight, set a goal to lose weight. A pound a week loss if needed is a good target. (6) Reduce Blood Sugar. Limit foods and liquids with "added sugars." (Added sugars include sucrose, fructose, glucose, maltose, dextrose, high fructose corn syrup, corn syrup, concentrated fruit juice and honey). (7) Stop Smoking. If you smoke, quitting smoking is one of the best things that you can do for your health. Smoking increases your risk of heart attack, stroke, and peripheral vascular disease, which is a build-up of plaque in your arteries. Please discard all the cigarettes and lighters in your house. Have a plan for what you will do when you have the urge to smoke. Direct and second- hand smoke shortens your life as well as the lives of your family, friends and others around you. For your health and the health of those around you, please consider quitting! Proper Bending Body Mechanics: Maintain a wide stance with one foot slightly in front of the other. Keep your back straight. Bend utilizing the strength in your hips and knees. Do not bend at the waist. Maintain the lifted object at your waist-level close to your body. Avoid lifting weight that causes immediately pain or pain anywhere in the body afterwards. Smoking/Nicotine If there was ever one thing that you could do to increase your overall health, decrease your risk of cardiovascular problems by about 39% the second you make the choice, it is to STOP SMOKING. Your body's most instant gratification is the second you stop smoking. We have all heard the studies, read the articles but it is true, smoking is extremely bad for your overall health, and moreover it is detrimental to your bone health. Nicotine, IN ANY FORM, kills bone cells, prevents your body from healing fractures, and significantly prolongs healing after surgery. In spine surgery specifically, it increases your risk of not healing your bones to create a fus ion and increases your risk of having a revision surgery due to this up to 60%. I know it is hard. I know it feels impossible. But there are ways. Take control of your life. We are here to help you through it. And when you are ready, ask us and we can direct you to help if you desire. Use the START Plan to Quit Smoking (please visit the [employer] website listed below for more information): S = Set a quit date. Choose a date within the next 2 weeks, so you have enough time to prepare without losing your motivation to quit. If you mainly smoke at work, quit on the weekend, so you have a few days to adjust to the change. T = Tell family, friends, and co-workers that you plan to quit. Let your friends and family in on your plan to quit smoking and tell them you need their support and encouragement to stop. Look for a quit grover who wants to stop smoking as well. You can help each other get through the rough times. A = Anticipate and plan for the challenges you'll face while quitting. Most people who begin smoking again do so within the first 3 months. You can help yourself make it through by preparing ahead for common challenges, such as nicotine withdrawal and cigarette cravings. R = Remove cigarettes and other tobacco products from your home, car, and work. Throw away all your cigarettes (no emergency pack!), lighters, ashtrays, and matches. Wash your clothes and freshen up anything that smells like smoke. Shampoo your car, clean your drapes and carpet, and steam your furniture. T = Talk to your doctor about getting help to quit. Your doctor can prescribe medication to help with withdrawal and suggest other alternatives. If you can't see a doctor, you can get many products over the counter at your local pharmacy or grocery store, including the nicotine patch, nicotine lozenges, and nicotine gum. Resources for Quitting Smoking: <https://www.[place].gov/documents/[facility]/Quit_Tobacco_Resources_for_patients_313 480_7.pdf> Supplementation: Take recommended dosages of Vitamin D and Calcium to help fortify your bones and help them to heal. See your health maintenance packet for dosages and recommended levels. DVT/VTE prophylaxis: You will be given compression stockings from the hospital. Wear these daily for the first two weeks after surgery. You may take them off at night. You may be prescribed a medication to help thin your blood. Take this as directed. If you are not prescribed this medication, early and frequent ambulation has been shown to be the best prophylaxis to deep vein thrombosis and sequelae related to this event. Discharge Disposition: HOME WITH HOME HEALTH SERVICES Plan of Treatment: 1. For MSSA Bacteremia with Surgical Site Infection - Cefepime to continue for 6-8 weeks, follow up arranged with ID and ortho. 2. For COVID Pneumonitis - patient has completed course of treatment and is now asymptomatic, quarantine period is over, ended on 02/01.
== END 2020-02-15 18:26 | disposition home health service (06) | DRG 856 ==
LOC: EC 10:44 → 4SSUR 15:57
PROVIDERS: ADMIT Internal Medicine; ATTEND Internal Medicine
PROC: 0QB00ZZ Excision of Lumbar Vertebra, Open Approach (ICD-10-PCS; principal; 2020-02-04 15:40)
PROC: 00QT0ZZ Repair Spinal Meninges, Open Approach (ICD-10-PCS; principal; 2020-02-04 15:40)
PROC: 0JB70ZZ Excision of Back Subcutaneous Tissue and Fascia, Open Approach (ICD-10-PCS; 2020-02-05)
PROC: 00UT0KZ Supplement Spinal Meninges with Nonautologous Tissue Substitute, Open Approach (ICD-10-PCS; 2020-02-08)
PROC: 0QB00ZZ Excision of Lumbar Vertebra, Open Approach (ICD-10-PCS; 2020-02-08)
PROC: 02HV33Z Insertion of Infusion Device into Superior Vena Cava, Percutaneous Approach (ICD-10-PCS; 2020-02-10)
DX: T81.41XA Infection following a procedure, superficial incisional surgical site, initial encounter (principal); U07.1 COVID-19; A41.01 Sepsis due to Methicillin susceptible Staphylococcus aureus; J12.89 Other viral pneumonia; E22.2 Syndrome of inappropriate secretion of antidiuretic hormone; E87.2 Acidosis; T81.31XA Disruption of external operation (surgical) wound, not elsewhere classified, initial encounter; G96.11 Dural tear; E78.5 Hyperlipidemia, unspecified; I10 Essential (primary) hypertension; G47.33 Obstructive sleep apnea (adult) (pediatric); N40.0 Benign prostatic hyperplasia without lower urinary tract symptoms; K57.90 Diverticulosis of intestine, part unspecified, without perforation or abscess without bleeding; M15.9 Polyosteoarthritis, unspecified; F32.9 Major depressive disorder, single episode, unspecified; R74.01 Elevation of levels of liver transaminase levels; G89.29 Other chronic pain; Z71.3 Dietary counseling and surveillance; Z79.1 Long term (current) use of non-steroidal anti-inflammatories (NSAID); Z79.899 Other long term (current) drug therapy; Z86.010 Personal history of colon polyps; Z98.1 Arthrodesis status; Z96.652 Presence of left artificial knee joint; Z98.890 Other specified postprocedural states; Z87.891 Personal history of nicotine dependence; Z80.9 Family history of malignant neoplasm, unspecified
CPT/HCPCS: 36415; 36573; 71045; 71046; 72129; 72131; 72132; 80048; 80053; 80202; 81001; 82550; 82728; 83605; 83615; 83735; 83930; 83935; 84145; 84300; 84484; 85025; 85027; 85379; 85610; 85652; 86140; 87040; 87070; 87075; 87077; 87102; 87186; 87205; 87502; 96361; 96365; 96367; 96375; 99285

== ENCOUNTER 2020-02-19 11:30 | Emergency (ER) | payer OTHER, MEDICARE ==
[2020-02-19 11:51] VITALS: RESP 18
[2020-02-19] MEDS ORDERED: ONDANSETRON 4 MG/2 ML VIAL IVP STA (12:40)
[2020-02-19] MEDS ORDERED: SODIUM CHLORIDE 0.9% 1,000 ML IV ONE (12:40)
--- NOTE | 2020-02-19 14:28 | ED ---
General Adult HPI - General Chief complaint: Nausea/Vomiting/Diarrhea Stated complaint: Headache/vomiting Time Seen by Provider: 02/19/20 12:19 Source: patient Mode of arrival: wheelchair Limitations: no limitations - History of Present Illness Initial comments: Patient is a 69-year-old who presents to the emergency room with reported postural headache, photophobia, nausea and vomiting. Patient was seen 01/18 for back pain and was taken on 01/19 for a bilateral laminectomy and decompression, partial facetectomy and bilateral foraminotomy due to incomplete cauda equina by Dr. Charles. She had a dural tear and therefore a dural graft was placed. Patient was found to be coronavirus positive at that admission. He was discharged home and began having drainage from his surgical site. Patient returned to the hospital and on the went for debridement and additional graft placement due to wound dehiscence and spontaneous dural tear. Wound grew out enterococcus and MSSA. Patient remained hospitalized. He was placed on bed rest for several days. Patient had worsening symptoms, taken back to OR on where the patient had additional debridement and patch graft. Patient discharged home on the . Since his [place] states he's been having worsening headaches with nausea and vomiting. She presents once again to the emergency room for evaluation. Spoke with Dr. Negrete in regards the patient's care. Dr. Pans and does believe that the patient needs higher level of care and therefore believe the patient needs to be transferred to a tertiary facility. Patient is currently on antibiotics. Denies any fevers. No other alleviating, precipitating or modifying factors - Related Data Home Medications Medication Instructions Recorded Confirmed Gabapentin 600 mg PO BID 04/25/15 02/03/20 Simvastatin [Zocor] 20 mg PO HS 04/25/15 02/03/20 Tamsulosin HCl [Flomax] 0.4 mg PO HS 07/27/18 02/03/20 Cholecalciferol [Vitamin D3 (25 1,000 unit PO DAILY 07/08/19 02/03/20 Mcg = 1000 Iu)] Losartan Potassium 50 mg PO DAILY 07/08/19 02/03/20 Sertraline [Zoloft] 50 mg PO DAILY 07/08/19 02/03/20 Previous Rx's Medication Instructions Recorded methocarbamoL [Robaxin] 750 mg PO TID #30 tab 01/22/20 Acetaminophen Tab [Tylenol Tab] 1,000 mg PO Q6H PRN #90 tablet 02/15/20 Gabapentin [Neurontin] 300 mg PO BID #60 cap 02/15/20 Meloxicam 15 mg PO QAM PRN #90 tablet 02/15/20 Methocarbamol [Robaxin-750] 750 mg PO TID PRN #30 tablet 02/15/20 Sennosides [Senna] 8.6 mg PO BID PRN #20 tablet 02/15/20 acetaZOLAMIDE [Diamox] 250 mg PO DAILY #30 tab 02/15/20 Cefepime [Maxipime] 2 gm IVPB Q8H #90 bag 02/16/20 Allergies Allergy/AdvReac Type Severity Reaction Status Date / Time No Known Allergies Allergy Verified 02/19/20 11:47 Review of Systems ROS Statement: Those systems with pertinent positive or pertinent negative responses have been documented in the HPI. ROS Other: All systems not noted in ROS Statement are negative. Past Medical History Past Medical History: Hyperlipidemia, Hypertension, Osteoarthritis (OA), Prostate Disorder, Sleep Apnea/CPAP/BIPAP Additional Past Medical History / Comment(s): Chronic low back and cervical pain, paralyzed R diaphram, LUNA with Cpap, benign colon polyp/diverticular disease, arthritis in multiple joints, BPH. History of Any Multi-Drug Resistant Organisms: None Reported Past Surgical History: Back Surgery, Joint Replacement, Orthopedic Surgery, Tonsillectomy Additional Past Surgical History / Comment(s): left knee partial replacement, right ankle fusion, uvulectomy, colonoscoy/benign polypectomy Past Anesthesia/Blood Transfusion Reactions: No Reported Reaction Past Psychological History: Depression Smoking Status: Former smoker Past Alcohol Use History: None Reported Past Drug Use History: None Reported - Past Family History Mother Family Medical History: Cancer Father Family Medical History: Cancer General Exam Limitations: no limitations Course Vital Signs 02/19/20 02/19/20 11:48 15:28 Temperature 98.7 F Pulse Rate 88 79 Respiratory 18 18 Rate Blood Pressure 142/90 153/77 O2 Sat by Pulse 98 96 Oximetry - Reevaluation(s) Reevaluation #1: Called [facility] 02/19/20 14:15 Reevaluation #2: 02/19/20 14:48 [place] refused. Will attempt HF Reevaluation #3: Still awaiting HF callback. 02/19/20 16:49 Reevaluation #4: 02/19/20 16:[address] Posadas who accepted patient under obs service. Spoke with Dr. Charles who will consult. Still awaiting HF callback EKG Findings - EKG Comments: EKG Findings:: EKG demonstrates a normal sinus rhythm with a ventricular rate of 90. VT interval 92. QRS 92. QTC of 420. No acute ST segment elevations or depressions concerning for ischemic changes Medical Decision Making - Medical Decision Making Upon arrival the patient is placed into room 29. A thorough history and physical exam was performed. Laboratory studies were conducted. Patient does have an elevated white count of 18.7. I did call and speak with [facility] refuses the patient as a transfer. The case was then discussed with Viraj Rey was requesting repeat coronavirus testing. He does results and it is positive for coronavirus. We did call the facility back. They will discussed the case with their STABILIZER OPERATOR. In the meantime I did discuss the case with Dr. Ramirez who accepted admission for the patient. I also spoke with Dr. Charles who is requesting a MRI of the brain and a CT of the patient's lumbar spine. Tests are ordered. Patient awaiting a bed - Lab Data Result diagrams: 02/19/20 13:12 02/19/20 13:12 Lab Results 02/19/20 02/19/20 02/19/20 Range/Units 13:12 13:12 15:09 WBC 18.7 H (3.8-10.6) k/uL RBC 4.29 L (4.30-5.90) m/uL Hgb 13.2 (13.0-17.5) gm/dL Hct 39.4 (39.0-53.0) % MCV 91.8 (80.0-100.0) fL MCH 30.6 (25.0-35.0) pg MCHC 33.4 (31.0-37.0) g/dL RDW 14.4 (11.5-15.5) % Plt Count 314 (150-450) k/uL MPV 10.1 Neutrophils % 91 % Lymphocytes % 3 % Monocytes % 5 % Eosinophils % 1 % Basophils % 0 % Neutrophils # 17.0 H (1.3-7.7) k/uL Lymphocytes # 0.6 L (1.0-4.8) k/uL Monocytes # 0.9 (0-1.0) k/uL Eosinophils # 0.1 (0-0.7) k/uL Basophils # 0.1 (0-0.2) k/uL ESR 47 H (0-15) mm/hr Sodium 133 L (137-145) mmol/L Potassium 4.9 (3.5-5.1) mmol/L Chloride 101 (98-107) mmol/L Carbon Dioxide 28 (22-30) mmol/L Anion Gap 4 mmol/L BUN 20 (9-20) mg/dL Creatinine 0.61 L (0.66-1.25) mg/dL Est GFR (CKD-EPI)AfAm >90 (>60 ml/min/1.73 sqM) Est GFR (CKD-EPI)NonAf >90 (>60 ml/min/1.73 sqM) Glucose 105 H (74-99) mg/dL Calcium 9.7 (8.4-10.2) mg/dL Total Bilirubin 0.8 (0.2-1.3) mg/dL AST 54 (17-59) U/L ALT 58 H (4-49) U/L Alkaline Phosphatase 121 (38-126) U/L C-Reactive Protein 13.5 H (<10.0) mg/L Total Protein 7.0 (6.3-8.2) g/dL Albumin 3.4 L (3.5-5.0) g/dL Coronavirus (PCR) Detected A (Not Detectd) Disposition Clinical Impression: COVID-19, Low back pain, Postural headache, Dural tear Disposition: ADMITTED IP TO [facility] Condition: Stable Is patient prescribed a controlled substance at d/c from ED?: No Referrals: Jeffy Paulson MD [Primary Care Provider] - 1-2 days Decision to Admit Reason: Admit from EC Decision Date: 02/19/20 Decision Time: 16:09
[2020-02-19 15:11] LABS: Basophils # (A) 0.1 k/uL (0-0.2); Basophils % (A) 0 %; Eosinophils # (A) 0.1 k/uL (0-0.7); Eosinophils % (A) 1 %; HCT 39.4 % (39.0-53.0); HGB 13.2 gm/dL (13.0-17.5); Lymphocytes # (A) 0.6 k/uL (1.0-4.8); Lymphocytes % (A) 3 %; MCH 30.6 pg (25.0-35.0); MCHC 33.4 g/dL (31.0-37.0); MCV 91.8 fL (80.0-100.0); Mean Platelet Volume 10.1; Monocytes # (A) 0.9 k/uL (0-1.0); Monocytes % (A) 5 %; Neutrophils % (A) 91 %; Platelet Count 314 k/uL (150-450); RBC 4.29 m/uL (4.30-5.90); RDW 14.4 % (11.5-15.5); WBC 18.7 k/uL (3.8-10.6)
[2020-02-19 15:24] LABS: ALT 58 U/L (4-49); AST 54 U/L (17-59); African American GFR (CKD) >90 (>60 ml/min/1.73 sqM); Albumin 3.4 g/dL (3.5-5.0); Alkaline Phosphatase 121 U/L (38-126); Anion Gap 4 mmol/L; Blood Urea Nitrogen 20 mg/dL (9-20); C Reactive Protein 13.5 mg/L (<10.0); Calcium 9.7 mg/dL (8.4-10.2); Carbon Dioxide 28 mmol/L (22-30); Chloride 101 mmol/L (98-107); Glucose 105 mg/dL (74-99); Non-African American GFR(CKD) >90 (>60 ml/min/1.73 sqM); Potassium 4.9 mmol/L (3.5-5.1); Sodium 133 mmol/L (137-145); Total Bilirubin 0.8 mg/dL (0.2-1.3)
[2020-02-19] MEDS ORDERED: HYDROmorphone 1 MG/ML 1 ML SYRINGE IVP STA (15:24)
[2020-02-19 16:04] LABS: Erythrocyte Sedimentation Rate 47 mm/hr (0-15)
[2020-02-19] MEDS ORDERED: CEFEPIME 2 GM in SODIUM CHLORIDE 0.9% 100 ML IVPB STA (16:14)
[2020-02-19] MEDS ORDERED: ONDANSETRON 4 MG/2 ML VIAL IVP PRN (16:35)
[2020-02-19] MEDS ORDERED: HYDROmorphone 1 MG/ML 1 ML SYRINGE IVP PRN (16:35)
[2020-02-19] MEDS ORDERED: NALOXONE 0.4 MG/ML 1 ML VIAL IV PRN (16:35)
--- NOTE | 2020-02-19 17:50 | CT ---
EXAMINATION TYPE: CT lumbar spine wo con DATE OF EXAM: 02/19/2020 COMPARISON: 02/14/2020 HISTORY: Headache, nausea and vomiting. Hx of multiple procedures to clean out wound from back surger y CT DLP: 1190.4 mGycm Automated exposure control for dose reduction was used. Images obtained from the level of T11-S2 vertebra without contrast. There is laminectomy defect at L2-L3 and L4 vertebra. There is subcutaneous fluid collection over the lumbar surgery levels that measures 10 x 4 cm. There is also fluid in the surgery site extending int o the spinal canal. There is multilevel lumbar spondylotic changes. There is no compression fracture. There is spur formation and vacuum disc phenomenon. There is a mild retrolisthesis at L3-4 of 7 mm. There is no paraspinal mass. IMPRESSION: Extensive low-density subcutaneous cutaneous fluid and epidural fluid at the surgery site. Fluid appe ars increased in the subcutaneous tissues compared to old exam. This is consistent with seroma or chr onic hematoma or abscess. No evidence of osteomyelitis. No focal bone destruction seen. Lumbar verteb ra appear not significantly different than old exam.
--- NOTE | 2020-02-19 18:22 | P.CONS ---
History of Present Illness - Reason for Consult Consult date: 02/19/20 Infection Requesting physician: Sera Pitts - Chief Complaint headache and nausea - History of Present Illness Patient is a 69 year old with HTN, HLD, and LUNA who had 2 recent admissions and was discharged on 02/15/2020 after a prolonged hospital stay for MSSA bacteremia secondary to surgical site infection, Lumbage and dural tear s/p repair, and Prior COVID 19 pneumonia. He had been discharged home with IV cefepime and home care. Today he noted a headache when standing, he then developed drainage from his prior wound and decided to present to the emergency department. He had 3 episodes of vomiting on the way here. He denies, fevers, chills, and diarrhea. His breathing is at his baseline (which is chronically short of breath), and he has no cough. Suspected persistent + COVID antigen testing with patient no longer being infectious. His intial + COVID test was 01/19/2020 he had completed dexamethasone. Review of Systems Pertinent positives and negatives as discussed in HPI, a complete review of systems was performed and all other systems are negative. Past Medical History Past Medical History: Hyperlipidemia, Hypertension, Osteoarthritis (OA), Prostate Disorder, Rheumatoid Arthritis (RA), Sleep Apnea/CPAP/BIPAP Additional Past Medical History / Comment(s): Chronic low back and cervical pain, paralyzed R diaphram, LUNA with Cpap, benign colon polyp/diverticular disease, arthritis in multiple joints, BPH. COVID 19. MSSA bacteremia History of Any Multi-Drug Resistant Organisms: None Reported Past Surgical History: Back Surgery, Joint Replacement, Orthopedic Surgery, Tonsillectomy Additional Past Surgical History / Comment(s): left knee partial replacement, right ankle fusion, uvulectomy, colonoscoy/benign polypectomy, L2-3 laminectomy with decompression, Bone removal for dural repair, repair of dural erosion, I and D of lumbar wound with repair of spontaneous dural tear Past Anesthesia/Blood Transfusion Reactions: No Reported Reaction Past Psychological History: Depression Smoking Status: Former smoker Past Alcohol Use History: None Reported Past Drug Use History: None Reported - Past Family History Mother Family Medical History: Cancer Father Family Medical History: Cancer Medications and Allergies Home Medications Medication Instructions Recorded Confirmed Type Simvastatin [Zocor] 20 mg PO HS 04/25/15 02/19/20 History Tamsulosin HCl [Flomax] 0.4 mg PO HS 07/27/18 02/19/20 History Cholecalciferol [Vitamin D3 (25 1,000 unit PO DAILY 07/08/19 02/19/20 History Mcg = 1000 Iu)] Losartan Potassium 50 mg PO DAILY 07/08/19 02/19/20 History Sertraline [Zoloft] 50 mg PO DAILY 07/08/19 02/19/20 History Acetaminophen Tab [Tylenol Tab] 1,000 mg PO Q6H PRN #90 tablet 02/15/20 02/19/20 Rx Methocarbamol [Robaxin-750] 750 mg PO TID PRN #30 tablet 02/15/20 02/19/20 Rx acetaZOLAMIDE [Diamox] 250 mg PO DAILY #30 tab 02/15/20 02/19/20 Rx Cefepime [Maxipime] 2 gm IVPB Q8H #90 bag 02/16/20 02/19/20 Rx Meloxicam 15 mg PO DAILY 02/19/20 02/19/20 History Allergies Allergy/AdvReac Type Severity Reaction Status Date / Time No Known Allergies Allergy Verified 02/19/20 17:42 Physical Exam Osteopathic Statement: *. No significant issues noted on an osteopathic structural exam other than those noted in the History and Physical/Consult. Vitals: Vital Signs Temp Pulse Resp BP Pulse Ox 02/19/20 15:28 79 18 153/77 96 02/19/20 11:48 98.7 F 88 18 142/90 98 Intake and Output 02/19/20 02/19/20 02/19/20 06:59 14:59 22:59 Other: Weight 120.202 kg General: non toxic, no acute distress, appears at stated age Derm: Midline incision over lumbar spine, purulent drainage noted on dressing, warm, dry Head: atraumatic, normocephalic, symmetric Eyes: EOMI, no lid lag, anicteric sclera, pupils equal round reactive to light ENT: Nose and ears atraumatic, no thrush, no pharyngeal erythema Neck: No thyromegaly, no cervical lymphadenopathy, trachea midline, supple Mouth: no lip lesion, mucus membranes moist Cardiovascular: S1S2 reg, no murmur, positive posterior tibial pulse bilateral, no edema, capillary refill less than 2 seconds Lungs: Coarse breath sounds bilateral, no ronchi, no rales, no wheeze, no accessory muscle use Abdominal: soft, nontender to palpation, no guarding, no appreciable organomegaly, normal bowel sounds Ext: no gross muscle atrophy, muscle strength muscle strength 5/5 in upper extremities, 4 out of 5 in lower extremities, no contractures Neuro: CN II-XI grossly intact, light touch intact all 4 extremities, finger to nose within normal limits, Psych: Alert, oriented, appropriate affect Results CBC & Chem 7: 02/19/20 13:12 02/19/20 13:12 Labs: Abnormal Lab Results - Last 24 Hours (Table) 02/19/20 02/19/20 02/19/20 Range/Units 13:12 13:12 15:09 WBC 18.7 H (3.8-10.6) k/uL RBC 4.29 L (4.30-5.90) m/uL Neutrophils # 17.0 H (1.3-7.7) k/uL Lymphocytes # 0.6 L (1.0-4.8) k/uL ESR 47 H (0-15) mm/hr Sodium 133 L (137-145) mmol/L Creatinine 0.61 L (0.66-1.25) mg/dL Glucose 105 H (74-99) mg/dL ALT 58 H (4-49) U/L C-Reactive Protein 13.5 H (<10.0) mg/L Albumin 3.4 L (3.5-5.0) g/dL Coronavirus (PCR) Detected A (Not Detectd) Assessment and Plan Assessment: Spinal head with wound drainage - recent MSSA bacteremia, with MSSA and enterobacter surgical site infection on Cefepime for 39 more days - Transfer to [facility] [place] for nerusurgery, spoke with Dr. Pitts ED physicains, and Dr. Charles who got the patient accepted to [facility] [place]. - transfer paperwork completed, patient informed consent for transfer obtained - CT lumbar spine reviewed and demonstrated increased subcutaneous fluid collection consistnet with seroma/hematoma/abscess - treatments in the ED consisted of dilaudid, zofran, and normal saline. - D/W nursing patient to receive one additional dose of Dilaudid once ems arrives.
[2020-02-19 18:49] VITALS: BP 126/78; PULSE 80; TEMP 98
--- NOTE | 2020-02-19 19:19 | P.PN ---
Progress Note - Text Progress Note Date: 02/19/[address] Sumner at [facility]. They have accepted the transfer. Brief Summary Pt is 69 yo male with continued CSF leak after multiple attempts at dural repair. He presented with cauda equina, bowel and bladder incontinence back on 01/19/20 and was found to have lumbar stenosis and spondylosis from L2-4. He was subsequently decompressed. He was found to have a dural erosion at the time of index procedure which was primarily repaired without issues and no continued CSF leak after repair. He recovered well from this initial procedure and was dc home. 1.5 weeks later the patient noted a large amount of fluid from the wound, increasing symptoms of EDDY, F, C and returned to the hospital. He was found to have a draining wound, purulence and lumbar dehiscence. He was taken to the OR for debridment and was found to have a new, spontaneous dural tear, proximal and remote to the original repaired dura of approximately 4 cm, midline and posterior. This was primarily repaired, and a patch graft placed along with tisseal. The facia was closed and a wound vac was placed superficially to attempt to irradicate the superficial portion of the infection. There facia at this time was a water tight closure. The next morning the wound vac failed, and he was taken urgently back to the OR for irrigation and wound vac exchange. Three days after this procedure, the wound vac started having increased drainage with clear fluid and the patient was taken urgently back to the OR. The vac was removed and he was found to have yet another spontaneous tear in his dura, remote to the previous tears with essentially disloging of the patch graft. This was identified and repaired and another graft sewn in. The infection appeared cleared at this time and the wound was irridaged, debrided and primarily closed along with the facia which again had a water tight closure with no continued CSF leak at this time. The patient was kept bedrest and flat for 5 days after this, and continued to be asymptomatic. He was sequentially sat up and progressed in activity as long as he did not have symptoms and he remained asymptomatic while in the hospital and actually did very well to the point of being able to go home. He was discharged home with plans for next week follow up. The patient represented today to the ED and Pt is symptomatic with EDDY, N, V, Dizziness and photophobia. He likely has a continued CSF leak. He potentially needs a lumbar drain and likely a new facial graft. This is above the level of care that is able to be provided at this facility as we do not have lumbar drain abilities or neurosurgery to aid with this complex case. Neurosurgery at has graciously accepted the transfer of this patient due to the need for a higher level of care and neurosurgical needs.
[2020-02-20] MEDS ORDERED: CEFEPIME 2 GM in SODIUM CHLORIDE 0.9% 100 ML IVPB SCH (20:00)
== END 2020-02-19 19:40 | disposition other institution (70) ==
LOC: EC 11:30
DX: U07.1 COVID-19 (principal); M54.5 Low back pain; G96.11 Dural tear; F32.9 Major depressive disorder, single episode, unspecified; E78.5 Hyperlipidemia, unspecified; I10 Essential (primary) hypertension; G47.33 Obstructive sleep apnea (adult) (pediatric); N40.0 Benign prostatic hyperplasia without lower urinary tract symptoms; Z79.899 Other long term (current) drug therapy; Z87.891 Personal history of nicotine dependence; Z96.652 Presence of left artificial knee joint; Z99.89 Dependence on other enabling machines and devices
CPT/HCPCS: 36415; 93005; 80053; 85652; 85025; 86140; 87635; 72131; 99285; 96374; 96375 ×2; 96361 ×6; J2405; J1170

== ENCOUNTER → 2020-06-21 | Outpatient (CLI) | payer OTHER ==
--- NOTE | 2020-06-21 13:57 | US ---
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 Patient states having a DVT end of last year. On blood thinners. SIDE PERFORMED: Left TECHNIQUE: The lower extremity deep venous system is examined utilizing real time linear array sonog patria with graded compression, doppler sonography and color-flow sonography. VESSELS IMAGED: Common Femoral Vein Deep Femoral Vein Greater Saphenous Vein * Femoral Vein Popliteal Vein Small Saphenous Vein * Proximal Calf Veins (* superficial vessels) Left Leg: Negative for DVT IMPRESSION: 1. Left lower extremity ultrasound negative for deep venous thrombosis
== END | disposition home or self-care (01) ==
LOC: RADUSWWP 13:27
DX: I82.522 Chronic embolism and thrombosis of left iliac vein (principal)

== ENCOUNTER 2020-08-05 22:12 | Observation (INO) | payer OTHER, MEDICARE ==
[2020-08-05 23:18] LABS: Basophils # (A) 0.1 k/uL (0-0.2); Basophils % (A) 1 %; Eosinophils # (A) 0.4 k/uL (0-0.7); Eosinophils % (A) 5 %; HCT 46.1 % (39.0-53.0); HGB 15.4 gm/dL (13.0-17.5); Lymphocytes # (A) 1.3 k/uL (1.0-4.8); Lymphocytes % (A) 15 %; MCH 29.8 pg (25.0-35.0); MCHC 33.5 g/dL (31.0-37.0); Mean Platelet Volume 9.5; Monocytes # (A) 0.8 k/uL (0-1.0); Monocytes % (A) 10 %; Neutrophils # (A) 5.9 k/uL (1.3-7.7); Neutrophils % (A) 67 %; Platelet Count 161 k/uL (150-450); RBC 5.18 m/uL (4.30-5.90); RDW 15.3 % (11.5-15.5); WBC 8.8 k/uL (3.8-10.6)
[2020-08-05 23:32] LABS: ALT 42 U/L (4-49); AST 46 U/L (17-59); African American GFR (CKD) >90 (>60 ml/min/1.73 sqM); Albumin 4.1 g/dL (3.5-5.0); Alkaline Phosphatase 126 U/L (38-126); Anion Gap 7 mmol/L; Blood Urea Nitrogen 26 mg/dL (9-20); Calcium 9.7 mg/dL (8.4-10.2); Carbon Dioxide 27 mmol/L (22-30); Chloride 107 mmol/L (98-107); Glucose 94 mg/dL (74-99); Non-African American GFR(CKD) >90 (>60 ml/min/1.73 sqM); Potassium 4.6 mmol/L (3.5-5.1); Sodium 141 mmol/L (137-145); Total Bilirubin 0.6 mg/dL (0.2-1.3); Total Protein 6.9 g/dL (6.3-8.2)
--- NOTE | 2020-08-06 01:53 | ED ---
GI Bleed HPI - General Chief complaint: GI Bleed Stated complaint: GI bleed Time Seen by Provider: 08/05/20 22:38 Source: patient, family Mode of arrival: wheelchair Limitations: no limitations - History of Present Illness Initial comments: This patient is 70-year-old man who presents to have evaluation for passing dark bloody bowel movements. The patient states that he was on vacation in [facility] today when he started having symptoms. He had an urge to have bowel movement around 4 in the afternoon and when he did pass gas there was some dark red blood. He went into the bathroom and passed some dark blood and some small clots. Patient states that his previous bowel movement had been that morning and seems normal. Patient decided to come home and then when he arrived home little after 8 PM he had another episode similar to the first with some dark blood and a little bit of clot. After he had a third episode on the patient decided to be seen here. Patient denies any abdominal or perianal pain. He is not having symptoms of anemia, no chest pain, dyspnea, diaphoresis, palpitations, lightheadedness or syncope. MD complaint: gross hematochezia Onset/Timin -: hour(s) Radiation: none Severity scale (1-10): 0 Quality: painless Consistency: constant Improves with: none Worsens with: none Associated Symptoms: denies other symptoms Treatments Prior to Arrival: none - Related Data Home Medications Medication Instructions Recorded Confirmed Simvastatin [Zocor] 20 mg PO HS 04/25/15 02/19/20 Tamsulosin HCl [Flomax] 0.4 mg PO HS 07/27/18 02/19/20 Cholecalciferol [Vitamin D3 (25 1,000 unit PO DAILY 07/08/19 02/19/20 Mcg = 1000 Iu)] Losartan Potassium 50 mg PO DAILY 07/08/19 02/19/20 Sertraline [Zoloft] 50 mg PO DAILY 07/08/19 02/19/20 Meloxicam 15 mg PO DAILY 02/19/20 02/19/20 Previous Rx's Medication Instructions Recorded Acetaminophen Tab [Tylenol Tab] 1,000 mg PO Q6H PRN #90 tablet 02/15/20 Methocarbamol [Robaxin-750] 750 mg PO TID PRN #30 tablet 02/15/20 acetaZOLAMIDE [Diamox] 250 mg PO DAILY #30 tab 02/15/20 Cefepime [Maxipime] 2 gm IVPB Q8H #90 bag 02/16/20 Allergies Allergy/AdvReac Type Severity Reaction Status Date / Time No Known Allergies Allergy Verified 02/19/20 17:42 Review of Systems ROS Statement: Those systems with pertinent positive or pertinent negative responses have been documented in the HPI. ROS Other: All systems not noted in ROS Statement are negative. Constitutional: Denies: fever, chills Respiratory: Denies: cough, dyspnea Cardiovascular: Denies: chest pain, palpitations, edema Gastrointestinal: Reports: hematochezia. Denies: abdominal pain, vomiting, diarrhea, hematemesis, melena Genitourinary: Denies: dysuria, hematuria Musculoskeletal: Denies: back pain Skin: Denies: rash Neurological: Denies: headache, weakness, numbness Hematological/Lymphatic: Denies: easy bleeding Past Medical History Past Medical History: Deep Vein Thrombosis (DVT), Hyperlipidemia, Hypertension, Osteoarthritis (OA), Prostate Disorder, Sleep Apnea/CPAP/BIPAP Additional Past Medical History / Comment(s): Chronic low back and cervical pain, paralyzed R diaphram, LUNA with Cpap, benign colon polyp/diverticular disease, arthritis in multiple joints, BPH. History of Any Multi-Drug Resistant Organisms: None Reported Past Surgical History: Back Surgery, Joint Replacement, Orthopedic Surgery, Tonsillectomy Additional Past Surgical History / Comment(s): left knee partial replacement, right ankle fusion, uvulectomy, colonoscoy/benign polypectomy Past Anesthesia/Blood Transfusion Reactions: No Reported Reaction Past Psychological History: Depression Smoking Status: Former smoker Past Alcohol Use History: None Reported Past Drug Use History: None Reported - Past Family History Mother Family Medical History: Cancer Father Family Medical History: Cancer General Exam Limitations: no limitations General appearance: alert, in no apparent distress Head exam: Present: atraumatic, normocephalic Eye exam: Present: normal appearance. Absent: scleral icterus, conjunctival injection Neck exam: Present: normal inspection Respiratory exam: Present: normal lung sounds bilaterally. Absent: respiratory distress, wheezes, rales, rhonchi, stridor Cardiovascular Exam: Present: regular rate, normal rhythm, normal heart sounds. Absent: systolic murmur, diastolic murmur, rubs, gallop GI/Abdominal exam: Present: soft. Absent: distended, tenderness, guarding, rebound, rigid, mass, pulsatile mass, hernia Rectal exam: Present: normal inspection, normal rectal tone, bloody stool. Absent: fecal impaction, hemorrhoids, mass, tenderness, prostate tenderness Extremities exam: Present: normal inspection, normal capillary refill. Absent: pedal edema, calf tenderness Back exam: Present: normal inspection. Absent: CVA tenderness (R), CVA tenderness (L) Neurological exam: Present: alert Skin exam: Present: warm, dry, intact, normal color. Absent: rash Course Vital Signs 08/05/20 22:21 Temperature 98.1 F Pulse Rate 69 Respiratory 18 Rate Blood Pressure 188/97 O2 Sat by Pulse 96 Oximetry Medical Decision Making - Lab Data Result diagrams: 08/05/20 23:05 08/05/20 23:05 Lab Results 08/05/20 08/05/20 08/05/20 Range/Units 23:05 23:05 23:05 WBC 8.8 (3.8-10.6) k/uL RBC 5.18 (4.30-5.90) m/uL Hgb 15.4 (13.0-17.5) gm/dL Hct 46.1 (39.0-53.0) % MCV 89.0 (80.0-100.0) fL MCH 29.8 (25.0-35.0) pg MCHC 33.5 (31.0-37.0) g/dL RDW 15.3 (11.5-15.5) % Plt Count 161 (150-450) k/uL MPV 9.5 Neutrophils % 67 % Lymphocytes % 15 % Monocytes % 10 % Eosinophils % 5 % Basophils % 1 % Neutrophils # 5.9 (1.3-7.7) k/uL Lymphocytes # 1.3 (1.0-4.8) k/uL Monocytes # 0.8 (0-1.0) k/uL Eosinophils # 0.4 (0-0.7) k/uL Basophils # 0.1 (0-0.2) k/uL APTT 23.2 (22.0-30.0) sec Sodium 141 (137-145) mmol/L Potassium 4.6 (3.5-5.1) mmol/L Chloride 107 (98-107) mmol/L Carbon Dioxide 27 (22-30) mmol/L Anion Gap 7 mmol/L BUN 26 H (9-20) mg/dL Creatinine 0.79 (0.66-1.25) mg/dL Est GFR (CKD-EPI)AfAm >90 (>60 ml/min/1.73 sqM) Est GFR (CKD-EPI)NonAf >90 (>60 ml/min/1.73 sqM) Glucose 94 (74-99) mg/dL Calcium 9.7 (8.4-10.2) mg/dL Total Bilirubin 0.6 (0.2-1.3) mg/dL AST 46 (17-59) U/L ALT 42 (4-49) U/L Alkaline Phosphatase 126 (38-126) U/L Troponin I (0.000-0.034) ng/mL Total Protein 6.9 (6.3-8.2) g/dL Albumin 4.1 (3.5-5.0) g/dL Antibody Screen Spec Expiration Date 08/05/20 08/05/20 Range/Units 23:05 23:05 WBC (3.8-10.6) k/uL RBC (4.30-5.90) m/uL Hgb (13.0-17.5) gm/dL Hct (39.0-53.0) % MCV (80.0-100.0) fL MCH (25.0-35.0) pg MCHC (31.0-37.0) g/dL RDW (11.5-15.5) % Plt Count (150-450) k/uL MPV Neutrophils % % Lymphocytes % % Monocytes % % Eosinophils % % Basophils % % Neutrophils # (1.3-7.7) k/uL Lymphocytes # (1.0-4.8) k/uL Monocytes # (0-1.0) k/uL Eosinophils # (0-0.7) k/uL Basophils # (0-0.2) k/uL APTT (22.0-30.0) sec Sodium (137-145) mmol/L Potassium (3.5-5.1) mmol/L Chloride (98-107) mmol/L Carbon Dioxide (22-30) mmol/L Anion Gap mmol/L BUN (9-20) mg/dL Creatinine (0.66-1.25) mg/dL Est GFR (CKD-EPI)AfAm (>60 ml/min/1.73 sqM) Est GFR (CKD-EPI)NonAf (>60 ml/min/1.73 sqM) Glucose (74-99) mg/dL Calcium (8.4-10.2) mg/dL Total Bilirubin (0.2-1.3) mg/dL AST (17-59) U/L ALT (4-49) U/L Alkaline Phosphatase (38-126) U/L Troponin I <0.012 (0.000-0.034) ng/mL Total Protein (6.3-8.2) g/dL Albumin (3.5-5.0) g/dL Antibody Screen NEGATIVE Spec Expiration Date 08/08/20202304 Disposition Clinical Impression: Gastrointestinal bleeding Disposition: ADMITTED IP TO THIS [facility] Condition: Good Instructions (If sedation given, give patient instructions): Gastrointestinal Bleeding (ED) Is patient prescribed a controlled substance at d/c from ED?: No Referrals: Nonstaff,Physician [Primary Care Provider] - 1-2 days
[2020-08-06] MEDS ORDERED: ACETAMINOPHEN TAB 325 MG TAB PO PRN (02:19)
[2020-08-06] MEDS ORDERED: NALOXONE 0.4 MG/ML 1 ML VIAL IV PRN (02:19)
[2020-08-06] MEDS ORDERED: ACETAMINOPHEN TAB 500 MG TAB PO PRN (03:35)
--- NOTE | 2020-08-06 03:41 | P.HPIM ---
History of Present Illness H&P Date: 08/06/20 Chief Complaint: GI bleeding 70-year-old male with hypertension hyperlipidemia obstructive sleep apnea Patient comes in after seeing couple episodes of cari blood with his bowel movement that started this evening patient denies any history of bleeding. However he does recall being diagnosed with a blood clot in the beginning of this year and he was treated with a blood thinner for 3 months he stopped the medications per his doctor's recommendations at the end of June after confirming with a venous duplex ultrasound of the lower extremities that his blood clot is gone. He tolerated blood thinners at that time pre-well denies any GI bleeding. It's been 2 weeks since he stopped the medication and today was the first in his life that he sees blood in his bowel movement he doesn't recall any abnormal colonoscopies but he doesn't remember when was the last one. He otherwise denies any chest pain or trouble breathing denies taking any blood thinners at this time he does take Mobic he denies taking any other NSAIDs denies any alcohol. He denies any abdominal pain nausea or vomiting he denies any urinary changes. Workup in the ED overall was unremarkable hemoglobin seems to be stable. Review of Systems Pertinent positives as noted in HPI. All other systems were reviewed and are negative Past Medical History Past Medical History: Deep Vein Thrombosis (DVT), Hyperlipidemia, Hypertension, Osteoarthritis (OA), Prostate Disorder, Sleep Apnea/CPAP/BIPAP Additional Past Medical History / Comment(s): Chronic low back and cervical pain, paralyzed R diaphram, LUNA with Cpap, benign colon polyp/diverticular disease, arthritis in multiple joints, BPH. History of Any Multi-Drug Resistant Organisms: None Reported Past Surgical History: Back Surgery, Joint Replacement, Orthopedic Surgery, Tonsillectomy Additional Past Surgical History / Comment(s): left knee partial replacement, right ankle fusion, uvulectomy, colonoscoy/benign polypectomy Past Anesthesia/Blood Transfusion Reactions: No Reported Reaction Past Psychological History: Depression Smoking Status: Former smoker Past Alcohol Use History: None Reported Past Drug Use History: None Reported - Past Family History Mother Family Medical History: Cancer Father Family Medical History: Cancer Medications and Allergies Home Medications Medication Instructions Recorded Confirmed Type Simvastatin [Zocor] 20 mg PO HS 04/25/15 02/19/20 History Tamsulosin HCl [Flomax] 0.4 mg PO HS 07/27/18 02/19/20 History Cholecalciferol [Vitamin D3 (25 1,000 unit PO DAILY 07/08/19 02/19/20 History Mcg = 1000 Iu)] Losartan Potassium 50 mg PO DAILY 07/08/19 02/19/20 History Sertraline [Zoloft] 50 mg PO DAILY 07/08/19 02/19/20 History Acetaminophen Tab [Tylenol Tab] 1,000 mg PO Q6H PRN #90 tablet 02/15/20 02/19/20 Rx Methocarbamol [Robaxin-750] 750 mg PO TID PRN #30 tablet 02/15/20 02/19/20 Rx acetaZOLAMIDE [Diamox] 250 mg PO DAILY #30 tab 02/15/20 02/19/20 Rx Cefepime [Maxipime] 2 gm IVPB Q8H #90 bag 02/16/20 02/19/20 Rx Meloxicam 15 mg PO DAILY 02/19/20 02/19/20 History Allergies Allergy/AdvReac Type Severity Reaction Status Date / Time No Known Allergies Allergy Verified 02/19/20 17:42 Physical Exam Vitals: Vital Signs Temp Pulse Resp BP Pulse Ox 08/05/20 22:21 98.1 F 69 18 188/97 96 Intake and Output 08/05/20 08/05/20 08/06/20 14:59 22:59 06:59 Other: Weight 124.284 kg Constitutional: No acute distress, conversant, pleasant Eyes: Anicteric sclerae, moist conjunctiva, Pupils equal round reactive to light ENMT: NC/AT Oropharynx clear, no erythema, or exudates Neck: Supple, FROM, no masses, or JVD No carotid bruits No thyromegaly Lungs: Clear to auscultation Clear to percussion Normal respiratory effort, no accessory muscle use Cardiovascular: Heart regular in rate and rhythm, No murmurs, gallops, or rubs Trace peripheral edema of the left leg Abdominal: Soft Nontender, no guarding, rebound or rigidity Abdomen moving with respiration Normoactive bowel sounds No hepatomegaly, No splenomegaly No palpable mass No abdominal wall hernia noted Skin: Normal temperature, tone, texture, turgor No induration No subcutaneous nodules No rash, lesions No ulcers Extremities: No digital cyanosis No clubbing Pedal pulses intact and symmetrical Radial pulses intact and symmetrical No calf tenderness Psychiatric: Alert and oriented to person, place and time Appropriate affect fair judgement Neuro Muscles Strength 5/5 in all 4 extremities Sensation to light touch grossly present throughout Cranial nerves II-XII grossly intact No focal sensory deficits Lymphatics: no palpable cervical or supraclavicular , or inguinal lymph nodes Results CBC & Chem 7: 08/05/20 23:05 08/05/20 23:05 Labs: Abnormal Lab Results - Last 24 Hours (Table) 08/05/20 Range/Units 23:05 BUN 26 H (9-20) mg/dL Assessment and Plan Assessment: Multiple episodes of GI bleeding Monitor hemoglobin Nothing by mouth PPI GI consultation CBC every 6 hours Avoid blood thinners avoid NSAIDs Recent history of left lower extremity DVT status post treatment with blood thinner This was provoked by prolonged hospital stay due to infection Chronic conditions Hypertension Hyperlipidemia Obstructive sleep apnea Resume home medications CODE STATUS full code DVT prophylaxis: Mechanical due to GI bleeding Discussed with: Patient, ER, RN Anticipated length of stay less than [address]: Home A total of 75 minutes was spent on the care of this complex patient more than 50% of the time was spent in counseling and care coordination.
[2020-08-06] MEDS: SODIUM CHLORIDE 0.9% 1,000 ML IV SCH ×3 (03:51→16:10)
[2020-08-06] MEDS: LOSARTAN 50 MG TAB PO SCH (06:59)
[2020-08-06] MEDS: PANTOPRAZOLE 40 MG/10 ML VIAL IV SCH (06:59)
[2020-08-06 10:14] LABS: Basophils # (A) 0.09 X 10*3/uL (0.00-0.10); Eosinophils % (A) 4.3 %; HCT 43.9 % (39.6-50.0); HGB 14.2 g/dL (13.0-17.0); Lymphocytes # (A) 1.46 X 10*3/uL (0.90-5.00); Lymphocytes % (A) 15.8 %; MCH 29.2 pg (27.0-32.0); MCHC 32.3 g/dL (32.0-37.0); MCV 90.3 fL (80.0-97.0); Mean Platelet Volume 12.7 fL (9.5-12.2); Monocytes # (A) 1.24 X 10*3/uL (0.20-1.00); Monocytes % (A) 13.4 %; Neutrophils % (A) 65.1 %; Platelet Count 140 X 10*3/uL (140-440); RBC 4.86 X 10*6/uL (4.40-5.60); RDW 16.6 % (11.5-14.5); WBC 9.23 X 10*3/uL (4.50-10.00)
--- NOTE | 2020-08-06 11:42 | P.PN ---
Subjective Progress Note Date: 08/06/20 Patient is doing well today. He denies any abdominal pain. No episode of GI bleed since admission. Hemoglobin is stable. Objective - Vital Signs Vital signs: Vital Signs Temp 97.7 F 08/06/20 07:00 Pulse 58 L 08/06/20 07:00 Resp 17 08/06/20 07:00 BP 191/96 08/06/20 07:00 Pulse Ox 92 L 08/06/20 07:00 Intake & Output 08/05/20 08/06/20 08/06/20 18:59 06:59 18:59 Weight 124.284 kg Other: Voiding Method Toilet # Voids 1 - Exam General: The patient is awake and alert, in no distress Eye: there is normal conjunctiva bilaterally. Neck: The neck is supple, there is no JVD. Cardiovascular: Normal S1-S2, no S3-S4, no murmurs. Respiratory: Lungs clear to auscultation bilaterally Gastrointestinal: Abdomen is soft, nontender Musculoskeletal: There is no pedal edema. Neurological:. Speech is normal. Skin: Skin is warm and dry - Labs CBC & Chem 7: 08/06/20 05:50 08/05/20 23:05 Labs: Abnormal Lab Results - Last 24 Hours (Table) 08/05/20 08/06/20 Range/Units 23:05 05:50 RDW 16.6 H (11.5-14.5) % MPV 12.7 H (9.5-12.2) fL Monocytes # 1.24 H (0.20-1.00) X 10*3/uL Eosinophils # 0.40 H (0.04-0.35) X 10*3/uL BUN 26 H (9-20) mg/dL Assessment and Plan Assessment: This is a 70-year-old male with past medical history noted below that presented to the emergency room with rectal bleed. Patient was evaluated in the ER and currently admitted to the hospital for further management of his medical problems noted below. 1. Rectal bleed, most likely lower GI bleed. Patient does not recall when his last colonoscopy was done. Hemoglobin is stable. Awaiting GI evaluation. Continue IV Protonix 40 mg daily. 2. Essential hypertension: Blood pressure not well controlled. Resume home medication and continue to monitor closely 3. Chronic medical problems: Hyperlipidemia, obstructive sleep apnea, history of left lower extremity DVT now off of anticoagulation
--- NOTE | 2020-08-06 12:35 | P.CONS ---
History of Present Illness - Reason for Consult Consult date: 08/06/20 Blood per rectum Requesting physician: Nicolasa Stallworth - Chief Complaint Blood per rectum - History of Present Illness 70-year-old male with a medical history significant for hypertension, hyperlipidemia, LUNA and obesity who presented to the hospital due to concerns over blood per rectum. The patient reports multiple episodes of painless bright red blood per rectum. In total he believes he's had 5-6 episodes of bleeding. The last occurred at 8 PM yesterday. He denies any abdominal pain or cramping in association with her symptoms. No nausea vomiting reported. He believes his last colonoscopy was in the past 10 years. Hemoglobin has remained stable currently at 14.2 with platelet count 140,000, WBC 9.2, total bilirubin 0.6, alkaline phosphatase 126, AST 46 and ALT 42. No prior episodes of similar GI bleeding. Review of Systems REVIEW OF SYSTEMS: CONSTITUTIONAL: Denies any fevers, chills, weight change or fatigue. CARDIOVASCULAR: Denies any chest pain, palpitations high or low blood pressures RESPIRATORY: Denies any shortness of breath, hemoptysis or cough. GENITOURINARY: No dysuria or hematuria. MUSCULOSKELETAL: No weakness reported. SKIN: Denies any new rashes or lesions, jaundice or pallor. PSYCHIATRIC: Denies any depression or anxiety. NEUROLOGY: Denies headache, denies any new focal deficits. EARS/NOSE/THROAT: No recent hearing change, congestion, nasal discharge or sore throat. EYES: No pain in eyes, discharge or change in vision. GASTROINTESTINAL: As per HPI. Past Medical History Past Medical History: Deep Vein Thrombosis (DVT), Hyperlipidemia, Hypertension, Osteoarthritis (OA), Prostate Disorder, Sleep Apnea/CPAP/BIPAP Additional Past Medical History / Comment(s): Chronic low back and cervical p ain, paralyzed R diaphram, LUNA with Cpap, benign colon polyp/diverticular disease, arthritis in multiple joints, BPH. 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 Pt is independent. Smoking Status: Former smoker Past Alcohol Use History: None Reported Additional Past Alcohol Use History / Comment(s): Pt started smoking in 1975 and quit in 1995. Past Drug Use History: None Reported - Past Family History Mother Family Medical History: Cancer Father Family Medical History: Cancer Medications and Allergies Home Medications Medication Instructions Recorded Confirmed Type Simvastatin [Zocor] 20 mg PO HS 04/25/15 08/06/20 History Tamsulosin HCl [Flomax] 0.4 mg PO HS 07/27/18 08/06/20 History Cholecalciferol [Vitamin D3 (25 50 mcg PO DAILY 07/08/19 08/06/20 History Mcg = 1000 Iu)] Losartan Potassium 75 mg PO DAILY 07/08/19 08/06/20 History Methocarbamol [Robaxin-750] 750 mg PO TID PRN #30 tablet 02/15/20 08/06/20 Rx Meloxicam 15 mg PO DAILY 02/19/20 08/06/20 History Benzoyl Peroxide 1 applic TOPICAL Q48H 08/06/20 08/06/20 History Clindamycin Phosphate [Cleocin T 1 applic TOPICAL DAILY 08/06/20 08/06/20 History Soln] Sertraline [Zoloft] 100 mg PO DAILY 08/06/20 08/06/20 History Allergies Allergy/AdvReac Type Severity Reaction Status Date / Time No Known Allergies Allergy Verified 08/06/20 09:25 Physical Exam Vitals: Vital Signs Temp Pulse Pulse Resp BP BP Pulse Ox 08/06/20 07:00 97.7 F 58 L 17 191/96 92 L 08/06/20 03:29 98.7 F 66 20 174/82 93 L 08/06/20 02:51 62 18 176/75 96 08/05/20 22:21 98.1 F 69 18 188/97 96 Intake and Output 08/05/20 08/06/20 08/06/20 22:59 06:59 14:59 Other: Voiding Method Toilet # Voids 1 Weight 124.284 kg 124.284 kg On physical examination, patient appears comfortable in no apparent distress. HEAD: Normocephalic, atraumatic. EYES: No scleral icterus. No conjunctival injection. MOUTH: No lesions, tongue midline. NECK: Trachea midline, no gross abnormalities. CHEST: Clear to auscultation with no wheezing or rhonchi appreciated. HEART: Regular rate and rhythm. ABDOMEN: Soft, nontender to palpation. Bowel sounds are positive. No organomegaly. No guarding or rigidity. EXTREMITIES: No pedal edema. SKIN: No rashes, no jaundice. NEUROLOGIC: Alert and oriented x3. No focal deficits. Results CBC & Chem 7: 08/06/20 05:50 08/05/20 23:05 Labs: Abnormal Lab Results - Last 24 Hours (Table) 08/05/20 08/06/20 Range/Units 23:05 05:50 RDW 16.6 H (11.5-14.5) % MPV 12.7 H (9.5-12.2) fL Monocytes # 1.24 H (0.20-1.00) X 10*3/uL Eosinophils # 0.40 H (0.04-0.35) X 10*3/uL BUN 26 H (9-20) mg/dL Assessment and Plan (1) Gastrointestinal bleeding Narrative/Plan: 70-year-old male multiple medical comorbidities presenting with multiple episodes of painless bright red blood per rectum. No similar episodes in the past. Last colonoscopy within the past 10 years per the patient's recollection with no abnormalities at that time. No nausea, vomiting or abdominal pain reported. Unclear etiology, differential includes diverticular bleed, hemo rrhoidal bleeding with stable hemoglobin of 14.2, AVM or other etiology. Current Visit: No Status: Acute Code(s): K92.2 - GASTROINTESTINAL HEMORRHAGE, UNSPECIFIED SNOMED Code(s): 48105239 Plan: Supportive care Clear liquid diet Continue to monitor hemoglobin and hematocrit and transfuse as needed No plans for endoscopic evaluation at this time, would recommend colonoscopy in the next 3-4 weeks for further evaluation in the outpatient setting, however if patient has further bleeding or precipitous fall in hemoglobin we'll reevaluate at that time Extensive discussion with the patient regarding his current medical condition with all his questions answered to his satisfaction Hold any anticoagulation or antiplatelet therapy at this time Thank you for allowing us to participate in the care of the patient
[2020-08-06] MEDS ORDERED: TAMSULOSIN 0.4 MG CAP.ER.24H PO SCH (21:00)
[2020-08-07] MEDS: SODIUM CHLORIDE 0.9% 1,000 ML IV SCH ×2 (06:19→10:49)
[2020-08-07] MEDS: PANTOPRAZOLE 40 MG/10 ML VIAL IV SCH (07:55)
[2020-08-07] MEDS: LOSARTAN 50 MG TAB PO SCH (07:55)
[2020-08-07 08:02] VITALS: BP 181/91; PULSE 64; RESP 17; TEMP 97.1
[2020-08-07 08:53] LABS: Basophils # (A) 0.09 X 10*3/uL (0.00-0.10); Basophils % (A) 0.9 %; Eosinophils # (A) 0.38 X 10*3/uL (0.04-0.35); HCT 46.7 % (39.6-50.0); Lymphocytes % (A) 13.7 %; MCH 29.1 pg (27.0-32.0); MCHC 32.1 g/dL (32.0-37.0); MCV 90.5 fL (80.0-97.0); Mean Platelet Volume 11.9 fL (9.5-12.2); Monocytes # (A) 1.13 X 10*3/uL (0.20-1.00); Monocytes % (A) 11.9 %; Neutrophils # (A) 6.56 X 10*3/uL (1.80-7.70); Neutrophils % (A) 69.1 %; Platelet Count 158 X 10*3/uL (140-440); RBC 5.16 X 10*6/uL (4.40-5.60); RDW 16.7 % (11.5-14.5)
[2020-08-07] MEDS ORDERED: amLODIPine 5 MG TAB PO SCH (09:00)
--- NOTE | 2020-08-07 09:49 | P.DS ---
Providers Date of admission: 08/06/20 02:19 Expected date of discharge: 08/07/20 Attending physician: Mary Carmen Neal MD Consults: 08/06/20 02:20 Consult Physician Routine Consulting Provider: Wagner Plaza Consult Reason/Comments: Acute gastrointestinal bleeding. Do you want consulting provider notified?: Yes Primary care physician: Physician Nonstaff Hospital Course: This is a 70-year-old male with past medical history noted below that presented to the emergency room with rectal bleed. Patient was evaluated in the ER and currently admitted to the hospital for further management of his medical problems noted below. 1. Rectal bleed, most likely lower GI bleed. Patient does not recall when his last colonoscopy was done. Hemoglobin is stable stable around 15 for 3 days. Patient was seen and evaluated by GI. Plan to follow-up colonoscopy outpatient in the next 2-3 weeks. Bleeding resolved. 2. Essential hypertension: Blood pressure not well controlled. Add Norvasc 5 mg daily to his home dose of losartan 75 mg daily. He should advised to continue check blood pressure at home and follow-up with PCP as directed. 3. Chronic medical problems: Hyperlipidemia, obstructive sleep apnea, history of left lower extremity DVT now off of anticoagulation Patient will be discharged home in a stable condition. For further details about this hospitalization please refer to the electronic chart. Time spent on discharge > 30 minutes including counseling and coordination of care General: The patient is awake and alert, in no distress Eye: there is normal conjunctiva bilaterally. Neck: The neck is supple, there is no JVD. Cardiovascular: Normal S1-S2, no S3-S4, no murmurs. Respiratory: Lungs clear to auscultation bilaterally Gastrointestinal: Abdomen is soft, nontender Musculoskeletal: There is no pedal edema. Neurological:. Speech is normal. Skin: Skin is warm and dry Patient Condition at Discharge: Stable Plan - Discharge Summary New Discharge Prescriptions: New amLODIPine [Norvasc] 5 mg PO HS #30 tab Continue Simvastatin [Zocor] 20 mg PO HS Tamsulosin HCl [Flomax] 0.4 mg PO HS Cholecalciferol [Vitamin D3 (25 Mcg = 1000 Iu)] 50 mcg PO DAILY Losartan Potassium 75 mg PO DAILY Methocarbamol [Robaxin-750] 750 mg PO TID PRN #30 tablet PRN Reason: Spasms Meloxicam 15 mg PO DAILY Benzoyl Peroxide 1 applic TOPICAL Q48H Sertraline [Zoloft] 100 mg PO DAILY Clindamycin Phosphate [Cleocin T Soln] 1 applic TOPICAL DAILY Discharge Medication List Simvastatin [Zocor] 20 mg PO HS 04/25/15 [History] Tamsulosin HCl [Flomax] 0.4 mg PO HS 07/27/18 [History] Cholecalciferol [Vitamin D3 (25 Mcg = 1000 Iu)] 50 mcg PO DAILY 07/08/19 [History] Losartan Potassium 75 mg PO DAILY 07/08/19 [History] Methocarbamol [Robaxin-750] 750 mg PO TID PRN #30 tablet 02/15/20 [Rx] Meloxicam 15 mg PO DAILY 02/19/20 [History] Benzoyl Peroxide 1 applic TOPICAL Q48H 08/06/20 [History] Clindamycin Phosphate [Cleocin T Soln] 1 applic TOPICAL DAILY 08/06/20 [History] Sertraline [Zoloft] 100 mg PO DAILY 08/06/20 [History] amLODIPine [Norvasc] 5 mg PO HS #30 tab 08/07/20 [Rx] Follow up Appointment(s)/Referral(s): Nonstaff,Physician [Primary Care Provider] - 1-2 days Wagner Plaza MD [STAFF PHYSICIAN] - 3 Weeks Patient Instructions/Handouts: Gastrointestinal Bleeding (ED) Discharge Disposition: HOME SELF-CARE
[2020-08-07 09:53] LABS: Anion Gap 7.1 mmol/L (4.00-12.00); BUN/Creat Ratio 17.14 Ratio (12.00-20.00); Carbon Dioxide 28.9 mmol/L (21.6-31.8); Non-African American GFR(CKD) 94.9 (60.0-200.0); Potassium 4.4 mmol/L (3.5-5.5)
== END 2020-08-07 11:05 | disposition home or self-care (01) ==
LOC: EC 22:12 → 6NMEDSUR 08-06 02:19
PROVIDERS: ADMIT Internal Medicine; ATTEND Internal Medicine
DX: K92.1 Melena (principal); I10 Essential (primary) hypertension; E78.5 Hyperlipidemia, unspecified; G47.33 Obstructive sleep apnea (adult) (pediatric); Z99.89 Dependence on other enabling machines and devices; G89.29 Other chronic pain; M54.5 Low back pain; M54.2 Cervicalgia; M19.90 Unspecified osteoarthritis, unspecified site; N40.0 Benign prostatic hyperplasia without lower urinary tract symptoms; F32.9 Major depressive disorder, single episode, unspecified; E66.9 Obesity, unspecified; Z68.36 Body mass index [BMI] 36.0-36.9, adult; Z20.822 Contact with and (suspected) exposure to COVID-19; Z79.899 Other long term (current) drug therapy; Z79.1 Long term (current) use of non-steroidal anti-inflammatories (NSAID); Z86.718 Personal history of other venous thrombosis and embolism; Z86.010 Personal history of colon polyps; Z87.19 Personal history of other diseases of the digestive system; Z98.1 Arthrodesis status; Z96.652 Presence of left artificial knee joint; Z87.891 Personal history of nicotine dependence; Z80.9 Family history of malignant neoplasm, unspecified
CPT/HCPCS: 96376; 96374; 99285; 36415; 86900; 86901; 80053; 80048; 84484; 85025 ×3; 85730; 86850; 87635; G0378 ×2; C9113 ×2

== ENCOUNTER → 2020-08-25 | Outpatient (CLI) | payer OTHER, MEDICARE ==
--- NOTE | 2020-08-25 12:54 | XR ---
EXAMINATION TYPE: XR chest 2V DATE OF EXAM: 08/25/2020 COMPARISON: Chest x-ray 02/04/2020, CT 02/03/2020 HISTORY: R06.02 TECHNIQUE: Frontal and lateral views of the chest are obtained. FINDINGS: There is no focal air space opacity, pleural effusion, or pneumothorax seen. The cardiac silhouette size is within normal limits. There is stable elevation of the right hemidiaphragm, some stable probable subsegmental basilar atelectatic change or scarring suspected. Thoracic spondylosis i s again noted. There is retrocardiac density present. The aorta is tortuous and dense, aneurysmal. Th e osseous structures are intact. IMPRESSION: Aortic aneurysm. Hiatal hernia. Probable basilar atelectasis or scarring, follow-up as i ndicated
== END | disposition home or self-care (01) ==
LOC: RADXRMAIN 09:37
PROVIDERS: ATTEND Physician Assistant
DX: R06.02 Shortness of breath (principal); K44.9 Diaphragmatic hernia without obstruction or gangrene
CPT/HCPCS: 71046

== ENCOUNTER → 2020-10-17 | Outpatient (CLI) | payer OTHER | LOC: CPPFTMAIN 08:41 | PROVIDERS: ATTEND Physician Assistant | DX: R06.02 Shortness of breath (principal); I10 Essential (primary) hypertension; I82.492 Acute embolism and thrombosis of other specified deep vein of left lower extremity; L03.90 Cellulitis, unspecified; M54.2 Cervicalgia; L66.2 Folliculitis decalvans; R22.1 Localized swelling, mass and lump, neck; M54.5 Low back pain; F33.9 Major depressive disorder, recurrent, unspecified; L20.89 Other atopic dermatitis; M79.672 Pain in left foot; M25.562 Pain in left knee; M79.671 Pain in right foot; F43.10 Post-traumatic stress disorder, unspecified; M06.9 Rheumatoid arthritis, unspecified; E66.01 Morbid (severe) obesity due to excess calories; N63.32 Unspecified lump in axillary tail of the left breast; I87.2 Venous insufficiency (chronic) (peripheral); Z79.01 Long term (current) use of anticoagulants; Z79.899 Other long term (current) drug therapy | CPT/HCPCS: 94060; 94726; 94729 ==

== ENCOUNTER → 2020-10-20 | Outpatient (CLI) | payer OTHER ==
--- NOTE | 2020-10-20 10:36 | CT ---
EXAMINATION TYPE: CT chest wo con DATE OF EXAM: 10/20/2020 COMPARISON: Chest x-ray 08/25/2020, CT chest 01/27/2014 HISTORY: Thoracic aortic aneurysm without rupture CT DLP: 805.8 mGycm. Automated Exposure Control for Dose Reduction was Utilized. TECHNIQUE: CT scan of the thorax is performed without IV contrast. FINDINGS: LUNGS: Pleural effusion or pneumothorax. There are areas of subsegmental consolidation with an area o f nodularity seen in the superior segment right lower lobe on axial image 25 measuring 1.7 cm. MEDIASTINUM: Lack of IV contrast is noted to limit evaluation for mediastinal and especially hilar ad enopathy. There are no definitive greater than 1 cm hilar or mediastinal lymph nodes. Coronary artery calcification is seen. Atherosclerotic change aorta with a maximal measurement measuring 4 cm within the proximal ascending aorta which is at the upper limits of normal. OTHER: Thyroid gland is markedly enlarged and extends substernally. There are 2 punctate 2 mm nonobst ructing left renal calculi. Hypertrophic and degenerative changes of the spine. Small hiatal hernia. IMPRESSION: 1. Maximal aortic measurement is 4 cm compatible with borderline to very mild aneurysmal dilation. 2. Markedly enlarged thyroid extending substernally. 3. Nodular density superior segment right lower lobe measuring 1.7 cm correlate with PET scan. 4. Nonobstructing punctate left renal calculi.
== END | disposition home or self-care (01) ==
LOC: RADCTMAIN 09:26
PROVIDERS: ATTEND Family Medicine
DX: I71.2 Thoracic aortic aneurysm, without rupture (principal); J98.4 Other disorders of lung
CPT/HCPCS: 71250

== ENCOUNTER → 2020-12-08 | Outpatient (CLI) | payer MEDICARE, OTHER ==
--- NOTE | 2020-12-12 08:58 | PE ---
EXAMINATION TYPE: PET CT fusion skull to thigh DATE OF EXAM: 12/08/2020 COMPARISON: Chest CT October 20, 2020 HISTORY: Solitary pulmonary nodule, right lower lobe. Abnormal CT. TECHNIQUE: Following the intravenous administration of 9.54 mCi of F-18 FDG, whole body images are p erformed from the skull base to the midthigh. Images are reviewed on the computer in the coronal, ax ial, and sagittal planes. Reconstructed rotating images are created on independent workstation and r eviewed on the computer. A localization and attenuation correction CT is performed in conjunction w ith the PET scan. Blood glucose level equals 100. SCAN: Initial Scan FINDINGS: SKULL BASE AND NECK: No suspicious hypermetabolic uptake. CHEST, MEDIASTINUM, AND HILAR REGION: No suspicious hypermetabolic uptake with particular attention t o the superior segment right lower lobe where there is thickened linear scarring redemonstrated. Ther e is elevated right hemidiaphragm and overall low lung volumes. ABDOMEN AND PELVIS: No suspicious hypermetabolic uptake. No adrenal masses. Normal excretion. OSSEOUS STRUCTURES: No suspicious hypermetabolic uptake. OTHER CT: Markedly enlarged thyroid gland consistent with goiter. Correlate clinically. Moderate to s evere calcified plaque bilateral carotid bulb level. Nasal septum deviated to left of midline. Cardiomegaly with moderate to severe three-vessel coronary artery calcification. Subareolar gynecomas tia left greater than right. Enlarged pulmonary arteries consistent with underlying pulmonary artery hypertension. Diverticula throughout the entire colon. Moderate calcified plaque in the ectatic aorta. Scattered pe lvic phleboliths. Enlarged prostate consistent with BPH. Postsurgical change with posterior decompres gilles in the lumbar spine. Grade 1 retrolisthesis L2 on L3 and L3 on L4. Multilevel disc space narrowi ng at these levels. IMPRESSION: No suspicious hypermetabolic uptake to suggest malignancy.
== END | disposition home or self-care (01) ==
LOC: RADPETMAIN 12:12
PROVIDERS: ATTEND Physician Assistant
DX: R91.1 Solitary pulmonary nodule (principal)
CPT/HCPCS: 78815; A9552

== ENCOUNTER → 2021-03-19 | Outpatient (CLI) | payer MEDICARE, OTHER ==
--- NOTE | 2021-03-19 11:30 | FL ---
Fluoroscopy INDICATION: Right diaphragm paralysis FINDINGS: Fluoroscopy time: 12 seconds. Images obtained: One fluoroscopic image. Observation of the diaphragms under breathing were observed. With quiet breathing there is normal mot ion of the left diaphragm. No significant motion of the right diaphragm was evident. With sniffing, there is paradoxical motion of the elevated right diaphragm. IMPRESSIONS: 1. 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
== END | disposition home or self-care (01) ==
LOC: RADUSWWP 10:13
PROVIDERS: ATTEND Thoracic Surgery (Cardiothoracic Vascular Surgery)
DX: J98.6 Disorders of diaphragm (principal)
CPT/HCPCS: 76000

== ENCOUNTER 2021-12-09 10:32 | Emergency (ER) | payer OTHER, MEDICARE ==
[2021-12-09 11:16] VITALS: RESP 16
--- NOTE | 2021-12-09 12:07 | XR ---
EXAMINATION TYPE: XR tibia fibula 2 views LT DATE OF EXAM: 12/09/2021 Comparison: None Clinical History: 71-year-old male with swelling, redness Findings: There is generalized soft tissue swelling throughout the leg. Patient is status post unicompartmental medial compartment knee arthroplasty. The components of the prosthesis appear well seated. There is moderate degenerative spurring in the patellofemoral compartment with a small knee joint effusion not ed. Some bony spurring along the posterior malleolus on the lateral view of the ankle suggestive of p rior injury. No periostitis or osteolysis. No acute fracture seen. Small posterior and plantar heel s purs. Impression: 1. Partial knee replacement involving the medial compartment. Small knee joint effusion is nonspecifi c. Degenerative spurring patellofemoral compartment. 2. Generalized soft tissue swelling throughout the left leg. No acute osseous abnormality seen. 3. Bony spurring posterior malleolus on the lateral view of the ankle suggests sequela of remote inju ry.
[2021-12-09 12:12] LABS: ALT 33 U/L (4-49); AST 42 U/L (17-59); African American GFR (CKD) >90 (>60 ml/min/1.73 sqM); Alkaline Phosphatase 74 U/L (38-126); Anion Gap 8 mmol/L; Blood Urea Nitrogen 23 mg/dL (9-20); Calcium 8.9 mg/dL (8.4-10.2); Carbon Dioxide 26 mmol/L (22-30); Chloride 104 mmol/L (98-107); Glucose 90 mg/dL (74-99); Non-African American GFR(CKD) 88 (>60 ml/min/1.73 sqM); Potassium 4.4 mmol/L (3.5-5.1); Sodium 138 mmol/L (137-145); Total Bilirubin 0.9 mg/dL (0.2-1.3); Total Protein 6.7 g/dL (6.3-8.2)
[2021-12-09 12:20] LABS: Basophils # (A) 0.1 k/uL (0-0.2); Basophils % (A) 1 %; Eosinophils # (A) 0.4 k/uL (0-0.7); Eosinophils % (A) 3 %; HCT 46.4 % (39.0-53.0); HGB 15.3 gm/dL (13.0-17.5); Lymphocytes # (A) 1.4 k/uL (1.0-4.8); Lymphocytes % (A) 12 %; MCH 30.3 pg (25.0-35.0); MCHC 32.9 g/dL (31.0-37.0); MCV 92.2 fL (80.0-100.0); Mean Platelet Volume 10.9; Monocytes # (A) 1.1 k/uL (0-1.0); Monocytes % (A) 10 %; Neutrophils # (A) 8.2 k/uL (1.3-7.7); Neutrophils % (A) 71 %; Platelet Count 157 k/uL (150-450); RBC 5.04 m/uL (4.30-5.90); RDW 14.5 % (11.5-15.5); WBC 11.5 k/uL (3.8-10.6)
--- NOTE | 2021-12-09 12:46 | US ---
EXAMINATION TYPE: US venous doppler duplex LE LT DATE OF EXAM: 12/09/2021 12:28 PM COMPARISON: 06/21/2020 CLINICAL HISTORY: 71-year-old male swelling, redness. Recent fever, left leg pain and redness SIDE PERFORMED: Left TECHNIQUE: The lower extremity deep venous system is examined utilizing real time linear array sonog patria with graded compression, doppler sonography and color-flow sonography. FINDINGS: VESSELS IMAGED: Common Femoral Vein Deep Femoral Vein Greater Saphenous Vein * Femoral Vein Popliteal Vein Small Saphenous Vein * Proximal Calf Veins (* superficial vessels) Left Leg: Negative for DVT IMPRESSION: No evidence for DVT within the left lower extremity imaged from the groin to the upper calf.
[2021-12-09] MEDS ORDERED: CLINDAMYCIN 600 MG in DEXTROSE 5% IN WATER 50 ML IVPB STA ×2 (12:55)
--- NOTE | 2021-12-09 13:39 | ED ---
Extremity Problem HPI - General Chief complaint: Extremity Problem,Nontraumatic Stated complaint: lt leg injury Time Seen by Provider: 12/09/21 11:11 Source: patient Mode of arrival: ambulatory Limitations: no limitations - History of Present Illness Initial comments: Patient is a 71-year-old male presenting with chief complaint of left lower extremity swelling and redness. Patient first noticed the symptoms 3 days ago. Redness is found mainly at the distal portion of the lower leg, just above the ankle. No breaks in the skin. Patient does admit to bilateral neuropathy. Patient states it is not particularly painful. States on he had an episode of generalized body aches and some chills, but has felt fine since then. Currently denies any fever, chills, nausea, vomiting, chest pain, shortness of breath, abdominal pain, dysuria, hematuria, urgency, frequency. - Related Data Home Medications Medication Instructions Recorded Confirmed Simvastatin [Zocor] 20 mg PO HS 04/25/15 08/06/20 Tamsulosin HCl [Flomax] 0.4 mg PO HS 07/27/18 08/06/20 Cholecalciferol [Vitamin D3 (25 50 mcg PO DAILY 07/08/19 08/06/20 Mcg = 1000 Iu)] Losartan Potassium 75 mg PO DAILY 07/08/19 08/06/20 Meloxicam 15 mg PO DAILY 02/19/20 08/06/20 Benzoyl Peroxide [Benzoyl Peroxide 1 applic TOPICAL Q48H 08/06/20 08/06/20 Cleanser] Clindamycin Phosphate [Cleocin T 1 applic TOPICAL DAILY 08/06/20 08/06/20 Soln] Sertraline [Zoloft] 100 mg PO DAILY 08/06/20 08/06/20 Previous Rx's Medication Instructions Recorded methocarbamoL [Robaxin-750] 750 mg PO TID PRN #30 tablet 02/15/20 amLODIPine [Norvasc] 5 mg PO HS #30 tab 08/07/20 Clindamycin [Cleocin] 450 mg PO TID 7 Days #63 cap 12/09/21 Allergies Allergy/AdvReac Type Severity Reaction Status Date / Time No Known Allergies Allergy Verified 12/09/21 10:57 Review of Systems ROS Statement: Those systems with pertinent positive or pertinent negative responses have been documented in the HPI. ROS Other: All systems not noted in ROS Statement are negative. Past Medical History Past Medical History: Deep Vein Thrombosis (DVT), Hyperlipidemia, Hypertension, Osteoarthritis (OA), Prostate Disorder, Sleep Apnea/CPAP/BIPAP Additional Past Medical History / Comment(s): Chronic low back and cervical pain, paralyzed R diaphram, LUNA with Cpap, benign colon polyp/diverticular disease, arthritis in multiple joints, BPH. History of Any Multi-Drug Resistant Organisms: None Reported Past Surgical History: Back Surgery, Joint Replacement, Orthopedic Surgery, Tonsillectomy Additional Past Surgical History / Comment(s): left knee partial replacement, right ankle fusion, uvulectomy, colonoscoy/benign polypectomy, right diaphragm surgery. Past Anesthesia/Blood Transfusion Reactions: No Reported Reaction Past Psychological History: Depression Smoking Status: Former smoker Past Alcohol Use History: None Reported Past Drug Use History: None Reported - Past Family History Mother Family Medical History: Cancer Father Family Medical History: Cancer General Exam Limitations: no limitations General appearance: alert, in no apparent distress Head exam: Present: atraumatic, normocephalic, normal inspection Eye exam: Present: normal appearance, EOMI. Absent: scleral icterus, periorbital swelling Neck exam: Present: normal inspection Respiratory exam: Present: normal lung sounds bilaterally. Absent: respiratory distress, wheezes, rales, rhonchi, stridor Cardiovascular Exam: Present: regular rate, normal rhythm, normal heart sounds. Absent: systolic murmur, diastolic murmur, rubs, gallop, clicks Extremities exam: Present: normal capillary refill Left Lower Leg exam: Present: full ROM, swelling, erythema. Absent: tenderness, Homans' sign Neurovascular tendon exam: Present: no vascular compromise. Absent: pulse deficit, motor deficit Neurological exam: Present: alert, oriented X3, CN II-XII intact Psychiatric exam: Present: normal affect, normal mood Skin exam: Present: warm, dry, intact, erythema (Left lower leg, no red streaking up the leg). Absent: rash Course Vital Signs 12/09/21 12/09/21 12/09/21 10:54 11:14 12:42 Temperature 98.2 F 97.8 F Pulse Rate 78 73 68 Respiratory 18 16 16 Rate Blood Pressure 126/68 141/76 151/74 O2 Sat by Pulse 93 L 96 98 Oximetry 12/09/21 14:20 Temperature 98 F Pulse Rate 70 Respiratory 16 Rate Blood Pressure 130/45 O2 Sat by Pulse 98 Oximetry Medical Decision Making - Medical Decision Making Patient is a 71-year-old male presenting with chief complaint of left lower leg redness and swelling. Has been ongoing for the last 3 days. Patient states pain is minimal. On examination there is normal capillary refill, some redness around the lower leg just proximal to the ankle. No joint pain or swelling. No fever or chills. No red streaking up the leg. No skin lesions or discharge. No recent travel or surgery. No chest pain or shortness of breath. WBC 11.5. X-rays negative. Ultrasound shows no evidence for DVT. Patient is given clindamycin IV here in the ER, will be discharged with clindamycin 450 mg 3 times a day for 7 days. Follow-up with PCP. Report back to ER with any new or worsening symptoms. Discussed return parameters and answered all questions. Patient conveyed verbal understanding and agreed to the plan. I discussed this case in detail with my attending Dr. Pitts. - Lab Data Result diagrams: 12/09/21 11:55 12/09/21 11:55 Lab Results 12/09/21 12/09/21 12/09/21 Range/Units 11:55 11:55 11:55 WBC 11.5 H (3.8-10.6) k/uL RBC 5.04 (4.30-5.90) m/uL Hgb 15.3 (13.0-17.5) gm/dL Hct 46.4 (39.0-53.0) % MCV 92.2 (80.0-100.0) fL MCH 30.3 (25.0-35.0) pg MCHC 32.9 (31.0-37.0) g/dL RDW 14.5 (11.5-15.5) % Plt Count 157 (150-450) k/uL MPV 10.9 Neutrophils % 71 % Lymphocytes % 12 % Monocytes % 10 % Eosinophils % 3 % Basophils % 1 % Neutrophils # 8.2 H (1.3-7.7) k/uL Lymphocytes # 1.4 (1.0-4.8) k/uL Monocytes # 1.1 H (0-1.0) k/uL Eosinophils # 0.4 (0-0.7) k/uL Basophils # 0.1 (0-0.2) k/uL Sodium 138 (137-145) mmol/L Potassium 4.4 (3.5-5.1) mmol/L Chloride 104 (98-107) mmol/L Carbon Dioxide 26 (22-30) mmol/L Anion Gap 8 mmol/L BUN 23 H (9-20) mg/dL Creatinine 0.83 (0.66-1.25) mg/dL Est GFR (CKD-EPI)AfAm >90 (>60 ml/min/1.73 sqM) Est GFR (CKD-EPI)NonAf 88 (>60 ml/min/1.73 sqM) Glucose 90 (74-99) mg/dL Plasma Lactic Acid Bart 1.1 (0.7-2.0) mmol/L Calcium 8.9 (8.4-10.2) mg/dL Total Bilirubin 0.9 (0.2-1.3) mg/dL AST 42 (17-59) U/L ALT 33 (4-49) U/L Alkaline Phosphatase 74 (38-126) U/L Total Protein 6.7 (6.3-8.2) g/dL Albumin 4.0 (3.5-5.0) g/dL Disposition Clinical Impression: Cellulitis Disposition: HOME SELF-CARE Condition: Fair Instructions (If sedation given, give patient instructions): Cellulitis (ED) Additional Instructions: Follow-up with PCP. Report back to ER with any new or worsening symptoms. Take medication as prescribed. Prescriptions: Clindamycin [Cleocin] 450 mg PO TID 7 Days #63 cap Is patient prescribed a controlled substance at d/c from ED?: No Referrals: Gómez Pena DO [Primary Care Provider] - 1-2 days Time of Disposition: 13:39
[2021-12-09 14:21] VITALS: BP 130/45; PULSE 70; TEMP 98
== END 2021-12-09 14:22 | disposition home or self-care (01) ==
LOC: EC 10:32
DX: L03.90 Cellulitis, unspecified (principal); E78.5 Hyperlipidemia, unspecified; I10 Essential (primary) hypertension; Z87.891 Personal history of nicotine dependence
CPT/HCPCS: 36415; 80053; 83605; 85025; 96365; 99284

== ENCOUNTER 2022-01-22 06:31 | Day surgery (SDC) | payer MEDICARE, OTHER ==
[~2022-01-22 06:31] MED LIST: LACTATED RINGERS 1,000 ML IV SCH; LIDOCAINE 1% (10MG/ML) FOR IV START INTRADERMA PRN
[2022-01-22 07:06] VITALS: RESP 18; TEMP 97.6
[2022-01-22] MEDS ORDERED: LIDOCAINE 2% INJ 20 MG/ML (2 ML VIAL) ONE (07:40)
[2022-01-22] MEDS ORDERED: PROPOFOL 10 MG/ML 20 ML VIAL IV ONE (07:40)
--- NOTE | 2022-01-22 08:05 | P.PCN ---
Date of Procedure: 01/22/22 Procedure(s) Performed: Brief history: Patient is a pleasant 69-year-old white male scheduled for an elective upper endoscopy as well as colonoscopy as a part of evaluation of recent episode of acute GI bleed. He had multiple episodes of maroon-colored stools that lasted all day. He has a similar episode approximately a year ago and resolved. Procedure performed: Esophagogastroduodenoscopy with biopsy Colonoscopy Preoperative diagnosis: History of GI bleed. [place] [facility] [place]: After informed consent was obtained from the patient was brought into the endoscopy unit and IV sedation was administered by anesthesia under continuous monitoring. Initially upper endoscopy was done. The Olympus GF 160 video endoscope was inserted inserted into the mouth and esophagus intubated without any difficulty and was gradually advanced into the stomach and duodenum and carefully examined. The bulb and second part of the duodenum appeared normal. The scope was then withdrawn into the stomach adequately insufflated with air and upon careful examination the antrum had gastritis and a 1 cm nonbleeding antral ulcer that was biopsied. Mucosa of the body, cardia and fundus appeared normal. The scope was then withdrawn into the esophagus. The GE junction was located at 35 cm to the incisors. Moderate size hiatal hernia noted. There were erosions or ulcerations noted in the distal esophagus consistent with LA grade C reflux esophagitis. Rest of the esophagus appeared normal. Patient to lerated the procedure well. At this time the patient continued to remain sedation. Initial digital rectal examination was normal. Olympus CF 160 video colonoscope was then inserted into the rectum and gradually advanced to the cecum without any difficulty. Careful examination was performed as the scope was gradually being withdrawn. The prep was fair. The cecum, ascending colon, transverse colon, descending colon, sigmoid colon and rectum appeared normal. Moderate sigmoid diverticulosis. Retroflexion was performed in the rectum and no lesions were noted. Patient tolerated the procedure well. Impression: 1. Upper endoscopy revealed a 1 cm antral ulcer, superficial duodenal ulcer, small hiatal hernia and LA grade C reflux esophagitis 2. Colonoscopy revealed moderate severe diffuse diverticulosis but no evidence of colorectal neoplasia Recommendations: Findings of this examination were discussed with the patient as well as his family. He was advised to follow with the biopsy results. Recommend stopping meloxicam. Start him on omeprazole 40 mg daily and he was briefly educated about antireflux measures.
[2022-01-22 08:26] VITALS: BP 140/69; PULSE 53
== END 2022-01-22 08:53 | disposition home or self-care (01) ==
LOC: ORWHC2ENDO 06:31
PROVIDERS: ATTEND Internal Medicine Gastroenterology
DX: K29.50 Unspecified chronic gastritis without bleeding (principal); K57.30 Diverticulosis of large intestine without perforation or abscess without bleeding; K21.00 Gastro-esophageal reflux disease with esophagitis, without bleeding; K44.9 Diaphragmatic hernia without obstruction or gangrene; K26.9 Duodenal ulcer, unspecified as acute or chronic, without hemorrhage or perforation; K25.9 Gastric ulcer, unspecified as acute or chronic, without hemorrhage or perforation; I10 Essential (primary) hypertension; E78.5 Hyperlipidemia, unspecified; G47.33 Obstructive sleep apnea (adult) (pediatric); M19.90 Unspecified osteoarthritis, unspecified site; F32.A Depression, unspecified; N40.0 Benign prostatic hyperplasia without lower urinary tract symptoms; Z90.89 Acquired absence of other organs; Z98.890 Other specified postprocedural states; Z79.899 Other long term (current) drug therapy; Z86.718 Personal history of other venous thrombosis and embolism
CPT/HCPCS: 88305; 45378; 43239; J2704; J2001

== ENCOUNTER 2022-02-08 16:28 | Emergency (ER) | payer OTHER ==
[2022-02-08 17:25] VITALS: RESP 20; TEMP 98.7
[2022-02-08 20:49] LABS: HCT 46.5 % (39.0-53.0); HGB 15.6 gm/dL (13.0-17.5); MCH 30.4 pg (25.0-35.0); MCHC 33.6 g/dL (31.0-37.0); MCV 90.4 fL (80.0-100.0); Platelet Count 164 k/uL (150-450); RBC 5.14 m/uL (4.30-5.90); RDW 13.7 % (11.5-15.5); WBC 13.6 k/uL (3.8-10.6)
[2022-02-08 20:58] VITALS: BP 150/78; PULSE 77
[2022-02-08 21:01] LABS: ALT 30 U/L (4-49); AST 40 U/L (17-59); African American GFR (CKD) >90 (>60 ml/min/1.73 sqM); Albumin 4.4 g/dL (3.5-5.0); Alkaline Phosphatase 89 U/L (38-126); Anion Gap 8 mmol/L; Blood Urea Nitrogen 19 mg/dL (9-20); Calcium 8.9 mg/dL (8.4-10.2); Carbon Dioxide 25 mmol/L (22-30); Chloride 104 mmol/L (98-107); Glucose 107 mg/dL (74-99); Non-African American GFR(CKD) 88 (>60 ml/min/1.73 sqM); Potassium 4.5 mmol/L (3.5-5.1); Sodium 137 mmol/L (137-145); Total Bilirubin 0.8 mg/dL (0.2-1.3); Total Protein 7.3 g/dL (6.3-8.2)
[2022-02-08] MEDS ORDERED: CLINDAMYCIN 150 MG CAP PO STA (21:19)
[2022-02-08 21:20] LABS: Eosinophils # (M) 0.27 k/uL (0-0.7); Lymphocytes # (M) 1.36 k/uL (1.0-4.8); Monocytes # (M) 2.31 k/uL (0-1.0); Neutrophils # (M) 9.66 k/uL (1.3-7.7); Neutrophils % (M) 71 %; Nucleated Red Blood Cells 0 /100 WBC (0-0); Poikilocytosis (M) Present; Total Cells Counted 100
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
== END 2022-02-08 21:48 | disposition home or self-care (01) ==
LOC: EC 16:28
DX: L03.116 Cellulitis of left lower limb (principal); E78.5 Hyperlipidemia, unspecified; I10 Essential (primary) hypertension; M19.90 Unspecified osteoarthritis, unspecified site; F32.A Depression, unspecified; Z87.891 Personal history of nicotine dependence; Z79.899 Other long term (current) drug therapy
CPT/HCPCS: 36415; 80053; 85025; 99283

== ENCOUNTER 2022-02-12 12:05 | Observation (INO) | payer OTHER, MEDICARE ==
--- NOTE | 2022-02-12 12:28 | ED ---
General Adult HPI - General Chief complaint: Extremity Problem,Nontraumatic Stated complaint: revisit - cellulitis Time Seen by Provider: 02/12/22 12:20 Source: patient, RN notes reviewed Mode of arrival: ambulatory Limitations: no limitations - History of Present Illness Initial comments: 71-year-old male presents emergency Department chief complaint of left leg pain, swelling or redness. Patient was seen here few days ago started on clindamycin. Patient states she's been taking antibiotics symptoms are not improving states maybe slightly worse. States is more painful. Patient states he also sialitis a few months ago. Patient denies any history of DVT no prior ultrasound. Patient denies any chest pain shortness breath has meant that he did not feel well last week with subjective fevers or chills, bodyaches. - Related Data Home Medications Medication Instructions Recorded Confirmed Tamsulosin HCl [Flomax] 0.4 mg PO HS 07/27/18 02/12/22 Sertraline [Zoloft] 100 mg PO DAILY 08/06/20 02/12/22 Omeprazole 40 mg PO DAILY 02/12/22 02/12/22 Rosuvastatin [Crestor] 10 mg PO HS 02/12/22 02/12/22 Valsartan 160 mg PO HS 02/12/22 02/12/22 amLODIPine [Norvasc] 5 mg PO DAILY 02/12/22 02/12/22 Previous Rx's Medication Instructions Recorded Clindamycin [Cleocin] 450 mg PO Q8H 5 Days #45 cap 02/08/22 Allergies Allergy/AdvReac Type Severity Reaction Status Date / Time No Known Allergies Allergy Verified 02/12/22 12:54 Review of Systems ROS Statement: Those systems with pertinent positive or pertinent negative responses have been documented in the HPI. ROS Other: All systems not noted in ROS Statement are negative. Past Medical History Past Medical History: Deep Vein Thrombosis (DVT), Hyperlipidemia, Hypertension, Osteoarthritis (OA), Prostate Disorder, Sleep Apnea/CPAP/BIPAP Additional Past Medical History / Comment(s): Chronic low back and cervical pain, paralyzed R diaphram, LUNA with Cpap, benign colon polyp/diverticular disease, arthritis in multiple joints, BPH. blood clot in leg. blood in stools History of Any Multi-Drug Resistant Organisms: None Reported Past Surgical History: Back Surgery, Joint Replacement, Orthopedic Surgery, Tonsillectomy Additional Past Surgical History / Comment(s): left knee partial replacement, right ankle fusion, uvulectomy, colonoscoy/benign polypectomy, right diaphragm surgery. 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 Gi Scope Past Anesthesia/Blood Transfusion Reactions: No Reported Reaction Additional Past Anesthesia/Blood Transfusion Reaction / Comment(s): no blood tranfusion Past Psychological History: Depression Smoking Status: Former smoker Past Alcohol Use History: Occasional Past Drug Use History: None Reported - Past Family History Mother Family Medical History: Cancer Father Family Medical History: Cancer General Exam Limitations: no limitations General appearance: alert, in no apparent distress Head exam: Present: atraumatic, normocephalic, normal inspection Respiratory exam: Present: normal lung sounds bilaterally. Absent: respiratory distress, wheezes, rales, rhonchi, stridor Cardiovascular Exam: Present: regular rate, normal rhythm, normal heart sounds. Absent: systolic murmur, diastolic murmur, rubs, gallop, clicks Extremities exam: Present: other (Left lower extremity erythema, tenderness there is a small opening in the left lateral distal tib-fib region, there is tenderness the tib-fib region) Course Vital Signs 02/12/22 12:15 Temperature 98.6 F Pulse Rate 86 Respiratory 20 Rate Blood Pressure 126/70 O2 Sat by Pulse 97 Oximetry Medical Decision Making - Medical Decision Making 71-year-old male presents from for cellulitis of his left leg. Patient has had no improvement clinically, patient having worsening pain. Patient feels that the erythema has worsened. Patient will be admitted for failed outpatient britney atment, cellulitis. - Lab Data Result diagrams: 02/12/22 13:00 02/12/22 14:15 Lab Results 02/12/22 02/12/22 02/12/22 Range/Units 13:00 13:00 14:15 WBC 11.3 H (3.8-10.6) k/uL RBC 5.17 (4.30-5.90) m/uL Hgb 15.4 (13.0-17.5) gm/dL Hct 47.1 (39.0-53.0) % MCV 91.2 (80.0-100.0) fL MCH 29.8 (25.0-35.0) pg MCHC 32.7 (31.0-37.0) g/dL RDW 14.2 (11.5-15.5) % Plt Count 117 L (150-450) k/uL MPV 12.8 Neutrophils % 68 % Lymphocytes % 16 % Monocytes % 10 % Eosinophils % 3 % Basophils % 1 % Neutrophils # 7.7 (1.3-7.7) k/uL Lymphocytes # 1.8 (1.0-4.8) k/uL Monocytes # 1.1 H (0-1.0) k/uL Eosinophils # 0.3 (0-0.7) k/uL Basophils # 0.1 (0-0.2) k/uL Manual Slide Review Performed Sodium 139 (137-145) mmol/L Potassium 4.5 (3.5-5.1) mmol/L Chloride 104 (98-107) mmol/L Carbon Dioxide 29 (22-30) mmol/L Anion Gap 6 mmol/L BUN 20 (9-20) mg/dL Creatinine 0.87 (0.66-1.25) mg/dL Est GFR (CKD-EPI)AfAm >90 (>60 ml/min/1.73 sqM) Est GFR (CKD-EPI)NonAf 86 (>60 ml/min/1.73 sqM) Glucose 92 (74-99) mg/dL Plasma Lactic Acid Bart 1.5 (0.7-2.0) mmol/L Calcium 9.0 (8.4-10.2) mg/dL Total Bilirubin 0.6 (0.2-1.3) mg/dL AST 34 (17-59) U/L ALT 37 (4-49) U/L Alkaline Phosphatase 108 (38-126) U/L Total Protein 6.9 (6.3-8.2) g/dL Albumin 4.1 (3.5-5.0) g/dL Disposition Clinical Impression: Cellulitis, Failure of outpatient treatment Disposition: ADMITTED IP TO THIS HOSP Condition: Fair [facility] - 1-2 days Time of Disposition: 15:02
--- NOTE | 2022-02-12 14:02 | US ---
EXAMINATION TYPE: US venous doppler duplex LE LT DATE OF EXAM: 02/12/2022 1:53 PM COMPARISON: NONE CLINICAL HISTORY: 71-year-old male pain. Edema SIDE PERFORMED: Left TECHNIQUE: The lower extremity deep venous system is examined utilizing real time linear array sonog patria with graded compression, doppler sonography and color-flow sonography. FINDINGS: VESSELS IMAGED: Common Femoral Vein Deep Femoral Vein Greater Saphenous Vein * Femoral Vein Popliteal Vein Small Saphenous Vein * Proximal Calf Veins (* superficial vessels) Left Leg: Negative for DVT IMPRESSION: No evidence for DVT within the left lower extremity imaged from the groin to the upper calf.
[2022-02-12 14:12] LABS: Basophils # (A) 0.1 k/uL (0-0.2); Basophils % (A) 1 %; Eosinophils # (A) 0.3 k/uL (0-0.7); Eosinophils % (A) 3 %; HCT 47.1 % (39.0-53.0); HGB 15.4 gm/dL (13.0-17.5); Lymphocytes # (A) 1.8 k/uL (1.0-4.8); Lymphocytes % (A) 16 %; MCH 29.8 pg (25.0-35.0); MCHC 32.7 g/dL (31.0-37.0); MCV 91.2 fL (80.0-100.0); Mean Platelet Volume 12.8; Monocytes # (A) 1.1 k/uL (0-1.0); Monocytes % (A) 10 %; Neutrophils # (A) 7.7 k/uL (1.3-7.7); Neutrophils % (A) 68 %; Platelet Count 117 k/uL (150-450); RBC 5.17 m/uL (4.30-5.90); RDW 14.2 % (11.5-15.5); WBC 11.3 k/uL (3.8-10.6)
[2022-02-12 14:42] LABS: ALT 37 U/L (4-49); AST 34 U/L (17-59); African American GFR (CKD) >90 (>60 ml/min/1.73 sqM); Albumin 4.1 g/dL (3.5-5.0); Alkaline Phosphatase 108 U/L (38-126); Anion Gap 6 mmol/L; Blood Urea Nitrogen 20 mg/dL (9-20); Carbon Dioxide 29 mmol/L (22-30); Chloride 104 mmol/L (98-107); Glucose 92 mg/dL (74-99); Non-African American GFR(CKD) 86 (>60 ml/min/1.73 sqM); Potassium 4.5 mmol/L (3.5-5.1); Sodium 139 mmol/L (137-145); Total Bilirubin 0.6 mg/dL (0.2-1.3); Total Protein 6.9 g/dL (6.3-8.2)
[2022-02-12] MEDS ORDERED: VANCOMYCIN IV PER PHARMACY 1 EACH MISC MISCELLANE PRN (14:59)
[2022-02-12] MEDS ORDERED: ONDANSETRON 4 MG/2 ML VIAL IVP PRN (15:02)
[2022-02-12] MEDS ORDERED: ACETAMINOPHEN TAB 325 MG TAB PO PRN (15:02)
[2022-02-12] MEDS ORDERED: NALOXONE 0.4 MG/ML 1 ML VIAL IV PRN (15:02)
[2022-02-12] MEDS ORDERED: IBUPROFEN 400 MG TAB PO PRN (15:02)
[2022-02-12] MEDS ORDERED: VANCOMYCIN 2,000 MG in SODIUM CHLORIDE 0.9% 500 ML 500 ML IVPB STA (15:03)
--- NOTE | 2022-02-12 17:10 | P.HPIM ---
History of Present Illness H&P Date: 02/12/22 Chief Complaint: cellulitis 71-year-old man with a medical history of BPH, hypertension, hyperlipidemia presented for evaluation of cellulitis. Patient was seen in the emergency room proximally 4 days ago for similar issues, and was sent home with clindamycin. However, over the weekend he noted a swelling in his erythema has been increasing and that she has been having pain with ambulation when he puts pressure on his foot. He denies fevers, chills, nausea, vomiting, chest pain, palpitations, syncope, presyncope, cough, dyspnea, abdominal pain, constipation, diarrhea, dysuria, dyschezia, numbness/weakness of extremity is. In the emergency room, patient is afebrile, 126/70, heart rate 86, 97% on room air. CBC is working for leukocytosis to 11.3, platelet count of 117. Chemistries are unremarkable. Liver function tests are unremarkable. Lactic acid is 1.5. Venous Doppler was negative for DVT. All Systems reviewed and pertinent positives and negatives noted in HPI, all other symptoms are negative Gen: in no apparent distress, resting comfortably in bed Eyes: PERRL, no scleral injection or icterus HENT: normocephalic, atraumatic, good hearing acuity, moist mucous membranes Neck: no tracheal deviation, full range of motion Resp: good air exchange, breathing comfortably with no accessory muscle use, no tactile fremitus CVS: good distal perfusion x 4, no pitting edema GI: soft, NTTP, ND, no hepatosplenomegaly : no suprapubic tenderness, no CVAT, myles catheter not present MSK: no clubbing, no cyanosis, no noted contractures of extremities Skin: Left lower extremity erythema with nonpitting edema, petechiae; temperature of skin is appropriate Neuro: moving all extremities without signs of weakness, CN II-XII intact Psych: cooperative, euthymic mood, insight and judgment intact Labs and imaging as above Assessment/plan: Cellulitis -Admit to observation, telemetry -Vancomycin -Clinically monitor -Follow blood culture Hypertension BPH Hyperlipidemia -Home medications reviewed and reconciled DVT prophylaxis with heparin 3 times a day Patient is full code Past Medical History Past Medical History: Deep Vein Thrombosis (DVT), Hyperlipidemia, Hypertension, Osteoarthritis (OA), Prostate Disorder, Sleep Apnea/CPAP/BIPAP Additional Past Medical History / Comment(s): Chronic low back and cervical pain, paralyzed R diaphram, LUNA with Cpap, benign colon polyp/diverticular disease, arthritis in multiple joints, BPH. blood clot in leg. blood in stools History of Any Multi-Drug Resistant Organisms: None Reported Past Surgical History: Back Surgery, Joint Replacement, Orthopedic Surgery, Tonsillectomy Additional Past Surgical History / Comment(s): left knee partial replacement, right ankle fusion, uvulectomy, colonoscoy/benign polypectomy, right diaphragm surgery. 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 Pt is independent. Smoking Status: Former smoker Past Alcohol Use History: Occasional Additional Past Alcohol Use History / Comment(s): Pt started smoking in 1975 and quit in 1995. 1/2 ppd Past Drug Use History: None Reported - Past Family History Mother Family Medical History: Cancer Father Family Medical History: Cancer Medications and Allergies Home Medications Medication Instructions Recorded Confirmed Type Tamsulosin HCl [Flomax] 0.4 mg PO HS 07/27/18 02/12/22 History Sertraline [Zoloft] 100 mg PO DAILY 08/06/20 02/12/22 History Clindamycin [Cleocin] 450 mg PO Q8H 5 Days #45 cap 02/08/22 02/12/22 Rx Omeprazole 40 mg PO DAILY 02/12/22 02/12/22 History Rosuvastatin [Crestor] 10 mg PO HS 02/12/22 02/12/22 History Valsartan 160 mg PO HS 02/12/22 02/12/22 History amLODIPine [Norvasc] 5 mg PO DAILY 02/12/22 02/12/22 History Allergies Allergy/AdvReac Type Severity Reaction Status Date / Time No Known Allergies Allergy Verified 02/12/22 12:54 Physical Exam Osteopathic Statement: *. No significant issues noted on an osteopathic structural exam other than those noted in the History and Physical/Consult. Vitals: Vital Signs Temp Pulse Resp BP Pulse Ox 02/12/22 12:15 98.6 F 86 20 126/70 97 Intake and Output 02/12/22 02/12/22 02/12/22 06:59 14:59 22:59 Other: Weight 136.078 kg 136.078 kg Results CBC & Chem 7: 02/12/22 13:00 02/12/22 14:15 Labs: Abnormal Lab Results - Last 24 Hours (Table) 02/12/22 Range/Units 13:00 WBC 11.3 H (3.8-10.6) k/uL Plt Count 117 L (150-450) k/uL Monocytes # 1.1 H (0-1.0) k/uL Thrombosis Risk Factor Assmnt - Choose All That Apply Each Factor Represents 1 point: Swollen legs (current) Each Risk Factor Represents 2 Points: Age 61-74 years Each Risk Factor Represents 3 Points: History of DVT/PE Thrombosis Risk Factor Assessment Total Risk Factor Score: 6 Thrombosis Risk Factor Assessment Level: High Risk
[2022-02-12] MEDS: VALSARTAN 160 MG TAB PO SCH (20:06)
[2022-02-12] MEDS: TAMSULOSIN 0.4 MG CAP.ER.24H PO SCH (20:06)
[2022-02-12] MEDS: ATORVASTATIN 20 MG TAB PO SCH (20:06)
[2022-02-13] MEDS: VANCOMYCIN 2,000 MG in SODIUM CHLORIDE 0.9% 500 ML 500 ML IVPB SCH ×2 (04:26→16:11)
[2022-02-13] MEDS: PANTOPRAZOLE 40 MG TABLET PO SCH (06:30)
[2022-02-13 09:29] LABS: African American GFR (CKD) 98.5 (60.0-200.0)
[2022-02-13] MEDS: SERTRALINE 100 MG TAB PO SCH (09:50)
[2022-02-13] MEDS: amLODIPine 5 MG TAB PO SCH (09:50)
--- NOTE | 2022-02-13 12:09 | P.PN ---
Subjective Progress Note Date: 02/13/22 Principal diagnosis: Cellulitis Doing well. Still with redness and pain in the left leg. No fevers, no cp or sob. No n/v. Objective - Vital Signs Vital signs: Vital Signs Temp 98.3 F 02/13/22 07:00 Pulse 68 02/13/22 07:00 Resp 20 02/13/22 07:00 BP 170/80 02/13/22 07:00 Pulse Ox 94 L 02/13/22 07:00 FiO2 Intake & Output 02/12/22 02/13/22 02/13/22 18:59 06:59 18:59 Intake Total 240 Balance 240 Weight 136.078 kg Intake: Oral 240 Other: Voiding Method Toilet # Voids 1 - Exam Gen: in no apparent distress, resting comfortably in bed Eyes: PERRL, no scleral injection or icterus HENT: normocephalic, atraumatic, good hearing acuity, moist mucous membranes Neck: no tracheal deviation, full range of motion Resp: good air exchange, breathing comfortably with no accessory muscle use, no tactile fremitus CVS: good distal perfusion x 4, no pitting edema GI: soft, NTTP, ND, no hepatosplenomegaly : no suprapubic tenderness, no CVAT, myles catheter not present MSK: no clubbing, no cyanosis, no noted contractures of extremities Skin: Left lower extremity erythema with nonpitting edema, petechiae; te mperature of skin is appropriate Neuro: moving all extremities without signs of weakness, CN II-XII intact Psych: cooperative, euthymic mood, insight and judgment intact - Labs CBC & Chem 7: 02/12/22 13:00 02/13/22 06:13 Labs: Abnormal Lab Results - Last 24 Hours (Table) 02/12/22 Range/Units 13:00 WBC 11.3 H (3.8-10.6) k/uL Plt Count 117 L (150-450) k/uL Monocytes # 1.1 H (0-1.0) k/uL Microbiology - Last 24 Hours (Table) 02/12/22 13:00 Blood Culture Gram Stain - Preliminary Blood 02/12/22 13:00 Blood Culture - Final Blood Assessment and Plan Plan: Cellulitis right lower extremity, failed outpatient treatment -Blood cx positive for gram positive cocci, only one set, will repeat -Consult ID -Vancomycin -Clinically monitor Hypertension BPH Hyperlipidemia -Continue home medications DVT prophylaxis with heparin 3 times a day
[2022-02-13] MEDS ORDERED: amLODIPine 5 MG TAB PO STA (19:31)
[2022-02-13] MEDS: TAMSULOSIN 0.4 MG CAP.ER.24H PO SCH (20:22)
[2022-02-13] MEDS: ATORVASTATIN 20 MG TAB PO SCH (20:22)
[2022-02-13] MEDS: VALSARTAN 160 MG TAB PO SCH (20:22)
[2022-02-14] MEDS: VANCOMYCIN 2,000 MG in SODIUM CHLORIDE 0.9% 500 ML 500 ML IVPB SCH (04:17)
[2022-02-14] MEDS: PANTOPRAZOLE 40 MG TABLET PO SCH (06:38)
[2022-02-14] MEDS: SERTRALINE 100 MG TAB PO SCH (09:02)
[2022-02-14] MEDS: amLODIPine 5 MG TAB PO SCH (09:02)
--- NOTE | 2022-02-14 09:56 | P.CONS ---
History of Present Illness - Reason for Consult Consult date: 02/13/22 Bacteremia Requesting physician: Samantha Ruff - Chief Complaint Left leg swelling and redness x 1 week - History of Present Illness Patient is a 71-year-old male presenting to the ER yesterday for evaluation of left lower extremity swelling and redness in this patient symptom has been going on for about a week he was recently evaluated in the ER diagnosed with cellulitis and sent home on oral clindamycin however the patient did have worsening of swelling redness with left lower extremity has been complaining of the laking pain especially worse when he walks on it intensity of the pain from 5-6 out of 10 and no radiation with associated swelling redness not have any open wound or any drainage patient on presentation to the hospital was afebrile and no fever has been recorded subsequently patient did have white count of 11.3 with a left shift kidney function has been normal blood cultures were obtained which came back positive with gram-positive cocci that has prompted this infectious disease consultation patient did have a left lower extremity venous Doppler which has been negative for DVT Review of Systems Positive point has been mentioned in the HPI rest of the systems are negative Past Medical History Past Medical History: Deep Vein Thrombosis (DVT), Hyperlipidemia, Hypertension, Osteoarthritis (OA), Prostate Disorder, Sleep Apnea/CPAP/BIPAP Additional Past Medical History / Comment(s): Chronic low back and cervical pain, paralyzed R diaphram, LUNA with Cpap, benign colon polyp/diverticular disease, arthritis in multiple joints, BPH. blood clot in leg. blood in stools History of Any Multi-Drug Resistant Organisms: None Reported Past Surgical History: Back Surgery, Joint Replacement, Orthopedic Surgery, Tonsillectomy Additional Past Surgical History / Comment(s): left knee partial replacement, right ankle fusion, uvulectomy, colonoscoy/benign polypectomy, right diaphragm surgery. 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 Pt is independent. Smoking Status: Former smoker Past Alcohol Use History: Occasional Additional Past Alcohol Use History / Comment(s): Pt started smoking in 1975 and quit in 1995. 1/2 ppd Past Drug Use History: None Reported - Past Family History Mother Family Medical History: Cancer Father Family Medical History: Cancer Medications and Allergies Home Medications Medication Instructions Recorded Confirmed Type Tamsulosin HCl [Flomax] 0.4 mg PO HS 07/27/18 02/12/22 History Sertraline [Zoloft] 100 mg PO DAILY 08/06/20 02/12/22 History Omeprazole 40 mg PO DAILY 02/12/22 02/12/22 History Rosuvastatin [Crestor] 10 mg PO HS 02/12/22 02/12/22 History Valsartan 160 mg PO HS 02/12/22 02/12/22 History amLODIPine [Norvasc] 5 mg PO DAILY 02/12/22 02/12/22 History Cephalexin [Keflex] 500 mg PO Q6HR 10 Days #40 cap 02/15/22 Rx Nystatin 100,000 Unit/gm Powd 1 applic TOPICAL BID 30 Days #45 02/15/22 Rx [Mycostatin Powder] each Allergies Allergy/AdvReac Type Severity Reaction Status Date / Time No Known Allergies Allergy Verified 02/12/22 12:54 Physical Exam Vitals: Vital Signs Temp Pulse Resp BP Pulse Ox 02/13/22 13:05 98 F 68 18 170/84 95 02/13/22 07:00 98.3 F 68 20 170/80 94 L 02/13/22 03:17 98.4 F 71 19 157/83 97 02/12/22 19:34 98.6 F 74 16 163/79 94 L Intake and Output 02/12/22 02/13/22 02/13/22 22:59 06:59 14:59 Intake Total 240 240 Balance 240 240 Intake: Oral 240 240 Other: Voiding Method Toilet # Voids 1 1 3 Weight 136.078 kg GENERAL DESCRIPTION: Elderly male lying in bed, no distress. No tachypnea or accessory muscle of respiration use. HEENT: Shows Pallor , no scleral icterus. Oral mucous membrane is dry. No pharyngeal erythema or thrush NECK: Trachea central, no thyromegaly. LUNGS: Unlabored breathing. Clear to auscultation anteriorly. No wheeze or crackle. HEART: S1, S2, regular rate and rhythm. No loud murmur ABDOMEN: Soft, no tenderness , guarding or rigidity, no organomegaly EXTREMITIES: Left leg swelling and redness which is warm to touch patient did have evidence of athlete's foot SKIN: No rash, no masses palpable. NEUROLOGICAL: The patient is awake, alert, oriented x3, mood and affect normal. Results CBC & Chem 7: 02/14/22 07:15 02/15/22 05:37 Labs: Abnormal Lab Results - Last 24 Hours (Table) 02/12/22 Range/Units 13:00 Monocytes # 1.1 H (0-1.0) k/uL Microbiology - Last 24 Hours (Table) 02/12/22 13:00 Blood Culture Gram Stain - Preliminary Blood 02/12/22 13:00 Blood Culture - Final Blood Assessment and Plan (1) Cellulitis Status: Acute Code(s): L03.90 - CELLULITIS, UNSPECIFIED SNOMED Code(s): 626916671 (2) Positive blood cultures Status: Acute Code(s): R78.81 - BACTEREMIA SNOMED Code(s): 250262773 Plan: 1patient with gram-positive bacteremia in this patient presented to hospital with a left lower extremity cellulitis failing outpatient oral clindamycin therapy with a question of possible community associated MRSA however the patient did have diffuse swelling redness which is more typical of streptococcal cellulitis. 2we will wait for the blood cultures to be finalized if finalized as streptococcal we will switch him over to cefazolin however if finalized as coagulase-negative staph we will disregard as possible skin contamination. 3vancomycin pharmacy to dose target trough of 15 while watching kidney function and vancomycin trough closely to continue while waiting for the cultures to be finalized. 4nystatin powder in between the toes for at least foot likely responsible for his recurrent episode. We will follow on clinical condition and cultures to further adjust medication if needed Thank you for this consultation will follow this patient along with you Time with Patient: Greater than 30
[2022-02-14] MEDS: NYSTATIN 100,000 UNIT/GM POWD 15 GM TOPICAL SCH ×2 (10:18→20:26)
--- NOTE | 2022-02-14 12:04 | P.PN ---
Subjective Progress Note Date: 02/14/22 Principal diagnosis: Cellulitis The redness and pain in the left leg are both better today. No fevers, no cp or sob. No n/v. Objective - Vital Signs Vital signs: Vital Signs Temp 97.6 F 02/14/22 07:00 Pulse 66 02/14/22 07:00 Resp 16 02/14/22 07:00 BP 144/80 02/14/22 07:00 Pulse Ox 95 02/14/22 07:00 FiO2 Intake & Output 02/13/22 02/14/22 02/14/22 18:59 06:59 18:59 Intake Total 480 240 Output Total 200 180 Balance 480 -200 60 Intake: Oral 480 240 Output: Urine 200 180 Other: Voiding Method Toilet # Voids 3 3 - Exam Gen: in no apparent distress, resting comfortably in bed Eyes: PERRL, no scleral injection or icterus HENT: normocephalic, atraumatic, good hearing acuity, moist mucous membranes Neck: no tracheal deviation, full range of motion Resp: good air exchange, breathing comfortably with no accessory muscle use, no tactile fremitus CVS: good distal perfusion x 4, no pitting edema GI: soft, NTTP, ND, no hepatosplenomegaly : no suprapubic tenderness, no CVAT, myles catheter not present MSK: no clubbing, no cyanosis, no noted contractures of extremities Skin: Left lower extremity erythema with nonpitting edema, petechiae; temperature of skin is appropriate Neuro: moving all extremities without signs of weakness, CN II-XII intact Psych: cooperative, euthymic mood, insight and judgment intact - Labs CBC & Chem 7: 02/12/22 13:00 02/13/22 06:13 Labs: Microbiology - Last 24 Hours (Table) 02/12/22 13:00 Blood Culture Gram Stain - Preliminary Blood Blood Culture - Preliminary Coagulase Negative Staph 02/12/22 14:15 Blood Culture - Preliminary Blood No Growth after 24 hours 02/12/22 13:00 Blood Culture - Final Blood Assessment and Plan Plan: Cellulitis right lower extremity, failed outpatient treatment -Blood cx positive for gram positive cocci, awaiting finalization -ID following -Vancomycin -Clinically monitor Tinea Pedis -Nystatin to the toes Hypertension BPH Hyperlipidemia -Continue home medications DVT prophylaxis with heparin 3 times a day
[2022-02-14 12:11] LABS: Basophils # (A) 0.11 X 10*3/uL (0.00-0.10); Eosinophils # (A) 0.47 X 10*3/uL (0.04-0.35); Eosinophils % (A) 4.1 %; HGB 14.8 g/dL (13.0-17.0); Immature Grans, Automated 0.3 %; Lymphocytes # (A) 1.23 X 10*3/uL (0.90-5.00); Lymphocytes % (A) 10.7 %; MCH 29.2 pg (27.0-32.0); MCHC 32.2 g/dL (32.0-37.0); MCV 90.7 fL (80.0-97.0); Mean Platelet Volume 11.5 fL (9.5-12.2); Monocytes # (A) 1.17 X 10*3/uL (0.20-1.00); Monocytes % (A) 10.2 %; NRBC Per 100 WBC 0 /100 WBCS (0.0-0.0); Neutrophils % (A) 73.7 %; Platelet Count 261 X 10*3/uL (140-440); RBC 5.07 X 10*6/uL (4.40-5.60); WBC 11.52 X 10*3/uL (4.50-10.00)
[2022-02-14 12:20] LABS: African American GFR (CKD) 91.5 (60.0-200.0); Non-African American GFR(CKD) 78.9 (60.0-200.0)
[2022-02-14] MEDS: TAMSULOSIN 0.4 MG CAP.ER.24H PO SCH (20:24)
[2022-02-14] MEDS: VALSARTAN 160 MG TAB PO SCH (20:24)
[2022-02-14] MEDS: ATORVASTATIN 20 MG TAB PO SCH (20:24)
--- NOTE | 2022-02-15 00:14 | P.PN ---
Subjective Progress Note Date: 02/14/22 Principal diagnosis: Left leg cellulitis and bacteremia Patient is a 71-year-old male presenting to the hospital with left lower extremity swelling and redness diagnosed with a cellulitis failing outpatient oral clindamycin patient also have a positive blood culture. On today's evaluation that is 02/14/2022, the patient denies having any fever or any chills patient is breathing comfortably patient denies any chest pain or shortness of breath or cough no nausea no vomiting no abdominal pain no diarrhea left leg swelling redness slightly decreased Objective - Vital Signs Vital signs: Vital Signs Temp 97.6 F 02/14/22 07:00 Pulse 66 02/14/22 07:00 Resp 16 02/14/22 07:00 BP 144/80 02/14/22 07:00 Pulse Ox 95 02/14/22 07:00 FiO2 Intake & Output 02/13/22 02/14/22 02/14/22 18:59 06:59 18:59 Intake Total 480 240 Output Total 200 180 Balance 480 -200 60 Intake: Oral 480 240 Output: Urine 200 180 Other: Voiding Method Toilet # Voids 3 3 - Exam GENERAL DESCRIPTION: An elderly male lying in bed in no distress RESPIRATORY SYSTEM: Unlabored breathing , decreased breath sounds at bases HEART: S1 S2 regular rate and rhythm , ABDOMEN: Soft , no tenderness EXTREMITIES: Left leg swelling redness slightly decreased - Labs CBC & Chem 7: 02/14/22 07:15 02/14/22 07:15 Labs: Abnormal Lab Results - Last 24 Hours (Table) 02/14/22 Range/Units 07:15 WBC 11.52 H (4.50-10.00) X 10*3/uL RDW 15.0 H (11.5-14.5) % Neutrophils # 8.50 H (1.80-7.70) X 10*3/uL Monocytes # 1.17 H (0.20-1.00) X 10*3/uL Eosinophils # 0.47 H (0.04-0.35) X 10*3/uL Basophils # 0.11 H (0.00-0.10) X 10*3/uL Microbiology - Last 24 Hours (Table) 02/12/22 13:00 Blood Culture Gram Stain - Preliminary Blood Blood Culture - Preliminary Coagulase Negative Staph 02/12/22 14:15 Blood Culture - Preliminary Blood No Growth after 24 hours 02/12/22 13:00 Blood Culture - Final Blood Assessment and Plan (1) Cellulitis Current Visit: Yes Status: Acute Code(s): L03.90 - CELLULITIS, UNSPECIFIED SNOMED Code(s): 401225029 Plan: 1patient with gram-positive bacteremia in this patient presented to hospital with a left lower extremity cellulitis failing outpatient oral clindamycin therapy with a question of possible community associated MRSA however the patient did have diffuse swelling redness which is more typical of streptococcal cellulitis. 2 the blood cultures to be finalized as coagulase-negative staph possible skin contamination. 3vancomycin has been discontinued and the patient started on cefazolin 2 g every 8 hours 4nystatin powder in between the toes for at least foot likely responsible for his recurrent episode. Time with Patient: Less than 30
[2022-02-15] MEDS ORDERED: VANCOMYCIN TROUGH DUE 1 EACH MISC MISCELLANE ONE (03:00)
[2022-02-15] MEDS: PANTOPRAZOLE 40 MG TABLET PO SCH (07:03)
[2022-02-15 07:28] VITALS: BP 162/77; PULSE 65; RESP 16; TEMP 98.2
[2022-02-15] MEDS: SERTRALINE 100 MG TAB PO SCH (08:20)
[2022-02-15] MEDS: NYSTATIN 100,000 UNIT/GM POWD 15 GM TOPICAL SCH (08:20)
[2022-02-15] MEDS: amLODIPine 5 MG TAB PO SCH (08:20)
[2022-02-15 08:53] LABS: African American GFR (CKD) 86.8 (60.0-200.0); Non-African American GFR(CKD) 74.9 (60.0-200.0)
--- NOTE | 2022-02-15 12:45 | P.DS ---
Providers Date of admission: 02/12/22 15:27 Expected date of discharge: 02/15/22 Attending physician: Marleny Kumar MD Consults: 02/13/22 12:02 Consult Physician Routine Consulting Provider: Jasmeet Acuña Consult Reason/Comments: ? bacteremia Do you want consulting provider notified?: Yes Primary care physician: [facility] Course: 71-year-old man with a medical history of BPH, hypertension, hyperlipidemia presented for evaluation of cellulitis. Patient was seen in the emergency room proximally 4 days ago for similar issues, and was sent home with clindamycin. However, over the weekend he noted a swelling in his erythema has been increasing and that she has been having pain with ambulation when he puts pressure on his foot. He denies fevers, chills, nausea, vomiting, chest pain, palpitations, syncope, presyncope, cough, dyspnea, abdominal pain, constipation, diarrhea, dysuria, dyschezia, numbness/weakness of extremity is. In the emergency room, patient is afebrile, 126/70, heart rate 86, 97% on room air. CBC is working for leukocytosis to 11.3, platelet count of 117. Chemistries are unremarkable. Liver function tests are unremarkable. Lactic acid is 1.5. Venous Doppler was negative for DVT. Patient was admitted, he was started on vancomycin IV. He was seen by infectious disease. Blood cultures were positive for coag negative staph 1 bottle which was considered contamination. Patient improved with the treatment. He was found to have tinea pedis in the left foot, was prescribed nystatin powder by infectious disease. He was instructed to apply compression stockings to the left leg to prevent it from swelling. He will be discharged home today in a stable condition. Time for discharge 35 min He was seen and examined face to face on the day of discharge 02/15 Patient Condition at Discharge: Fair Plan - Discharge Summary Discharge Rx Participant: No New Discharge Prescriptions: New Cephalexin [Keflex] 500 mg PO Q6HR 10 Days #40 cap Nystatin 100,000 Unit/gm Powd [Mycostatin Powder] 1 applic TOPICAL BID 30 Days #45 each Continue Tamsulosin HCl [Flomax] 0.4 mg PO HS Rosuvastatin [Crestor] 10 mg PO HS Omeprazole 40 mg PO DAILY Sertraline [Zoloft] 100 mg PO DAILY amLODIPine [Norvasc] 5 mg PO DAILY Valsartan 160 mg PO HS Discontinued Clindamycin [Cleocin] 450 mg PO Q8H 5 Days #45 cap Discharge Medication List Tamsulosin HCl [Flomax] 0.4 mg PO HS 07/27/18 [History] Sertraline [Zoloft] 100 mg PO DAILY 08/06/20 [History] Omeprazole 40 mg PO DAILY 02/12/22 [History] Rosuvastatin [Crestor] 10 mg PO HS 02/12/22 [History] Valsartan 160 mg PO HS 02/12/22 [History] amLODIPine [Norvasc] 5 mg PO DAILY 02/12/22 [History] Cephalexin [Keflex] 500 mg PO Q6HR 10 Days #40 cap 02/15/22 [Rx] Nystatin 100,000 Unit/gm Powd [Mycostatin Powder] 1 applic TOPICAL BID 30 Days #45 each 02/15/22 [Rx] Follow up Appointment(s)/Referral(s): Jasmeet Acuña MD [STAFF PHYSICIAN] - 1 Week [facility] [Primary Care Provider] - 1-2 days
--- NOTE | 2022-02-15 13:19 | P.PN ---
Subjective Progress Note Date: 02/15/22 Principal diagnosis: Left leg cellulitis and bacteremia Patient is a 71-year-old male presenting to the hospital with left lower extremity swelling and redness diagnosed with a cellulitis failing outpatient oral clindamycin patient also have a positive blood culture. On today's evaluation that is 02/15/2022, the patient remains to be afebrile, the patient is breathing comfortably on room air, patient denies any chest pain or shortness of breath or cough no nausea no vomiting no abdominal pain no diarrhea, the patient left leg swelling redness has decreased in intensity Objective - Vital Signs Vital signs: Vital Signs Temp 98.2 F 02/15/22 07:00 Pulse 65 02/15/22 07:00 Resp 16 02/15/22 07:00 BP 162/77 02/15/22 07:00 Pulse Ox 92 L 02/15/22 07:00 FiO2 Intake & Output 02/14/22 02/15/22 02/15/22 18:59 06:59 18:59 Intake Total 598 240 Output Total 180 Balance 418 240 Intake: Oral 598 240 Output: Urine 180 Other: # Voids 3 2 - Exam GENERAL DESCRIPTION: An elderly male lying in bed in no distress RESPIRATORY SYSTEM: Unlabored breathing , decreased breath sounds at bases HEART: S1 S2 regular rate and rhythm , ABDOMEN: Soft , no tenderness EXTREMITIES: Left leg swelling redness has decreased in intensity - Labs CBC & Chem 7: 02/14/22 07:15 02/15/22 05:37 Labs: Microbiology - Last 24 Hours (Table) 02/12/22 14:15 Blood Culture - Preliminary Blood No Growth after 48 hours 02/13/22 12:16 Blood Culture - Preliminary Blood No Growth after 24 hours 02/13/22 12:16 Blood Culture - Preliminary Blood No Growth after 24 hours Assessment and Plan (1) Cellulitis Status: Acute Code(s): L03.90 - CELLULITIS, UNSPECIFIED SNOMED Code(s): 115765817 Plan: 1patient with gram-positive bacteremia in this patient presented to hospital with a left lower extremity cellulitis failing outpatient oral clindamycin therapy with a question of possible community associated MRSA however the patient did have diffuse swelling redness which is more typical of streptococcal cellulitis. 2 the blood cultures to be finalized as coagulase-negative staph possible s kin contamination repeat blood culture has been negative so far. 3 nystatin powder in between the toes for at least foot likely responsible for his recurrent episode. 4-patient has shown clinical improvement on cefazolin will finish therapy with oral Keflex prescription sent to the pharmacy and close out patient follow-up discussed with the admitting physician working on discharge Time with Patient: Less than 30
== END 2022-02-15 13:12 | disposition home or self-care (01) ==
LOC: EC 12:05 → 6NMEDSUR 15:27
PROVIDERS: ADMIT Family Medicine; ATTEND Family Medicine
DX: L03.116 Cellulitis of left lower limb (principal); R78.81 Bacteremia; B35.3 Tinea pedis; E78.5 Hyperlipidemia, unspecified; I10 Essential (primary) hypertension; G89.29 Other chronic pain; M54.50 Low back pain, unspecified; M54.2 Cervicalgia; G47.33 Obstructive sleep apnea (adult) (pediatric); N40.0 Benign prostatic hyperplasia without lower urinary tract symptoms; F32.A Depression, unspecified; Z86.718 Personal history of other venous thrombosis and embolism; Z87.891 Personal history of nicotine dependence; Z79.899 Other long term (current) drug therapy
CPT/HCPCS: 96365; 96366 ×4; 96367; 99285; 36415; 80053; 82565 ×3; 83605; 85025 ×2; 87040 ×2; 93971; G0378 ×4; J3370 ×3; J0690 ×2

== ENCOUNTER → 2022-06-05 | Outpatient (CLI) | payer OTHER ==
--- NOTE | 2022-06-05 15:29 | XR ---
EXAMINATION TYPE: XR Hip Complete LT DATE OF EXAM: 06/05/2022 COMPARISON: NONE HISTORY: Pain TECHNIQUE: 2 views submitted FINDINGS: There is no evidence of erosive change or acute fracture. Mild concentric narrowing of the hip joint. Sclerotic density in the proximal diaphysis of the femur can be associated with a small bone infarct . Vascular phleboliths are noted. There is hypertrophy of the lateral margin of the acetabulum correl ate for femoral acetabular impingement. IMPRESSION: 1. Mild arthropathy. There is hypertrophy of the lateral margin of the acetabulum correlate for femor al acetabular impingement. 2. 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
--- NOTE | 2022-06-05 15:31 | XR ---
EXAMINATION TYPE: XR knee complete LT DATE OF EXAM: 06/05/2022 COMPARISON: 12/09/2021 HISTORY: Pain TECHNIQUE: Three views are submitted. FINDINGS: Mild diffuse osteopenia. There is hemiarthroplasty involving the knee joint along the medial compartm ent. Spurring and mild narrowing of the lateral compartment the knee joint noted and there are more m oderate hypertrophic arthropathy changes of the patellofemoral joint. Vascular calcifications are not ed. There is no evidence of acute fracture or dislocation. IMPRESSION: 1. Postsurgical change compatible with partial knee replacement similar in appearance to prior exam 2. Lateral compartment and patellofemoral compartment mild to moderate hypertrophic arthropathy.
== END | disposition home or self-care (01) ==
LOC: RADXRMAIN 14:41
PROVIDERS: ATTEND Social Worker Clinical
DX: M16.12 Unilateral primary osteoarthritis, left hip (principal); M17.12 Unilateral primary osteoarthritis, left knee
CPT/HCPCS: 73502

== ENCOUNTER → 2022-06-10 | Outpatient (CLI) | payer OTHER ==
--- NOTE | 2022-06-11 11:21 | US ---
EXAMINATION TYPE: US thyroid st tissue head/neck DATE OF EXAM: 06/10/2022 COMPARISON: NONE CLINICAL HISTORY: E04.1 single thyroid nodule. Hx of thyroid nodule (not done here). Not on thyroid m edications GLAND SIZE: Right Lobe: 10.1 x 6.0 x 4.8 cm Overall Parenchyma: heterogenous Left Lobe: 11.9 x 5.6 x 5.1 cm Overall Parenchyma: heterogeneous Isthmus Thickness: 1.5 cm NODULES RIGHT: # of nodules measured on right: 0 LEFT: # of nodules measured on left: 0 ISTHMUS: # of nodules measured in the isthmus: 0 Bilateral neck scanned, no evidence of lymphadenopathy. Overall enlarged and heterogeneous thyroid. IMPRESSION: Heterogenous thyromegaly. Suspicious discrete nodules not identified. Follow-up as clinically indicat ed
== END | disposition home or self-care (01) ==
LOC: RADUSWWP 16:58
PROVIDERS: ATTEND Family Medicine
DX: E04.1 Nontoxic single thyroid nodule (principal); E07.9 Disorder of thyroid, unspecified
CPT/HCPCS: 76536

== ENCOUNTER 2022-08-03 21:32 | Emergency (ER) | payer OTHER ==
[2022-08-03 21:39] VITALS: BP 151/82; PULSE 102; RESP 20; TEMP 98.1
--- NOTE | 2022-08-03 22:29 | XR ---
EXAM: XR Chest, 2 Views CLINICAL HISTORY: ITS.REASON XR Reason: CP TECHNIQUE: Frontal and lateral views of the chest. COMPARISON: No relevant prior studies available. FINDINGS: Lungs: Unremarkable. No consolidation. Pleural space: Unremarkable. No pneumothorax. Heart: Cardiomegaly. Mediastinum: Unremarkable. Bones/joints: Unremarkable. Vasculature: Calcified aorta. Upper abdomen: Elevated RIGHT hemidiaphragm. IMPRESSION: No acute findings in the chest.
[2022-08-03 22:43] LABS: Anisocytosis Slight; Basophils # (A) 0.1 k/uL (0-0.2); Basophils % (A) 0 %; Eosinophils # (A) 0.2 k/uL (0-0.7); Eosinophils % (A) 1 %; HCT 48.2 % (39.0-53.0); HGB 16.1 gm/dL (13.0-17.5); Lymphocytes # (A) 0.9 k/uL (1.0-4.8); Lymphocytes % (A) 4 %; MCH 28.7 pg (25.0-35.0); MCHC 33.4 g/dL (31.0-37.0); MCV 86.1 fL (80.0-100.0); Mean Platelet Volume 9.8; Monocytes # (A) 1.1 k/uL (0-1.0); Monocytes % (A) 4 %; Neutrophils # (A) 22.5 k/uL (1.3-7.7); Neutrophils % (A) 90 %; Platelet Count 138 k/uL (150-450); WBC 25.2 k/uL (3.8-10.6)
--- NOTE | 2022-08-03 22:43 | ED ---
General Adult HPI - General Chief complaint: Chest Pain Stated complaint: Chest Pain, SOB Time Seen by Provider: 08/03/22 21:51 Source: patient Mode of arrival: ambulatory Limitations: no limitations - History of Present Illness Initial comments: This is a 72-year-old male with a past medical history including paralyzed right diaphragm and hypertension presents emergency department for "feeling like crap." The patient stated that he woke up today, feeling not at his baseline and he went back to bed until 4:30 PM. The patient did report that he felt as if he had increasing shortness of breath from his baseline. The patient denied any acute body aches but stated that he had minor lightheadedness and feeling off balance which he had been experiencing over the last several months. The patient denied any acute distress and denied any recent sick contacts. The patient denied fevers, chills as well as any nausea and vomiting. The patient was resting in bed comfortably on my evaluation. - Related Data Home Medications Medication Instructions Recorded Confirmed Tamsulosin HCl [Flomax] 0.4 mg PO HS 07/27/18 02/12/22 Sertraline [Zoloft] 100 mg PO DAILY 08/06/20 02/12/22 Omeprazole 40 mg PO DAILY 02/12/22 02/12/22 Rosuvastatin [Crestor] 10 mg PO HS 02/12/22 02/12/22 Valsartan 160 mg PO HS 02/12/22 02/12/22 amLODIPine [Norvasc] 5 mg PO DAILY 02/12/22 02/12/22 Previous Rx's Medication Instructions Recorded Cephalexin [Keflex] 500 mg PO Q6HR 10 Days #40 cap 02/15/22 Nystatin 100,000 Unit/gm Powd 1 applic TOPICAL BID 30 Days #45 02/15/22 [Mycostatin Powder] each Ciprofloxacin HCl [Cipro] 500 mg PO Q12HR 1 Days #24 tab 08/04/22 Allergies Allergy/AdvReac Type Severity Reaction Status Date / Time No Known Allergies Allergy Verified 02/12/22 12:54 Review of Systems ROS Statement: Those systems with pertinent positive or pertinent negative responses have been documented in the HPI. ROS Other: All systems not noted in ROS Statement are negative. Past Medical History Past Medical History: Deep Vein Thrombosis (DVT), Hyperlipidemia, Hypertension, Osteoarthritis (OA), Prostate Disorder, Sleep Apnea/CPAP/BIPAP Additional Past Medical History / Comment(s): Chronic low back and cervical pain, paralyzed R diaphram, LUNA with Cpap, benign colon polyp/diverticular disease, arthritis in multiple joints, BPH. blood clot in leg. blood in stools History of Any Multi-Drug Resistant Organisms: None Reported Past Surgical History: Back Surgery, Joint Replacement, Orthopedic Surgery, Tonsillectomy Additional Past Surgical History / Comment(s): left knee partial replacement, right ankle fusion, uvulectomy, colonoscoy/benign polypectomy, right diaphragm surgery. 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 Gi Scope Past Anesthesia/Blood Transfusion Reactions: No Reported Reaction Additional Past Anesthesia/Blood Transfusion Reaction / Comment(s): no blood tranfusion Past Psychological History: Depression Smoking Status: Former smoker Past Alcohol Use History: Occasional Past Drug Use History: None Reported - Past Family History Mother Family Medical History: Cancer Father Family Medical History: Cancer General Exam Limitations: no limitations General appearance: alert, in no apparent distress, obese Head exam: Present: atraumatic, normocephalic, normal inspection Eye exam: Present: normal appearance, PERRL Pupils: Present: normal accommodation ENT exam: Present: normal exam, normal oropharynx, mucous membranes moist Neck exam: Present: normal inspection, full ROM Respiratory exam: Present: normal lung sounds bilaterally Cardiovascular Exam: Present: regular rate, normal rhythm, normal heart sounds GI/Abdominal exam: Present: soft, normal bowel sounds Extremities exam: Present: normal inspection, full ROM Back exam: Present: normal inspection, full ROM Neurological exam: Present: alert, oriented X3, CN II-XII intact Psychiatric exam: Present: normal affect, normal mood Skin exam: Present: warm, dry Course Vital Signs 08/03/22 21:34 Temperature 98.1 F Pulse Rate 102 H Respiratory 20 Rate Blood Pressure 151/82 O2 Sat by Pulse 97 Oximetry EKG Findings - EKG Comments: EKG Findings:: An EKG was obtained and was interpreted by myself showing a rate of 98, QRS duration of 100, QTC of 382. This EKG showed atrial fibrillation without RVR. There was no ST segment elevation or depression noted. This appears new from his previous history. Medical Decision Making - Medical Decision Making Was pt. sent in by a medical professional or institution (, PA, GENERAL DUTY NURSE, urgent care, hospital, or custodial...) When possible be specific @ -No Did you speak to anyone other than the patient for history (EMS, parent, family, police, friend...)? What history was obtained from this source @ -No Did you review nursing and triage notes (agree or disagree)? Why? @ -I reviewed and agree with nursing and triage notes Were old charts reviewed (outside hosp., previous admission, EMS record, old EKG, old radiological studies, urgent care reports/EKG's, custodial records)? Report findings @ -No old charts were reviewed Differential Diagnosis (chest pain, altered mental status, abdominal pain women, abdominal pain men, vaginal bleeding, weakness, fever, dyspnea, syncope, headache, dizziness, GI bleed, back pain, seizure, CVA, palpatations, mental health)? @ -Pneumonia, pneumothorax, UTI EKG interpreted by me (3pts min.). @ -As above X-rays interpreted by me (1pt min.). @ -Chest x-ray was obtained and was interpreted by myself showing no acute process. CT interpreted by me (1pt min.). @ -CT abdomen and pelvis with IV contrast was obtained and was interpreted by myself showing an enlarged prostate gland measuring 6.3 cm. There was also wall thickening of the urinary bladder with mild pericystic induration, correlate for UTI. There was also diverticulosis. There was no small ball obstruction. There was right not obstructing renal calculi measuring up to 6 mm in the right kidney U/S interpreted by me (1pt. min.). @ -None done What testing was considered but not performed or refused? (CT, X-rays, U/S, labs)? Why? @ -None What meds were considered but not given or refused? Why? @ -None Did you discuss the management of the patient with other professionals (professionals i.e. Dr., PA, GENERAL DUTY NURSE, lab, RT, psych nurse, social welfare clerk, biodiesel engine specialist, teacher, fundraising officer, therapeutic case manager)? Give summary @ -No Was smoking cessation discussed for >3mins.? @ -No Was critical care preformed (if so, how long)? @ -No Were there social determinants of health that impacted care today? How? (Homelessness, low income, unemployed, alcoholism, drug addiction, transportation, low edu. Level, literacy, decrease access to med. care, half-way, rehab)? @ -No Was there de-escalation of care discussed even if they declined (Discuss DNR or withdrawal of care, Hospice)? DNR status @ -No What co-morbidities impacted this encounter? (DM, HTN, Smoking, COPD, CAD, Cancer, CVA, ARF, Chemo, Hep., AIDS, mental health diagnosis, sleep apnea, morbid obesity)? @ -Hypertension, previously paralyzed right diaphragm Was patient admitted / discharged? Hospital course, mention meds given and route, prescriptions, significant lab abnormalities, going to OR and other pertinent info. @ -The patient was seen and evaluated in the emergency department. On physical exam, the patient was resting in bed without any acute distress. Vital signs admission were stable. Due to the nature the patient's complaints, laboratory workup and imaging was obtained. Laboratory workup did show a significantly elevated white blood cell count at 25. Due to this, infectious etiology was ruled out however urinalysis was positive for UTI at this time. The patient's abdomen on computed tomography scan did confirm this as well as the enlarged prostate. The remainder of the workup was within normal limits and negative. The patient did receive a single dose of ciprofloxacin here the emergency department as well as a prescription to be taken at home. The patient was advised to follow-up with his private care physician as well as urologist for further workup and evaluation. The patient was agreeable to this and all discretions were answered. The patient was discharged home in stable condition. Undiagnosed new problem with uncertain prognosis? @ -No Drug Therapy requiring intensive monitoring for toxicity (Heparin, Nitro, Insulin, Cardizem)? @ -No Were any procedures done? @ -No Diagnosis/symptom? @ -UTI, enlarged prostate Acute, or Chronic, or Acute on Chronic? @ -Acute on chronic Uncomplicated (without systemic symptoms) or Complicated (systemic symptoms)? @ -Uncomplicated Side effects of treatment? @ -No Exacerbation, Progression, or Severe Exacerbation? @ -No Poses a threat to life or bodily function? How? (Chest pain, [place], CA, pneumonia, PE, COPD, DKA, ARF, appy, cholecystitis, CVA, Diverticulitis, Homicidal, Suicidal, threat to staff... and all critical care pts) @ -No - Lab Data Result diagrams: 08/03/22 22:35 08/03/22 22:35 Lab Results 08/03/22 08/03/22 08/03/22 Range/Units 22:35 22:35 22:35 WBC 25.2 H (3.8-10.6) k/uL RBC 5.60 (4.30-5.90) m/uL Hgb 16.1 (13.0-17.5) gm/dL Hct 48.2 (39.0-53.0) % MCV 86.1 (80.0-100.0) fL MCH 28.7 (25.0-35.0) pg MCHC 33.4 (31.0-37.0) g/dL RDW 16.0 H (11.5-15.5) % Plt Count 138 L (150-450) k/uL MPV 9.8 Neutrophils % 90 % Lymphocytes % 4 % Monocytes % 4 % Eosinophils % 1 % Basophils % 0 % Neutrophils # 22.5 H (1.3-7.7) k/uL Lymphocytes # 0.9 L (1.0-4.8) k/uL Monocytes # 1.1 H (0-1.0) k/uL Eosinophils # 0.2 (0-0.7) k/uL Basophils # 0.1 (0-0.2) k/uL Anisocytosis Slight Sodium 133 L (137-145) mmol/L Potassium 4.3 (3.5-5.1) mmol/L Chloride 100 (98-107) mmol/L Carbon Dioxide 23 (22-30) mmol/L Anion Gap 10 mmol/L BUN 13 (9-20) mg/dL Creatinine 0.91 (0.66-1.25) mg/dL Est GFR (CKD-EPI)AfAm >90 (>60 ml/min/1.73 sqM) Est GFR (CKD-EPI)NonAf 83 (>60 ml/min/1.73 sqM) Glucose 106 H (74-99) mg/dL Calcium 8.7 (8.4-10.2) mg/dL Magnesium 1.7 (1.6-2.3) mg/dL Total Bilirubin 2.5 H (0.2-1.3) mg/dL AST 44 (17-59) U/L ALT 41 (4-49) U/L Alkaline Phosphatase 97 (38-126) U/L Troponin I 0.022 (0.000-0.034) ng/mL NT-Pro-B Natriuret Pep pg/mL Total Protein 6.7 (6.3-8.2) g/dL Albumin 3.7 (3.5-5.0) g/dL Urine Color Urine Appearance (Clear) Urine pH (5.0-8.0) Ur Specific [place] (1.001-1.035) Urine Protein (Negative) Urine Glucose (UA) (Negative) Urine Ketones (Negative) Urine Blood (Negative) Urine Nitrite (Negative) Urine Bilirubin (Negative) Urine Urobilinogen (<2.0) mg/dL Ur Leukocyte Esterase (Negative) Urine RBC (0-5) /hpf Urine WBC (0-5) /hpf Urine Bacteria (None) /hpf Influenza Type A (PCR) (Not Detectd) Influenza Type B (PCR) (Not Detectd) RSV (PCR) (Not Detectd) SARS-CoV-2 (PCR) (Not Detectd) 08/03/22 08/04/22 08/04/22 Range/Units 22:35 02:12 02:13 WBC (3.8-10.6) k/uL RBC (4.30-5.90) m/uL Hgb (13.0-17.5) gm/dL Hct (39.0-53.0) % MCV (80.0-100.0) fL MCH (25.0-35.0) pg MCHC (31.0-37.0) g/dL RDW (11.5-15.5) % Plt Count (150-450) k/uL MPV Neutrophils % % Lymphocytes % % Monocytes % % Eosinophils % % Basophils % % Neutrophils # (1.3-7.7) k/uL Lymphocytes # (1.0-4.8) k/uL Monocytes # (0-1.0) k/uL Eosinophils # (0-0.7) k/uL Basophils # (0-0.2) k/uL Anisocytosis Sodium (137-145) mmol/L Potassium (3.5-5.1) mmol/L Chloride (98-107) mmol/L Carbon Dioxide (22-30) mmol/L Anion Gap mmol/L BUN (9-20) mg/dL Creatinine (0.66-1.25) mg/dL Est GFR (CKD-EPI)AfAm (>60 ml/min/1.73 sqM) Est GFR (CKD-EPI)NonAf (>60 ml/min/1.73 sqM) Glucose (74-99) mg/dL Calcium (8.4-10.2) mg/dL Magnesium (1.6-2.3) mg/dL Total Bilirubin (0.2-1.3) mg/dL AST (17-59) U/L ALT (4-49) U/L Alkaline Phosphatase (38-126) U/L Troponin I (0.000-0.034) ng/mL NT-Pro-B Natriuret Pep 1250 pg/mL Total Protein (6.3-8.2) g/dL Albumin (3.5-5.0) g/dL Urine Color Yellow Urine Appearance Clear (Clear) Urine pH 7.0 (5.0-8.0) Ur Specific [place] 1.019 (1.001-1.035) Urine Protein Negative (Negative) Urine Glucose (UA) Negative (Negative) Urine Ketones 1+ H (Negative) Urine Blood Negative (Negative) Urine Nitrite Negative (Negative) Urine Bilirubin Negative (Negative) Urine Urobilinogen <2.0 (<2.0) mg/dL Ur Leukocyte Esterase Moderate H (Negative) Urine RBC <1 (0-5) /hpf Urine WBC 31 H (0-5) /hpf Urine Bacteria Occasional H (None) /hpf Influenza Type A (PCR) Not Detected (Not Detectd) Influenza Type B (PCR) Not Detected (Not Detectd) RSV (PCR) Not Detected (Not Detectd) SARS-CoV-2 (PCR) Not Detected (Not Detectd) Disposition Clinical Impression: UTI (urinary tract infection) Disposition: HOME SELF-CARE Condition: Stable Instructions (If sedation given, give patient instructions): Urinary Tract Infection in Men (DC) Prescriptions: Ciprofloxacin HCl [Cipro] 500 mg PO Q12HR 1 Days #24 tab Is patient prescribed a controlled substance at d/c from ED?: No [facility]: [facility] [Primary Care Provider] - 1-2 days Time of Disposition: 02:45
[2022-08-03 22:53] LABS: ALT 41 U/L (4-49); AST 44 U/L (17-59); African American GFR (CKD) >90 (>60 ml/min/1.73 sqM); Albumin 3.7 g/dL (3.5-5.0); Alkaline Phosphatase 97 U/L (38-126); Anion Gap 10 mmol/L; Blood Urea Nitrogen 13 mg/dL (9-20); Calcium 8.7 mg/dL (8.4-10.2); Carbon Dioxide 23 mmol/L (22-30); Chloride 100 mmol/L (98-107); Glucose 106 mg/dL (74-99); Magnesium 1.7 mg/dL (1.6-2.3); Non-African American GFR(CKD) 83 (>60 ml/min/1.73 sqM); Potassium 4.3 mmol/L (3.5-5.1); Sodium 133 mmol/L (137-145); Total Bilirubin 2.5 mg/dL (0.2-1.3); Total Protein 6.7 g/dL (6.3-8.2)
--- NOTE | 2022-08-04 00:40 | CT ---
EXAM: CT Abdomen and Pelvis With Intravenous Contrast CLINICAL HISTORY: ITS.REASON CT Reason: Elevated WBC, mild RUQ pain TECHNIQUE: Axial computed tomography images of the abdomen and pelvis with intravenous contrast. This CT exam was performed using one or more of the following dose reduction techniques: automated exposure control, adjustment of the mA and/or kV according to patient size, and/or use of iterative reconstruction technique. COMPARISON: No relevant prior studies available. FINDINGS: Lung bases: Unremarkable. No mass. No consolidation. Mediastinum: Small hiatal hernia. ABDOMEN: Liver: Hepatic steatosis. Gallbladder and bile ducts: Unremarkable. No calcified stones. No ductal dilation. Pancreas: Unremarkable. No mass. No ductal dilation. Spleen: Unremarkable. No splenomegaly. Adrenals: Unremarkable. No mass. Kidneys and ureters: Bilateral nonobstructing renal calculi, measuring up to 6 mm in the RIGHT kidney. No hydronephrosis or delayed nephrogram. Stomach and bowel: Diverticulosis, without acute diverticulitis. No small bowel obstruction. No free intraperitoneal air. PELVIS: Appendix: Normal appendix. Bladder: Wall thickening of the urinary bladder with mild pericystic induration. Correlate for UTI. Urinalysis recommended. Reproductive: Enlarged prostate gland, measures 6.3 cm medial-lateral. ABDOMEN and PELVIS: Intraperitoneal space: Unremarkable. No free air. No significant fluid collection. Bones/joints: Grade 1 retrolisthesis of L3 on L4. L3 and L4 laminectomies. Degenerative changes of the spine. No acute fracture. No dislocation. Soft tissues: Unremarkable. Vasculature: Atherosclerotic changes of the aorta. No abdominal aortic aneurysm. Lymph nodes: Unremarkable. No enlarged lymph nodes. IMPRESSION: 1. Enlarged prostate gland, measures 6.3 cm medial-lateral. 2. Wall thickening of the urinary bladder with mild pericystic induration. Correlate for UTI. Urinalysis recommended. 3. Diverticulosis, without acute diverticulitis. No small bowel obstruction. No free intraperitoneal air. 4. Hepatic steatosis. 5. Small hiatal hernia. 6. Bilateral nonobstructing renal calculi, measuring up to 6 mm in the RIGHT kidney. 7. Grade 1 retrolisthesis of L3 on L4. L3 and L4 laminectomies.
[2022-08-04 02:57] LABS: Appearance,Urine Clear (Clear); Bacteria,Urine Occasional /hpf; Bilirubin,Urine Negative (Negative); Blood,Urine Negative (Negative); Color,Urine Yellow; Glucose,Urine (UA) Negative (Negative); Ketones,Urine 1+ (Negative); Leukocyte Esterase,Urine Moderate (Negative); Nitrite,Urine Negative (Negative); Protein,Urine Negative (Negative); RBC,Urine <1 /hpf (0-5); Specific Gravity,Urine 1.019 (1.001-1.035); Urobilinogen,Urine <2.0 mg/dL (<2.0); WBC,Urine 31 /hpf (0-5)
[2022-08-04] MEDS ORDERED: CIPROFLOXACIN HCL 500 MG TAB PO STA (03:12)
== END 2022-08-04 03:41 | disposition home or self-care (01) ==
LOC: EC 21:32
DX: N39.0 Urinary tract infection, site not specified (principal); K44.9 Diaphragmatic hernia without obstruction or gangrene; K76.0 Fatty (change of) liver, not elsewhere classified; N40.0 Benign prostatic hyperplasia without lower urinary tract symptoms; N20.0 Calculus of kidney; I10 Essential (primary) hypertension; E78.5 Hyperlipidemia, unspecified; F32.A Depression, unspecified; G47.33 Obstructive sleep apnea (adult) (pediatric); M19.90 Unspecified osteoarthritis, unspecified site; Z79.899 Other long term (current) drug therapy; Z87.891 Personal history of nicotine dependence; Z20.822 Contact with and (suspected) exposure to COVID-19
CPT/HCPCS: 36415; 71046; 74177; 80053; 81001; 83735; 83880; 84484; 85025; 87086; 87636; 93005; 99285

== ENCOUNTER → 2022-12-10 | Outpatient (CLI) | payer OTHER ==
--- NOTE | 2022-12-12 08:27 | MR ---
EXAMINATION TYPE: MR lumbar spine wo con DATE OF EXAM: 12/10/2022 8:01 AM CLINICAL INDICATION:Male, 72 years old with history of M54.40 LOW BACK PAIN, UNSPECIFIED, Low back an d rt hip pain COMPARISON: 01/11/2020 TECHNIQUE: Multi planar, multi sequence imaging was performed utilizing: T1-weighted, T2-weighted, a nd turbo inversion recovery imaging of the lumbar spine. IV Contrast: None. FINDINGS: Alignment: The lumbar vertebral bodies have preserved heights. There is retrolisthesis of L3 on L4 an d L2 on L3 Cord: The conus medullaris and the distal spinal cord appear unremarkable with regards to their signa l intensity and morphology. Bones/Discs: Multilevel disc space narrowing, disc desiccation facet joint arthropathy, osteophytes a nd disc space narrowing. Postsurgical changes at the level L3-L4 with laminectomy change. Postsurgical changes in the surgical bed posterior tor L3-L4 with heterogenous signal measuring appro ximately 5.0 x 1.9 x 2.8 cm T12-L1: Left central disc protrusion without significant spinal canal stenosis. This does abut the fo rming nerve roots. L1-L2: Disc bulge and facet joint arthropathy result in mild spinal canal and moderate to severe left and moderate right neural foraminal stenosis. L2-L3: Retrolisthesis with facet joint arthropathy result in mild spinal canal and moderate to severe bilateral neural foraminal stenosis. L3-L4: Retrolisthesis facet joint arthropathy result in severe bilateral neural foraminal stenosis. T he spinal canal pain. L4-L5: Disc bulge and facet joint arthropathy result in mild spinal canal and severe right and modera te severe left neural foraminal stenosis. L5-S1: The disc is rounded posterior morphology without significant spinal canal stenosis. Facet join t arthropathy with mild neural foraminal stenosis. No significant spinal canal or neural foraminal stenosis in the remainder of the visualized levels. Other findings: Simple left renal cysts. IMPRESSION: 1. No definitive evidence of significant spinal canal stenosis. 2. Left central disc protrusion at T12-L1 suggested without significant spinal canal stenosis. 3. Moderate to severe disc degeneration with associated osteoarthritic changes. This results in sever e right L4-L5, severe bilateral L3-L4, moderate to severe bilateral L2-L3 neural foraminal stenosis 4. Postsurgical changes posterior to L3-L4 which is new from 01/11/2020..
--- NOTE | 2022-12-15 08:56 | MR ---
EXAMINATION TYPE: MR hip RT wo con DATE OF EXAM: 12/10/2022 COMPARISON: CT abdomen and pelvis August 04, 2022 HISTORY: Low back and rt hip pain for one month Standard multiplanar, multisequence MRI departmental protocol Multiplanar, multisequence images of the pelvis focusing on right hip were acquired without contrast. FINDINGS: Moderate axial joint space loss in both hip is redemonstrated. Mild to moderate acetabular spurring is again seen. Small joint effusions are present, left slightly larger than right. Femoral h ead shapes are maintained bilaterally. No suspicious increased T2 signal or osseous edema is present. No serpiginous diminished T1 signal to suggest avascular necrosis. Focal increased signal at the gre ater trochanter level bilaterally consistent with insertional tendinosis. There is partial focal tear ing on the right seen with focal fluid noted axial image 17 and coronal image 15. No groin hernia or adenopathy is seen on the left. Incidental small fat-containing left inguinal hernia. Muscle bulk is maintained bilaterally. Somewhat redundant sigmoid colon with diverticulosis is partially imaged. Prostate gland appears with in normal limits. Bladder poorly distended. No free fluid in the pelvis. IMPRESSION: Moderate degenerative changes in both hips. Insertional tendinosis at greater trochanter level bilaterally. Additional partial distal tendon tearing at the greater trochanter level right hip .
== END | disposition home or self-care (01) ==
LOC: RADMRIMAIN 06:23
DX: M51.25 Other intervertebral disc displacement, thoracolumbar region (principal); M51.36 Other intervertebral disc degeneration, lumbar region; M99.73 Connective tissue and disc stenosis of intervertebral foramina of lumbar region; Z98.890 Other specified postprocedural states
CPT/HCPCS: 72148

== ENCOUNTER 2023-05-14 11:29 | Emergency (ER) | payer OTHER ==
--- NOTE | 2023-05-14 12:22 | XR ---
EXAMINATION TYPE: XR chest 2V DATE OF EXAM: 05/14/2023 COMPARISON: NONE HISTORY: Cough and fever. TECHNIQUE: Frontal and lateral views of the chest are obtained. FINDINGS: There is no focal air space opacity, pleural effusion, or pneumothorax seen. The cardiac silhouette size is within normal limits. The osseous structures are intact. IMPRESSION: No acute cardiopulmonary process.
--- NOTE | 2023-05-14 13:05 | ED ---
General Adult HPI - General Chief complaint: Fever Stated complaint: SOB,congestion Time Seen by Provider: 05/14/23 11:56 Source: patient Mode of arrival: ambulatory Limitations: no limitations - History of Present Illness Initial comments: Patient is a 73-year-old gentleman presents emergency room with complaints of flulike symptoms. He complains of cough, congestion and body aches for the last 6 days. He also states his symptoms started with a sore. He was concerned as he has a history of a right-sided paralysis of the diaphragm however he denies any frequent respiratory infections or pneumonia. Patient denies any hemoptysis. He denies any chest pain abdominal pain, vomiting or diarrhea. Patient states he has generalized body aches and has worsening congestion in his chest in the morning and at night. He denies any history of asthma or COPD. He is a nonsmoker. - Related Data Home Medications Medication Instructions Recorded Confirmed Tamsulosin HCl [Flomax] 0.4 mg PO HS 07/27/18 02/12/22 Rosuvastatin [Crestor] 10 mg PO HS 02/12/22 02/12/22 Valsartan 160 mg PO HS 02/12/22 02/12/22 Cetirizine HCl [Zyrtec] 10 mg PO DAILY 05/14/23 05/14/23 Cyclobenzaprine [Flexeril] 10 mg PO TID PRN 05/14/23 05/14/23 DULoxetine HCL [Cymbalta] 60 mg PO BID 05/14/23 05/14/23 Previous Rx's Medication Instructions Recorded guaiFENesin-Coden 100-10MG/5ML 10 ml PO Q4H PRN 3 Days #180 ml 05/14/23 [Robitussin AC] Allergies Allergy/AdvReac Type Severity Reaction Status Date / Time No Known Allergies Allergy Verified 05/14/23 12:55 Review of Systems ROS Statement: Those systems with pertinent positive or pertinent negative responses have been documented in the HPI. ROS Other: All systems not noted in ROS Statement are negative. Past Medical History Past Medical History: Deep Vein Thrombosis (DVT), Hyperlipidemia, Hypertension, Osteoarthritis (OA), Prostate Disorder, Sleep Apnea/CPAP/BIPAP Additional Past Medical History / Comment(s): Chronic low back and cervical pain, paralyzed R diaphram, LUNA with Cpap, benign colon polyp/diverticular disease, arthritis in multiple joints, BPH. blood clot in leg. blood in stools History of Any Multi-Drug Resistant Organisms: None Reported Past Surgical History: Back Surgery, Joint Replacement, Orthopedic Surgery, Tonsillectomy Additional Past Surgical History / Comment(s): left knee partial replacement, right ankle fusion, uvulectomy, colonoscoy/benign polypectomy, right diaphragm surgery. 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 Gi Scope Past Anesthesia/Blood Transfusion Reactions: No Reported Reaction Additional Past Anesthesia/Blood Transfusion Reaction / Comment(s): no blood tranfusion Past Psychological History: Depression Smoking Status: Former smoker Past Alcohol Use History: Occasional Past Drug Use History: None Reported - Past Family History Mother Family Medical History: Cancer Father Family Medical History: Cancer General Exam Limitations: no limitations General appearance: alert, in no apparent distress Head exam: Present: atraumatic Eye exam: Present: normal appearance ENT exam: Present: normal exam Neck exam: Present: full ROM, other (No nuchal rigidity). Absent: meningismus Respiratory exam: Present: normal lung sounds bilaterally. Absent: respiratory distress, wheezes, rhonchi, chest wall tenderness, decreased breath sounds Cardiovascular Exam: Present: regular rate, normal rhythm GI/Abdominal exam: Present: soft. Absent: tenderness Extremities exam: Present: full ROM Neurological exam: Present: alert, oriented X3, CN II-XII intact Psychiatric exam: Present: normal affect, normal mood Skin exam: Present: warm, dry Course Vital Signs 05/14/23 11:35 Temperature 98.4 F Pulse Rate 93 Respiratory 16 Rate Blood Pressure 123/78 O2 Sat by Pulse 97 Oximetry - Reevaluation(s) Reevaluation #1: 05/14/23 1245 Patient is well-appearing emergency room. He is in no respiratory distress. He is stable at this time with normal vital signs. O2 sat is stable. I discussed the diagnosis of: With patient. Chest x-rays negative for any pneumonia or other acute changes. I will give the patient instructions on how to use an incentive spirometer to keep his lungs active to further prevent development of pneumonia given his history. I discussed signs return to the emergency room and further treatment. He is out of the antiviral window as well as symptoms started 6 days ago. Discussed symptomatic management including hydration Motrin Tylenol for body aches and fevers and the cough medication to help with the cough, body aches and congestion. He understands and agrees to treatment and discharge plan. Medical Decision Making - Medical Decision Making Was pt. sent in by a medical professional or institution (CLIFFORD Herring, WEB ANALYTICS SPECIALIST, urgent care, hospital, or assisted...) When possible be specific @ -[No] Did you speak to anyone other than the patient for history (EMS, parent, family, police, friend...)? What history was obtained from this source @ -[No] Did you review nursing and triage notes (agree or disagree)? Why? @ -[I reviewed and agree with nursing and triage notes] Were old charts reviewed (outside hosp., previous admission, EMS record, old EKG, old radiological studies, urgent care reports/EKG's, assisted records)? Report findings @ -External medication records Differential Diagnosis (chest pain, altered mental status, abdominal pain women, abdominal pain men, vaginal bleeding, weakness, fever, dyspnea, syncope, headache, dizziness, GI bleed, back pain, seizure, CVA, palpatations, mental health, musculoskeletal)? @ -URI, bronchitis, COVID-19, influenza A, RSV, pneumonia or syndrome EKG interpreted by me (3pts min.). @ -[As above] X-rays interpreted by me (1pt min.). @ -Chest x-rays negative for any pneumothorax, pneumonia or other acute changes at this time.] CT interpreted by me (1pt min.). @ -[None done] U/S interpreted by me (1pt. min.). @ -[None done] What testing was considered but not performed or refused? (CT, X-rays, U/S, labs)? Why? @ -[None] What meds were considered but not given or refused? Why? @ -[None] Did you discuss the management of the patient with other professionals (professionals i.e. CLIFFORD Herring, WEB ANALYTICS SPECIALIST, lab, RT, psych nurse, executive secretary social welfare, immigration lawyer, teacher, chief growth officer, case worker)? Give summary @ -[No] Was smoking cessation discussed for >3mins.? @ -[No] Was critical care preformed (if so, how long)? @ -[No] Were there social determinants of health that impacted care today? How? (Homelessness, low income, unemployed, alcoholism, drug addiction, transportation, low edu. Level, literacy, decrease access to med. care, longterm, rehab)? @ -[No] Was there de-escalation of care discussed even if they declined (Discuss DNR or withdrawal of care, Hospice)? DNR status @ -[No] What co-morbidities impacted this encounter? (DM, HTN, Smoking, COPD, CAD, Cancer, CVA, ARF, Chemo, Hep., AIDS, mental health diagnosis, sleep apnea, morbid obesity)? @ -[None] Was patient admitted / discharged? Hospital course, mention meds given and route, prescriptions, significant lab abnormalities, going to OR and other pertinent info. @ -[Patient is well appearing in the emergency room and nontoxic appearing. His vital signs are stable his O2 sat stable. he is stable to follow-up as an outpatient with symptomatic management. He understands signs return to the emergency room. Undiagnosed new problem with uncertain prognosis? @ -[No] Drug Therapy requiring intensive monitoring for toxicity (Heparin, Nitro, Insulin, Cardizem)? @ -[No] Were any procedures done? @ -[No] Diagnosis/symptom? @ -[COVID 19 Acute, or Chronic, or Acute on Chronic? @ -[Acute Uncomplicated (without systemic symptoms) or Complicated (systemic symptoms)? @ -[default] Side effects of treatment? @ -[No] Exacerbation, Progression, or Severe Exacerbation? @ -[No] Poses a threat to life or bodily function? How? (Chest pain, USA, OR, pneumonia, PE, COPD, DKA, ARF, appy, cholecystitis, CVA, Diverticulitis, Homicidal, Suicidal, threat to staff... and all critical care pts) @ -[No] - Lab Data Lab Results 05/14/23 Range/Units 11:42 Influenza Type A (PCR) Not Detected (Not Detectd) Influenza Type B (PCR) Not Detected (Not Detectd) RSV (PCR) Not Detected (Not Detectd) SARS-CoV-2 (PCR) Detected A (Not Detectd) - Radiology Data Radiology results: report reviewed, image reviewed Disposition Clinical Impression: COVID-19, Cough Narrative: do not d return to the emergency room for any difficulty moving, coughing up blood, department of fevers, short worsening shortness of breath or any concerning symptoms Do not drive while taking cough medication Disposition: HOME SELF-CARE Condition: Good Instructions (If sedation given, give patient instructions): Fever in Adults (ED), Droplet Precautions (ED), Coronavirus Disease 2019 (COVID-19), How To Wash Your Hands (ED), How to Use an Incentive Spirometer (ED), Antitussives (By mouth), Dextromethorphan (By mouth) Is patient prescribed a controlled substance at d/c from ED?: Yes When asked, does pt state using other controlled substances?: No If prescribed controlled substance>3 days was MAPS reviewed?: Prescribed <3 Days If opioid is for acute pain is fill amount 7 days or less?: No If Rx opioid, was Start Talking consent form obtained?: No Referrals: [facility],Clinic [REFERRING] - 1-2 days Time of Disposition: 12:54
[2023-05-14 13:09] VITALS: RESP 23
[2023-05-14 13:40] VITALS: BP 105/72; PULSE 94; TEMP 98.5
== END 2023-05-14 13:23 | disposition home or self-care (01) ==
LOC: EC 11:29
DX: U07.1 COVID-19 (principal); I10 Essential (primary) hypertension; E78.5 Hyperlipidemia, unspecified; F32.A Depression, unspecified; Z79.899 Other long term (current) drug therapy; Z86.718 Personal history of other venous thrombosis and embolism; Z87.891 Personal history of nicotine dependence
CPT/HCPCS: 10060; 71046; 87636; 99284

== ENCOUNTER → 2023-06-16 | Outpatient (CLI) | payer OTHER ==
--- NOTE | 2023-06-19 19:34 | MR ---
EXAMINATION TYPE: MR brain wo/w con DATE OF EXAM: 06/16/2023 COMPARISON: None HISTORY: Hearing loss bilateral CONTRAST: Performed utilizing 14 mL intravenous Gadavist gadolinium contrast. TECHNIQUE: Multiplanar, multiecho imaging on a 3.0 Natasha magnet is performed through the brain. Stud y is performed within 24 hours of arrival to the hospital. The craniovertebral junction is normal. The pituitary is normal. Optic chiasm is visualized is norm al Diffusion-weighted imaging is performed. No abnormal hyperintensity is present to suggest an acute i ntracranial infarct or acute ischemic change. There is patchy periventricular white matter hypodensity, likely on the basis of chronic white matter ischemic changes. Differential diagnosis could include vasculitis, multiple sclerosis among other et iologies. Ventricles and sulci are appropriate for the patient age. There is a patent cavum septum pellucidum, normal variant. Dedicated imaging is performed through the internal auditory canals. Internal auditory canals are patent. No expansion or erosion of the internal auditory canals. No cere bellopontine angle masses are evident. Mastoid air cells are clear. IMPRESSION: 1. No suspicious changes internal auditory canals. 2. Chronic appearing periventricular white matter ischemic-type changes with atrophy.
== END | disposition home or self-care (01) ==
LOC: RADMRIMAIN 09:05
PROVIDERS: ATTEND Family Medicine
DX: H91.8X3 Other specified hearing loss, bilateral (principal); R90.82 White matter disease, unspecified; I67.82 Cerebral ischemia
CPT/HCPCS: 70553; A9585

== ENCOUNTER → 2023-06-30 | Outpatient (CLI) | payer OTHER ==
--- NOTE | 2023-06-30 15:18 | BD ---
EXAMINATION TYPE: Axial Bone Density DATE OF EXAM: 06/30/2023 CLINICAL HISTORY: 73 years old Male. ICD-10 CODE: R94.6 ABN THYROID FUNCTION STUDIES Height: 70in Weight: 308lb FRAX RISK QUESTIONS: History of Fracture in Adulthood: yes Secondary Osteoporosis: RISK FACTORS HISTORY OF: MEDICATIONS: EXAM MEASUREMENTS: Bone mineral densitometry was performed using the [employer] System. Bone mineral density as measured about the Lumbar spine is: ----- L1-L4(G/cm2): 1.516 T Score Values are as follows: ----- L1: 0.8 ----- L2: 3.5 ----- L3: 4.7 ----- L4: 2.4 ----- L1-L4: 2.8 Z Score Values are as follows: ----- L1: 0.4 ----- L2: 3.1 ----- L3: 4.2 ----- L4: 2.0 ----- L1-L4: 2.3 First dexa at [facility] Bone mineral density about the R hip (g/cm2): 0.923 Bone mineral density about the L hip (g/cm2): 1.035 T Score values are as follows: -----R Neck: -1.2 -----L Neck: -1.0 -----R Total: -0.7 -----L Total: 0.2 Z Score values are as follows: -----R Neck: -0.7 -----L Neck: -0.5 -----R Total: -0.8 -----L Total: -0.1 First dexa at [facility] FRAX%s: The graph provided illustrates a 8.9% chance for a major osteoporotic fx and a 2.2% chance fo r the hips probability for fx in 10 years time. IMPRESSION: Normal (Values between +1 and -1 indicate normal bone mass). Consider repeating this study in 5 year s or sooner if there is some new clinical indication. NOTE: T-SCORE=SD OF THE YOUNG ADULT MEAN.
--- NOTE | 2023-06-30 18:52 | US ---
EXAMINATION TYPE: US thyroid st tissue head/neck DATE OF EXAM: 06/30/2023 COMPARISON: NONE CLINICAL INDICATION: Male, 73 years old with history of R94.6 ABN THYROID FUNCTION STUDIES; GLAND SIZE: Right Lobe: 10.3 x 4.3 x 5.8 cm Overall Parenchyma: heterogeneous Left Lobe: 11.2 x 4.7 x 6.2 cm Overall Parenchyma: heterogeneous Isthmus Thickness: 1.8 cm NODULES RIGHT: # of nodules measured on right: 0 LEFT: # of nodules measured on left: 0 ISTHMUS: # of nodules measured in the isthmus: 0 Bilateral neck scanned, no evidence of lymphadenopathy. IMPRESSION: Heterogenous thyroid gland with multinodular goiter correlate with serum markers for thyroiditis.
== END | disposition home or self-care (01) ==
LOC: RADBDWWP 13:44
PROVIDERS: ATTEND Family Medicine
DX: M85.88 Other specified disorders of bone density and structure, other site (principal); E04.2 Nontoxic multinodular goiter; R94.6 Abnormal results of thyroid function studies
CPT/HCPCS: 76536; 77080

== ENCOUNTER → 2023-10-07 | Outpatient (CLI) | payer OTHER ==
[2023-10-07 11:04] LABS: African American GFR (CKD) >90 (>60 ml/min/1.73 sqM); Blood Urea Nitrogen 18 mg/dL (9-20); Non-African American GFR(CKD) 80 (>60 ml/min/1.73 sqM)
--- NOTE | 2023-10-07 12:19 | CT ---
EXAMINATION TYPE: CT urogram wo/w con CT DLP: 4045 mGycm, Automated exposure control for dose reduction was used. DATE OF EXAM: 10/07/2023 11:50 AM COMPARISON: CT abdomen pelvis most recent from 08/04/2022, PET/CT 12/08/2020. CLINICAL INDICATION:Male, 73 years old with history of N28.1 CYST OF KIDNEY; PHH, renal cysts TECHNIQUE: Urogram of the abdomen and pelvis was performed before and after the administration of 100 cc of IV c ontrast Isovue 370 contrast. Delayed imaging was performed. Coronal and sagittal reformats were perfo rmed. One or more CT dose reduction strategies were utilized during this examination. 2D and 3D recon structions are performed to assist visualization of the urinary tract on a separate workstation. FINDINGS: GENITOURINARY: RIGHT KIDNEY AND URETER: The pelvis is again rotated anteriorly. Nonobstructive 4.5 mm calculus withi n the lower pole. No hydronephrosis or hydroureter. Right upper pole 1.8 cm cyst. No arterial enhance ment. No urothelial lesions: no filling defect, dilation, stricture or wall thickening. LEFT KIDNEY AND URETER: The pelvis is again rotated anteriorly. Nonobstructive 6.4 mm calculus within the upper pole. No hydronephrosis or hydroureter. Left mid kidney 1.4 cm cyst. No arterial enhanceme nt. No urothelial lesions: no filling defect, dilation, stricture or wall thickening. URINARY BLADDER: Normal, no calculi, mass or other lesions. REPRODUCTIVE: Prostate calcifications noted.. ABDOMEN LIVER: . GALLBLADDER AND BILE DUCTS: Unremarkable PANCREAS: Unremarkable. SPLEEN: Unremarkable. ADRENAL GLANDS: Unremarkable. STOMACH AND BOWEL: Small hiatal hernia. Conte colonic diverticulosis without evidence for acute diverti culitis. No evidence of bowel obstruction. The appendix is within normal limits. No focal bowel wall thickening or surrounding inflammatory changes. PERITONEUM: No evidence of pneumoperitoneum, free fluid, or adenopathy. VASCULATURE: No abdominal aortic aneurysm. Moderate atherosclerotic calcification of the aorta and it s branches. Mild stenosis at the origins of the bilateral single renal arteries secondary to atherosc lerotic plaque. Mild to moderate stenosis origin of the celiac axis secondary to atelectatic plaque. Minimal stenosis of the origin of SMA. Slight tortuosity of the abdominal aorta. Pelvic phleboliths. MUSCULOSKELETAL: No acute fracture. Stable sclerotic focus within the left proximal femur at the grea ter trochanter. Likely benign. Postsurgical changes from laminectomy defects at the lower lumbar spin e at L3 and L4. Retrolisthesis of L2 on L3 and L3 on L4. Multilevel degenerative disc disease. SOFT TISSUE/ABDOMINAL WALL: Small fat filled left inguinal hernia. LOWER CHEST: Elevation of the right hemidiaphragm. Cardiomegaly. No pericardial effusion. Moderate co ronary arterial calcifications involving the LAD. IMPRESSION: 1. Bilateral Bosniak 1 small renal cysts. No concerning renal/urothelial neoplasm. 2. Nonobstructive bilateral renal calculi. 3. Pancolonic diverticulosis. 4. Small hiatal hernia.
== END | disposition home or self-care (01) ==
LOC: RADCTMAIN 10:07
PROVIDERS: ATTEND Urology Pediatric Urology
DX: N28.1 Cyst of kidney, acquired (principal); N20.0 Calculus of kidney; N40.0 Benign prostatic hyperplasia without lower urinary tract symptoms; K44.9 Diaphragmatic hernia without obstruction or gangrene; K57.30 Diverticulosis of large intestine without perforation or abscess without bleeding
CPT/HCPCS: 82565; 84520; 74178; 36415; 74400; Q9967

== ENCOUNTER → 2024-10-05 | Outpatient (CLI) | payer OTHER ==
--- NOTE | 2024-10-05 13:50 | CT ---
EXAMINATION TYPE: CT abdomen pelvis wo con DATE OF EXAM: 10/05/2024 11:51 AM COMPARISON: 10/07/2023 CLINICAL INDICATION: Male, 74 years old with history of KIDNEY STONE protocol, f/u stones, pain TECHNIQUE: CT of the abdomen and pelvis without contrast. Sagittal and coronal reformats were created on a separate workstation. CT DLP: 1780.5 mGycm, Automated exposure control for dose reduction was used. FINDINGS: LOWER CHEST: Large caliber main right common artery up to 3.7 cm suggesting underlying pulmonary ashly rial hypertension. Extensive LAD and left subareolar C coronary artery calcifications are present. He art borderline enlarged. Strandy scarring/atelectasis at the lower lungs. Elevation right hemidiaphra gm. Concern for hemidiaphragmatic paralysis, a fluoroscopic still images can be performed. ABDOMEN LIVER: Unremarkable GALLBLADDER AND BILE DUCTS: Unremarkable. PANCREAS: Unremarkable. SPLEEN: Unremarkable. ADRENAL GLANDS: Unremarkable. KIDNEYS AND URETERS: 9 mm nonobstructive stone on the left and an 8 mm nonobstructive stone on the ri ght. Slightly malrotated right kidney. No hydronephrosis on either side. PELVIS BLADDER: No evidence for wall thickening or mass given limitations of exam. REPRODUCTIVE: Prostate gland mildly enlarged at 4.8 cm wide. Small pelvic phleboliths. No abnormal fl uid collection the pelvis. ABDOMEN & PELVIS STOMACH AND BOWEL: Small hiatal hernia. No evidence of bowel obstruction. Normal appendix. Mild stool burden. Generalized colonic diverticulosis. No pericolonic inflammatory change. PERITONEUM/RETROPERITONEUM: No evidence of pneumoperitoneum or free fluid. VASCULATURE: Moderate atherosclerotic calcifications abdominal aorta and mild within the common iliac arteries. Some ectasia of the infrarenal portion measuring up to 2.5 cm is unchanged. 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 There is severe degenerative disc disease in th e remainder of the lumbar spine. Degenerative grade 2 retrolisthesis L3-L4 and grade 1 retrolisthesis L2-L3. Previous laminectomy change L2-L4 levels. Degenerative bony ankylosis left SI joint. Mild deg enerative change at the hips. LYMPH NODES: A number of scattered nonenlarged and borderline sized nodes measuring up to 1.2 cm are unchanged. This suggests a benign reactive/post inflammatory etiology. SOFT TISSUE/ABDOMINAL WALL: Unremarkable IMPRESSION: 1. A nonobstructive stone within either kidney measuring up to 9 mm. No hydronephrosis on either tamiko e. 2. Mild prostatomegaly at 4.8 cm wide. 3. Incidental: Pulmonary arterial hypertension. Small hiatal hernia. Ongoing elevation of the right h emidiaphragm; it concern for hemidiaphragmatic paralysis, a fluoroscopic sniff test could be consider ed. Generalized colonic diverticulosis without acute diverticulitis. [facility], Workstation: [facility], 10/05/2024 1:47 PM
== END | disposition home or self-care (01) ==
LOC: RADCTMAIN 10:53
PROVIDERS: ATTEND Urology Pediatric Urology
DX: N20.0 Calculus of kidney (principal); I27.21 Secondary pulmonary arterial hypertension; K44.9 Diaphragmatic hernia without obstruction or gangrene; K57.30 Diverticulosis of large intestine without perforation or abscess without bleeding; N40.0 Benign prostatic hyperplasia without lower urinary tract symptoms
CPT/HCPCS: 74176

== ENCOUNTER → 2024-10-15 | Outpatient (CLI) | payer OTHER ==
[2024-10-15 13:36] LABS: African American GFR (CKD) >90 (>60 ml/min/1.73 sqM); Blood Urea Nitrogen 13 mg/dL (9-20); Non-African American GFR(CKD) 88 (>60 ml/min/1.73 sqM)
--- NOTE | 2024-10-15 14:31 | CT ---
EXAMINATION TYPE: CT angio head CT DLP: 152.3 mGycm, Automated exposure control for dose reduction was used. DATE OF EXAM: 10/15/2024 2:14 PM COMPARISON: MR brain 08/25/2024, 06/16/2023, CT brain 07/08/2019 CLINICAL INDICATION:Male, 74 years old with history of GAIT DISTURBANCE R26.89, WHITE MATTER DISEASE, UNS; PHH, abnormal MRI of brain TECHNIQUE: Axially acquired helical CT angiogram of the head was obtained with contrast utilizing 75 cc of Isovue-370 administered intravenously. Axial images are supplemented with 3D reconstructions wh ich were post-processed at an independent workstation. NASCET criteria used. Limited exam due to poor contrast bolus. FINDINGS: No evidence of acute intracranial hemorrhage, mass effect, or midline shift. The ventricles, sulci, a nd cisterns are unremarkable. The visualized portions of the internal carotid arteries, middle cerebral arteries, anterior cerebral arteries, and posterior cerebral arteries are patent. Moderate stenosis involving the cavernous and clinoid segment of both internal carotid artery secondary to severe calcified plaque. The basilar and vertebral arteries are patent. Poor evaluation of the venous sinuses due to poor contrast bolus timing. IMPRESSION: No evidence of intracranial aneurysm. Moderate stenosis involving the cavernous and clinoid segments of both internal carotid arteries secondary to severe calcified plaque. Poor evaluation of the venous sinuses due to poor contrast bolus timing. If there is continued clinical concern for venous sinus t hrombosis, this could be further evaluated with CTV or MRV. [facility], , 10/15/2024 2:29 PM
== END | disposition home or self-care (01) ==
LOC: RADCTMAIN 11:42
PROVIDERS: ATTEND Family Medicine
DX: I65.23 Occlusion and stenosis of bilateral carotid arteries (principal); R26.89 Other abnormalities of gait and mobility
CPT/HCPCS: 82565; 84520; 70496; 36415; Q9967

== ENCOUNTER → 2024-10-18 | Outpatient (CLI) | payer OTHER ==
[2024-10-18 14:47] LABS: African American GFR (CKD) 88 (>60 ml/min/1.73 sqM); Blood Urea Nitrogen 17 mg/dL (9-20); Non-African American GFR(CKD) 76 (>60 ml/min/1.73 sqM)
--- NOTE | 2024-10-19 08:25 | CT ---
EXAMINATION TYPE: CT angio abd aorta w/Runoff CT DLP: 3914.6 mGycm, Automated exposure control for dose reduction was used. DATE OF EXAM: 10/18/2024 4:27 PM COMPARISON: CT abdomen and pelvis 10/05/2024, CT urogram 10/07/2023, PET CT 12/08/2020, CT chest 10/21/19. 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 DATE OF EXAM: 10/18/2024 4:27 PM TECHNIQUE: Multiple thin slice sub-millimeter images were obtained through the abdomen, pelvis, and l ower extremities after administration of contrast. Patient was given Isovue 370, 100 cc intravenousl y. 3-D reconstructed images and maximum intensity projection images were obtained of the abdomen, pe lvis, and lower extremities. FINDINGS: CTA Abdomen and pelvis: The abdominal aorta does not demonstrate aneurysmal dilatation. Atherosclero tic plaquing is identified within the abdominal aorta. No evidence for intramural hematoma or dissect ion. The origins of the superior mesenteric artery, renal arteries, inferior mesenteric artery, and c eliac axis are patent. No significant stenosis. Mild calcified plaque within both common iliac arteri es. These are widely patent. Both internal and external iliac arteries are widely patent. CTA Lower extremities: Right: The common femoral and superficial femoral arteries are widely patent. The deep femoral artery is widely patent. The popliteal artery is widely patent. The tibioperoneal trunk is widely patent. A nterior and posterior tibial arteries as well as the peroneal artery are patent. Anterior and posteri or tibial arteries cross the ankle. Left: The common femoral and superficial femoral arteries are widely patent. The deep femoral artery is widely patent. The popliteal artery is widely patent. The tibioperoneal trunk is widely patent. An terior and posterior tibial arteries as well as the peroneal artery are patent. Anterior and posterio r tibial arteries cross the ankle. VISCERA: The liver, spleen, adrenal glands, kidneys, pancreas, and gallbladder are not optimally enha nced due the arterial phase utilized. LIVER: Unremarkable GALLBLADDER AND BILE DUCTS: Unremarkable. PANCREAS: Unremarkable. SPLEEN: Diminutive. ADRENAL GLANDS: Unremarkable. KIDNEYS AND URETERS: No evidence of hydronephrosis. Nonobstructing left renal 5 mm calculus. Nonobstr ucting right renal 8 mm calculus. Slight malrotation of both kidneys. Subcentimeter medial left renal cyst. No follow up recommended. The kidneys enhance symmetrically. PELVIS BLADDER: Unremarkable REPRODUCTIVE: Coarse calcifications of the prostate gland are identified. Mildly enlarged prostate gl and measuring 5.0 cm in transverse dimension. ABDOMEN & PELVIS STOMACH AND BOWEL: Small hiatal hernia, duodenum is unremarkable. Pancolonic diverticulosis without e vidence for acute diverticulitis. Appendicoliths within the appendix. No dilatation or surrounding in flammatory changes to suggest acute appendicitis. No evidence of bowel obstruction. PERITONEUM: No evidence of pneumoperitoneum or free fluid. MUSCULOSKELETAL: No acute osseous abnormalities. Postsurgical changes of the lumbar spine from tania ctomy involving L3-L4. Advanced multilevel degenerative disc disease. Grade 1 retrolisthesis of L2 on L3 and L3 on L4. DISH of the thoracic spine. Again changes of both SI joints with anterior bridging. Right knee osteophytic change. Postsurgical changes from medial left knee hemiarthroplasty. Postsurg ical changes with fixation screws involving the right calcaneus extending into the talus. Degenerativ e changes of the right ankle and midfoot. LYMPH NODES: No gross evidence for lymphadenopathy. SOFT TISSUE/ABDOMINAL WALL: Small fat filled left inguinal hernia. Subcutaneous edema of the distal b ilateral lower extremities with left greater than right. LOWER CHEST: Elevation of the right hemidiaphragm. Minimal bilateral lower lobe dependent subsegmenta l atelectasis. The visualized lungs are relatively clear. Mild cardiomegaly. Moderate coronary arteri al calcifications. Dilated main pulmonary artery measuring up to 4.3 cm suggesting pulmonary arterial hypertension. Bilateral gynecomastia. IMPRESSION: 1. No evidence of vascular occlusion. 2. Mild atherosclerotic disease involving abdominal aorta and lower extremity vasculature. No signif icant stenosis. 3. At least two vessels are seen crossing the ankle joint. 4. Nonobstructing bilateral renal calculi. 5. Pancolonic diverticulosis without evidence for acute diverticulitis. [facility], , 10/19/2024 8:22 AM
== END | disposition home or self-care (01) ==
LOC: RADCTMAIN 13:53
PROVIDERS: ATTEND Family Medicine
DX: I70.0 Atherosclerosis of aorta (principal); K57.30 Diverticulosis of large intestine without perforation or abscess without bleeding; R90.82 White matter disease, unspecified; N20.0 Calculus of kidney
CPT/HCPCS: 82565; 84520; 75635; 36415; Q9967